=== PATIENT | female | born 1950 | race Caucasian/White ===

== ENCOUNTER 2021-10-08 22:22 | Emergency (ER) | payer MEDICARE, SELFPAY ==
[2021-10-08 22:33] VITALS: BP 139/82; BP 145/63; PULSE 88; RESP 18; TEMP 36.6; O2SAT 94; BMI 40.1
[2021-10-08 22:36] LABS: Glucose, Whole Blood 199 mg/dL (60-115)
--- NOTE | 2021-10-08 23:04 | ED_ITS ---
HPI - General Adult General Chief complaint: General Medical Stated complaint: URINARY RETENTION Time Seen by Provider: 10/08/21 23:04 Source: patient Mode of arrival: EMS Limitations: no limitations History of Present Illness HPI narrative: Patient history of diabetes with UTI take antibiotic prophylactically for UTI complaining of holding urine with anxiety but better scan showed only 19 cc of urine patient feels anxious asking for anxiety medicine no nausea no vomiting no fever Related Data Allergies Allergy/AdvReac Type Severity Reaction Status Date / Time Penicillins Allergy Mild HIVES Unverified 03/06/20 17:42 codeine [Codeine] AdvReac Mild SWEATS Unverified 03/06/20 17:42 Review of Systems Review of Systems: Yes all other systems are reviewed and are negative [facility] Social History Social History Advance Directives: No Advance Directives Information Provided: No Physical Exam ED Vital Signs: Vital Signs - 24 hr 10/08/21 22:33 10/09/21 00:35 Temperature 97.8 F 97.3 F Pulse Rate 88 80 Respiratory Rate 18 18 Blood Pressure 139/82 160/94 H Pulse Oximetry 94 97 BMI result Body Mass Index 40.1 Appearance: Alert. Oriented X3. No acute distress. Anxious ENT: Pharynx normal. Oral Mucosa moist Neck: Normal inspection. Neck supple. CVS: Normal heart rate and rhythm. Pulses normal. Respiratory: No respiratory distress. Equal air entry bilateral Abdomen: Soft and nontender. Bowel sounds are present, no mass palpable, no CVA tenderness Skin: Skin warm and dry. Normal skin color. Normal skin turgor. Extremities: No lower extremity edema. Neuro: Oriented X 3. No motor deficit. No sensory deficit.No cerebellar signs , cranial nerves II-XII intact Medical Decision Making MDM Narrative Medical decision making narrative: Patient with no UTI findings no urinary retention feels anxious on arrival feel better after Ativan discharge patient home Lab Data Labs: Lab Results 10/08/21 10/09/21 Range/Units 22:33 00:01 POC Glucose 199 H (60-115) mg/dL Urine Color YELLOW Urine Appearance CLEAR Urine pH 7.0 (5.0-8.0) Ur Specific [place] 1.010 (1.005-1.025) Urine Protein TRACE (NEG-TRACE) MG/DL Urine Glucose (UA) NEG (NEG) MG/DL Urine Ketones NEG (NEG) MG/DL Urine Blood TRACE (NEG) Urine Nitrite NEG (NEG) Ur Leukocyte Esterase NEG (NEG) Urine RBC 0-2 (0) /HPF Urine WBC 0-2 (0-4) /HPF Ur Squamous Epith Cells 3+ /LPF Urine Bacteria 1+ /LPF Discharge Plan Discharge Clinical Impression: Anxiety Patient Disposition: Home, Self-Care Instructions: Anxiety (ED) Additional Instructions: Drink plenty of fluids Take your medications and follow up with PCP
[2021-10-08] MEDS: Phenazopyridine HCL 200 MG TABLET PO (23:55)
[2021-10-08] MEDS: LORazepam 1 MG TABLET PO (23:55)
[2021-10-09 00:12] LABS: Appearance Urine CLEAR; Color Urine YELLOW; Glucose Urine UA NEG (NEG); Leukocyte Esterase Urine NEG (NEG); Nitrite Urine NEG (NEG); UACC Culture Trigger NO; Urine Blood TRACE (NEG); Urine Ketones NEG (NEG); Urine Protein TRACE MG/DL (NEG-TRACE)
[2021-10-09 00:18] LABS: Bacteria Urine 1+ /LPF; RBC Urine 0-2 /HPF (0); Squamous Epithelial Cell Urine 3+ /LPF; WBC Urine 0-2 /HPF (0-4)
[2021-10-09 00:35] VITALS: BP 160/94; PULSE 80; RESP 18; TEMP 36.3; O2SAT 97
== END 2021-10-09 01:23 | disposition home or self-care (01) ==
PROVIDERS: Emergency Provider Internal Medicine
DX: R33.9 Retention of urine, unspecified (principal); F41.1 Generalized anxiety disorder; F43.0 Acute stress reaction
CPT/HCPCS: 81001; 82947; 99283; 99284

== ENCOUNTER 2022-03-18 21:54 | Observation (INO) | payer MEDICARE, SELFPAY ==
--- NOTE | ~2022-03-18 | CT_ITS ---
EXAMINATION: CT HEAD WITHOUT CONTRAST CLINICAL INFORMATION: Altered status COMPARISON: None TECHNIQUE: Contiguous axial imaging was performed from the skull base to vertex without intravenous administration of contrast. This CT examination was performed using dose optimization techniques as appropriate, variously including the following: *Automated exposure control *Adjustment of mA and/or kV according to patient size (this includes techniques or standardized protocols for targeted exams where dose is matched to indication/reason for exam; i.e. extremities or head) *Use of iterative reconstruction technique DLP: 1908 mGy-cm FINDINGS: Images degraded by motion artifact. There is no evidence of acute intracranial hemorrhage or territorial infarction. No abnormal mass effect or midline shift is seen. Smith to white matter differentiation is well preserved. No extra-axial fluid collections are identified. No hydrocephalus. No significant volume loss. There is no abnormal attenuation within the brain parenchyma. No acute osseous or soft tissue abnormality. The mastoid air cells and visualized portions of the paranasal sinuses are well aerated. CT/CT head/brain wo IV con IMPRESSION: Limited exam. No acute intracranial pathology.
--- NOTE | ~2022-03-18 | XR_ITS ---
EXAMINATION: XR CHEST CLINICAL INFORMATION: Altered mental status COMPARISON: CT chest 10/09/2019 TECHNIQUE: Frontal view of the chest was obtained. FINDINGS: Mild cardiac enlargement. No evidence of CHF. The lungs are poorly ventilated. Some coarse markings are present at the lung bases. No consolidations, suspicious lung masses or pleural effusions are seen XR/XR chest 1V IMPRESSION: No acute intrathoracic disease
[2022-03-18 22:00] VITALS: BP 115/52; PULSE 100; O2SAT 95
--- NOTE | 2022-03-18 22:01 | ECG_ITS ---
Test Reason : ALTERED MENTAL Blood Pressure : / mmHG Vent. Rate : 115 BPM Atrial Rate : 115 BPM P-R Int : 122 ms QRS Dur : 114 ms QT Int : 392 ms P-R-T Axes : 009 -30 027 degrees QTc Int : 542 ms Sinus tachycardia Left axis deviation Moderate voltage criteria for LVH, may be normal variant ( R in aVL , Samy product ) Possible Anterior infarct (cited on or before 18-MAR-2022) Prolonged QT Abnormal ECG When compared with ECG of 18-MAR-2022 22:03, No significant change was found Referred By: Addison Pedersen Electronically Signed By:WILD FLEMING
[2022-03-18 22:41] LABS: MANUAL DIFF FLAG NO
[2022-03-18 22:44] LABS: Venous Blood Gas Refer to POC result
[2022-03-18 22:46] LABS: Basophils Percent Auto 0.2 % (0-2); Eosinophils Percent Auto 0.1 % (0-4); Hemoglobin 13.9 g/dl (12.0-16.0); Imm Gran Pct Auto 0.6 % (0.0-0.4); Lymphocytes Absolute Auto 2.7 X10*3/uL (1.2-4.9); Lymphocytes Percent Auto 15.1 % (20-40); Mean Corpuscular HGB Conc 32.3 g/dl (31.0-35.0); Mean Corpuscular Hemoglobin 29.6 pg (27.0-33.0); Mean Corpuscular Volume 91.7 fL (80.0-98.0); Monocytes Absolute Auto 1.4 X10*3/uL (0.1-1.2); Monocytes Percent Auto 7.5 % (2-11); Neutrophils Absolute Auto 13.7 x10*3/uL (2.0-8.3); Neutrophils Percent Auto 76.5 % (45-73); Platelet Count 235 X10*3/uL (160-400); Red Blood Count 4.69 X10*6/uL (4.20-5.50); Red Cell Distribution Width 13.4 % (11.0-16.0); White Blood Count 17.9 X10*3/uL (4.8-10.8)
[2022-03-18 22:46] LABS: VBG Base Excess -1.2 mmol/L; VBG HCO3 22 mmol/L (22-26); VBG pCO2 32 mmHg; VBG pH 7.43 (7.32-7.43); VBG pO2 55 mmHg
[2022-03-18 22:48] LABS: Ammonia 29 umol/L (13-55); INTERNATIONAL NORM RATIO 1.2 (0.9-1.1); Prothrombin Time 13.9 SEC (10.0-13.1)
[2022-03-18 23:02] LABS: COVID-19 Test Negative (Negative)
[2022-03-18 23:03] LABS: Alanine Aminotransferase 39 U/L (0-31); Albumin Level 3.9 g/dL (3.5-5.0); Alkaline Phosphatase 80 U/L (39-117); Anion Gap 26 (12-20); Aspartate Amino Transferase 40 U/L (5-31); Bilirubin Total 0.5 mg/dL (0.0-1.0); Blood Urea Nitrogen 30 mg/dL (9-16); Calcium 9.1 mg/dL (8.4-10.2); Carbon Dioxide 20 mmol/L (22-29); Chloride 96 mmol/L (96-108); Estimated Glomerular Filt Rate 45; Glucose Random 385 mg/dL (60-115); Potassium 3.9 mmol/L (3.3-5.1); Sodium 138 mmol/L (135-145); Total Protein 7.3 g/dL (6.5-8.0)
[2022-03-18 23:13] VITALS: BP 129/61; PULSE 119; RESP 22; TEMP 37.2; O2SAT 97; BMI 43.0
[2022-03-18 23:16] LABS: Troponin-I High Sensitivity < 3.5 ng/L (<3.5-17.0)
--- NOTE | 2022-03-18 23:16 | ED_ITS ---
HPI - Altered Mental Status General Chief Complaint: Altered Mental Status Stated Complaint: AMS Time Seen by Provider: 03/18/22 22:00 Source: EMS Mode of arrival: EMS Limitations: altered mental status History of Present Illness HPI narrative: Patient with history of diabetes, frequent UTI brought by EMS for AMS. Apparently patient's spouse talked to her at 10:30 am she told him not to wake her up but she wants to sleep and she is tired as could not sleep last night. when came back at 14:30 she was in the bed at 17:00 when she did wake up got worried tried to wake her up and when she did not ,prior to arrival she he called the ambulance. When EMS reached they found empty bottle of oxyco done next to her. Pupils are pinpoint, no seizures , slurred speech, EMS gave her 1 mg of Narcan IV patient woke up move her all 4 extremities no signs of injury but still confused Related Data Allergies Allergy/AdvReac Type Severity Reaction Status Date / Time Penicillins Allergy Mild HIVES Unverified 03/06/20 17:42 codeine [Codeine] AdvReac Mild SWEATS Unverified 03/06/20 17:42 Review of Systems Review of Systems: Yes all other systems are reviewed and are negative [facility] Social History Social History Advance Directives: No Advance Directives Information Provided: No Physical Exam ED Vital Signs: Vital Signs - 24 hr 03/18/22 23:13 03/19/22 00:05 03/19/22 02:00 Temperature 98.9 F Pulse Rate 119 H 102 H 94 Respiratory Rate 22 H 20 16 Blood Pressure 129/61 Pulse Oximetry 97 96 Oxygen Delivery Method Nasal Cannula Nasal Cannula with ETCO2 Nasal Cannula with ETCO2 BMI result Body Mass Index 43.0 Appearance: Lethargic obese confused. Restless Eyes: PERRLA, No Nystagmus ENT: Pharynx normal. Oral Mucosa moist Neck: Normal inspection. Neck supple. CVS: Normal heart rate and rhythm. Pulses normal. Respiratory: No respiratory distress. Equal air entry bilateral, no wheezing/rales/rhonchi Abdomen: Soft and nontender. Bowel sounds are present, no mass palpable, no CVA tenderness Skin: Skin warm and dry. Normal skin color. Normal skin turgor. Extremities: No lower extremity edema. No calf tenderness Neuro: Lethargic and confused moving all 4 extremities Course Reevaluation(s) Reevaluation #1: Patient with acute metabolic encephalopathy etiology is not very clear workup so far is negative patient improved during stay in ER history took 1 extra oxycodone but is still groggy and sleepy able to stand but very confused has elevated lactic acid level was normal procalcitonin is no source of infection seen received prophylactic antibiotics blood cultures drawn CT head is negative no focal exam will admit patient for metabolic encephalopathy and anion gap metabolic acidosis Time: 04:22 MDM - Altered Mental Status MDM Narrative Medical decision making narrative: Patient acute metabolic encephalopathy etiology not very clear likely oxycodone overdose will admit the patient for IV hydration close watch will give prophylactic antibiotic for and anger metabolic acidosis with lactic acidosis although procalcitonin level is normal Lab Data Attestation: I reviewed the patient's lab results. Result diagrams: 03/18/22 22:34 03/18/22 22:34 Labs: Lab Results 03/18/22 03/18/22 03/18/22 Range/Units 22:34 22:34 22:34 WBC 17.9 H (4.8-10.8) X10*3/uL RBC 4.69 (4.20-5.50) X10*6/uL Hgb 13.9 (12.0-16.0) g/dl Hct 43.0 (37.0-47.0) % MCV 91.7 (80.0-98.0) fL MCH 29.6 (27.0-33.0) pg MCHC 32.3 (31.0-35.0) g/dl RDW 13.4 (11.0-16.0) % Plt Count 235 (160-400) X10*3/uL MPV 11.0 (9.4-12.3) fL Immature Gran % (Auto) 0.6 H (0.0-0.4) % Neut % (Auto) 76.5 H (45-73) % Lymph % (Auto) 15.1 L (20-40) % [place] % (Auto) 7.5 (2-11) % Eos % (Auto) 0.1 (0-4) % Baso % (Auto) 0.2 (0-2) % Lymph # (Auto) 2.7 (1.2-4.9) X10*3/uL [place] # (Auto) 1.4 H (0.1-1.2) X10*3/uL Eos # (Auto) 0.0 (0.0-0.4) X10*3/uL Baso # (Auto) 0.0 (0.0-0.2) X10*3/uL Abs Immat Gran (auto) 0.10 H (0.00-0.03) X10*3/uL Absolute Neuts (auto) 13.7 H (2.0-8.3) x10*3/uL Absolute Nucleated RBC 0.000 (0.0-0.012) X10*3/uL Nucleated RBC % (auto) 0.0 (0.0-0.2) /100WBC PT 13.9 H (10.0-13.1) SEC INR 1.2 H (0.9-1.1) VBG pH (7.32-7.43) VBG pCO2 mmHg VBG pO2 mmHg VBG HCO3 (22-26) mmol/L VBG O2 Saturation % VBG Base Excess mmol/L Sodium 138 (135-145) mmol/L Potassium 3.9 (3.3-5.1) mmol/L Chloride 96 (96-108) mmol/L Carbon Dioxide 20 L (22-29) mmol/L Anion Gap 26 H (12-20) BUN 30 H (9-16) mg/dL Creatinine 1.17 (0.5-1.4) mg/dL Estim Creat Clear Calc TNP Estimated GFR 45 POC Glucose (60-115) mg/dL Random Glucose 385 H* (60-115) mg/dL Lactic Acid (0.5-2.0) mmol/L Lactic Acid F/U @ 2Hr (0.5-2.0) mmol/L Calcium 9.1 (8.4-10.2) mg/dL Total Bilirubin 0.5 (0.0-1.0) mg/dL AST 40 H (5-31) U/L ALT 39 H (0-31) U/L Alkaline Phosphatase 80 (39-117) U/L Ammonia (13-55) umol/L Total Creatine Kinase 730 H (26-140) U/L Troponin I High Sens (<3.5-17.0) ng/L Total Protein 7.3 (6.5-8.0) g/dL Albumin 3.9 (3.5-5.0) g/dL Procalcitonin ng/mL Urine Color Urine Appearance Urine pH (5.0-9.0) Ur Specific [place] (1.005-1.025) Urine Protein (Neg-Trace) mg/dL Urine Glucose (UA) (Negative) mg/dL Urine Ketones (Negative) mg/dL Urine Blood (Negative) Urine Nitrite (Negative) Ur Leukocyte Esterase (Negative) Urine RBC (0-2) /HPF Urine WBC (0-5) /HPF Ur Squamous Epith Cells (0-2) /HPF Urine Bacteria (None Seen) Hyaline Casts (0-2) /LPF Urine Yeast Urine Opiates Screen (Not Detect) Urine Fentanyl Screen (Not Detect) Ur Barbiturates Screen (Not Detect) Ur Phencyclidine Scrn (Not Detect) Ur Amphetamines Screen (Not Detect) U Benzodiazepines Scrn (Not Detect) Urine Cocaine Screen (Not Detect) U Marijuana (THC) Screen (Not Detect) COVID-19 (DOUGLAS) (Negative) COVID-19 Clin Com HIV 1&2 Ab/P24 Ag 4thGn (Nonreactive) 03/18/22 03/18/22 03/18/22 Range/Units 22:34 22:34 22:34 WBC (4.8-10.8) X10*3/uL RBC (4.20-5.50) X10*6/uL Hgb (12.0-16.0) g/dl Hct (37.0-47.0) % MCV (80.0-98.0) fL MCH (27.0-33.0) pg MCHC (31.0-35.0) g/dl RDW (11.0-16.0) % Plt Count (160-400) X10*3/uL MPV (9.4-12.3) fL Immature Gran % (Auto) (0.0-0.4) % Neut % (Auto) (45-73) % Lymph % (Auto) (20-40) % [place] % (Auto) (2-11) % Eos % (Auto) (0-4) % Baso % (Auto) (0-2) % Lymph # (Auto) (1.2-4.9) X10*3/uL [place] # (Auto) (0.1-1.2) X10*3/uL Eos # (Auto) (0.0-0.4) X10*3/uL Baso # (Auto) (0.0-0.2) X10*3/uL Abs Immat Gran (auto) (0.00-0.03) X10*3/uL Absolute Neuts (auto) (2.0-8.3) x10*3/uL Absolute Nucleated RBC (0.0-0.012) X10*3/uL Nucleated RBC % (auto) (0.0-0.2) /100WBC PT (10.0-13.1) SEC INR (0.9-1.1) VBG pH (7.32-7.43) VBG pCO2 mmHg VBG pO2 mmHg VBG HCO3 (22-26) mmol/L VBG O2 Saturation % VBG Base Excess mmol/L Sodium (135-145) mmol/L Potassium (3.3-5.1) mmol/L Chloride (96-108) mmol/L Carbon Dioxide (22-29) mmol/L Anion Gap (12-20) BUN (9-16) mg/dL Creatinine (0.5-1.4) mg/dL Estim Creat Clear Calc Estimated GFR POC Glucose (60-115) mg/dL Random Glucose (60-115) mg/dL Lactic Acid (0.5-2.0) mmol/L Lactic Acid F/U @ 2Hr (0.5-2.0) mmol/L Calcium (8.4-10.2) mg/dL Total Bilirubin (0.0-1.0) mg/dL AST (5-31) U/L ALT (0-31) U/L Alkaline Phosphatase (39-117) U/L Ammonia 29 (13-55) umol/L Total Creatine Kinase (26-140) U/L Troponin I High Sens < 3.5 (<3.5-17.0) ng/L Total Protein (6.5-8.0) g/dL Albumin (3.5-5.0) g/dL Procalcitonin ng/mL Urine Color Urine Appearance Urine pH (5.0-9.0) Ur Specific [place] (1.005-1.025) Urine Protein (Neg-Trace) mg/dL Urine Glucose (UA) (Negative) mg/dL Urine Ketones (Negative) mg/dL Urine Blood (Negative) Urine Nitrite (Negative) Ur Leukocyte Esterase (Negative) Urine RBC (0-2) /HPF Urine WBC (0-5) /HPF Ur Squamous Epith Cells (0-2) /HPF Urine Bacteria (None Seen) Hyaline Casts (0-2) /LPF Urine Yeast Urine Opiates Screen (Not Detect) Urine Fentanyl Screen (Not Detect) Ur Barbiturates Screen (Not Detect) Ur Phencyclidine Scrn (Not Detect) Ur Amphetamines Screen (Not Detect) U Benzodiazepines Scrn (Not Detect) Urine Cocaine Screen (Not Detect) U Marijuana (THC) Screen (Not Detect) COVID-19 (DOUGLAS) Negative (Negative) COVID-19 Clin Com See Note HIV 1&2 Ab/P24 Ag 4thGn (Nonreactive) 03/18/22 03/18/22 03/19/22 Range/Units 22:40 23:04 00:34 WBC (4.8-10.8) X10*3/uL RBC (4.20-5.50) X10*6/uL Hgb (12.0-16.0) g/dl Hct (37.0-47.0) % MCV (80.0-98.0) fL MCH (27.0-33.0) pg MCHC (31.0-35.0) g/dl RDW (11.0-16.0) % Plt Count (160-400) X10*3/uL MPV (9.4-12.3) fL Immature Gran % (Auto) (0.0-0.4) % Neut % (Auto) (45-73) % Lymph % (Auto) (20-40) % [place] % (Auto) (2-11) % Eos % (Auto) (0-4) % Baso % (Auto) (0-2) % Lymph # (Auto) (1.2-4.9) X10*3/uL [place] # (Auto) (0.1-1.2) X10*3/uL Eos # (Auto) (0.0-0.4) X10*3/uL Baso # (Auto) (0.0-0.2) X10*3/uL Abs Immat Gran (auto) (0.00-0.03) X10*3/uL Absolute Neuts (auto) (2.0-8.3) x10*3/uL Absolute Nucleated RBC (0.0-0.012) X10*3/uL Nucleated RBC % (auto) (0.0-0.2) /100WBC PT (10.0-13.1) SEC INR (0.9-1.1) VBG pH 7.43 (7.32-7.43) VBG pCO2 32 mmHg VBG pO2 55 mmHg VBG HCO3 22 (22-26) mmol/L VBG O2 Saturation 89.0 % VBG Base Excess -1.2 mmol/L Sodium (135-145) mmol/L Potassium (3.3-5.1) mmol/L Chloride (96-108) mmol/L Carbon Dioxide (22-29) mmol/L Anion Gap (12-20) BUN (9-16) mg/dL Creatinine (0.5-1.4) mg/dL Estim Creat Clear Calc Estimated GFR POC Glucose (60-115) mg/dL Random Glucose (60-115) mg/dL Lactic Acid (0.5-2.0) mmol/L Lactic Acid F/U @ 2Hr (0.5-2.0) mmol/L Calcium (8.4-10.2) mg/dL Total Bilirubin (0.0-1.0) mg/dL AST (5-31) U/L ALT (0-31) U/L Alkaline Phosphatase (39-117) U/L Ammonia (13-55) umol/L Total Creatine Kinase (26-140) U/L Troponin I High Sens (<3.5-17.0) ng/L Total Protein (6.5-8.0) g/dL Albumin (3.5-5.0) g/dL Procalcitonin ng/mL Urine Color Urine Appearance Urine pH (5.0-9.0) Ur Specific [place] (1.005-1.025) Urine Protein (Neg-Trace) mg/dL Urine Glucose (UA) (Negative) mg/dL Urine Ketones (Negative) mg/dL Urine Blood (Negative) Urine Nitrite (Negative) Ur Leukocyte Esterase (Negative) Urine RBC (0-2) /HPF Urine WBC (0-5) /HPF Ur Squamous Epith Cells (0-2) /HPF Urine Bacteria (None Seen) Hyaline Casts (0-2) /LPF Urine Yeast Urine Opiates Screen Not Detected (Not Detect) Urine Fentanyl Screen Not Detected (Not Detect) Ur Barbiturates Screen Not Detected (Not Detect) Ur Phencyclidine Scrn Not Detected (Not Detect) Ur Amphetamines Screen Not Detected (Not Detect) U Benzodiazepines Scrn Not Detected (Not Detect) Urine Cocaine Screen Not Detected (Not Detect) U Marijuana (THC) Screen Not Detected (Not Detect) COVID-19 (DOUGLAS) (Negative) COVID-19 Clin Com HIV 1&2 Ab/P24 Ag 4thGn Nonreactive (Nonreactive) 03/19/22 03/19/22 03/19/22 Range/Units 00:35 02:07 02:42 WBC (4.8-10.8) X10*3/uL RBC (4.20-5.50) X10*6/uL Hgb (12.0-16.0) g/dl Hct (37.0-47.0) % MCV (80.0-98.0) fL MCH (27.0-33.0) pg MCHC (31.0-35.0) g/dl RDW (11.0-16.0) % Plt Count (160-400) X10*3/uL MPV (9.4-12.3) fL Immature Gran % (Auto) (0.0-0.4) % Neut % (Auto) (45-73) % Lymph % (Auto) (20-40) % [place] % (Auto) (2-11) % Eos % (Auto) (0-4) % Baso % (Auto) (0-2) % Lymph # (Auto) (1.2-4.9) X10*3/uL [place] # (Auto) (0.1-1.2) X10*3/uL Eos # (Auto) (0.0-0.4) X10*3/uL Baso # (Auto) (0.0-0.2) X10*3/uL Abs Immat Gran (auto) (0.00-0.03) X10*3/uL Absolute Neuts (auto) (2.0-8.3) x10*3/uL Absolute Nucleated RBC (0.0-0.012) X10*3/uL Nucleated RBC % (auto) (0.0-0.2) /100WBC PT (10.0-13.1) SEC INR (0.9-1.1) VBG pH (7.32-7.43) VBG pCO2 mmHg VBG pO2 mmHg VBG HCO3 (22-26) mmol/L VBG O2 Saturation % VBG Base Excess mmol/L Sodium (135-145) mmol/L Potassium (3.3-5.1) mmol/L Chloride (96-108) mmol/L Carbon Dioxide (22-29) mmol/L Anion Gap (12-20) BUN (9-16) mg/dL Creatinine (0.5-1.4) mg/dL Estim Creat Clear Calc Estimated GFR POC Glucose (60-115) mg/dL Random Glucose (60-115) mg/dL Lactic Acid 3.7 H* (0.5-2.0) mmol/L Lactic Acid F/U @ 2Hr (0.5-2.0) mmol/L Calcium (8.4-10.2) mg/dL Total Bilirubin (0.0-1.0) mg/dL AST (5-31) U/L ALT (0-31) U/L Alkaline Phosphatase (39-117) U/L Ammonia (13-55) umol/L Total Creatine Kinase (26-140) U/L Troponin I High Sens (<3.5-17.0) ng/L Total Protein (6.5-8.0) g/dL Albumin (3.5-5.0) g/dL Procalcitonin 0.18 ng/mL Urine Color Yellow Urine Appearance Clear Urine pH 6.0 (5.0-9.0) Ur Specific [place] 1.025 (1.005-1.025) Urine Protein 30 (1+) H (Neg-Trace) mg/dL Urine Glucose (UA) >=1000 H (Negative) mg/dL Urine Ketones Negative (Negative) mg/dL Urine Blood Negative (Negative) Urine Nitrite Negative (Negative) Ur Leukocyte Esterase Negative (Negative) Urine RBC 0-2 (0-2) /HPF Urine WBC 0-5 (0-5) /HPF Ur Squamous Epith Cells 0-2 (0-2) /HPF Urine Bacteria Trace (None Seen) Hyaline Casts 0-2 (0-2) /LPF Urine Yeast Present Urine Opiates Screen (Not Detect) Urine Fentanyl Screen (Not Detect) Ur Barbiturates Screen (Not Detect) Ur Phencyclidine Scrn (Not Detect) Ur Amphetamines Screen (Not Detect) U Benzodiazepines Scrn (Not Detect) Urine Cocaine Screen (Not Detect) U Marijuana (THC) Screen (Not Detect) COVID-19 (DOUGLAS) (Negative) COVID-19 Clin Com HIV 1&2 Ab/P24 Ag 4thGn (Nonreactive) 03/19/22 03/19/22 Range/Units 04:48 04:50 WBC (4.8-10.8) X10*3/uL RBC (4.20-5.50) X10*6/uL Hgb (12.0-16.0) g/dl Hct (37.0-47.0) % MCV (80.0-98.0) fL MCH (27.0-33.0) pg MCHC (31.0-35.0) g/dl RDW (11.0-16.0) % Plt Count (160-400) X10*3/uL MPV (9.4-12.3) fL Immature Gran % (Auto) (0.0-0.4) % Neut % (Auto) (45-73) % Lymph % (Auto) (20-40) % [place] % (Auto) (2-11) % Eos % (Auto) (0-4) % Baso % (Auto) (0-2) % Lymph # (Auto) (1.2-4.9) X10*3/uL [place] # (Auto) (0.1-1.2) X10*3/uL Eos # (Auto) (0.0-0.4) X10*3/uL Baso # (Auto) (0.0-0.2) X10*3/uL Abs Immat Gran (auto) (0.00-0.03) X10*3/uL Absolute Neuts (auto) (2.0-8.3) x10*3/uL Absolute Nucleated RBC (0.0-0.012) X10*3/uL Nucleated RBC % (auto) (0.0-0.2) /100WBC PT (10.0-13.1) SEC INR (0.9-1.1) VBG pH (7.32-7.43) VBG pCO2 mmHg VBG pO2 mmHg VBG HCO3 (22-26) mmol/L VBG O2 Saturation % VBG Base Excess mmol/L Sodium (135-145) mmol/L Potassium (3.3-5.1) mmol/L Chloride (96-108) mmol/L Carbon Dioxide (22-29) mmol/L Anion Gap (12-20) BUN (9-16) mg/dL Creatinine (0.5-1.4) mg/dL Estim Creat Clear Calc Estimated GFR POC Glucose 275 H (60-115) mg/dL Random Glucose (60-115) mg/dL Lactic Acid (0.5-2.0) mmol/L Lactic Acid F/U @ 2Hr 2.5 H* (0.5-2.0) mmol/L Calcium (8.4-10.2) mg/dL Total Bilirubin (0.0-1.0) mg/dL AST (5-31) U/L ALT (0-31) U/L Alkaline Phosphatase (39-117) U/L Ammonia (13-55) umol/L Total Creatine Kinase (26-140) U/L Troponin I High Sens (<3.5-17.0) ng/L Total Protein (6.5-8.0) g/dL Albumin (3.5-5.0) g/dL Procalcitonin ng/mL Urine Color Urine Appearance Urine pH (5.0-9.0) Ur Specific [place] (1.005-1.025) Urine Protein (Neg-Trace) mg/dL Urine Glucose (UA) (Negative) mg/dL Urine Ketones (Negative) mg/dL Urine Blood (Negative) Urine Nitrite (Negative) Ur Leukocyte Esterase (Negative) Urine RBC (0-2) /HPF Urine WBC (0-5) /HPF Ur Squamous Epith Cells (0-2) /HPF Urine Bacteria (None Seen) Hyaline Casts (0-2) /LPF Urine Yeast Urine Opiates Screen (Not Detect) Urine Fentanyl Screen (Not Detect) Ur Barbiturates Screen (Not Detect) Ur Phencyclidine Scrn (Not Detect) Ur Amphetamines Screen (Not Detect) U Benzodiazepines Scrn (Not Detect) Urine Cocaine Screen (Not Detect) U Marijuana (THC) Screen (Not Detect) COVID-19 (DOUGLAS) (Negative) COVID-19 Clin Com HIV 1&2 Ab/P24 Ag 4thGn (Nonreactive) ECG Data ECG #1: Attestation: I personally reviewed and interpreted this ECG as follows: Interpretation: Since the cardia with heart rate 115 beats per minute LVH prolonged QT interval [address] T wave changes no acute ischemia Critical Care Time Critical Care Time Critical Care Time: Yes Total Critical Care Time: 55 Attestation: I spent 55 minutes of critical care, with interventions, assessments, speaking to patient, consultants, and family. Discharge Plan Discharge Clinical Impression: Acute metabolic encephalopathy, Acidosis, lactic, High anion gap metabolic acidosis, Overdose Patient Disposition: Admitted As Inpatient
[2022-03-18] MEDS: 0.9 % Sodium Chloride 1,000 ML 999 ML IV (23:19)
[2022-03-18] MEDS: Insulin Lispro 100 UNIT/ML 3 ML VIAL 10 UNIT SUBCUT (23:23)
[2022-03-19] VITALS (9 sets, daily range): BP systolic 104–163; BP diastolic 63–78; PULSE 88–102; RESP 16–20; TEMP 36.3–37.5; O2SAT 94–97
[2022-03-19 00:07] LABS: HIV AB/AG Nonreactive (Nonreactive)
[2022-03-19 00:43] LABS: Appearance Urine Clear; Color Urine Yellow; Glucose Urine UA >=1000 mg/dL (Negative); Leukocyte Esterase Urine Negative (Negative); Nitrite Urine Negative (Negative); Specific Gravity - Urine 1.025 (1.005-1.025); UMIC TRIGGER UACC YES; Urine Blood Negative (Negative); Urine Ketones Negative (Negative); Urine Protein 30 (1+) mg/dL (Neg-Trace)
[2022-03-19 00:53] LABS: Amphetamine Screen Urine Not Detected (Not Detect); Barbiturates, Urine Not Detected (Not Detect); Benzodiazepines Screen Urine Not Detected (Not Detect); Cannabinoid Screen Urine Not Detected (Not Detect); Cocaine Screen Urine Not Detected (Not Detect); Fentanyl, urine Not Detected (Not Detect); Opiate Screen Urine Not Detected (Not Detect); Phencyclidine Screen Urine Not Detected (Not Detect)
[2022-03-19 01:14] LABS: Bacteria Urine Trace (None Seen); Hyaline Casts Urine 0-2 /LPF (0-2); RBC Urine 0-2 /HPF (0-2); Squamous Epithelial Cell Urine 0-2 /HPF (0-2); WBC Urine 0-5 /HPF (0-5)
[2022-03-19] MEDS: 0.9 % Sodium Chloride 1,000 ML 999 ML IV ×2 (02:19→03:48)
[2022-03-19 02:28] LABS: Lactic Acid 3.7 mmol/L (0.5-2.0)
[2022-03-19] MEDS: cefTRIAXone sodium 1 GM in 0.9 % Sodium Chloride 50 ML IV (03:00)
[2022-03-19 04:09] LABS: Reflex Lactate? Lactic Acid Added
[2022-03-19 04:21] LABS: Procalcitonin 0.18 ng/mL
[2022-03-19 04:54] LABS: Glucose, Whole Blood 275 mg/dL (60-115)
--- NOTE | 2022-03-19 05:05 | PC.NURSE ---
Dr. Westfall notified of POC 275.
[2022-03-19 05:12] LABS: ~Lactic Acid-LAB USE ONLY 2.5 mmol/L (0.5-2.0)
--- NOTE | 2022-03-19 05:12 | PC.NURSE ---
Patient is alert, confused, speech is slurred and incoherent. This RN and [facility], technology analyst attempted to ambulate with patient. Patient provided a walker d/t noted issue with balance and ability to follow commands. Patient was able to stand up holding to a walker with 2 assist. Patient is able to bear her weight, but unable to ambulate d/t leg weakness and confusion. Patient failed PO trial-she is confused and was blowing on water instead of drinking it. Dr. Westfall notified.
--- OUTSIDE RECORDS SUMMARY | 2022-03-19 05:24 | XMS_ITS | Continuity of Care Document ---
:1950 Author Organization [facility] Address [address] [address]- Care Team Providers Name Role Phone Latricia BARNES, Conor Hernandez Primary Care Physician Encounter [facility] [place] Date(s): 04/15/21 - 05/15/21 [place] [id number] [address]- Attending Physician: Landon Arriaga Admitting Physician: Landon Arriaga Referring Physician: Admtr, Ar8 Allergies, Adverse Reactions, Alerts Substance Reaction Severity Status codeine COLD SWEAT Active penicillin Hives Active Medications megestrol 40 mg oral tablet 2 tablet = 80 mg, By Mouth, 2 times a day, # 120 tablet, 6 Refills, Maintenance Start Date: 10/29/11 Status: Ordered
--- OUTSIDE RECORDS SUMMARY | 2022-03-19 05:24 | XMS_ITS | Continuity of Care Document ---
:1950 Author Organization [facility] Address [address] [place] [id number]- Care Team Providers Name Role Phone Latricia BARNES, Conor Hernandez Primary Care Physician Encounter [facility] [place] Date(s): 04/03/21 - 05/03/21 [place] [id number] [address]- [place] Allergies, Adverse Reactions, Alerts Substance Reaction Severity Status codeine COLD SWEAT Active penicillin Hives Active Medications megestrol 40 mg oral tablet 2 tablet = 80 mg, By Mouth, 2 times a day, # 120 tablet, 6 Refills, Maintenance Start Date: 10/29/11 Status: Ordered
--- OUTSIDE RECORDS SUMMARY | 2022-03-19 05:24 | XMS_ITS | Continuity of Care Document ---
:1950 Author Organization [facility] Address [address] [place] [id number]- Care Team Providers Name Role Phone Latricia BARNES, Conor Hernandez Primary Care Physician Encounter [facility] [place] Date(s): 04/03/21 - 05/15/[address] [address]- Attending Physician: Radha Grijalva MD Admitting Physician: Radha Grijalva MD Referring Physician: Malena Muse NP Allergies, Adverse Reactions, Alerts Substance Reaction Severity Status codeine COLD SWEAT Active penicillin Hives Active Medications megestrol 40 mg oral tablet 2 tablet = 80 mg, By Mouth, 2 times a day, # 120 tablet, 6 Refills, Maintenance Start Date: 10/29/11 Status: Ordered
[2022-03-19 06:10] LABS: HBS Num1 1.08 mIU/mL (0-7.99); HBc Num1 0.38 S/CO (0.00-0.79); HBsAGNum1 0.23 S/CO (0.00-0.99); HIV Num 1 0.08 S/CO (0.00-0.99); Hepatitis B Core Antibody Nonreactive (Nonreactive); Hepatitis B Surface Antigen Negative (Negative); ~HepC Num1 0.19 S/CO (0.00-0.79); ~Hepatitis B Surface Antibody NONREACTIVE (Nonreactive)
[2022-03-19 06:50] LABS: Reflex Lactate? 2 Y
--- NOTE | 2022-03-19 07:25 | ECG_ITS ---
Test Reason : tachycardia Blood Pressure : / mmHG Vent. Rate : 119 BPM Atrial Rate : 119 BPM P-R Int : 118 ms QRS Dur : 108 ms QT Int : 372 ms P-R-T Axes : 011 -28 026 degrees QTc Int : 523 ms Sinus tachycardia Moderate voltage criteria for LVH, may be normal variant ( R in aVL , Samy product ) Anterior infarct , age undetermined Prolonged QT Abnormal ECG When compared with ECG of 09-OCT-2019 16:06, Vent. rate has increased BY 43 BPM Anterior infarct is now Present T wave amplitude has increased in Anterior leads Referred By: Addison Pedersen Electronically Signed By:WILD FLEMING
--- NOTE | 2022-03-19 07:36 | PC.NURSE ---
Pt is alert and oriented x3, able to recite where she lives and husbands name. Pt noted with slurred speech but appropriate. At times answers not making sense and some difficulty with simple commands. Other neuros appear intact..Skin is warm, pink and dry. Second IV access to left forearm. Fluids continue to infuse. Repeat lactic drawn/sent. NSR on tele. VSS. Placed on hospital bed for safety/comfort. Breathing even/unlabored.
[2022-03-19 09:47] LABS: Anion Gap 18 (12-20); Blood Urea Nitrogen 22 mg/dL (9-16); Calcium 9.1 mg/dL (8.4-10.2); Carbon Dioxide 26 mmol/L (22-29); Chloride 103 mmol/L (96-108); Creatinine Clr Calc Pharmacy 79.9; Estimated Glomerular Filt Rate 59; Glucose Random 270 mg/dL (60-115); Potassium 3.8 mmol/L (3.3-5.1); Sodium 143 mmol/L (135-145)
--- NOTE | 2022-03-19 09:49 | P.HPHOSP_ITS ---
History of Present Illness Date of Service: 03/19/22 Chief Complaint: changes in mental status This is a 72 yo F with a PMH (limited and obtained from chart review as the patient does not recall) who was brought in by ambulance after she was noticed by her to be increasingly lethargic. The patient does not have recollection of how she ended up here, but is now oriented to place and time. The reports that he attmpted to wake the patient up early AM on the day [employer]. At that time, the patient reported that she was tired and that she wanted to rest. Later in the afternoone / evening, she remained this way and was becoming more lethargic and hence he called EMS. The patient herself appears to be slowly improving. She reports that she feels weak and tired but better than yesterday. She is unsure why she was feeling this way. She dneies any current chest pain, sob, cough. When queried regarding her oxycodone -- she reports she is on oxcodone 20mg, but unsure how many times a day. She admits that she could have taken some extra oxycocone by accident. She denies SI or intentionally attempting to harm herself. She is not very sure of her chronic health problems. D/w her over the phone -- he reports that she usually manages her own medications and that he is unsure what meds and when she is to take them. Per ED documentation, the patient was given IV narcan and had some improvement in her lethargy. Her work up in the ED revealed leukocytosis, hyperglycemia, lactic acidosis. UA with glucose+ protein and trace bacteria, otherwise within normal limits. CT was limited but no acute intracranial pathology was appreciated. She was given insulin, IVF and IV rocephin. Her mentation is slowly improving but not at baseline. Hence she will be observeed. Below is obtained from a combination of chart review and patient. PMH DM HTN Hypothyroid GERD Chronic/Recurrent UTI PE (2019) PSH Mastoid surgery as a child total hysterectomy FH Mental health problems in brothers SH Lives with . Denies EtOH, tobacco or illicit substance abuse Review of Systems Review of Systems: negative except HPI PMFSH Social History Advance Directives: No Advance Directives Information Provided: No Meds Allergies Allergy/AdvReac Type Severity Reaction Status Date / Time Penicillins Allergy Mild HIVES Unverified 03/06/20 17:42 codeine [Codeine] AdvReac Mild SWEATS Unverified 03/06/20 17:42 Active Medications: Current Medications Acetaminophen (Acetaminophen 325 Mg Tablet) 650 mg PO Q6H PRN PRN Reason: Pain, Mild (Pain Scale 1-3) Enoxaparin Sodium (Enoxaparin Sodium 40 Mg/0.4 Ml Syringe) 40 mg SUBCUT Q24H JAXSON Ondansetron HCl (Ondansetron Hcl 4 Mg/2 Ml Vial) 4 mg IVPUSH Q8H PRN PRN Reason: Nausea and Vomiting Pharmacy Consult (Consult Rx Perform Med Rec) 1 each MISCELLANE ONCE PRN PRN Reason: Consult order Sodium Chloride (0.9 % Sodium Chloride Flush 3 Ml Syringe) 3 ml IVFLUSH QSHIFT JAXSON Home Medications Medication Instructions Recorded Confirmed Last Taken Type albuterol sulfate 90 mcg/actuation inhalation 03/19/22 Unknown History aerosol inhaler amlodipine 2.5 mg tablet 1 tab PO DAILY 03/19/22 03/19/22 Unknown History cephalexin 250 mg capsule 1 cap PO BEDTIME 03/19/22 Unknown History glipizide 10 mg tablet 1 tab PO BID 03/19/22 03/19/22 Unknown History insulin glargine 100 unit/mL (3 unit subcut 03/19/22 Unknown History mL) subcutaneous pen (Lantus Solostar U-100 Insulin) levothyroxine 88 mcg tablet 1 tab PO DAILY 03/19/22 03/19/22 Unknown History lisinopril 20 1 tab PO DAILY 03/19/22 03/19/22 Unknown History mg-hydrochlorothiazide 25 mg tablet mometasone 100 mcg/actuation HFA 2 puff inhalation BID 03/19/22 03/19/22 Unknown History aerosol inhaler (Asmanex HFA) montelukast 10 mg tablet 1 tab PO DAILY 03/19/22 03/19/22 Unknown History omeprazole 20 mg capsule,delayed 1 cap PO BID 03/19/22 03/19/22 Unknown History release pravastatin 40 mg tablet 1.5 tab PO DAILY 03/19/22 03/19/22 Unknown History quetiapine 200 mg tablet (Seroquel) 1.5 tab PO BEDTIME 03/19/22 03/19/22 Unknown History quetiapine 50 mg tablet (Seroquel) 1 tab PO BEDTIME 03/19/22 03/19/22 Unknown History trazodone 100 mg tablet 1 tab PO BEDTIME 03/19/22 03/19/22 Unknown History venlafaxine 150 mg 1 cap PO QAM 03/19/22 Unknown History capsule,extended release 24 hr (Effexor XR) venlafaxine 75 mg capsule,extended 1 cap PO QAM 03/19/22 Unknown History release 24 hr (Effexor XR) warfarin 2.5 mg tablet 1 tab PO DAILY 03/19/22 03/19/22 Unknown History warfarin 5 mg tablet 1 tab PO DAILY 03/19/22 03/19/22 Unknown History Physical Exam Vital Signs and Narrative: Vital Signs: Last Vital Signs Temp 97.4 F 03/19/22 07:35 Pulse 99 03/19/22 07:35 Resp 16 03/19/22 07:35 BP 157/77 H 03/19/22 07:35 Pulse Ox 97 03/19/22 07:35 O2 Del Method 03/19/22 07:35 O2 Flow Rate 2 03/19/22 07:35 Oxygen Flow Rate 2 03/18/22 23:13 BMI result Body Mass Index 43.0 Const: Other: Constitutional - Awake and Alert, No apparent distress Eyes - PERRLA, EOMI Cardiovascular - S1S2, RRR, No edema Respiratory - Normal lung expansion, Normal respiratory effort, No respiratory distress, CTA bilaterally Gastrointestinal - NT / ND; +BS; No rebound or guarding - No CVA tenderness Extremities - no calf tenderness bilaterally, no swelling Musculoskeletal - Normal inspection, normal ROM Skin - Warm/Dry Neurological - Obeying commands, speech comprehensible, no focal motor deficits, CN 2-12 intact; moving all 4 limbs; knows the year, month; disoriented to day of week Psychological - Appropriate affect Results Labs CBC and Chem 7: 03/18/22 22:34 03/19/22 09:26 Labs: Laboratory Results - last 24 hr 03/18/22 03/18/22 03/18/22 22:34 22:34 22:34 MCV 91.7 MCH 29.6 MCHC 32.3 RDW 13.4 Plt Count 235 MPV 11.0 Immature Gran % (Auto) 0.6 H Neut % (Auto) 76.5 H Lymph % (Auto) 15.1 L [place] % (Auto) 7.5 Eos % (Auto) 0.1 Baso % (Auto) 0.2 Lymph # (Auto) 2.7 [place] # (Auto) 1.4 H Eos # (Auto) 0.0 Baso # (Auto) 0.0 Abs Immat Gran (auto) 0.10 H Absolute Neuts (auto) 13.7 H Absolute Nucleated RBC 0.000 Nucleated RBC % (auto) 0.0 PT 13.9 H INR 1.2 H VBG pH VBG pCO2 VBG pO2 VBG HCO3 VBG O2 Saturation VBG Base Excess Anion Gap 26 H Estim Creat Clear Calc TNP Estimated GFR 45 POC Glucose Random Glucose 385 H* Lactic Acid Lactic Acid F/U @ 2Hr Lactic Acid F/U @ 4Hr Calcium 9.1 Total Bilirubin 0.5 AST 40 H ALT 39 H Alkaline Phosphatase 80 Ammonia Total Creatine Kinase 730 H Troponin I High Sens Total Protein 7.3 Albumin 3.9 Procalcitonin Urine Color Urine Appearance Urine pH Ur Specific [place] Urine Protein Urine Glucose (UA) Urine Ketones Urine Blood Urine Nitrite Ur Leukocyte Esterase Urine RBC Urine WBC Ur Squamous Epith Cells Urine Bacteria Hyaline Casts Urine Yeast Urine Opiates Screen Urine Fentanyl Screen Ur Barbiturates Screen Ur Phencyclidine Scrn Ur Amphetamines Screen U Benzodiazepines Scrn Urine Cocaine Screen U Marijuana (THC) Screen COVID-19 ([facility]) COVID-19 Clin Com HIV 1&2 Ab/P24 Ag 4thGn 03/18/22 03/18/22 03/18/22 22:34 22:34 22:34 MCV MCH MCHC RDW Plt Count MPV Immature Gran % (Auto) Neut % (Auto) Lymph % (Auto) [place] % (Auto) Eos % (Auto) Baso % (Auto) Lymph # (Auto) [place] # (Auto) Eos # (Auto) Baso # (Auto) Abs Immat Gran (auto) Absolute Neuts (auto) Absolute Nucleated RBC Nucleated RBC % (auto) PT INR VBG pH VBG pCO2 VBG pO2 VBG HCO3 VBG O2 Saturation VBG Base Excess Anion Gap Estim Creat Clear Calc Estimated GFR POC Glucose Random Glucose Lactic Acid Lactic Acid F/U @ 2Hr Lactic Acid F/U @ 4Hr Calcium Total Bilirubin AST ALT Alkaline Phosphatase Ammonia 29 Total Creatine Kinase Troponin I High Sens < 3.5 Total Protein Albumin Procalcitonin Urine Color Urine Appearance Urine pH Ur Specific [place] Urine Protein Urine Glucose (UA) Urine Ketones Urine Blood Urine Nitrite Ur Leukocyte Esterase Urine RBC Urine WBC Ur Squamous Epith Cells Urine Bacteria Hyaline Casts Urine Yeast Urine Opiates Screen Urine Fentanyl Screen Ur Barbiturates Screen Ur Phencyclidine Scrn Ur Amphetamines Screen U Benzodiazepines Scrn Urine Cocaine Screen U Marijuana (THC) Screen COVID-19 ([facility]) Negative COVID-19 Clin Com See Note HIV 1&2 Ab/P24 Ag 4thGn 03/18/22 03/18/22 03/19/22 22:40 23:04 00:34 MCV MCH MCHC RDW Plt Count MPV Immature Gran % (Auto) Neut % (Auto) Lymph % (Auto) [place] % (Auto) Eos % (Auto) Baso % (Auto) Lymph # (Auto) [place] # (Auto) Eos # (Auto) Baso # (Auto) Abs Immat Gran (auto) Absolute Neuts (auto) Absolute Nucleated RBC Nucleated RBC % (auto) PT INR VBG pH 7.43 VBG pCO2 32 VBG pO2 55 VBG HCO3 22 VBG O2 Saturation 89.0 VBG Base Excess -1.2 Anion Gap Estim Creat Clear Calc Estimated GFR POC Glucose Random Glucose Lactic Acid Lactic Acid F/U @ 2Hr Lactic Acid F/U @ 4Hr Calcium Total Bilirubin AST ALT Alkaline Phosphatase Ammonia Total Creatine Kinase Troponin I High Sens Total Protein Albumin Procalcitonin Urine Color Urine Appearance Urine pH Ur Specific [place] Urine Protein Urine Glucose (UA) Urine Ketones Urine Blood Urine Nitrite Ur Leukocyte Esterase Urine RBC Urine WBC Ur Squamous Epith Cells Urine Bacteria Hyaline Casts Urine Yeast Urine Opiates Screen Not Detected Urine Fentanyl Screen Not Detected Ur Barbiturates Screen Not Detected Ur Phencyclidine Scrn Not Detected Ur Amphetamines Screen Not Detected U Benzodiazepines Scrn Not Detected Urine Cocaine Screen Not Detected U Marijuana (THC) Screen Not Detected COVID-19 ([facility]) COVID-19 Clin Com HIV 1&2 Ab/P24 Ag 4thGn Nonreactive 03/19/22 03/19/22 03/19/22 00:35 02:07 02:42 MCV MCH MCHC RDW Plt Count MPV Immature Gran % (Auto) Neut % (Auto) Lymph % (Auto) [place] % (Auto) Eos % (Auto) Baso % (Auto) Lymph # (Auto) [place] # (Auto) Eos # (Auto) Baso # (Auto) Abs Immat Gran (auto) Absolute Neuts (auto) Absolute Nucleated RBC Nucleated RBC % (auto) PT INR VBG pH VBG pCO2 VBG pO2 VBG HCO3 VBG O2 Saturation VBG Base Excess Anion Gap Estim Creat Clear Calc Estimated GFR POC Glucose Random Glucose Lactic Acid 3.7 H* Lactic Acid F/U @ 2Hr Lactic Acid F/U @ 4Hr Calcium Total Bilirubin AST ALT Alkaline Phosphatase Ammonia Total Creatine Kinase Troponin I High Sens Total Protein Albumin Procalcitonin 0.18 Urine Color Yellow Urine Appearance Clear Urine pH 6.0 Ur Specific [place] 1.025 Urine Protein 30 (1+) H Urine Glucose (UA) >=1000 H Urine Ketones Negative Urine Blood Negative Urine Nitrite Negative Ur Leukocyte Esterase Negative Urine RBC 0-2 Urine WBC 0-5 Ur Squamous Epith Cells 0-2 Urine Bacteria Trace Hyaline Casts 0-2 Urine Yeast Present Urine Opiates Screen Urine Fentanyl Screen Ur Barbiturates Screen Ur Phencyclidine Scrn Ur Amphetamines Screen U Benzodiazepines Scrn Urine Cocaine Screen U Marijuana (THC) Screen COVID-19 ([facility]) COVID-19 Clin Com HIV 1&2 Ab/P24 Ag 4thGn 03/19/22 03/19/22 03/19/22 04:48 04:50 07:32 MCV MCH MCHC RDW Plt Count MPV Immature Gran % (Auto) Neut % (Auto) Lymph % (Auto) [place] % (Auto) Eos % (Auto) Baso % (Auto) Lymph # (Auto) [place] # (Auto) Eos # (Auto) Baso # (Auto) Abs Immat Gran (auto) Absolute Neuts (auto) Absolute Nucleated RBC Nucleated RBC % (auto) PT INR VBG pH VBG pCO2 VBG pO2 VBG HCO3 VBG O2 Saturation VBG Base Excess Anion Gap Estim Creat Clear Calc Estimated GFR POC Glucose 275 H Random Glucose Lactic Acid Lactic Acid F/U @ 2Hr 2.5 H* Lactic Acid F/U @ 4Hr 3.0 H* Calcium Total Bilirubin AST ALT Alkaline Phosphatase Ammonia Total Creatine Kinase Troponin I High Sens Total Protein Albumin Procalcitonin Urine Color Urine Appearance Urine pH Ur Specific [place] Urine Protein Urine Glucose (UA) Urine Ketones Urine Blood Urine Nitrite Ur Leukocyte Esterase Urine RBC Urine WBC Ur Squamous Epith Cells Urine Bacteria Hyaline Casts Urine Yeast Urine Opiates Screen Urine Fentanyl Screen Ur Barbiturates Screen Ur Phencyclidine Scrn Ur Amphetamines Screen U Benzodiazepines Scrn Urine Cocaine Screen U Marijuana (THC) Screen COVID-19 ([facility]) COVID-19 Clin Com HIV 1&2 Ab/P24 Ag 4thGn 03/19/22 09:26 MCV MCH MCHC RDW Plt Count MPV Immature Gran % (Auto) Neut % (Auto) Lymph % (Auto) [place] % (Auto) Eos % (Auto) Baso % (Auto) Lymph # (Auto) [place] # (Auto) Eos # (Auto) Baso # (Auto) Abs Immat Gran (auto) Absolute Neuts (auto) Absolute Nucleated RBC Nucleated RBC % (auto) PT INR VBG pH VBG pCO2 VBG pO2 VBG HCO3 VBG O2 Saturation VBG Base Excess Anion Gap 18 Estim Creat Clear Calc 79.9 Estimated GFR 59 POC Glucose Random Glucose 270 H Lactic Acid Lactic Acid F/U @ 2Hr Lactic Acid F/U @ 4Hr Calcium 9.1 Total Bilirubin AST ALT Alkaline Phosphatase Ammonia Total Creatine Kinase Troponin I High Sens Total Protein Albumin Procalcitonin Urine Color Urine Appearance Urine pH Ur Specific [place] Urine Protein Urine Glucose (UA) Urine Ketones Urine Blood Urine Nitrite Ur Leukocyte Esterase Urine RBC Urine WBC Ur Squamous Epith Cells Urine Bacteria Hyaline Casts Urine Yeast Urine Opiates Screen Urine Fentanyl Screen Ur Barbiturates Screen Ur Phencyclidine Scrn Ur Amphetamines Screen U Benzodiazepines Scrn Urine Cocaine Screen U Marijuana (THC) Screen COVID-19 ([facility]GLAS) COVID-19 Clin Com HIV 1&2 Ab/P24 Ag 4thGn Imaging Radiologist's Impressions: Impressions Chest X-Ray 03/18/22 11:16 IMPRESSION: No acute intrathoracic disease Head CT 03/19/22 01:15 IMPRESSION: Limited exam. No acute intracranial pathology. Assessment and Plan (1) Acute metabolic encephalopathy: Status: Acute Plan 72 yo F with mulitple medical problems including DM, HTN, Asthma/copd, PE in 2020 who presents with changes in mental status which appear to be improving, although she is not quiet at baseline. She is admitted for observation. 1. Acute toxic/metabolic encephalopathy UA and CXR negative for infectious etiology. Elevated BUN/Cr ratio point towards dehydration, but does not explain the severity of her mental status changes; These have improved with IVF administration. The patient apparently manages her own medications and does admit that she may have possibly taken an incorrect med (oxycodone) For now, hold all sedative meds and observe. If not improved, may need further evaluation. 2. History of Pulmonary Embolism The patient did not endorse this history. EMR reveals she was admitted for PE in 2019 and claim history shows she is to be on coumadin; Her INR is subtherapeutic -- will give treatment dose lovenox 1mg/kg x 1 right now; obtain records from PCP's office (Case mgmt and pharmacy are working on this). Restart coumadin and continue lovenox 1mg/kg after records from PCP obtained 3. Uncontrolled DM with hyperglycemia again, unclear which meds she is on or what she is taking -- to obtain records as above 4. Lactic Acidosis NOT due to severe sepsis 5. HTN continue baseline meds Full Code DVT pptx -- lovenox + coumadin Quality Stroke Does the patient have a stroke diagnosis?: No VTE Prior VTE?: Yes VTE Risk Level:: Medical - moderate - high VTE Device Contraindication: Treatment Not Indicated VTE Drug Contraindication: N/A - Med Ordered
[2022-03-19] MEDS: Enoxaparin Sodium 150 MG/ML SYRINGE 130 MG SUBCUT (10:04)
[2022-03-19 10:13] LABS: Hepatitis C Ab Exposure Source NonReactive (Nonreactive)
--- NOTE | 2022-03-19 10:43 | PHA.MEDREC ---
Pharmacy Consult ? Medication Reconciliation Pharmacy has completed the medication reconciliation. Pt confused and not making sense at bedside, unsure of medication list. Called PCP and was sent a list of current medications. I asked specifically about the warfarin dosing but person I spoke to was unable to confirm if she is on a specific dosing schedule, will alert Dr. Coulter.
[2022-03-19 12:25] LABS: Glucose, Whole Blood 232 mg/dL (60-115)
[2022-03-19] MEDS: Insulin Lispro 100 UNIT/ML 3 ML VIAL SUBCUT ×3 (13:09→21:16)
[2022-03-19 13:56] LABS: INTERNATIONAL NORM RATIO 1.2 (0.9-1.1); Prothrombin Time 14.1 SEC (10.0-13.1)
[2022-03-19 16:55] LABS: Glucose, Whole Blood 195 mg/dL (60-115)
[2022-03-19] MEDS: Omeprazole 20 MG CAPSULE.DR PO (18:20)
[2022-03-19] MEDS: Warfarin Sodium 5 MG TABLET PO (18:20)
[2022-03-19] MEDS: 0.9 % Sodium Chloride Flush 3 ML SYRINGE IVFLUSH (18:25)
[2022-03-19 21:00] LABS: Glucose, Whole Blood 244 mg/dL (60-115)
--- NOTE | 2022-03-19 21:13 | MHC.CM.PN ---
ABISAI 03/19. Met with patient. Pt able to answer questions, but vague at times. A&Ox4. Repeats herself and needs re-direction to answer questions. Speaking very quickly. Tells CM she accidentally took too many oxycodone, but does not really remember. Tells CM she has done this twice in the past. Tells CM she sets up her own medications. Pt lives with . Uses a cane/walker. Has O2 at night @2L from [employer]. No services. Vax/boosted/[employer]. Has therapist at [facility]. PCP is Dr. Rome and Psychiatrist is Dr. Gay. Has no transportation. Does not drive. does not have a license. Friends help with transportation. Pt feels that her legs are weak and may need PT. Does not want to go to [facility], but is willing to have home services. Pt is homebound. ? PT and CARE TEAM consult prior to discharge. Hiren text to Dr. Coulter with above concerns. Agrees with CM assessment. Asked that day hospitalist be contacted with concerns. Hiren text to Dr. Mahajan. D/C plan: Home with [facility]. Referrals placed. Will need transportation home. Pt not appropriate for lyft at this time secondary to altered mentation. CM to follow for d/c needs.
[2022-03-19] MEDS: Insulin Glargine,Hum.rec.anlog 100 UNIT/ML 10 ML VIAL 15 UNIT SUBCUT (21:15)
[2022-03-19] MEDS: Enoxaparin Sodium 100 MG/ML SYRINGE 95 MG SUBCUT (21:16)
[2022-03-19] MEDS: Albuterol/Iprat 2.5/0.5MG 3 ML AMPUL.NEB INHALE (21:32)
[2022-03-20] VITALS (9 sets, daily range): BP systolic 141–150; BP diastolic 69–90; PULSE 78–96; RESP 13–20; TEMP 36.4–37.6; O2SAT 92–96
[2022-03-20] MEDS: 0.9 % Sodium Chloride Flush 3 ML SYRINGE IVFLUSH ×4 (01:07→22:21)
[2022-03-20] MEDS: Levothyroxine Sodium 88 MCG TABLET PO (05:39)
[2022-03-20] MEDS: Omeprazole 20 MG CAPSULE.DR PO ×2 (05:39→16:37)
[2022-03-20 07:17] LABS: INTERNATIONAL NORM RATIO 1.2 (0.9-1.1); Prothrombin Time 13.5 SEC (10.0-13.1)
[2022-03-20 07:26] LABS: Anion Gap 19 (12-20); Blood Urea Nitrogen 26 mg/dL (9-16); Calcium 9.5 mg/dL (8.4-10.2); Carbon Dioxide 26 mmol/L (22-29); Chloride 100 mmol/L (96-108); Creatinine Clr Calc Pharmacy 84.5; Estimated Glomerular Filt Rate > 60; Glucose Random 232 mg/dL (60-115); Potassium 4.1 mmol/L (3.3-5.1); Sodium 141 mmol/L (135-145)
[2022-03-20] MEDS: Albuterol/Iprat 2.5/0.5MG 3 ML AMPUL.NEB INHALE ×4 (07:41→19:14)
[2022-03-20 08:25] LABS: Glucose, Whole Blood 257 mg/dL (60-115)
[2022-03-20 08:25] LABS: Hematocrit 42.1 % (37.0-47.0); Hemoglobin 13.6 g/dl (12.0-16.0); Mean Corpuscular HGB Conc 32.3 g/dl (31.0-35.0); Mean Corpuscular Hemoglobin 29.8 pg (27.0-33.0); Mean Corpuscular Volume 92.1 fL (80.0-98.0); Mean Platelet Volume 10.7 fL (9.4-12.3); Platelet Count 302 X10*3/uL (160-400); Red Blood Count 4.57 X10*6/uL (4.20-5.50); Red Cell Distribution Width 14.1 % (11.0-16.0); White Blood Count 16.2 X10*3/uL (4.8-10.8)
[2022-03-20 08:40] LABS: Lactic Acid 1.8 mmol/L (0.5-2.0)
[2022-03-20] MEDS: Pravastatin Sodium 20 MG TABLET 60 MG PO (08:50)
[2022-03-20] MEDS: amLODIPine Besylate 2.5 MG TABLET PO (08:50)
[2022-03-20] MEDS: Montelukast Sodium 10 MG TABLET PO (08:50)
[2022-03-20] MEDS: Insulin Lispro 100 UNIT/ML 3 ML VIAL SUBCUT ×2 (08:55→12:04)
[2022-03-20] MEDS: Enoxaparin Sodium 100 MG/ML SYRINGE 95 MG SUBCUT (11:38)
[2022-03-20 11:52] LABS: Glucose, Whole Blood 245 mg/dL (60-115)
[2022-03-20 13:59] LABS: Appearance Urine Clear; Color Urine Yellow; Glucose Urine UA >=1000 mg/dL (Negative); Leukocyte Esterase Urine Small (1+) (Negative); Nitrite Urine Negative (Negative); Specific Gravity - Urine 1.025 (1.005-1.025); UMIC TRIGGER UACC YES; Urine Blood Large (3+) (Negative); Urine Ketones Negative (Negative); Urine Protein 30 (1+) mg/dL (Neg-Trace)
[2022-03-20 14:05] LABS: Bacteria Urine None Seen (None Seen); Hyaline Casts Urine 0-2 /LPF (0-2); RBC Urine >20 /HPF (0-2); Squamous Epithelial Cell Urine 0-2 /HPF (0-2); UACC Culture Trigger YES; WBC Urine 21-50 /HPF (0-5)
[2022-03-20] MEDS: ondansetron HCL 4 MG/2 ML VIAL IVPUSH (15:13)
[2022-03-20] MEDS: cefTRIAXone sodium 1 GM in 0.9 % Sodium Chloride 50 ML IV (16:34)
--- NOTE | 2022-03-20 16:50 | HO.PM.IMPN ---
Subjective Subjective Date of Service: 03/20/22 Interval History: seen and examined this morning follow up for encephalopathy patient awake, alert, oriented this morning. Now reports that she took multiple pills while her was out grocery shopping (she is not sure exactly which of her pills she took) in attempt to end her life. At the time she was frustrated with her . she states that she now regrets her decision and feels foolish. She wishes that she had just called her therapist to discuss her feelings. Her ashleywidonovan was noted to have pink tinged urine this morning, she denies abdominal pain, flank pain, nausea, vomiting or dysuria Review of Systems Review of Systems: Yes all other systems are reviewed and are negative Constitutional Constitutional: Denies chills and Denies fever(s) Cardiovascular Cardiovascular: Denies chest pain, Denies palpitations and Denies dyspnea Respiratory Respiratory: Denies cough and Denies dyspnea Gastrointestinal Gastrointestinal: Denies abdominal pain, Denies nausea and Denies vomiting Endocrine Endocrine: Denies palpitations Physical Exam Vital Signs: Vital Signs: Last Vital Signs Temp 97.5 F 03/20/22 15:07 Pulse 90 03/20/22 15:43 Resp 20 03/20/22 15:43 BP 150/69 H 03/20/22 15:07 Pulse Ox 96 03/20/22 15:07 O2 Del Method 03/20/22 15:07 O2 Flow Rate 1 03/20/22 03:27 Oxygen Flow Rate 2 03/18/22 23:13 BMI result Body Mass Index 43.0 Const: General: comfortable, no acute distress, alert and awake Nutritional Appearance: obese Orientation/consciousness: patient oriented x3 Resp: Effort & Inspection: normal respiratory effort and able to speak in complete sentences Auscultation: clear to auscultation bilaterally Cardio: Rate: regular rate Heart sounds: S1 normal heart sound present and S2 normal heart sound present GI: Inspection: No distended Palpation (GI): Soft to palpation and nontender : General: Yes no CVA tenderness Back/Spine/Pelvis: Back: no CVA tenderness Neuro: General: patient oriented x3 and CN's II-XI intact bilaterally Extrem: Other: able to move all 4 extremities spontaneously General: Yes no pedal edema Objective Data Active Medications Acetaminophen (Acetaminophen 325 Mg Tablet) 650 mg PO Q6H PRN PRN Reason: Pain, Mild (Pain Scale 1-3) Albuterol/Ipratropium (Albuterol/Iprat 2.5/0.5mg 3 Ml Ampul.Neb) 3 ml INHALE RQ4H WHILE AWAKE [facility] Last Admin: 03/20/22 15:42 Dose: 3 ml Documented By: KATALINA Amlodipine Besylate (Amlodipine Besylate 2.5 Mg Tablet) 2.5 mg PO DAILY [facility]; Protocol Last Admin: 03/20/22 08:50 Dose: 2.5 mg Documented By: JOHANNA Enoxaparin Sodium (Enoxaparin Sodium 100 Mg/Ml Syringe) 95 mg SUBCUT Q12H [facility] Last Admin: 03/20/22 11:38 Dose: 95 mg Documented By: JOHANNA Ceftriaxone Sodium 1 gm/ (Sodium Chloride) 50 mls @ 100 mls/hr IV Q24H [facility] Last Admin: 03/20/22 16:34 Dose: 100 mls/hr Documented By: JOHANNA Insulin Glargine (Insulin Glargine,Hum.Rec.Anlog 100 Unit/Ml 10 Ml Vial) 15 unit SUBCUT BEDTIME [facility] Last Admin: 03/19/22 21:15 Dose: 15 unit Documented By: KIARA Insulin Human Lispro (Insulin Lispro 100 Unit/Ml 3 Ml Vial) 0 unit SUBCUT QIDACHS [facility]; Protocol Last Admin: 03/20/22 12:04 Dose: 4 unit Documented By: JOHANNA Levothyroxine Sodium (Levothyroxine Sodium 88 Mcg Tablet) 88 mcg PO DAILY@0600 [facility] Last Admin: 03/20/22 05:39 Dose: 88 mcg Documented By: KAYCEE Montelukast Sodium (Montelukast Sodium 10 Mg Tablet) 10 mg PO DAILY [facility] Last Admin: 03/20/22 08:50 Dose: 10 mg Documented By: JOHANNA Omeprazole (Omeprazole 20 Mg Capsule.) 20 mg PO BID@0630,1630 [facility] Last Admin: 03/20/22 16:37 Dose: 20 mg Documented By: JOHANNA Ondansetron HCl (Ondansetron Hcl 4 Mg/2 Ml Vial) 4 mg IVPUSH Q8H PRN PRN Reason: Nausea and Vomiting Last Admin: 03/20/22 15:13 Dose: 4 mg Documented By: YARELI Pharmacy Consult (Consult Rx Perform Med Rec) 1 each MISCELLANE ONCE PRN PRN Reason: Consult order Pravastatin Sodium (Pravastatin Sodium 20 Mg Tablet) 60 mg PO DAILY [facility] Last Admin: 03/20/22 08:50 Dose: 60 mg Documented By: JOHANNA Sodium Chloride (0.9 % Sodium Chloride Flush 3 Ml Syringe) 3 ml IVFLUSH QSHIFT [facility] Last Admin: 03/20/22 15:14 Dose: 3 ml Documented By: YARELI Warfarin Sodium (Warfarin Sodium 2.5 Mg Tablet) 2.5 mg PO DAILY@1800 [facility] Labs CBC & Chem 7: 03/20/22 08:16 03/20/22 06:15 Labs: Laboratory Results - last 24 hr 03/19/22 03/19/22 03/20/22 16:49 20:55 06:15 MCV MCH MCHC RDW Plt Count MPV Absolute Nucleated RBC Nucleated RBC % (auto) PT 13.5 H INR 1.2 H Anion Gap Estim Creat Clear Calc Estimated GFR POC Glucose 195 H 244 H Random Glucose Lactic Acid Calcium Urine Color Urine Appearance Urine pH Ur Specific [place] Urine Protein Urine Glucose (UA) Urine Ketones Urine Blood Urine Nitrite Ur Leukocyte Esterase Urine RBC Urine WBC Ur Squamous Epith Cells Urine Bacteria Hyaline Casts 03/20/22 03/20/22 03/20/22 06:15 08:16 08:16 MCV 92.1 MCH 29.8 MCHC 32.3 RDW 14.1 Plt Count 302 D MPV 10.7 Absolute Nucleated RBC 0.000 Nucleated RBC % (auto) 0.0 PT INR Anion Gap 19 Estim Creat Clear Calc 84.5 Estimated GFR > 60 POC Glucose Random Glucose 232 H Lactic Acid 1.8 Calcium 9.5 Urine Color Urine Appearance Urine pH Ur Specific [place] Urine Protein Urine Glucose (UA) Urine Ketones Urine Blood Urine Nitrite Ur Leukocyte Esterase Urine RBC Urine WBC Ur Squamous Epith Cells Urine Bacteria Hyaline Casts 03/20/22 03/20/22 03/20/22 08:21 11:37 13:37 MCV MCH MCHC RDW Plt Count MPV Absolute Nucleated RBC Nucleated RBC % (auto) PT INR Anion Gap Estim Creat Clear Calc Estimated GFR POC Glucose 257 H 245 H Random Glucose Lactic Acid Calcium Urine Color Yellow Urine Appearance Clear Urine pH 6.0 Ur Specific [place] 1.025 Urine Protein 30 (1+) H Urine Glucose (UA) >=1000 H Urine Ketones Negative Urine Blood Large (3+) H Urine Nitrite Negative Ur Leukocyte Esterase Small (1+) H Urine RBC >20 H Urine WBC 21-50 H Ur Squamous Epith Cells 0-2 Urine Bacteria None Seen Hyaline Casts 0-2 Microbiology Microbiology Results: Microbiology 03/19/22 02:55 Blood Culture - Preliminary Blood - Venous No growth after 24 hours. 03/19/22 02:55 Blood Culture - Preliminary Blood - Venous No growth after 24 hours. Assessment and Plan (1) Acute metabolic encephalopathy: Status: Acute (2) Hematuria: Status: Acute Plan 72 yo F with mulitple medical problems including DM, HTN, Asthma/copd, PE in 2020 who presents with changes in mental status which appear to be improving, although she is not quiet at baseline. She is admitted for observation. Acute toxic/metabolic encephalopathy resolved. pt seems to be at baseline. A&O x3 Patient now admits to taking multiple medications ( a bunch of pills ) intentionally in an attempt to end her life -BHN eval pending Hematuria ?r/t UTI vs AC -repeat UA -follow CBC History of Pulmonary Embolism dx with PE in 2019 Her INR is subtherapeutic -- will give treatment dose lovenox 0.7mg/kg BID per pharmacy recommendation Restart coumadin and continue lovenox bridge Uncontrolled DM with hyperglycemia hold glipizide, januvia continue Lantus SSI, POCs, ADA diet Lactic Acidosis NOT due to severe sepsis HTN continue Norvasc lisinopril/HCTZ on hold Hypothyroidism Continue Synthroid Mood multiple meds held due on admission to prevent sedation resume effexor trazodone, seroquel on hold chronic pain received narcan in ED with some positive effect chronic oxycodone on hold for now Full Code DVT pptx -- lovenox + coumadin Attending - Dr. Garrido Quality Stroke Does the patient have a stroke diagnosis?: No VTE Prior VTE?: Yes VTE Risk Level:: Medical - moderate - high VTE Device Contraindication: Treatment Not Indicated VTE Drug Contraindication: N/A - Med Ordered
[2022-03-20 16:59] LABS: Glucose, Whole Blood 235 mg/dL (60-115)
[2022-03-20] MEDS: Warfarin Sodium 2.5 MG TABLET PO (17:14)
--- NOTE | 2022-03-20 18:45 | MHC.CARE ---
Pt was assessed by CARE Team plan for pysch consult 03/21/22 to review if Pt will be a 12B or discharged home.
[2022-03-20 19:57] LABS: Glucose, Whole Blood 266 mg/dL (60-115)
--- NOTE | 2022-03-21 | ECG_ITS ---
Test Reason : CHECK QT Blood Pressure : / mmHG Vent. Rate : 095 BPM Atrial Rate : 095 BPM P-R Int : 206 ms QRS Dur : 104 ms QT Int : 402 ms P-R-T Axes : 015 -32 -03 degrees QTc Int : 505 ms Sinus rhythm with occasional Premature ventricular complexes Left axis deviation Nonspecific T wave abnormality Moderate voltage criteria for LVH, may be normal variant ( R in aVL , Samy product ) Anterior infarct (cited on or before 18-MAR-2022) Abnormal ECG When compared with ECG of 18-MAR-2022 22:54, Premature ventricular complexes are now Present Nonspecific T wave abnormality now evident in Anterior leads QT has shortened Referred By: Bernarda Davison Electronically Signed By:WILD FLEMING
--- NOTE | 2022-03-21 04:08 | PC.NURSE ---
03/20/22 2100 pt refused pm meds and insulin.1:1 sitter at bedside.
[2022-03-21] MEDS: Acetaminophen 325 MG TABLET 650 MG PO (05:32)
[2022-03-21] MEDS: ondansetron HCL 4 MG/2 ML VIAL IVPUSH (05:39)
[2022-03-21 07:19] LABS: Glucose, Whole Blood 267 mg/dL (60-115)
[2022-03-21] MEDS: Albuterol/Iprat 2.5/0.5MG 3 ML AMPUL.NEB INHALE ×3 (07:45→20:18)
[2022-03-21 07:46] VITALS: PULSE 88; RESP 20; O2SAT 99
[2022-03-21 08:22] LABS: Hematocrit 42.9 % (37.0-47.0); Hemoglobin 14.2 g/dl (12.0-16.0); Mean Corpuscular HGB Conc 33.1 g/dl (31.0-35.0); Mean Corpuscular Hemoglobin 29.6 pg (27.0-33.0); Mean Corpuscular Volume 89.6 fL (80.0-98.0); Mean Platelet Volume 10.7 fL (9.4-12.3); Platelet Count 313 X10*3/uL (160-400); Red Blood Count 4.79 X10*6/uL (4.20-5.50); Red Cell Distribution Width 13.7 % (11.0-16.0); White Blood Count 19.3 X10*3/uL (4.8-10.8)
[2022-03-21 08:29] LABS: INTERNATIONAL NORM RATIO 1.2 (0.9-1.1); Prothrombin Time 14.2 SEC (10.0-13.1)
[2022-03-21] MEDS: Venlafaxine HCl ER 75 MG CAP.ER.24H PO (09:45)
[2022-03-21] MEDS: 0.9 % Sodium Chloride Flush 3 ML SYRINGE IVFLUSH ×3 (09:45→23:28)
[2022-03-21] MEDS: Venlafaxine HCl ER 150 MG CAP.ER.24H PO (09:52)
--- NOTE | 2022-03-21 10:12 | PC.NURSE ---
Patient refused insulin, vitals, and meds this morning only took Effexor. IV on R AC removed per patient request states it was painful, erythema,bruising noted, L wrist area IV remains intact and patent no complaints. Increased anxiety noted, Sitter at bedside. PA notified.
--- NOTE | 2022-03-21 11:04 | PM.PSYCN ---
History of Present Illness Date of Service: 03/21/2022 Chief Complaint: Weakness, confusion Reason for Consult: Was called to see patient due to ? of medication management s/p OD and also completed sec 12 b. Pt presents hypertalkative to provider, but angry and annoyed that not allowed to go home- Sleep has been problem, hx of nightmares that trazodone helped- Co severe back pain from broken sithru l1? was told inoperable and put on oxy , now gets 60mg/day last fill 03/03 for 84 tabs ( so out 2 wks early so either niki on it as is indicated with response to naloxone) or used them up early - PT swears she niki on seroquel which she took 150 x 200mg pills mixed them in gsa coordinator with yogurt and drank them down. Didn't want to keep living this way with her pain- This was planned out by patient, says she has a bunch of extra meds in house and had gone to grocery store. When he got home he couldn't rouse her , and job development specialist found empty bottle of oxy from 03/03. Requesting physician: Bernarda Davison Discussed with referring provider: Yes Sources of Information: patient interviewed and chart reviewed HPI Narrative: see above Past Psychiatric History: Dr Garcia [facility]7 years, before Dr Armstrong had incident of lithium toxicitiy under his care and so treatment alliance was eroded and pt went to [facility]. She sees kylah Zaragoza @ [facility] and Dr garcia both this past week and she told them she would kill herself- they hoped she didn't = Apparently has hx of this threat and other times was sec 12 and sent home. Medical Evaluation Reviewed: Yes narcane revived pt was at least partial oxy/opiate od, and qtc quite prolonged so likely also questiapine as well Personal & Social History: lives with hx bipolar , hx chronic pain x 7 years with broken discs Review of Systems Review of Systems back pain PMFSH Family History: not taken today Social History: see above Substance History: opiate dependence since used at high doses for years for back pain mdm developer reviewed Trauma History: not assessed today Diagnostics Vital Signs (24Hr): Vital Signs - 24 hr 03/20/22 11:50 03/20/22 12:00 03/20/22 15:07 Temperature 98.1 F 97.5 F Pulse Rate 78 95 90 Respiratory Rate 13 16 20 Blood Pressure 141/71 H 150/69 H Pulse Oximetry 92 96 Oxygen Delivery Method Room Air Room Air 03/20/22 15:43 03/20/22 19:16 03/20/22 19:14 Temperature 98.1 F Pulse Rate 90 88 85 Respiratory Rate 20 20 18 Blood Pressure 148/90 H Pulse Oximetry 96 Oxygen Delivery Method Room Air 03/21/22 07:46 Temperature Pulse Rate 88 Respiratory Rate 20 Blood Pressure Pulse Oximetry Oxygen Delivery Method BMI result Body Mass Index 43.0 Labs Results: 03/21/22 08:10 03/20/22 06:15 Labs: Laboratory Results - last 48 hr 03/19/22 03/19/22 03/19/22 11:53 13:39 16:49 WBC RBC Hgb Hct MCV MCH MCHC RDW Plt Count MPV Absolute Nucleated RBC Nucleated RBC % (auto) PT 14.1 H INR 1.2 H Sodium Potassium Chloride Carbon Dioxide Anion Gap BUN Creatinine Estim Creat Clear Calc Estimated GFR POC Glucose 232 H 195 H Random Glucose Lactic Acid Calcium Urine Color Urine Appearance Urine pH Ur Specific [place] Urine Protein Urine Glucose (UA) Urine Ketones Urine Blood Urine Nitrite Ur Leukocyte Esterase Urine RBC Urine WBC Ur Squamous Epith Cells Urine Bacteria Hyaline Casts 03/19/22 03/20/22 03/20/22 20:55 06:15 06:15 WBC RBC Hgb Hct MCV MCH MCHC RDW Plt Count MPV Absolute Nucleated RBC Nucleated RBC % (auto) PT 13.5 H INR 1.2 H Sodium 141 Potassium 4.1 Chloride 100 Carbon Dioxide 26 Anion Gap 19 BUN 26 H Creatinine 0.88 Estim Creat Clear Calc 84.5 Estimated GFR > 60 POC Glucose 244 H Random Glucose 232 H Lactic Acid Calcium 9.5 Urine Color Urine Appearance Urine pH Ur Specific [place] Urine Protein Urine Glucose (UA) Urine Ketones Urine Blood Urine Nitrite Ur Leukocyte Esterase Urine RBC Urine WBC Ur Squamous Epith Cells Urine Bacteria Hyaline Casts 03/20/22 03/20/22 03/20/22 08:16 08:16 08:21 WBC 16.2 H RBC 4.57 Hgb 13.6 Hct 42.1 MCV 92.1 MCH 29.8 MCHC 32.3 RDW 14.1 Plt Count 302 D MPV 10.7 Absolute Nucleated RBC 0.000 Nucleated RBC % (auto) 0.0 PT INR Sodium Potassium Chloride Carbon Dioxide Anion Gap BUN Creatinine Estim Creat Clear Calc Estimated GFR POC Glucose 257 H Random Glucose Lactic Acid 1.8 Calcium Urine Color Urine Appearance Urine pH Ur Specific [place] Urine Protein Urine Glucose (UA) Urine Ketones Urine Blood Urine Nitrite Ur Leukocyte Esterase Urine RBC Urine WBC Ur Squamous Epith Cells Urine Bacteria Hyaline Casts 03/20/22 03/20/22 03/20/22 11:37 13:37 16:18 WBC RBC Hgb Hct MCV MCH MCHC RDW Plt Count MPV Absolute Nucleated RBC Nucleated RBC % (auto) PT INR Sodium Potassium Chloride Carbon Dioxide Anion Gap BUN Creatinine Estim Creat Clear Calc Estimated GFR POC Glucose 245 H 235 H Random Glucose Lactic Acid Calcium Urine Color Yellow Urine Appearance Clear Urine pH 6.0 Ur Specific [place] 1.025 Urine Protein 30 (1+) H Urine Glucose (UA) >=1000 H Urine Ketones Negative Urine Blood Large (3+) H Urine Nitrite Negative Ur Leukocyte Esterase Small (1+) H Urine RBC >20 H Urine WBC 21-50 H Ur Squamous Epith Cells 0-2 Urine Bacteria None Seen Hyaline Casts 0-2 03/20/22 03/21/22 03/21/22 19:54 07:07 08:10 WBC RBC Hgb Hct MCV MCH MCHC RDW Plt Count MPV Absolute Nucleated RBC Nucleated RBC % (auto) PT 14.2 H INR 1.2 H Sodium Potassium Chloride Carbon Dioxide Anion Gap BUN Creatinine Estim Creat Clear Calc Estimated GFR POC Glucose 266 H 267 H Random Glucose Lactic Acid Calcium Urine Color Urine Appearance Urine pH Ur Specific [place] Urine Protein Urine Glucose (UA) Urine Ketones Urine Blood Urine Nitrite Ur Leukocyte Esterase Urine RBC Urine WBC Ur Squamous Epith Cells Urine Bacteria Hyaline Casts 03/21/22 08:10 WBC 19.3 H RBC 4.79 Hgb 14.2 Hct 42.9 MCV 89.6 MCH 29.6 MCHC 33.1 RDW 13.7 Plt Count 313 MPV 10.7 Absolute Nucleated RBC 0.000 Nucleated RBC % (auto) 0.0 PT INR Sodium Potassium Chloride Carbon Dioxide Anion Gap BUN Creatinine Estim Creat Clear Calc Estimated GFR POC Glucose Random Glucose Lactic Acid Calcium Urine Color Urine Appearance Urine pH Ur Specific [place] Urine Protein Urine Glucose (UA) Urine Ketones Urine Blood Urine Nitrite Ur Leukocyte Esterase Urine RBC Urine WBC Ur Squamous Epith Cells Urine Bacteria Hyaline Casts Imaging Radiology Impressions: ITS Impressions Chest X-Ray 03/18/22 11:16 IMPRESSION: No acute intrathoracic disease Head CT 03/19/22 01:15 IMPRESSION: Limited exam. No acute intracranial pathology. Mental Status Exam Mental Status Exam Patient Appearance: Disheveled Patient Orientation: Person, Place, Time and Situation Level of Consciousness: Awake and Alert Patient Behavior: Talkative, Cooperative (until I said she had to stay, but again became cooperative as continued to talk), Self Manipulative, Resistive to Care and Good Eye Contact Mood Description: Anxious and Angry (wants to go home) Affect Description: Calm and Labile Patient Cognition Impaired: No Ability to Follow Directions: Poor Speech Pattern: Clear Memory Description: Intact (grossly) Hallucinations: None Thought Process: Distracted Thought Content: positive for Tangential and positive for Suicidal Ideation Depressive Symptoms: Insomnia, Increased Irritability and Difficulty Concentrating Judgement: Poor Judgement and Insight: doesn't understand why we would keep her , and how medication now need to be changed though she did say she shouldn't go back on seroquel since she niki Medications Medications Current Medications Acetaminophen (Acetaminophen 325 Mg Tablet) 650 mg PO Q6H PRN PRN Reason: Pain, Mild (Pain Scale 1-3) Last Admin: 03/21/22 05:32 Dose: 650 mg Albuterol/Ipratropium (Albuterol/Iprat 2.5/0.5mg 3 Ml Ampul.Neb) 3 ml INHALE RQ4H WHILE AWAKE [facility] Last Admin: 03/21/22 07:45 Dose: 3 ml Amlodipine Besylate (Amlodipine Besylate 2.5 Mg Tablet) 2.5 mg PO DAILY [facility]; Protocol Last Admin: 03/21/22 07:41 Dose: Not Given Enoxaparin Sodium (Enoxaparin Sodium 100 Mg/Ml Syringe) 95 mg SUBCUT Q12H [facility] Last Admin: 03/21/22 09:52 Dose: Not Given Ceftriaxone Sodium 1 gm/ (Sodium Chloride) 50 mls @ 100 mls/hr IV Q24H [facility] Last Infusion: 03/20/22 17:12 Dose: Infused Insulin Glargine (Insulin Glargine,Hum.Rec.Anlog 100 Unit/Ml 10 Ml Vial) 15 unit SUBCUT BEDTIME [facility] Last Admin: 03/20/22 21:20 Dose: Not Given Insulin Human Lispro (Insulin Lispro 100 Unit/Ml 3 Ml Vial) 0 unit SUBCUT QIDACHS [facility]; Protocol Last Admin: 03/21/22 07:41 Dose: Not Given Levothyroxine Sodium (Levothyroxine Sodium 88 Mcg Tablet) 88 mcg PO DAILY@0600 [facility] Last Admin: 03/21/22 05:43 Dose: Not Given Montelukast Sodium (Montelukast Sodium 10 Mg Tablet) 10 mg PO DAILY [facility] Last Admin: 03/21/22 07:42 Dose: Not Given Omeprazole (Omeprazole 20 Mg Capsule.Dr) 20 mg PO BID@0630,1630 [facility] Last Admin: 03/21/22 05:44 Dose: Not Given Ondansetron HCl (Ondansetron Hcl 4 Mg/2 Ml Vial) 4 mg IVPUSH Q8H PRN PRN Reason: Nausea and Vomiting Last Admin: 03/21/22 05:39 Dose: 4 mg Pharmacy Consult (Consult Rx Perform Med Rec) 1 each MISCELLANE ONCE PRN PRN Reason: Consult order Pravastatin Sodium (Pravastatin Sodium 20 Mg Tablet) 60 mg PO DAILY [facility] Last Admin: 03/21/22 07:42 Dose: Not Given Sodium Chloride (0.9 % Sodium Chloride Flush 3 Ml Syringe) 3 ml IVFLUSH QSHIFT [facility] Last Admin: 03/21/22 09:45 Dose: 3 ml Venlafaxine HCl (Venlafaxine Hcl Er 75 Mg Cap.Er.24h) 75 mg PO DAILY [facility] Last Admin: 03/21/22 09:45 Dose: 75 mg Venlafaxine HCl (Venlafaxine Hcl Er 150 Mg Cap.Er.24h) 150 mg PO DAILY [facility] Last Admin: 03/21/22 09:52 Dose: 150 mg Warfarin Sodium (Warfarin Sodium 5 Mg Tablet) 5 mg PO DAILY@1800 [facility] Allergies Allergies Allergy/AdvReac Type Severity Reaction Status Date / Time Penicillins Allergy Mild HIVES Unverified 03/06/20 17:42 codeine [Codeine] AdvReac Mild SWEATS Unverified 03/06/20 17:42 Assessment & Plan Assessment & Plan (1) Overdose: Status: Acute Code(s): T50.901A - Poisoning by unspecified drugs, medicaments and biological substances, accidental (unintentional), initial encounter (2) Bipolar 1 disorder, depressed, severe: Status: Acute Code(s): F31.4 - Bipolar disorder, current episode depressed, severe, without psychotic features Plan will resume some psychiatric medications trazodone and will try gabapentin for anxiety /mood stabilizer reluctant to start venlafaxine without mood stabilizer on board first talked to Bernarda about resuming oxy at lower dose to prevent acute withdrawl - will need consultation around pain managemnt or opiate taper sec 12b completed by this provider I spent minutes with the patient and/or on the patient floor today, greater than?50% of which was spent counseling/coordinating care. Patient educated on: diagnosis, medication risk/benefits and other (need for hospitalization) Informed Consent: further education needed
[2022-03-21 11:27] LABS: Glucose, Whole Blood 280 mg/dL (60-115)
[2022-03-21 11:29] VITALS: PULSE 88; RESP 20; O2SAT 99
--- NOTE | 2022-03-21 12:25 | P.PNIM_ITS ---
Subjective Subjective Date of Service: 03/21/22 Interval History: seen and examined this morning follow up for encephalopathy, hematuria awake and alert, oriented still with some hematuria this am. no abdominal pain, fever, chills, nausea or vomiting denies SI at this time Review of Systems Review of Systems: Yes all other systems are reviewed and are negative Constitutional Constitutional: Denies chills and Denies fever(s) ENT Ears, Nose, Mouth, and Throat: Denies dizziness Cardiovascular Cardiovascular: Denies chest pain, Denies palpitations and Denies dyspnea Respiratory Respiratory: Denies cough and Denies dyspnea Gastrointestinal Gastrointestinal: Denies abdominal pain and Denies diarrhea Neurologic Neurologic: Denies dizziness Endocrine Endocrine: Denies palpitations Physical Exam Vital Signs: Vital Signs: Last Vital Signs Temp 98.1 F 03/20/22 19:14 Pulse 88 03/21/22 11:29 Resp 20 03/21/22 11:29 BP 148/90 H 03/20/22 19:14 Pulse Ox 96 03/20/22 19:14 O2 Del Method 03/20/22 19:14 O2 Flow Rate 1 03/20/22 03:27 Oxygen Flow Rate 2 03/18/22 23:13 BMI result Body Mass Index 43.0 Const: General: comfortable, no acute distress, alert and awake Nutritional Appearance: obese Orientation/consciousness: patient oriented x3 Resp: Effort & Inspection: normal respiratory effort and able to speak in complete sentences Auscultation: clear to auscultation bilaterally Cardio: Rate: regular rate Heart sounds: S1 normal heart sound present and S2 normal heart sound present GI: Inspection: No distended Palpation (GI): Soft to palpation and nontender : General: Yes no CVA tenderness Back/Spine/Pelvis: Back: no CVA tenderness Neuro: General: patient oriented x3 and CN's II-XI intact bilaterally Extrem: Other: able to move all 4 extremities spontaneously General: Yes no pedal edema Objective Data Active Medications Acetaminophen (Acetaminophen 325 Mg Tablet) 650 mg PO Q6H PRN PRN Reason: Pain, Mild (Pain Scale 1-3) Last Admin: 03/21/22 05:32 Dose: 650 mg Documented By: NATANAEL Albuterol/Ipratropium (Albuterol/Iprat 2.5/0.5mg 3 Ml Ampul.Neb) 3 ml INHALE RQ4H WHILE AWAKE [facility] Last Admin: 03/21/22 11:18 Dose: Not Given Documented By: AMY Non-Admin Reason: Patient Refused Amlodipine Besylate (Amlodipine Besylate 2.5 Mg Tablet) 2.5 mg PO DAILY [facility]; Protocol Last Admin: 03/21/22 07:41 Dose: Not Given Documented By: YARELI Non-Admin Reason: Patient Refused Enoxaparin Sodium (Enoxaparin Sodium 100 Mg/Ml Syringe) 95 mg SUBCUT Q12H [facility] Last Admin: 03/21/22 09:52 Dose: Not Given Documented By: JOHANNA Non-Admin Reason: Patient Refused Ceftriaxone Sodium 1 gm/ (Sodium Chloride) 50 mls @ 100 mls/hr IV Q24H [facility] Last Infusion: 03/20/22 17:12 Dose: 0 mls/hr Documented By: JOHANNA Insulin Glargine (Insulin Glargine,Hum.Rec.Anlog 100 Unit/Ml 10 Ml Vial) 15 unit SUBCUT BEDTIME [facility] Last Admin: 03/20/22 21:20 Dose: Not Given Documented By: NATANAEL Non-Admin Reason: Patient Refused Insulin Human Lispro (Insulin Lispro 100 Unit/Ml 3 Ml Vial) 0 unit SUBCUT QIDACHS [facility]; Protocol Last Admin: 03/21/22 12:15 Dose: Not Given Documented By: JOHANNA Non-Admin Reason: Patient Refused Levothyroxine Sodium (Levothyroxine Sodium 88 Mcg Tablet) 88 mcg PO DAILY@0600 [facility] Last Admin: 03/21/22 05:43 Dose: Not Given Documented By: NATANAEL Non-Admin Reason: Patient Refused Montelukast Sodium (Montelukast Sodium 10 Mg Tablet) 10 mg PO DAILY [facility] Last Admin: 03/21/22 07:42 Dose: Not Given Documented By: YARELI Non-Admin Reason: Patient Refused Omeprazole (Omeprazole 20 Mg Vanda.) 20 mg PO BID@0630,1630 [facility] Last Admin: 03/21/22 05:44 Dose: Not Given Ondansetron HCl (Ondansetron Hcl 4 Mg/2 Ml Vial) 4 mg IVPUSH Q8H PRN PRN Reason: Nausea and Vomiting Last Admin: 03/21/22 05:39 Dose: 4 mg Documented By: NATANAEL Oxycodone HCl (Oxycodone Hcl Immed Release 5 Mg Tablet) 5 mg PO TID PRN PRN Reason: Pain, Severe (Pain Scale 7-10) Pharmacy Consult (Consult Rx Perform Med Rec) 1 each MISCELLANE ONCE PRN PRN Reason: Consult order Pravastatin Sodium (Pravastatin Sodium 20 Mg Tablet) 60 mg PO DAILY [facility] Last Admin: 03/21/22 07:42 Dose: Not Given Documented By: YARELI Non-Admin Reason: Patient Refused Sodium Chloride (0.9 % Sodium Chloride Flush 3 Ml Syringe) 3 ml IVFLUSH QSHIFT [facility] Last Admin: 03/21/22 09:45 Dose: 3 ml Documented By: JOHANNA Venlafaxine HCl (Venlafaxine Hcl Er 75 Mg Cap.Er.24h) 75 mg PO DAILY [facility] Last Admin: 03/21/22 09:45 Dose: 75 mg Documented By: JOHANNA Venlafaxine HCl (Venlafaxine Hcl Er 150 Mg Cap.Er.24h) 150 mg PO DAILY [facility] Last Admin: 03/21/22 09:52 Dose: 150 mg Documented By: JOHANNA Warfarin Sodium (Warfarin Sodium 5 Mg Tablet) 5 mg PO DAILY@1800 [facility] Labs CBC & Chem 7: 03/21/22 08:10 03/20/22 06:15 Labs: Laboratory Results - last 24 hr 03/20/22 03/20/22 03/20/22 13:37 16:18 19:54 MCV MCH MCHC RDW Plt Count MPV Absolute Nucleated RBC Nucleated RBC % (auto) PT INR POC Glucose 235 H 266 H Urine Color Yellow Urine Appearance Clear Urine pH 6.0 Ur Specific [place] 1.025 Urine Protein 30 (1+) H Urine Glucose (UA) >=1000 H Urine Ketones Negative Urine Blood Large (3+) H Urine Nitrite Negative Ur Leukocyte Esterase Small (1+) H Urine RBC >20 H Urine WBC 21-50 H Ur Squamous Epith Cells 0-2 Urine Bacteria None Seen Hyaline Casts 0-2 03/21/22 03/21/22 03/21/22 07:07 08:10 08:10 MCV 89.6 MCH 29.6 MCHC 33.1 RDW 13.7 Plt Count 313 MPV 10.7 Absolute Nucleated RBC 0.000 Nucleated RBC % (auto) 0.0 PT 14.2 H INR 1.2 H POC Glucose 267 H Urine Color Urine Appearance Urine pH Ur Specific [place] Urine Protein Urine Glucose (UA) Urine Ketones Urine Blood Urine Nitrite Ur Leukocyte Esterase Urine RBC Urine WBC Ur Squamous Epith Cells Urine Bacteria Hyaline Casts 03/21/22 11:12 MCV MCH MCHC RDW Plt Count MPV Absolute Nucleated RBC Nucleated RBC % (auto) PT INR POC Glucose 280 H Urine Color Urine Appearance Urine pH Ur Specific [place] Urine Protein Urine Glucose (UA) Urine Ketones Urine Blood Urine Nitrite Ur Leukocyte Esterase Urine RBC Urine WBC Ur Squamous Epith Cells Urine Bacteria Hyaline Casts Microbiology Microbiology Results: Microbiology 03/20/22 15:00 Urine Culture - Final Urine clean catch - Urine almanza top 03/19/22 02:55 Blood Culture - Preliminary Blood - Venous No growth after 48 hours. 03/19/22 02:55 Blood Culture - Preliminary Blood - Venous No growth after 48 hours. Assessment and Plan (1) Hematuria: Status: Acute (2) Acute metabolic encephalopathy: Status: Acute (3) Overdose: Status: Acute Plan 72 yo F with [facility] problems including DM, HTN, Asthma/copd, PE in 2019 who presents with changes in mental status which appear to be improving, although she is not quiet at baseline. She is admitted for observation. Acute toxic/metabolic encephalopathy resolved. pt seems to be at baseline. A&O x3 secondary to drug overdose Intentional drug overdose pt reports taking multiple meds, grinding them up and mixing with pudding while her was out in an effort to end her life patient denies SI at this time seen by N, rec psych consult to consider inpatient psych admission sitter for safety History of Pulmonary Embolism dx with recurrent PE in 2019 Her INR is subtherapeutic - will give treatment dose lovenox 0.7mg/kg BID per pharmacy recommendation Continue coumadin and continue lovenox bridge despite hematuria given h/o recurrent PE/DVT INR persistently low, dose of coumdin increased Hematuria improving today r/t AC H/H stable -follow CBC UTI ruled out treated with iv ceftriaxone empirically urine culture negative, ceftriaxone discontinued Leukocytosis wbc up to 19 Urine culture negative. cxr negative. afebrile blood cultures negative x 48 hours no obvious source of infection at this time Diabetes hold glipizide, januvia continue Lantus SSI, POCs, ADA diet Lactic Acidosis NOT due to severe sepsis HTN BP under adequate control continue Norvasc lisinopril/HCTZ on hold Hypothyroidism Continue Synthroid Mood multiple meds held due on admission to prevent sedation Repeat EKG to assess QTc resume effexor trazodone, seroquel on hold chronic pain received narcan in ED with some positive effect chronic oxycodone initially placed on hold, will resume at lower dose for now. can up titrate prn Full Code DVT pptx -- lovenox + coumadin Attending - Dr. Garrido Patient requires ongoing inpatient hospitalization for hematuria, psych evaluation Quality Stroke Does the patient have a stroke diagnosis?: No VTE Prior VTE?: Yes VTE Risk Level:: Medical - moderate - high VTE Device Contraindication: Treatment Not Indicated VTE Drug Contraindication: N/A - Med Ordered
[2022-03-21] MEDS: oxyCODONE HCl Immed Release 5 MG TABLET PO ×2 (12:39→22:00)
--- NOTE | 2022-03-21 14:01 | MHC.CARE ---
CARE team met with pt this am on medical floor. Pt reported feeling depressed and anxious and feels frustrated that she was not being given any pain meds. Pt reported she took an intentional overdose on 120 pills of Seroquel . Pt had previously told CARE during crisis assessment that she took an intentional OD on pain medications. Pt is complaining of pain and feels upset that she is unable to have her pain meds. When asked if she feels suicidal she replied I cannot guarantee that I won't do it again when home. Pt described how she took the pills and ground them up in the pipe chipper with yogurt and ate 1/3 of the mixture. Pt reported her is not supportive and did not find risk in her OD or her overall mental health acuity. Pt expressed a firm unwillingness to seek admission. She said she would consider staying in medical floor but refused voluntary placement in Psych. Pt was seen by caregivers non medical psychiatrist and section [address] S1 referral in [address].
[2022-03-21] MEDS: Gabapentin 100 MG CAPSULE PO ×2 (14:48→22:01)
[2022-03-21 15:36] VITALS: PULSE 88; RESP 20; O2SAT 99
[2022-03-21 16:47] LABS: Glucose, Whole Blood 230 mg/dL (60-115)
[2022-03-21] MEDS: Insulin Lispro 100 UNIT/ML 3 ML VIAL SUBCUT ×2 (16:57→22:00)
[2022-03-21] MEDS: Omeprazole 20 MG CAPSULE.DR PO (16:58)
[2022-03-21] MEDS: Warfarin Sodium 5 MG TABLET PO (17:45)
[2022-03-21 19:17] VITALS: BP 147/80; PULSE 88; RESP 18; TEMP 36.4; O2SAT 97
[2022-03-21 19:56] LABS: Glucose, Whole Blood 227 mg/dL (60-115)
[2022-03-21 20:19] VITALS: PULSE 58; RESP 16; O2SAT 96
[2022-03-21] MEDS: Insulin Glargine,Hum.rec.anlog 100 UNIT/ML 10 ML VIAL 15 UNIT SUBCUT (22:00)
[2022-03-22] VITALS (8 sets, daily range): BP systolic 136–165; BP diastolic 65–84; PULSE 80–99; RESP 18–20; TEMP 35.9–37.1; O2SAT 92–99
[2022-03-22] MEDS: Levothyroxine Sodium 88 MCG TABLET PO (06:14)
[2022-03-22] MEDS: Omeprazole 20 MG CAPSULE.DR PO ×2 (06:14→17:51)
[2022-03-22 07:15] LABS: Glucose, Whole Blood 251 mg/dL (60-115)
[2022-03-22] MEDS: Albuterol/Iprat 2.5/0.5MG 3 ML AMPUL.NEB INHALE ×2 (07:21→20:21)
[2022-03-22] MEDS: Montelukast Sodium 10 MG TABLET PO (07:59)
[2022-03-22] MEDS: Venlafaxine HCl ER 75 MG CAP.ER.24H PO (07:59)
[2022-03-22 08:00] LABS: Basophils Absolute Auto 0.1 X10*3/uL (0.0-0.2); Basophils Percent Auto 0.5 % (0-2); Eosinophils Absolute Auto 0.6 X10*3/uL (0.0-0.4); Eosinophils Percent Auto 3.6 % (0-4); Hematocrit 40.9 % (37.0-47.0); Hemoglobin 13.5 g/dl (12.0-16.0); Imm Gran Abs Auto 0.11 X10*3/uL (0.00-0.03); Imm Gran Pct Auto 0.7 % (0.0-0.4); Lymphocytes Percent Auto 31.8 % (20-40); MANUAL DIFF FLAG SCAN; Mean Corpuscular Volume 90.9 fL (80.0-98.0); Mean Platelet Volume 10.8 fL (9.4-12.3); Monocytes Absolute Auto 1.6 X10*3/uL (0.1-1.2); Neutrophils Absolute Auto 8.4 x10*3/uL (2.0-8.3); Neutrophils Percent Auto 53.4 % (45-73); Platelet Count 284 X10*3/uL (160-400); SCAN SMEAR FLAG 1; White Blood Count 15.7 X10*3/uL (4.8-10.8)
[2022-03-22] MEDS: Gabapentin 100 MG CAPSULE PO ×3 (08:00→20:49)
[2022-03-22] MEDS: Pravastatin Sodium 20 MG TABLET 60 MG PO (08:00)
[2022-03-22] MEDS: Insulin Lispro 100 UNIT/ML 3 ML VIAL SUBCUT ×3 (08:00→20:50)
[2022-03-22] MEDS: amLODIPine Besylate 2.5 MG TABLET PO (08:00)
[2022-03-22] MEDS: oxyCODONE HCl Immed Release 5 MG TABLET PO ×2 (08:10→20:49)
[2022-03-22 08:12] LABS: INTERNATIONAL NORM RATIO 1.3 (0.9-1.1); Prothrombin Time 15.6 SEC (10.0-13.1)
[2022-03-22 08:33] LABS: SLIDE REVIEW VERIFIED
[2022-03-22 11:37] LABS: Glucose, Whole Blood 267 mg/dL (60-115)
[2022-03-22] MEDS: Venlafaxine HCl ER 150 MG CAP.ER.24H PO (12:08)
[2022-03-22] MEDS: 0.9 % Sodium Chloride Flush 3 ML SYRINGE IVFLUSH ×3 (12:10→20:50)
--- NOTE | 2022-03-22 14:16 | PM.DS ---
DS: Providers Provider Date of Service: 03/23/22 Date of admission: 03/19/22 08:42 Primary care physician: Unknown Physician Consults: 03/20/22 15:49 N [Consult to Crisis] Stat Reason for consultation: intentional overdose Has provider been notified: No 03/20/22 17:15 Consult to Psychiatry Routine Consulting Provider: Psych Covering Reason for consultation: suicide attempt, wants to be discharged Has provider been notified: No 03/21/22 10:51 Consult to Psychiatry Routine Consulting Provider: Psych Covering Reason for consultation: intentional overdose; wants to leave Has provider been notified: No Attending physician on discharge: Bam Coulter Discharging clinician: Chelo Cruz DS: Diagnosis Discharge Diagnosis (1) Overdose: Status: Acute (2) Bipolar 1 disorder, depressed, severe: Status: Acute DS: Summary Hospital Course Hospital Course: 72 yo F with mulitple medical problems including DM, HTN, Asthma/copd, PE in 2019 who presents with changes in mental status which appear to be improving, although she is not quiet at baseline. She is admitted for observation. Acute toxic/metabolic encephalopathy. Resolved secondary to Intentional drug overdose pt reports taking multiple meds, grinding them up and mixing with pudding while her was out in an effort to end her life seen by N, rec psych consult to consider inpatient psych admission sitter for safety History of Pulmonary Embolism dx with recurrent PE in 2019 INR is subtherapeutic - lovenox 0.7mg/kg BID per pharmacy recommendation bridge, patient refuses INR persistently low, dose of coumadin increased, continue to titrate stop Lovenox once INR therapeutic Hematuria resolved r/t AC H/H stable UTI ruled out treated with iv ceftriaxone empirically urine culture negative, ceftriaxone discontinued Leukocytosis wbc up to 19 Urine culture negative. cxr negative. afebrile blood cultures negative x 48 hours no obvious source of infection Diabetes may continue home medications Lactic Acidosis NOT due to severe sepsis HTN BP under adequate control continue Norvasc lisinopril/HCTZ on hold Hypothyroidism Continue Synthroid Mood multiple meds held due on admission to prevent sedation may resume all home medictions chronic pain received narcan in ED with some positive effect Resumed at lower dose to prevent oversedation. May resume regular home dose Time Spent with Patient Time attestation: Total time spent providing and/or coordinating discharge services: Discharge coordination time: Greater than 30 minutes Quality: Safe Use of Opioids Does Pt have an Active Cancer Diagnosis on the Problem List?: No Quality: Stroke Does the patient have a stroke diagnosis?: No Physical Exam Vital Signs: Vital Signs: Last Vital Signs Temp 96.6 F L 03/22/22 11:26 Pulse 99 03/22/22 11:26 Resp 20 03/22/22 11:26 BP 165/75 H 03/22/22 11:26 Pulse Ox 96 03/22/22 11:26 O2 Del Method 03/22/22 11:26 O2 Flow Rate 1 03/20/22 03:27 Oxygen Flow Rate 2 03/18/22 23:13 BMI result Body Mass Index 43.0 Appearing in no acute distress head is normocephalic atraumatic eyes pupils are PERRLA sclera is anicteric mouth throat mucous membranes are intact and moist neck is supple no lymphadenopathy, no JVD noted lung sounds are clear to auscultation heart regular rate rhythm, clear S1, S2 positive bowel sounds, abdomen is soft, nontende, obese r neuro patient is alert x3, no focal deficits DS: Data Data Completed and Pending Labs on day of discharge: Laboratory Results - last 24 hr 03/21/22 03/21/22 03/22/22 16:37 19:52 07:08 WBC RBC Hgb Hct MCV MCH MCHC RDW Plt Count MPV Immature Gran % (Auto) Neut % (Auto) Lymph % (Auto) [place] % (Auto) Eos % (Auto) Baso % (Auto) Lymph # (Auto) [place] # (Auto) Eos # (Auto) Baso # (Auto) Abs Immat Gran (auto) Absolute Neuts (auto) Absolute Nucleated RBC Nucleated RBC % (auto) Smear Tech's Comments PT INR POC Glucose 230 H 227 H 251 H 03/22/22 03/22/22 03/22/22 07:35 07:35 11:34 WBC 15.7 H RBC 4.50 Hgb 13.5 Hct 40.9 MCV 90.9 MCH 30.0 MCHC 33.0 RDW 14.0 Plt Count 284 MPV 10.8 Immature Gran % (Auto) 0.7 H Neut % (Auto) 53.4 Lymph % (Auto) 31.8 [place] % (Auto) 10.0 Eos % (Auto) 3.6 Baso % (Auto) 0.5 Lymph # (Auto) 5.0 H [place] # (Auto) 1.6 H Eos # (Auto) 0.6 H Baso # (Auto) 0.1 Abs Immat Gran (auto) 0.11 H Absolute Neuts (auto) 8.4 H Absolute Nucleated RBC 0.000 Nucleated RBC % (auto) 0.0 Smear Tech's Comments VERIFIED PT 15.6 H INR 1.3 H POC Glucose 267 H Preliminary micro results at discharge 03/19/22 02:55 Blood Culture - Preliminary Blood - Venous No growth after 48 hours. 03/19/22 02:55 Blood Culture - Preliminary Blood - Venous No growth after 48 hours. Discharge Plan Discharge Anticipated Discharge Date/Time: 03/23/22 09:53 Disposition: Xfer Psychiatric Hosp Discharge Medications: New gabapentin 100 mg Capsule 100 mg PO TID Qty: 90 0RF Continued pravastatin 40 mg tablet 1.5 tab PO DAILY glipizide 10 mg tablet 1 tab PO BID quetiapine [Seroquel] 200 mg tablet 1.5 tab PO BEDTIME venlafaxine [Effexor XR] 150 mg capsule,extended release 24hr 1 cap PO DAILY warfarin 2.5 mg tablet 1 tab PO DAILY amlodipine 2.5 mg tablet 1 tab PO DAILY levothyroxine 88 mcg tablet 1 tab PO DAILY@0600 trazodone 100 mg tablet 1 tab PO BEDTIME warfarin 5 mg tablet 1 tab PO DAILY omeprazole 20 mg capsule,delayed release(DR/EC) 1 cap PO BID lisinopril-hydrochlorothiazide 20-25 mg tablet 1 tab PO DAILY montelukast 10 mg tablet 1 tab PO DAILY albuterol sulfate 90 mcg/actuation HFA aerosol inhaler 1 puff INHALATION Q4H PRN (Reason: Wheezing) quetiapine [Seroquel] 50 mg tablet 1 tab PO BEDTIME Asmanex HFA 100 mcg/actuation HFA aerosol inhaler 2 puff INHALATION BID venlafaxine [Effexor XR] 75 mg capsule,extended release 24hr 1 cap PO DAILY insulin glargine [Lantus Solostar U-100 Insulin] 100 unit/mL (3 mL) insulin pen 18 - 24 unit SUBCUT DAILY ipratropium-albuterol 0.5 mg-3 mg(2.5 mg base)/3 mL Solution For Nebulization 3 ml INHALATION QID PRN (Reason: Shortness Of Breath) acetaminophen 500 mg Tablet 500 mg PO TID PRN (Reason: Pain) clonidine HCl 0.2 mg tablet 1 tab PO BEDTIME PRN (Reason: nightmares) budesonide 0.5 mg/2 mL Suspension For Nebulization 0.5 mg INHALATION BID cholecalciferol (vitamin D3) 25 mcg (1,000 unit) Capsule 25 mcg PO DAILY Januvia 100 mg Tablet 100 mg PO DAILY insulin glargine [Lantus Solostar U-100 Insulin] 100 unit/mL (3 mL) insulin pen 4 - 20 unit SUBCUT BEDTIME oxycodone 20 mg tablet 1 tab PO TID PRN (Reason: Pain) ProAir RespiClick 90 mcg/actuation Aerosol Powdr Breath Activated 2 inh INHALATION Q4H PRN (Reason: Wheezing) Discharge Orders: Discharge Order (Routine); Ordered 03/23/22 Ordered By: Chelo Cruz Diet: Advance to usual diet Activity on Discharge: As tolerated Forms: Patient Portal Discharge page Care Plan Goals: Transfer to inpatient geriatric psychiatry Health Concerns: Acute toxic/metabolic encephalopathy Intentional drug overdose Hematuria Plan of Treatment: Follow up with primary care provider as needed Follow up with your mental health provider as needed Assessment: See discharge summary
--- NOTE | 2022-03-22 14:39 | HO.PM.IMPN ---
Subjective Subjective Date of Service: 03/23/22 Review of Systems Follow-up drug overdose, hematuria Medically clear, patient denies wanting to go to [facility] for inpatient mental health care Out of bed in the chair Physical Exam Vital Signs: Vital Signs: Last Vital Signs Temp 96.6 F L 03/22/22 11:26 Pulse 99 03/22/22 11:26 Resp 20 03/22/22 11:26 BP 165/75 H 03/22/22 11:26 Pulse Ox 96 03/22/22 11:26 O2 Del Method 03/22/22 11:26 O2 Flow Rate 1 03/20/22 03:27 Oxygen Flow Rate 2 03/18/22 23:13 BMI result Body Mass Index 43.0 Appearing in no acute distress lung sounds are clear to auscultation heart regular rate rhythm, clear S1, S2 positive bowel sounds, abdomen is soft, nontender neuro patient is alert x3, no focal deficits Objective Data Active Medications Acetaminophen (Acetaminophen 325 Mg Tablet) 650 mg PO Q6H PRN PRN Reason: Pain, Mild (Pain Scale 1-3) Last Admin: 03/21/22 05:32 Dose: 650 mg Documented By: NATANAEL Albuterol/Ipratropium (Albuterol/Iprat 2.5/0.5mg 3 Ml Ampul.Neb) 3 ml INHALE RQ4H WHILE AWAKE [facility] Last Admin: 03/22/22 11:49 Dose: Not Given Documented By: CHAD Non-Admin Reason: Patient Refused Amlodipine Besylate (Amlodipine Besylate 2.5 Mg Tablet) 2.5 mg PO DAILY [facility]; Protocol Last Admin: 03/22/22 08:00 Dose: 2.5 mg Documented By: SATNAM Enoxaparin Sodium (Enoxaparin Sodium 100 Mg/Ml Syringe) 95 mg SUBCUT Q12H [facility] Last Admin: 03/21/22 09:52 Dose: Not Given Documented By: JOHANNA Non-Admin Reason: Patient Refused Gabapentin (Gabapentin 100 Mg Capsule) 100 mg PO TID [facility] Last Admin: 03/22/22 08:00 Dose: 100 mg Documented By: SATNAM Insulin Glargine (Insulin Glargine,Hum.Rec.Anlog 100 Unit/Ml 10 Ml Vial) 15 unit SUBCUT BEDTIME [facility] Last Admin: 03/21/22 22:00 Dose: 15 unit Documented By: REN Insulin Human Lispro (Insulin Lispro 100 Unit/Ml 3 Ml Vial) 0 unit SUBCUT QIDACHS [facility]; Protocol Last Admin: 03/22/22 12:06 Dose: 6 unit Documented By: SATNAM Levothyroxine Sodium (Levothyroxine Sodium 88 Mcg Tablet) 88 mcg PO DAILY@0600 [facility] Last Admin: 03/22/22 06:14 Dose: 88 mcg Documented By: REN Montelukast Sodium (Montelukast Sodium 10 Mg Tablet) 10 mg PO DAILY [facility] Last Admin: 03/22/22 07:59 Dose: 10 mg Documented By: SATNAM Omeprazole (Omeprazole 20 Mg Capsule.Dr) 20 mg PO BID@0630,1630 [facility] Last Admin: 03/22/22 06:14 Dose: 20 mg Documented By: REN Ondansetron HCl (Ondansetron Hcl 4 Mg/2 Ml Vial) 4 mg IVPUSH Q8H PRN PRN Reason: Nausea and Vomiting Last Admin: 03/21/22 05:39 Dose: 4 mg Documented By: NATANAEL Oxycodone HCl (Oxycodone Hcl Immed Release 5 Mg Tablet) 5 mg PO TID PRN PRN Reason: Pain, Severe (Pain Scale 7-10) Last Admin: 03/22/22 08:10 Dose: 5 mg Documented By: SATNAM Pharmacy Consult (Consult Rx Perform Med Rec) 1 each MISCELLANE ONCE PRN PRN Reason: Consult order Pravastatin Sodium (Pravastatin Sodium 20 Mg Tablet) 60 mg PO DAILY [facility] Last Admin: 03/22/22 08:00 Dose: 60 mg Documented By: SATNAM Sodium Chloride (0.9 % Sodium Chloride Flush 3 Ml Syringe) 3 ml IVFLUSH QSHIFT [facility] Last Admin: 03/22/22 12:10 Dose: 3 ml Documented By: SATNAM Venlafaxine HCl (Venlafaxine Hcl Er 75 Mg Cap.Er.24h) 75 mg PO DAILY [facility] Last Admin: 03/22/22 07:59 Dose: 75 mg Documented By: SATNAM Venlafaxine HCl (Venlafaxine Hcl Er 150 Mg Cap.Er.24h) 150 mg PO DAILY [facility] Last Admin: 03/22/22 12:08 Dose: 150 mg Documented By: CTORRZ Warfarin Sodium (Warfarin Sodium 5 Mg Tablet) 5 mg PO DAILY@1800 [facility] Last Admin: 03/21/22 17:45 Dose: 5 mg Documented By: JOHANNA Labs CBC & Chem 7: 03/22/22 07:35 03/20/22 06:15 Labs: Laboratory Results - last 24 hr 03/21/22 03/21/22 03/22/22 16:37 19:52 07:08 MCV MCH MCHC RDW Plt Count MPV Immature Gran % (Auto) Neut % (Auto) Lymph % (Auto) [place] % (Auto) Eos % (Auto) Baso % (Auto) Lymph # (Auto) [place] # (Auto) Eos # (Auto) Baso # (Auto) Abs Immat Gran (auto) Absolute Neuts (auto) Absolute Nucleated RBC Nucleated RBC % (auto) Smear Tech's Comments PT INR POC Glucose 230 H 227 H 251 H 03/22/22 03/22/22 03/22/22 07:35 07:35 11:34 MCV 90.9 MCH 30.0 MCHC 33.0 RDW 14.0 Plt Count 284 MPV 10.8 Immature Gran % (Auto) 0.7 H Neut % (Auto) 53.4 Lymph % (Auto) 31.8 [place] % (Auto) 10.0 Eos % (Auto) 3.6 Baso % (Auto) 0.5 Lymph # (Auto) 5.0 H [place] # (Auto) 1.6 H Eos # (Auto) 0.6 H Baso # (Auto) 0.1 Abs Immat Gran (auto) 0.11 H Absolute Neuts (auto) 8.4 H Absolute Nucleated RBC 0.000 Nucleated RBC % (auto) 0.0 Smear Tech's Comments VERIFIED PT 15.6 H INR 1.3 H POC Glucose 267 H Microbiology Microbiology Results: Microbiology 03/20/22 15:00 Urine Culture - Final Urine clean catch - Urine almanza top Assessment and Plan (1) Hematuria: Status: Acute Plan 72 yo F with mulitple medical problems including DM, HTN, Asthma/copd, PE in 2019 who presents with changes in mental status which appear to be improving, although she is not quiet at baseline. She is admitted for observation. Acute toxic/metabolic encephalopathy resolved. pt seems to be at baseline. A&O x3 secondary to drug overdose Intentional drug overdose pt reports taking multiple meds, grinding them up and mixing with pudding while her was out in an effort to end her life patient denies SI at this time seen by [facility], rec psych consult to consider inpatient psych admission sitter for safety History of Pulmonary Embolism dx with recurrent PE in 2019 Her INR is subtherapeutic - will give treatment dose lovenox 0.7mg/kg BID per pharmacy recommendation- patient continues to refuse Lovenox Continue coumadin and continue lovenox bridge despite hematuria given h/o recurrent PE/DVT INR persistently low, dose of coumadin increased Hematuria improving today r/t AC H/H stable -follow CBC UTI ruled out treated with iv ceftriaxone empirically urine culture negative, ceftriaxone discontinued Leukocytosis wbc up to 19 Urine culture negative. cxr negative. afebrile blood cultures negative x 48 hours no obvious source of infection at this time Diabetes hold glipizide, januvia continue Lantus SSI, POCs, ADA diet Lactic Acidosis NOT due to severe sepsis HTN BP under adequate control continue Norvasc lisinopril/HCTZ on hold Hypothyroidism Continue Synthroid Mood multiple meds held due on admission to prevent sedation Repeat EKG to assess QTc resume effexor trazodone, seroquel on hold chronic pain received narcan in ED with some positive effect chronic oxycodone initially placed on hold, will resume at lower dose for now. can up titrate prn Full Code DVT pptx -- lovenox + coumadin Attending - Dr. Coulter Patient requires ongoing inpatient hospitalization for hematuria, psych evaluation Quality Stroke Does the patient have a stroke diagnosis?: No VTE Prior VTE?: Yes VTE Risk Level:: Medical - moderate - high VTE Device Contraindication: Treatment Not Indicated VTE Drug Contraindication: N/A - Med Ordered
--- NOTE | 2022-03-22 15:23 | MHC.CM.PN ---
per rounds pt to be dcd to [facility]
[2022-03-22] MEDS: Warfarin Sodium 5 MG TABLET PO (17:51)
[2022-03-22 20:09] LABS: Glucose, Whole Blood 194 mg/dL (60-115)
[2022-03-22 20:09] LABS: Glucose, Whole Blood 283 mg/dL (60-115)
[2022-03-22] MEDS: Insulin Glargine,Hum.rec.anlog 100 UNIT/ML 10 ML VIAL 15 UNIT SUBCUT (20:49)
[2022-03-23 04:00] VITALS: BP 169/76; PULSE 96; RESP 18; TEMP 37.2; O2SAT 96
[2022-03-23] MEDS: Levothyroxine Sodium 88 MCG TABLET PO (06:25)
[2022-03-23] MEDS: Omeprazole 20 MG CAPSULE.DR PO (06:25)
[2022-03-23 07:01] LABS: INTERNATIONAL NORM RATIO 1.5 (0.9-1.1)
[2022-03-23 07:47] VITALS: BP 136/74; PULSE 87; RESP 20; TEMP 36.5; O2SAT 95
[2022-03-23] MEDS: Albuterol/Iprat 2.5/0.5MG 3 ML AMPUL.NEB INHALE ×2 (07:55→11:38)
[2022-03-23 07:56] VITALS: PULSE 95; RESP 20; O2SAT 93
[2022-03-23 07:56] LABS: Glucose, Whole Blood 251 mg/dL (60-115)
[2022-03-23] MEDS: Gabapentin 100 MG CAPSULE PO (08:20)
[2022-03-23] MEDS: Venlafaxine HCl ER 150 MG CAP.ER.24H PO (08:21)
[2022-03-23] MEDS: Pravastatin Sodium 20 MG TABLET 60 MG PO (08:21)
[2022-03-23] MEDS: Venlafaxine HCl ER 75 MG CAP.ER.24H PO (08:21)
[2022-03-23] MEDS: Montelukast Sodium 10 MG TABLET PO (08:23)
[2022-03-23] MEDS: Insulin Lispro 100 UNIT/ML 3 ML VIAL SUBCUT ×2 (08:23→11:31)
[2022-03-23] MEDS: 0.9 % Sodium Chloride Flush 3 ML SYRINGE IVFLUSH (08:23)
[2022-03-23] MEDS: amLODIPine Besylate 2.5 MG TABLET PO (08:24)
[2022-03-23] MEDS: oxyCODONE HCl Immed Release 5 MG TABLET PO (08:30)
[2022-03-23 11:05] LABS: Glucose, Whole Blood 328 mg/dL (60-115)
[2022-03-23 11:21] VITALS: BP 140/78; PULSE 100; RESP 18; TEMP 36.5; O2SAT 95
[2022-03-23 11:38] VITALS: PULSE 95; RESP 20; O2SAT 94
== END 2022-03-23 11:46 ==
LOC: HO.ED 03-19 05:22 → HO.EDOVER 03-19 09:13 → HO.IMC 03-19 19:57
PROVIDERS: Physician Assistant Medical; Admitting Provider Family Medicine; Emergency Provider Internal Medicine; PCP Internal Medicine; Visit Provider Nurse Practitioner Acute Care
DX: T50.901A Poisoning by unspecified drugs, medicaments and biological substances, accidental (unintentional), initial encounter (principal); G93.41 Metabolic encephalopathy; E87.2 Acidosis; R53.83 Other fatigue; Y92.013 Bedroom of single-family (private) house as the place of occurrence of the external cause; F31.4 Bipolar disorder, current episode depressed, severe, without psychotic features; E11.9 Type 2 diabetes mellitus without complications; E66.9 Obesity, unspecified; Z68.41 Body mass index [BMI] 40.0-44.9, adult; Z86.711 Personal history of pulmonary embolism; Z79.01 Long term (current) use of anticoagulants; Z87.440 Personal history of urinary (tract) infections; Z20.822 Contact with and (suspected) exposure to COVID-19; Z23 Encounter for immunization
CPT/HCPCS: 36415; 70450; 71045; 80048; 80053; 80307; 81001; 82140; 82550; 82803; 82947; 83605; 84145; 84484; 85025; 85027; 85610; 86803; 87040; 87086; 87635; 90471; 90686; 93005; 94640; 96360; 96361; 96365; 96366; 96372; 96375; 96376; 99219; 99285; J0696; J1650; J2405

== ENCOUNTER 2022-03-23 13:04 | Inpatient (IN) | payer MEDICARE, SELFPAY ==
[2022-03-23 12:30] VITALS: BP 135/89; PULSE 90; RESP 16; TEMP 36.4; O2SAT 93
[2022-03-23] MEDS: Ondansetron ODT 4 MG TAB.RAPDIS TRANSLINGU (15:30)
[2022-03-23 16:34] LABS: Hematocrit 42.6 % (37.0-47.0); Hemoglobin 14.5 g/dl (12.0-16.0); Mean Corpuscular Hemoglobin 30.2 pg (27.0-33.0); Mean Corpuscular Volume 88.8 fL (80.0-98.0); Mean Platelet Volume 10.6 fL (9.4-12.3); Platelet Count 359 X10*3/uL (160-400); Red Cell Distribution Width 14.1 % (11.0-16.0); White Blood Count 18.5 X10*3/uL (4.8-10.8)
--- NOTE | 2022-03-23 16:35 | P.HPPS_ITS ---
HPI Date of Service: 03/23/22 Chief Complaint: suicidal attempt Sources of Information: patient interviewed, chart reviewed and crisis/core team assessment reviewed HPI Subjective Notes: [place] Warning, Conditional Voluntary and Section 12B Narrative: The patient is a 72-year-old female, , but no biological children, homemaker, retired childcare worker, referred from Medicine after a suicidal attempt. The patient reported that in the last weeks she lost 2 close friends to her and she was feeling very depressed and overwhelmed with neurovegetative symptoms elicited by poor sleep, anhedonia, lack of energy, feelings of hopelessness and worthlessness. She overdosed on Seroquel in a suicidal attempt, she was rushed to the hospital and admitted into Medicine for medical stabilization. After being medically cleared, she was assessed by Psychiatry and the crisis team and then referred to this facility for psychiatric stabilization. On interview, the patient is spoke in a very fast fashion, she adamantly denies suicidal ideation, she stated that she was doing much better and she was able to contract for safety. Her mood was very lab I will that she stated that she has chronic pain. I checked the prescription soft were and apparently she is taking 60-90 mg of oxycodone per day. She stated that she has chronic pain and she cannot live with this pain anymore. We discussed risks, benefits, side-effects and alternatives and she agreed to lower venlafaxine from 225 mg to 150 and we will start olanzapine as a mood stabilizer. Past Psychiatric History: The patient reported that her 1st psychiatric contact was at the age of 48 with an depressive episode without consequent overdose. She was admitted into the hospital. Later on she was admitted again on 2007 for manic episode. She follows services with Dr Victor Hugo NUNEZ for the last [address] years, [address] Dr Armstrong had incident of lithium toxicitiy under his care and so treatment alliance was eroded and pt went to [facility]. She sees kylah Zaragoza @ [facility] and Dr garcia both this past week and she told them she would kill herself- they hoped she didn't = Apparently has hx of this threat and other times was sec 12 and sent home. Denies substance abuse history but she uses opioids for chronic pain. Medical Evaluation Reviewed: Yes PMFSH Family History: not taken today Social History: see above Trauma History: not assessed today Diagnostics Labs Results: 10/04/22 16:26 Meds/Allergies Meds Home Medications Medication Instructions Recorded Confirmed Type acetaminophen 500 mg tablet 500 mg PO TID PRN Pain 03/19/22 03/19/22 History albuterol sulfate 90 mcg/actuation 1 puff inhalation Q4H PRN Wheezing 03/19/22 03/19/22 History aerosol inhaler albuterol sulfate 90 mcg/actuation 2 inh inhalation Q4H PRN Wheezing 03/19/22 03/19/22 History breath activated powder inhaler (ProAir RespiClick) amlodipine 2.5 mg tablet 1 tab PO DAILY 03/19/22 03/19/22 History budesonide 0.5 mg/2 mL suspension 0.5 mg inhalation BID 03/19/22 03/19/22 History for nebulization cholecalciferol (vitamin D3) 25 25 mcg PO DAILY 03/19/22 03/19/22 History mcg (1,000 unit) capsule clonidine HCl 0.2 mg tablet 1 tab PO BEDTIME PRN nightmares 03/19/22 03/19/22 History glipizide 10 mg tablet 1 tab PO BID 03/19/22 03/19/22 History insulin glargine 100 unit/mL (3 4 - 20 unit subcut BEDTIME 03/19/22 03/19/22 History mL) subcutaneous pen (Lantus Solostar U-100 Insulin) insulin glargine 100 unit/mL (3 18 - 24 unit subcut DAILY 03/19/22 03/19/22 History mL) subcutaneous pen (Lantus Solostar U-100 Insulin) ipratropium 0.5 mg-albuterol 3 mg 3 ml inhalation QID PRN Shortness 03/19/22 03/19/22 History (2.5 mg base)/3 mL nebulization Of Breath soln levothyroxine 88 mcg tablet 1 tab PO DAILY@0600 03/19/22 03/19/22 History lisinopril 20 1 tab PO DAILY 03/19/22 03/19/22 History mg-hydrochlorothiazide 25 mg tablet mometasone 100 mcg/actuation HFA 2 puff inhalation BID 03/19/22 03/19/22 History aerosol inhaler (Asmanex HFA) montelukast 10 mg tablet 1 tab PO DAILY 03/19/22 03/19/22 History omeprazole 20 mg capsule,delayed 1 cap PO BID 03/19/22 03/19/22 History release oxycodone 20 mg tablet 1 tab PO TID PRN Pain 03/19/22 03/19/22 History pravastatin 40 mg tablet 1.5 tab PO DAILY 03/19/22 03/19/22 History quetiapine 200 mg tablet (Seroquel) 1.5 tab PO BEDTIME 03/19/22 03/19/22 History quetiapine 50 mg tablet (Seroquel) 1 tab PO BEDTIME 03/19/22 03/19/22 History sitagliptin 100 mg tablet (Januvia) 100 mg PO DAILY 03/19/22 03/19/22 History trazodone 100 mg tablet 1 tab PO BEDTIME 03/19/22 03/19/22 History venlafaxine 150 mg 1 cap PO DAILY 03/19/22 03/19/22 History capsule,extended release 24 hr (Effexor XR) venlafaxine 75 mg capsule,extended 1 cap PO DAILY 03/19/22 03/19/22 History release 24 hr (Effexor XR) warfarin 2.5 mg tablet 1 tab PO DAILY 03/19/22 03/19/22 History warfarin 5 mg tablet 1 tab PO DAILY 03/19/22 03/19/22 History Allergies Allergies Allergy/AdvReac Type Severity Reaction Status Date / Time Penicillins Allergy Mild HIVES Unverified 03/06/20 17:42 codeine [Codeine] AdvReac Mild SWEATS Unverified 03/06/20 17:42 Mental Status Exam Mental Status Exam Patient Appearance: Appropriate Patient Orientation: Person, Place, Time and Situation Level of Consciousness: Awake and Alert Patient Behavior: Cooperative Mood Description: Anxious and Nervous Affect Description: Labile Patient Cognition Impaired: No Ability to Follow Directions: Good Speech Pattern: Clear and Rapid Hallucinations: None Delusions: Not Present Thought Process: Evasive Thought Content: positive for [place] and positive for Thought Blocking Judgement: Fair Assessment & Plan Assessment & Plan (1) Overdose: Status: Acute Code(s): T50.901A - Poisoning by unspecified drugs, medicaments and biological substances, accidental (unintentional), initial encounter (2) Hematuria: Status: Acute Code(s): R31.9 - Hematuria, unspecified Plan The patient is an elderly female with bipolar type 1, recently admitted into the hospital for an intentional overdose on Seroquel in a suicidal attempt after having to losses. On admission, the patient looks hypomanic with fast speech and impulsivity with very labile mood. We discussed medication options and she agreed on the following. Plan 1. Gather collateral information. 2. Continue with Effexor XR lowered to 150 mg p.o. q.a.m. since the patient is hypomanic. 3. Continue gabapentin 100 mg p.o. t.i.d.. 4. Start Zyprexa 5 mg p.o. q.h.s. to target [place]. 5. Observation every 15 minutes. Patient educated on: diagnosis and medical condition Reason for continued inpatient stay Substantial Risk for: harm to self, inability to function, rapid decompensation and med/psych decompensation
[2022-03-23 16:39] LABS: INTERNATIONAL NORM RATIO 1.5 (0.9-1.1); Prothrombin Time 17.8 SEC (10.0-13.1)
[2022-03-23 16:42] LABS: Partial Thromboplastin Time 35.9 SEC (26.0-36.4)
[2022-03-23 16:44] LABS: Glucose, Whole Blood 243 mg/dL (60-115)
[2022-03-23] MEDS: Insulin Lispro 100 UNIT/ML 3 ML VIAL SUBCUT ×2 (16:55→20:38)
--- NOTE | 2022-03-23 16:55 | P.HPPS_ITS ---
HPI Chief Complaint: suicidal attempt HPI Narrative: bruisesnervous new place new people. i took the overdose, remembers it, took seroquel, blended. just at that moment, lost three friends in two weeks, knew them 25 years, cried and cried. pain getting worse, some days couldnt get out of bed. didnt think it out i.e. need more pain meds. im glad im alive, little dogs are too. i love him 48 years. i didnt ask for it, i think thats good for venlafaxine. i was very depressed, said this might work. im bipolar sometimes i just go down, very seldom get manic. insists the antidepressant helped, denies [place] just nervous. sleep is up and down. slepts good last night for a change, 9:30pm-4am. tired, dont have that much energy, broke disc completely osteoporosis, arhtritis all over, bone spurs in knee in constant pain so tired. when i have that oxycodone TID im 85% pain free. depression was off and on, when i get depressed i lay down and sleep, listens to [employer] music. likes movies, ukelele, poetry, painting, her dogs. still got depressed on venlafaxine. possibly didnt help. never suicidal before. celexa all this stuff didnt work for me. Past Psychiatric History: Dr Gay [facility] x7 years, before Dr Armstrong had incident of lithium toxicitiy under his care and so treatment alliance was eroded and pt went to [facility]. She sees kylah Zaragoza @ [facility] and Dr agy both this past week and she told them she would kill herself- they hoped she didn't = Apparently has hx of this threat and other times was sec 12 and sent home. [facility] Family History: not taken today Social History: see above Trauma History: not assessed today Diagnostics Labs Results: 03/23/22 16:26 Labs: Laboratory Results - last 48 hr 03/23/22 03/23/22 03/23/22 16:26 16:26 16:39 WBC 18.5 H RBC 4.80 Hgb 14.5 Hct 42.6 MCV 88.8 MCH 30.2 MCHC 34.0 RDW 14.1 Plt Count 359 D MPV 10.6 Absolute Nucleated RBC 0.000 Nucleated RBC % (auto) 0.0 PT 17.8 H INR 1.5 H APTT 35.9 POC Glucose 243 H Meds/Allergies Meds Home Medications Medication Instructions Recorded Confirmed Type acetaminophen 500 mg tablet 500 mg PO TID PRN Pain 03/19/22 03/19/22 History albuterol sulfate 90 mcg/actuation 1 puff inhalation Q4H PRN Wheezing 03/19/22 03/19/22 History aerosol inhaler albuterol sulfate 90 mcg/actuation 2 inh inhalation Q4H PRN Wheezing 03/19/22 03/19/22 History breath activated powder inhaler (ProAir RespiClick) amlodipine 2.5 mg tablet 1 tab PO DAILY 03/19/22 03/19/22 History budesonide 0.5 mg/2 mL suspension 0.5 mg inhalation BID 03/19/22 03/19/22 History for nebulization cholecalciferol (vitamin D3) 25 25 mcg PO DAILY 03/19/22 03/19/22 History mcg (1,000 unit) capsule clonidine HCl 0.2 mg tablet 1 tab PO BEDTIME PRN nightmares 03/19/22 03/19/22 History glipizide 10 mg tablet 1 tab PO BID 03/19/22 03/19/22 History insulin glargine 100 unit/mL (3 4 - 20 unit subcut BEDTIME 03/19/22 03/19/22 History mL) subcutaneous pen (Lantus Solostar U-100 Insulin) insulin glargine 100 unit/mL (3 18 - 24 unit subcut DAILY 03/19/22 03/19/22 History mL) subcutaneous pen (Lantus Solostar U-100 Insulin) ipratropium 0.5 mg-albuterol 3 mg 3 ml inhalation QID PRN Shortness 03/19/22 03/19/22 History (2.5 mg base)/3 mL nebulization Of Breath soln levothyroxine 88 mcg tablet 1 tab PO DAILY@0600 03/19/22 03/19/22 History lisinopril 20 1 tab PO DAILY 03/19/22 03/19/22 History mg-hydrochlorothiazide 25 mg tablet mometasone 100 mcg/actuation HFA 2 puff inhalation BID 03/19/22 03/19/22 History aerosol inhaler (Asmanex HFA) montelukast 10 mg tablet 1 tab PO DAILY 03/19/22 03/19/22 History omeprazole 20 mg capsule,delayed 1 cap PO BID 03/19/22 03/19/22 History release oxycodone 20 mg tablet 1 tab PO TID PRN Pain 03/19/22 03/19/22 History pravastatin 40 mg tablet 1.5 tab PO DAILY 03/19/22 03/19/22 History quetiapine 200 mg tablet (Seroquel) 1.5 tab PO BEDTIME 03/19/22 03/19/22 History quetiapine 50 mg tablet (Seroquel) 1 tab PO BEDTIME 03/19/22 03/19/22 History sitagliptin 100 mg tablet (Januvia) 100 mg PO DAILY 03/19/22 03/19/22 History trazodone 100 mg tablet 1 tab PO BEDTIME 03/19/22 03/19/22 History venlafaxine 150 mg 1 cap PO DAILY 03/19/22 03/19/22 History capsule,extended release 24 hr (Effexor XR) venlafaxine 75 mg capsule,extended 1 cap PO DAILY 03/19/22 03/19/22 History release 24 hr (Effexor XR) warfarin 2.5 mg tablet 1 tab PO DAILY 03/19/22 03/19/22 History warfarin 5 mg tablet 1 tab PO DAILY 03/19/22 03/19/22 History Allergies Allergies Allergy/AdvReac Type Severity Reaction Status Date / Time Penicillins Allergy Mild HIVES Unverified 03/06/20 17:42 codeine [Codeine] AdvReac Mild SWEATS Unverified 03/06/20 17:42
[2022-03-23] MEDS: oxyCODONE HCl Immed Release 5 MG TABLET 20 MG PO (17:09)
[2022-03-23] MEDS: Warfarin Sodium 5 MG TABLET PO (17:10)
[2022-03-23 18:00] VITALS: BP 142/83; PULSE 96; RESP 18; TEMP 37.2; O2SAT 93
--- NOTE | 2022-03-23 18:47 | PC.ADMIT ---
Pt. arrived on the unit from an internal transfer from a medical floor. She arrived on this unit at 1226 in a wheelchair and was accompanied by a security director and an RN. Pt. was calm and cooperative when she arrived on the unit. She stated that she would like her pain medication as soon as possible. This radio news writer to reach out to provider to request medication orders as soon as possible. Pt. arrived hemodynamically stable and denied SI/HI/AVH. Pt. vehemently stated that she will never attempt suicide again, and she knows better how to ask for help now . Pt. was transferred from the medical floor d/t the overdose on Seroquel. Pt. stated that she is very happy to be alive and is looking forward to getting back to her life, , and dogs. Pt. stated that she lost a very good few friends within a short amount of time-recently, and this is what precipitated the suicidal actions. Pt. has settled into her bedroom and currently denies any questions/concerns. Pt. ambulates independently with the assistance of a walker.
[2022-03-23 20:19] LABS: Glucose, Whole Blood 233 mg/dL (60-115)
[2022-03-23] MEDS: Budesonide 180 MCG AER.POW.BA 1 PUFF INHALE (20:35)
[2022-03-23] MEDS: Gabapentin 100 MG CAPSULE PO (20:36)
[2022-03-23] MEDS: Montelukast Sodium 10 MG TABLET PO (20:36)
[2022-03-23] MEDS: OLANZapine 5 MG TABLET PO (20:36)
[2022-03-23] MEDS: Insulin Glargine,Hum.rec.anlog 100 UNIT/ML 10 ML VIAL 15 UNIT SUBCUT (20:41)
[2022-03-24 00:59] VITALS: BMI 43.0
[2022-03-24] MEDS: Omeprazole 20 MG CAPSULE.DR PO (06:09)
[2022-03-24] MEDS: Levothyroxine Sodium 88 MCG TABLET PO (06:09)
[2022-03-24 08:00] VITALS: BP 147/91; PULSE 108; RESP 20; TEMP 36.4; O2SAT 92
[2022-03-24] MEDS: Insulin Lispro 100 UNIT/ML 3 ML VIAL SUBCUT ×4 (08:26→21:27)
[2022-03-24 08:28] LABS: Hematocrit 42.8 % (37.0-47.0); Hemoglobin 14.2 g/dl (12.0-16.0); Mean Corpuscular HGB Conc 33.2 g/dl (31.0-35.0); Mean Corpuscular Hemoglobin 30.1 pg (27.0-33.0); Mean Corpuscular Volume 90.7 fL (80.0-98.0); Mean Platelet Volume 11.5 fL (9.4-12.3); Platelet Count 303 X10*3/uL (160-400); Red Blood Count 4.72 X10*6/uL (4.20-5.50); Red Cell Distribution Width 14.1 % (11.0-16.0); White Blood Count 15.5 X10*3/uL (4.8-10.8)
[2022-03-24 08:37] LABS: Glucose, Whole Blood 276 mg/dL (60-115)
[2022-03-24 08:58] LABS: Alanine Aminotransferase 45 U/L (0-31); Albumin Level 3.8 g/dL (3.5-5.0); Alkaline Phosphatase 83 U/L (39-117); Anion Gap 19 (12-20); Aspartate Amino Transferase 56 U/L (5-31); Bilirubin Total 0.6 mg/dL (0.0-1.0); Blood Urea Nitrogen 28 mg/dL (9-16); Calcium 9.1 mg/dL (8.4-10.2); Carbon Dioxide 21 mmol/L (22-29); Chloride 103 mmol/L (96-108); Cholesterol 157 mg/dL; Creatinine Clr Calc Pharmacy 80.7; Estimated Glomerular Filt Rate > 60; Glucose Fasting 264 mg/dL (60-99); HDL Cholesterol 64 mg/dL; LDL Cholesterol Calculated 69 mg/dl; Potassium 4.9 mmol/L (3.3-5.1); Sodium 138 mmol/L (135-145); Total Protein 7.5 g/dL (6.5-8.0); Triglycerides 120 mg/dL
[2022-03-24] MEDS: Pravastatin Sodium 20 MG TABLET 60 MG PO (09:44)
[2022-03-24] MEDS: Budesonide 180 MCG AER.POW.BA 1 PUFF INHALE ×2 (09:44→21:11)
[2022-03-24] MEDS: Gabapentin 100 MG CAPSULE PO ×3 (09:46→21:12)
[2022-03-24] MEDS: Venlafaxine HCl ER 150 MG CAP.ER.24H PO (09:46)
[2022-03-24] MEDS: amLODIPine Besylate 2.5 MG TABLET PO (09:46)
[2022-03-24] MEDS: oxyCODONE HCl Immed Release 5 MG TABLET 20 MG PO ×2 (09:50→20:25)
[2022-03-24 10:43] LABS: INTERNATIONAL NORM RATIO 1.7 (0.9-1.1); Prothrombin Time 20.3 SEC (10.0-13.1)
[2022-03-24 11:41] LABS: Glucose, Whole Blood 235 mg/dL (60-115)
--- NOTE | 2022-03-24 12:37 | HO.PSYCHPN ---
Subjective Subjective Date of Service: 03/24/22 Reason For Visit: suicidal attempt Subjective Notes: Conditional Voluntary Interim History: The nursing staff reported that the patient slept several hours, at least but she complained later of nausea and so from was provided. On interview the patient reports that she is doing very well, Zyprexa helped her for sleep. Still her mood is labile with rapid speech. Mental Status Exam Mental Status Exam Patient Appearance: Well Grooomed Patient Orientation: Person, Place, Time and Situation Level of Consciousness: Awake Patient Behavior: Cooperative Mood Description: Withdrawn Affect Description: Suspicious and Labile Patient Cognition Impaired: Yes Ability to Follow Directions: Good Speech Pattern: Clear Hallucinations: None Delusions: Not Present Thought Process: Distracted Thought Content: positive for [place] and positive for Poverty of Content Judgement: Fair Diagnostics Vital Signs (24Hr): Vital Signs - 24 hr 03/23/22 18:00 03/24/22 08:00 Temperature 98.9 F 97.5 F Pulse Rate 96 108 H Respiratory Rate 18 20 Blood Pressure 142/83 H 147/91 H Pulse Oximetry 93 92 Oxygen Delivery Method Room Air Room Air BMI result Body Mass Index 43.0 Labs Results: 03/24/22 07:59 03/24/22 07:59 Labs: Laboratory Results - last 48 hr 03/23/22 03/23/22 03/23/22 16:26 16:26 16:39 WBC 18.5 H RBC 4.80 Hgb 14.5 Hct 42.6 MCV 88.8 MCH 30.2 MCHC 34.0 RDW 14.1 Plt Count 359 D MPV 10.6 Absolute Nucleated RBC 0.000 Nucleated RBC % (auto) 0.0 PT 17.8 H INR 1.5 H APTT 35.9 Sodium Potassium Chloride Carbon Dioxide Anion Gap BUN Creatinine Estim Creat Clear Calc Estimated GFR POC Glucose 243 H Fasting Glucose Calcium Total Bilirubin AST ALT Alkaline Phosphatase Total Protein Albumin Triglycerides Cholesterol LDL Cholesterol, Calc HDL Cholesterol 03/23/22 03/24/22 03/24/22 20:11 07:59 07:59 WBC 15.5 H RBC 4.72 Hgb 14.2 Hct 42.8 MCV 90.7 MCH 30.1 MCHC 33.2 RDW 14.1 Plt Count 303 MPV 11.5 Absolute Nucleated RBC 0.000 Nucleated RBC % (auto) 0.0 PT INR APTT Sodium 138 Potassium 4.9 Chloride 103 Carbon Dioxide 21 L Anion Gap 19 BUN 28 H Creatinine 0.92 Estim Creat Clear Calc 80.7 Estimated GFR > 60 POC Glucose 233 H Fasting Glucose 264 H Calcium 9.1 Total Bilirubin 0.6 AST 56 H ALT 45 H Alkaline Phosphatase 83 Total Protein 7.5 Albumin 3.8 Triglycerides 120 Cholesterol 157 LDL Cholesterol, Calc 69 HDL Cholesterol 64 03/24/22 03/24/22 03/24/22 08:02 10:25 11:32 WBC RBC Hgb Hct MCV MCH MCHC RDW Plt Count MPV Absolute Nucleated RBC Nucleated RBC % (auto) PT 20.3 H INR 1.7 H APTT Sodium Potassium Chloride Carbon Dioxide Anion Gap BUN Creatinine Estim Creat Clear Calc Estimated GFR POC Glucose 276 H 235 H Fasting Glucose Calcium Total Bilirubin AST ALT Alkaline Phosphatase Total Protein Albumin Triglycerides Cholesterol LDL Cholesterol, Calc HDL Cholesterol Medications Medications Current Medications Acetaminophen (Acetaminophen 325 Mg Tablet) 650 mg PO Q6H PRN PRN Reason: Headache/Pain Mild Scale (1-3) Al Hydroxide/Mg Hydroxide (Magnesium Hydrox/Alum Hydrox 30 Ml Oral.Susp) 30 ml PO Q6H PRN PRN Reason: Heartburn/Nausea Albuterol/Ipratropium (Albuterol/Iprat 2.5/0.5mg 3 Ml Ampul.Neb) 3 ml INHALE RQ4H WHILE AWAKE [facility] Last Admin: 03/23/22 21:12 Dose: Not Given Amlodipine Besylate (Amlodipine Besylate 2.5 Mg Tablet) 2.5 mg PO DAILY [facility]; Protocol Last Admin: 03/24/22 09:46 Dose: 2.5 mg Budesonide (Budesonide 180 Mcg Aer.Pow.Ba) 1 puff INHALE RBID [facility] Last Admin: 03/24/22 09:44 Dose: 1 puff Gabapentin (Gabapentin 100 Mg Capsule) 100 mg PO TID [facility] Last Admin: 03/24/22 09:46 Dose: 100 mg Hydroxyzine HCl (Hydroxyzine Hcl 25 Mg Tablet) 25 mg PO Q6H PRN PRN Reason: Anxiety Insulin Glargine (Insulin Glargine,Hum.Rec.Anlog 100 Unit/Ml 10 Ml Vial) 15 unit SUBCUT BEDTIME [facility] Last Admin: 03/23/22 20:41 Dose: 15 unit Insulin Human Lispro (Insulin Lispro 100 Unit/Ml 3 Ml Vial) 0 unit SUBCUT QIDACHS [facility]; Protocol Last Admin: 03/24/22 11:48 Dose: 4 unit Levothyroxine Sodium (Levothyroxine Sodium 88 Mcg Tablet) 88 mcg PO DAILY@0600 [facility] Last Admin: 03/24/22 06:09 Dose: 88 mcg Magnesium Hydroxide (Milk Of Magnesia 30 Ml Oral.Susp) 30 ml PO DAILY PRN PRN Reason: Constipation Montelukast Sodium (Montelukast Sodium 10 Mg Tablet) 10 mg PO BEDTIME [facility] Last Admin: 03/23/22 20:36 Dose: 10 mg Olanzapine (Olanzapine 5 Mg Tablet) 5 mg PO BEDTIME [facility] Last Admin: 03/23/22 20:36 Dose: 5 mg Omeprazole (Omeprazole 20 Mg Capsule.Dr) 20 mg PO DAILY@0630 [facility] Last Admin: 03/24/22 06:09 Dose: 20 mg Ondansetron HCl (Ondansetron Odt 4 Mg Tab.Rapdis) 4 mg TRANSLINGU Q8H PRN PRN Reason: Nausea Last Admin: 03/23/22 15:30 Dose: 4 mg Ondansetron HCl (Ondansetron Odt 4 Mg Tab.Rapdis) 4 mg TRANSLINGU Q6H PRN PRN Reason: Nausea Oxycodone HCl (Oxycodone Hcl Immed Release 5 Mg Tablet) 20 mg PO TID PRN PRN Reason: Pain, Severe (Pain Scale 7-10) Last Admin: 03/24/22 09:50 Dose: 20 mg Pravastatin Sodium (Pravastatin Sodium 20 Mg Tablet) 60 mg PO DAILY [facility] Last Admin: 03/24/22 09:44 Dose: 60 mg Trazodone HCl (Trazodone Hcl 50 Mg Tablet) 50 mg PO BEDTIME PRN PRN Reason: Insomnia Venlafaxine HCl (Venlafaxine Hcl Er 150 Mg Cap.Er.24h) 150 mg PO DAILY [facility] Last Admin: 03/24/22 09:46 Dose: 150 mg Warfarin Sodium (Warfarin Sodium 5 Mg Tablet) 5 mg PO DAILY@1800 [facility] Last Admin: 03/23/22 17:10 Dose: 5 mg Allergies Allergies Allergy/AdvReac Type Severity Reaction Status Date / Time Penicillins Allergy Mild HIVES Unverified 03/06/20 17:42 codeine [Codeine] AdvReac Mild SWEATS Unverified 03/06/20 17:42 Assessment & Plan Assessment & Plan (1) Overdose: Status: Acute Code(s): T50.901A - Poisoning by unspecified drugs, medicaments and biological substances, accidental (unintentional), initial encounter (2) Hematuria: Status: Acute Code(s): R31.9 - Hematuria, unspecified Plan Elderly female with a long history of bipolar disorder who was admitted after she tried to overdose of Seroquel in a suicidal attempt after to friends dying. On admission, it was clear that she had hypomanic symptoms and will lower her Effexor XR from 225-150, kept gabapentin and add a low dose of olanzapine. Plan 1. Gather collateral information. 2. Continue with the same treatment. Monitor for over-sedation with Zyprexa. I spent ___20___ minutes with the patient and/or on the patient floor today, greater than?50% of which was spent counseling/coordinating care. Reason for contiued inpatient stay Substantial Risk for: inability to function, rapid decompensation and med/psych decompensation
[2022-03-24 15:00] VITALS: BMI 40.8
[2022-03-24 16:30] LABS: INTERNATIONAL NORM RATIO 1.8 (0.9-1.1); Prothrombin Time 21.1 SEC (10.0-13.1)
[2022-03-24] MEDS: Albuterol Sulfate 90 MCG 8 GM INHALER 2 PUFF INHALE (16:38)
[2022-03-24 16:51] LABS: Glucose, Whole Blood 226 mg/dL (60-115)
--- NOTE | 2022-03-24 17:25 | PC.NURSE ---
PT/inr, Coumadin dosage sent to Dr Mahajan via [employer] and questioned whether to continue with current dose of Coumadin at 1205 and 1525. No med changes made.
[2022-03-24 18:00] VITALS: BP 126/56; PULSE 95; RESP 16; TEMP 37.2; O2SAT 92
[2022-03-24] MEDS: Warfarin Sodium 5 MG TABLET PO (18:27)
[2022-03-24] MEDS: Montelukast Sodium 10 MG TABLET PO (21:12)
[2022-03-24] MEDS: OLANZapine 5 MG TABLET PO (21:12)
[2022-03-24 21:18] LABS: Glucose, Whole Blood 239 mg/dL (60-115)
[2022-03-24] MEDS: Milk of Magnesia 30 ML ORAL.SUSP PO (21:23)
[2022-03-24] MEDS: Insulin Glargine,Hum.rec.anlog 100 UNIT/ML 10 ML VIAL 15 UNIT SUBCUT (21:25)
[2022-03-25] MEDS: Levothyroxine Sodium 88 MCG TABLET PO (05:31)
[2022-03-25] MEDS: Omeprazole 20 MG CAPSULE.DR PO (05:31)
[2022-03-25 06:00] VITALS: BP 138/68; PULSE 94; RESP 16; TEMP 36.4; O2SAT 95
[2022-03-25 07:54] LABS: Glucose, Whole Blood 314 mg/dL (60-115)
[2022-03-25 07:59] LABS: INTERNATIONAL NORM RATIO 1.8 (0.9-1.1)
[2022-03-25] MEDS: Insulin Lispro 100 UNIT/ML 3 ML VIAL SUBCUT ×4 (08:22→22:30)
[2022-03-25] MEDS: amLODIPine Besylate 2.5 MG TABLET PO (08:23)
[2022-03-25] MEDS: Gabapentin 100 MG CAPSULE PO ×3 (08:23→22:20)
[2022-03-25] MEDS: Venlafaxine HCl ER 150 MG CAP.ER.24H PO (08:23)
[2022-03-25] MEDS: Pravastatin Sodium 20 MG TABLET 60 MG PO (08:23)
[2022-03-25] MEDS: oxyCODONE HCl Immed Release 5 MG TABLET 20 MG PO (10:19)
[2022-03-25] MEDS: Budesonide 180 MCG AER.POW.BA 1 PUFF INHALE ×2 (10:22→22:35)
[2022-03-25 11:50] LABS: Glucose, Whole Blood 245 mg/dL (60-115)
--- NOTE | 2022-03-25 16:03 | P.PNPSI_ITS ---
Subjective Subjective Date of Service: 03/25/22 Reason For Visit: suicidal attempt Subjective Notes: Conditional Voluntary Interim History: The nursing staff reported the patient has been very social and pleasant in the unit, she has been seen in the common areas watching TV and interacting with other peers. The staff reported that she is feeling much better since we started Zyprexa and she is sleeping much better. The social sciences lecturer has contact her and he is homebound but they have several services in place. We will try to gather more collateral information and other ancillary services. On interview the patient denies new symptoms she states that she is feeling much better less irritable. We discussed today over the phone with her and he agreed on the plan. Mental Status Exam Mental Status Exam Patient Appearance: Well Grooomed Patient Orientation: Person and Situation Level of Consciousness: Awake Patient Behavior: Cooperative Mood Description: Appropriate and Cheerful Affect Description: Labile Ability to Follow Directions: Good Speech Pattern: Clear Hallucinations: None Delusions: Not Present Thought Process: Distracted Thought Content: positive for Circumstantial Judgement: Fair Diagnostics Vital Signs (24Hr): Vital Signs - 24 hr 03/24/22 18:00 03/25/22 06:00 Temperature 98.9 F 97.6 F Pulse Rate 95 94 Respiratory Rate 16 16 Blood Pressure 126/56 L 138/68 Pulse Oximetry 92 95 Oxygen Delivery Method Room Air Room Air BMI result Body Mass Index 40.8 Labs Results: 03/24/22 07:59 03/24/22 07:59 Labs: Laboratory Results - last 48 hr 03/23/22 03/23/22 03/23/22 16:26 16:26 16:39 WBC 18.5 H RBC 4.80 Hgb 14.5 Hct 42.6 MCV 88.8 MCH 30.2 MCHC 34.0 RDW 14.1 Plt Count 359 D MPV 10.6 Absolute Nucleated RBC 0.000 Nucleated RBC % (auto) 0.0 PT 17.8 H INR 1.5 H APTT 35.9 Sodium Potassium Chloride Carbon Dioxide Anion Gap BUN Creatinine Estim Creat Clear Calc Estimated GFR POC Glucose 243 H Fasting Glucose Calcium Total Bilirubin AST ALT Alkaline Phosphatase Total Protein Albumin Triglycerides Cholesterol LDL Cholesterol, Calc HDL Cholesterol 03/23/22 03/24/22 03/24/22 20:11 07:59 07:59 WBC 15.5 H RBC 4.72 Hgb 14.2 Hct 42.8 MCV 90.7 MCH 30.1 MCHC 33.2 RDW 14.1 Plt Count 303 MPV 11.5 Absolute Nucleated RBC 0.000 Nucleated RBC % (auto) 0.0 PT INR APTT Sodium 138 Potassium 4.9 Chloride 103 Carbon Dioxide 21 L Anion Gap 19 BUN 28 H Creatinine 0.92 Estim Creat Clear Calc 80.7 Estimated GFR > 60 POC Glucose 233 H Fasting Glucose 264 H Calcium 9.1 Total Bilirubin 0.6 AST 56 H ALT 45 H Alkaline Phosphatase 83 Total Protein 7.5 Albumin 3.8 Triglycerides 120 Cholesterol 157 LDL Cholesterol, Calc 69 HDL Cholesterol 64 03/24/22 03/24/22 03/24/22 08:02 10:25 11:32 WBC RBC Hgb Hct MCV MCH MCHC RDW Plt Count MPV Absolute Nucleated RBC Nucleated RBC % (auto) PT 20.3 H INR 1.7 H APTT Sodium Potassium Chloride Carbon Dioxide Anion Gap BUN Creatinine Estim Creat Clear Calc Estimated GFR POC Glucose 276 H 235 H Fasting Glucose Calcium Total Bilirubin AST ALT Alkaline Phosphatase Total Protein Albumin Triglycerides Cholesterol LDL Cholesterol, Calc HDL Cholesterol 03/24/22 03/24/22 03/24/22 16:15 16:45 21:07 WBC RBC Hgb Hct MCV MCH MCHC RDW Plt Count MPV Absolute Nucleated RBC Nucleated RBC % (auto) PT 21.1 H INR 1.8 H APTT Sodium Potassium Chloride Carbon Dioxide Anion Gap BUN Creatinine Estim Creat Clear Calc Estimated GFR POC Glucose 226 H 239 H Fasting Glucose Calcium Total Bilirubin AST ALT Alkaline Phosphatase Total Protein Albumin Triglycerides Cholesterol LDL Cholesterol, Calc HDL Cholesterol 03/25/22 03/25/22 03/25/22 07:31 07:45 11:45 WBC RBC Hgb Hct MCV MCH MCHC RDW Plt Count MPV Absolute Nucleated RBC Nucleated RBC % (auto) PT 21.0 H INR 1.8 H APTT Sodium Potassium Chloride Carbon Dioxide Anion Gap BUN Creatinine Estim Creat Clear Calc Estimated GFR POC Glucose 314 H 245 H Fasting Glucose Calcium Total Bilirubin AST ALT Alkaline Phosphatase Total Protein Albumin Triglycerides Cholesterol LDL Cholesterol, Calc HDL Cholesterol Medications Medications Current Medications Acetaminophen (Acetaminophen 325 Mg Tablet) 650 mg PO Q6H PRN PRN Reason: Headache/Pain Mild Scale (1-3) Al Hydroxide/Mg Hydroxide (Magnesium Hydrox/Alum Hydrox 30 Ml Oral.Susp) 30 ml PO Q6H PRN PRN Reason: Heartburn/Nausea Albuterol Sulfate (Albuterol Sulfate 90 Mcg 8 Gm Inhaler) 2 puff INHALE RQ4H PRN PRN Reason: Wheezing Last Admin: 03/24/22 16:38 Dose: 2 puff Amlodipine Besylate (Amlodipine Besylate 2.5 Mg Tablet) 2.5 mg PO DAILY [facility]; Protocol Last Admin: 03/25/22 08:23 Dose: 2.5 mg Budesonide (Budesonide 180 Mcg Aer.Pow.Ba) 1 puff INHALE RBID [facility] Last Admin: 03/25/22 10:22 Dose: 1 puff Gabapentin (Gabapentin 100 Mg Capsule) 100 mg PO TID [facility] Last Admin: 03/25/22 08:23 Dose: 100 mg Hydroxyzine HCl (Hydroxyzine Hcl 25 Mg Tablet) 25 mg PO Q6H PRN PRN Reason: Anxiety Insulin Glargine (Insulin Glargine,Hum.Rec.Anlog 100 Unit/Ml 10 Ml Vial) 15 unit SUBCUT BEDTIME [facility] Last Admin: 03/24/22 21:25 Dose: 15 unit Insulin Human Lispro (Insulin Lispro 100 Unit/Ml 3 Ml Vial) 0 unit SUBCUT QIDACHS [facility]; Protocol Last Admin: 03/25/22 11:52 Dose: 4 unit Levothyroxine Sodium (Levothyroxine Sodium 88 Mcg Tablet) 88 mcg PO DAILY@0600 [facility] Last Admin: 03/25/22 05:31 Dose: 88 mcg Magnesium Hydroxide (Milk Of Magnesia 30 Ml Oral.Susp) 30 ml PO DAILY PRN PRN Reason: Constipation Last Admin: 03/24/22 21:23 Dose: 30 ml Montelukast Sodium (Montelukast Sodium 10 Mg Tablet) 10 mg PO BEDTIME [facility] Last Admin: 03/24/22 21:12 Dose: 10 mg Olanzapine (Olanzapine 5 Mg Tablet) 5 mg PO BEDTIME [facility] Last Admin: 03/24/22 21:12 Dose: 5 mg Omeprazole (Omeprazole 20 Mg Capsule.Dr) 20 mg PO DAILY@0630 [facility] Last Admin: 03/25/22 05:31 Dose: 20 mg Ondansetron HCl (Ondansetron Odt 4 Mg Tab.Rapdis) 4 mg TRANSLINGU Q8H PRN PRN Reason: Nausea Last Admin: 03/23/22 15:30 Dose: 4 mg Ondansetron HCl (Ondansetron Odt 4 Mg Tab.Rapdis) 4 mg TRANSLINGU Q6H PRN PRN Reason: Nausea Oxycodone HCl (Oxycodone Hcl Immed Release 5 Mg Tablet) 20 mg PO TID PRN PRN Reason: Pain, Severe (Pain Scale 7-10) Last Admin: 03/25/22 10:19 Dose: 20 mg Pravastatin Sodium (Pravastatin Sodium 20 Mg Tablet) 60 mg PO DAILY [facility] Last Admin: 03/25/22 08:23 Dose: 60 mg Trazodone HCl (Trazodone Hcl 50 Mg Tablet) 50 mg PO BEDTIME PRN PRN Reason: Insomnia Venlafaxine HCl (Venlafaxine Hcl Er 150 Mg Cap.Er.24h) 150 mg PO DAILY [facility] Last Admin: 03/25/22 08:23 Dose: 150 mg Warfarin Sodium (Warfarin Sodium 5 Mg Tablet) 5 mg PO DAILY@1800 [facility] Last Admin: 03/24/22 18:27 Dose: 5 mg Allergies Allergies Allergy/AdvReac Type Severity Reaction Status Date / Time Penicillins Allergy Mild HIVES Unverified 03/06/20 17:42 codeine [Codeine] AdvReac Mild SWEATS Unverified 03/06/20 17:42 Assessment & Plan Assessment & Plan (1) Overdose: Status: Acute Code(s): T50.901A - Poisoning by unspecified drugs, medicaments and biological subst ances, accidental (unintentional), initial encounter (2) Hematuria: Status: Acute Code(s): R31.9 - Hematuria, unspecified Plan Elderly female with a long history of bipolar disorder who was admitted after she tried to overdose of Seroquel in a suicidal attempt after to friends dying. On admission, it was clear that she had hypomanic symptoms and will lower her Effexor XR from 225-150, kept gabapentin and add a low dose of olanzapine. Plan 1. Gather collateral information. 2. Continue with the same treatment. Monitor for over-sedation with Zyprexa. 3. Blood work for tomorrow I spent ___20___ minutes with the patient and/or on the patient floor today, greater than?50% of which was spent counseling/coordinating care. Reason for contiued inpatient stay Substantial Risk for: inability to function, rapid decompensation and med/psych decompensation
[2022-03-25 17:04] LABS: Glucose, Whole Blood 257 mg/dL (60-115)
[2022-03-25] MEDS: Warfarin Sodium 5 MG TABLET PO (17:18)
[2022-03-25 19:30] VITALS: BP 144/66; PULSE 99; RESP 16; TEMP 36.2; O2SAT 91
[2022-03-25] MEDS: OLANZapine 5 MG TABLET PO (22:19)
[2022-03-25] MEDS: Montelukast Sodium 10 MG TABLET PO (22:20)
[2022-03-25] MEDS: Insulin Glargine,Hum.rec.anlog 100 UNIT/ML 10 ML VIAL 15 UNIT SUBCUT (22:31)
[2022-03-25 22:46] LABS: Glucose, Whole Blood 284 mg/dL (60-115)
[2022-03-26 06:00] VITALS: BP 140/64; PULSE 90; RESP 18; TEMP 36.7; O2SAT 95
[2022-03-26] MEDS: Levothyroxine Sodium 88 MCG TABLET PO (06:32)
[2022-03-26] MEDS: Omeprazole 20 MG CAPSULE.DR PO (06:32)
[2022-03-26 07:32] LABS: Glucose, Whole Blood 278 mg/dL (60-115)
[2022-03-26] MEDS: Pravastatin Sodium 20 MG TABLET 60 MG PO (08:15)
[2022-03-26] MEDS: Insulin Lispro 100 UNIT/ML 3 ML VIAL SUBCUT ×4 (08:15→20:40)
[2022-03-26] MEDS: Venlafaxine HCl ER 150 MG CAP.ER.24H PO (08:16)
[2022-03-26] MEDS: Gabapentin 100 MG CAPSULE PO ×3 (08:16→20:40)
[2022-03-26] MEDS: amLODIPine Besylate 2.5 MG TABLET PO (08:16)
[2022-03-26] MEDS: oxyCODONE HCl Immed Release 5 MG TABLET 20 MG PO ×2 (08:22→18:17)
[2022-03-26 09:32] LABS: MANUAL DIFF FLAG NO
[2022-03-26 09:49] LABS: Basophils Absolute Auto 0.1 X10*3/uL (0.0-0.2); Eosinophils Absolute Auto 0.4 X10*3/uL (0.0-0.4); Eosinophils Percent Auto 4.2 % (0-4); Hematocrit 39.7 % (37.0-47.0); Imm Gran Abs Auto 0.04 X10*3/uL (0.00-0.03); Imm Gran Pct Auto 0.4 % (0.0-0.4); Lymphocytes Absolute Auto 3.8 X10*3/uL (1.2-4.9); Lymphocytes Percent Auto 35.4 % (20-40); Mean Corpuscular HGB Conc 32.7 g/dl (31.0-35.0); Mean Corpuscular Hemoglobin 30.4 pg (27.0-33.0); Mean Platelet Volume 11.4 fL (9.4-12.3); Monocytes Percent Auto 9.4 % (2-11); Neutrophils Absolute Auto 5.3 x10*3/uL (2.0-8.3); Neutrophils Percent Auto 49.6 % (45-73); Platelet Count 308 X10*3/uL (160-400); Red Blood Count 4.27 X10*6/uL (4.20-5.50); Red Cell Distribution Width 14.1 % (11.0-16.0); White Blood Count 10.6 X10*3/uL (4.8-10.8)
[2022-03-26 09:56] LABS: Estimated Average Glucose 214 mg/dL; Hemoglobin A1c % 9.1 %
[2022-03-26 09:57] LABS: Alanine Aminotransferase 42 U/L (0-31); Albumin Level 3.7 g/dL (3.5-5.0); Alkaline Phosphatase 85 U/L (39-117); Aspartate Amino Transferase 33 U/L (5-31); Bilirubin Direct 0.3 mg/dL (0.0-0.5); Bilirubin Total 0.3 mg/dL (0.0-1.0); Cholesterol 150 mg/dL; HDL Cholesterol 58 mg/dL; LDL Cholesterol Calculated 63 mg/dl; Total Protein 6.9 g/dL (6.5-8.0); Triglycerides 145 mg/dL
[2022-03-26 11:59] LABS: Glucose, Whole Blood 361 mg/dL (60-115)
[2022-03-26 12:05] LABS: INTERNATIONAL NORM RATIO 1.7 (0.9-1.1); Prothrombin Time 19.8 SEC (10.0-13.1)
[2022-03-26 16:33] LABS: Glucose, Whole Blood 195 mg/dL (60-115)
[2022-03-26 18:00] VITALS: BP 149/66; PULSE 90; RESP 18; TEMP 36.7; O2SAT 95
[2022-03-26] MEDS: Albuterol Sulfate 90 MCG 8 GM INHALER 2 PUFF INHALE (18:17)
[2022-03-26] MEDS: Warfarin Sodium 5 MG TABLET PO (18:17)
--- NOTE | 2022-03-26 19:06 | HO.PSYCHPN ---
Subjective Subjective Date of Service: 03/26/22 Reason For Visit: suicidal attempt Subjective Notes: [place] Warning Interim History: I spoke with pt's team and pt, says she has been up all day. Had a really good day, was up mingling. Feels better, rested. Complains of constipation since transferring to [facility], will start miralax. Denies abdominal pain, has been eating. Says as long as her pain is managed, she is doing well and looking forward to discharge, planned for Tuesday. Medication Compliance: Yes Side effects from medications: No Attending Groups: Yes Review of Systems Acute medical concerns: No Medical Review of Systems: unchanged Mental Status Exam Mental Status Exam Narrative: Patient Appearance: Well Groomed Patient Orientation: Person and Situation Level of Consciousness: Awake Patient Behavior: Cooperative Mood Description: Appropriate and Cheerful Affect Description: Labile Ability to Follow Directions: Good Speech Pattern: Clear Hallucinations: None Delusions: Not Present Thought Process: Distracted Thought Content: positive for Circumstantial Judgment: Fair Diagnostics Vital Signs (24Hr): Vital Signs - 24 hr 03/25/22 19:30 03/26/22 06:00 Temperature 97.2 F 98.0 F Pulse Rate 99 90 Respiratory Rate 16 18 Blood Pressure 144/66 H 140/64 H Pulse Oximetry 91 L 95 Oxygen Delivery Method Room Air BMI result Body Mass Index 40.8 Labs Results: 03/26/22 09:10 03/24/22 07:59 Labs: Laboratory Results - last 48 hr 03/24/22 03/25/22 03/25/22 21:07 07:31 07:45 WBC RBC Hgb Hct MCV MCH MCHC RDW Plt Count MPV Immature Gran % (Auto) Neut % (Auto) Lymph % (Auto) Henry % (Auto) Eos % (Auto) Baso % (Auto) Lymph # (Auto) Henry # (Auto) Eos # (Auto) Baso # (Auto) Abs Immat Gran (auto) Absolute Neuts (auto) Absolute Nucleated RBC Nucleated RBC % (auto) PT 21.0 H INR 1.8 H POC Glucose 239 H 314 H Estimat Average Glucose Hemoglobin A1c % Total Bilirubin Direct Bilirubin AST ALT Alkaline Phosphatase Total Protein Albumin Triglycerides Cholesterol LDL Cholesterol, Calc HDL Cholesterol 03/25/22 03/25/22 03/25/22 11:45 16:43 22:27 WBC RBC Hgb Hct MCV MCH MCHC RDW Plt Count MPV Immature Gran % (Auto) Neut % (Auto) Lymph % (Auto) Henry % (Auto) Eos % (Auto) Baso % (Auto) Lymph # (Auto) Henry # (Auto) Eos # (Auto) Baso # (Auto) Abs Immat Gran (auto) Absolute Neuts (auto) Absolute Nucleated RBC Nucleated RBC % (auto) PT INR POC Glucose 245 H 257 H 284 H Estimat Average Glucose Hemoglobin A1c % Total Bilirubin Direct Bilirubin AST ALT Alkaline Phosphatase Total Protein Albumin Triglycerides Cholesterol LDL Cholesterol, Calc HDL Cholesterol 03/26/22 03/26/22 03/26/22 07:27 09:10 09:10 WBC 10.6 RBC 4.27 Hgb 13.0 Hct 39.7 MCV 93.0 MCH 30.4 MCHC 32.7 RDW 14.1 Plt Count 308 MPV 11.4 Immature Gran % (Auto) 0.4 Neut % (Auto) 49.6 Lymph % (Auto) 35.4 Henry % (Auto) 9.4 Eos % (Auto) 4.2 H Baso % (Auto) 1.0 Lymph # (Auto) 3.8 Henry # (Auto) 1.0 Eos # (Auto) 0.4 Baso # (Auto) 0.1 Abs Immat Gran (auto) 0.04 H Absolute Neuts (auto) 5.3 Absolute Nucleated RBC 0.000 Nucleated RBC % (auto) 0.0 PT INR POC Glucose 278 H Estimat Average Glucose Hemoglobin A1c % Total Bilirubin 0.3 Direct Bilirubin 0.3 AST 33 H D ALT 42 H Alkaline Phosphatase 85 Total Protein 6.9 Albumin 3.7 Triglycerides 145 Cholesterol 150 LDL Cholesterol, Calc 63 HDL Cholesterol 58 03/26/22 03/26/22 03/26/22 09:10 11:50 11:51 WBC RBC Hgb Hct MCV MCH MCHC RDW Plt Count MPV Immature Gran % (Auto) Neut % (Auto) Lymph % (Auto) Henry % (Auto) Eos % (Auto) Baso % (Auto) Lymph # (Auto) Henry # (Auto) Eos # (Auto) Baso # (Auto) Abs Immat Gran (auto) Absolute Neuts (auto) Absolute Nucleated RBC Nucleated RBC % (auto) PT 19.8 H INR 1.7 H POC Glucose 361 H* Estimat Average Glucose 214 Hemoglobin A1c % 9.1 Total Bilirubin Direct Bilirubin AST ALT Alkaline Phosphatase Total Protein Albumin Triglycerides Cholesterol LDL Cholesterol, Calc HDL Cholesterol 03/26/22 16:20 WBC RBC Hgb Hct MCV MCH MCHC RDW Plt Count MPV Immature Gran % (Auto) Neut % (Auto) Lymph % (Auto) Henry % (Auto) Eos % (Auto) Baso % (Auto) Lymph # (Auto) Henry # (Auto) Eos # (Auto) Baso # (Auto) Abs Immat Gran (auto) Absolute Neuts (auto) Absolute Nucleated RBC Nucleated RBC % (auto) PT INR POC Glucose 195 H Estimat Average Glucose Hemoglobin A1c % Total Bilirubin Direct Bilirubin AST ALT Alkaline Phosphatase Total Protein Albumin Triglycerides Cholesterol LDL Cholesterol, Calc HDL Cholesterol Medications Medications Current Medications Acetaminophen (Acetaminophen 325 Mg Tablet) 650 mg PO Q6H PRN PRN Reason: Headache/Pain Mild Scale (1-3) Al Hydroxide/Mg Hydroxide (Magnesium Hydrox/Alum Hydrox 30 Ml Oral.Susp) 30 ml PO Q6H PRN PRN Reason: Heartburn/Nausea Albuterol Sulfate (Albuterol Sulfate 90 Mcg 8 Gm Inhaler) 2 puff INHALE RQ4H PRN PRN Reason: Wheezing Last Admin: 03/26/22 18:17 Dose: 2 puff Amlodipine Besylate (Amlodipine Besylate 2.5 Mg Tablet) 2.5 mg PO DAILY [facility]; Protocol Last Admin: 03/26/22 08:16 Dose: 2.5 mg Budesonide (Budesonide 180 Mcg Aer.Pow.Ba) 1 puff INHALE RBID [facility] Last Admin: 03/26/22 09:55 Dose: Not Given Gabapentin (Gabapentin 100 Mg Capsule) 100 mg PO TID [facility] Last Admin: 03/26/22 15:27 Dose: 100 mg Hydroxyzine HCl (Hydroxyzine Hcl 25 Mg Tablet) 25 mg PO Q6H PRN PRN Reason: Anxiety Insulin Glargine (Insulin Glargine,Hum.Rec.Anlog 100 Unit/Ml 10 Ml Vial) 15 unit SUBCUT BEDTIME [facility] Last Admin: 03/25/22 22:31 Dose: 15 unit Insulin Human Lispro (Insulin Lispro 100 Unit/Ml 3 Ml Vial) 0 unit SUBCUT QIDACHS [facility]; Protocol Last Admin: 03/26/22 17:36 Dose: 2 unit Levothyroxine Sodium (Levothyroxine Sodium 88 Mcg Tablet) 88 mcg PO DAILY@0600 [facility] Last Admin: 03/26/22 06:32 Dose: 88 mcg Magnesium Hydroxide (Milk Of Magnesia 30 Ml Oral.Susp) 30 ml PO DAILY PRN PRN Reason: Constipation Last Admin: 03/24/22 21:23 Dose: 30 ml Montelukast Sodium (Montelukast Sodium 10 Mg Tablet) 10 mg PO BEDTIME [facility] Last Admin: 03/25/22 22:20 Dose: 10 mg Olanzapine (Olanzapine 5 Mg Tablet) 5 mg PO BEDTIME [facility] Last Admin: 03/25/22 22:19 Dose: 5 mg Omeprazole (Omeprazole 20 Mg Capsule.Dr) 20 mg PO DAILY@0630 [facility] Last Admin: 03/26/22 06:32 Dose: 20 mg Ondansetron HCl (Ondansetron Odt 4 Mg Tab.Rapdis) 4 mg TRANSLINGU Q8H PRN PRN Reason: Nausea Last Admin: 03/23/22 15:30 Dose: 4 mg Ondansetron HCl (Ondansetron Odt 4 Mg Tab.Rapdis) 4 mg TRANSLINGU Q6H PRN PRN Reason: Nausea Oxycodone HCl (Oxycodone Hcl Immed Release 5 Mg Tablet) 20 mg PO TID PRN PRN Reason: Pain, Severe (Pain Scale 7-10) Last Admin: 03/26/22 18:17 Dose: 20 mg Pravastatin Sodium (Pravastatin Sodium 20 Mg Tablet) 60 mg PO DAILY [facility] Last Admin: 03/26/22 08:15 Dose: 60 mg Trazodone HCl (Trazodone Hcl 50 Mg Tablet) 50 mg PO BEDTIME PRN PRN Reason: Insomnia Venlafaxine HCl (Venlafaxine Hcl Er 150 Mg Cap.Er.24h) 150 mg PO DAILY [facility] Last Admin: 03/26/22 08:16 Dose: 150 mg Warfarin Sodium (Warfarin Sodium 5 Mg Tablet) 5 mg PO DAILY@1800 [facility] Last Admin: 03/26/22 18:17 Dose: 5 mg Allergies Allergies Allergy/AdvReac Type Severity Reaction Status Date / Time Penicillins Allergy Mild HIVES Unverified 03/06/20 17:42 codeine [Codeine] AdvReac Mild SWEATS Unverified 03/06/20 17:42 Assessment & Plan Assessment & Plan (1) Overdose: Status: Acute Code(s): T50.901A - Poisoning by unspecified drugs, medicaments and biological substances, accidental (unintentional), initial encounter (2) Hematuria: Status: Acute Code(s): R31.9 - Hematuria, unspecified Plan Elderly female with a long history of bipolar disorder who was admitted after she tried to overdose of Seroquel in a suicidal attempt after to friends dying. On admission, it was clear that she had hypomanic symptoms and will lower her Effexor XR from 225-150, kept gabapentin and add a low dose of olanzapine. Plan 1. Gather collateral information. 2. Continue with the same treatment. Monitor for over-sedation with Zyprexa (denies). 3. Blood work for tomorrow (reviewed 03/26- CBC wnl, has PT/INR daily, glucose daily) 4. add miralax for constipation I spent minutes with the patient and/or on the patient floor today, greater than?50% of which was spent counseling/coordinating care. Patient educated on: medication risk/benefits Reason for contiued inpatient stay Substantial Risk for: med/psych decompensation
[2022-03-26 20:39] LABS: Glucose, Whole Blood 321 mg/dL (60-115)
[2022-03-26] MEDS: OLANZapine 5 MG TABLET PO (20:40)
[2022-03-26] MEDS: Montelukast Sodium 10 MG TABLET PO (20:40)
[2022-03-26] MEDS: Insulin Glargine,Hum.rec.anlog 100 UNIT/ML 10 ML VIAL 15 UNIT SUBCUT (20:42)
[2022-03-26] MEDS: polyethylene glycoL 3350 17 GM POWD.PACK PO (20:46)
[2022-03-26] MEDS: Budesonide 180 MCG AER.POW.BA 1 PUFF INHALE (20:48)
[2022-03-27] MEDS: Omeprazole 20 MG CAPSULE.DR PO (06:04)
[2022-03-27] MEDS: Levothyroxine Sodium 88 MCG TABLET PO (06:04)
[2022-03-27 07:12] LABS: INTERNATIONAL NORM RATIO 1.7 (0.9-1.1)
[2022-03-27 07:30] VITALS: BP 130/78; PULSE 92; RESP 15; TEMP 36.3; O2SAT 95
[2022-03-27] MEDS: Pravastatin Sodium 20 MG TABLET 60 MG PO (08:44)
[2022-03-27] MEDS: polyethylene glycoL 3350 17 GM POWD.PACK PO ×2 (08:44→20:31)
[2022-03-27] MEDS: Insulin Lispro 100 UNIT/ML 3 ML VIAL SUBCUT ×4 (08:44→20:18)
[2022-03-27] MEDS: Gabapentin 100 MG CAPSULE PO ×3 (08:45→20:31)
[2022-03-27] MEDS: Venlafaxine HCl ER 150 MG CAP.ER.24H PO (08:45)
[2022-03-27] MEDS: amLODIPine Besylate 2.5 MG TABLET PO (08:45)
[2022-03-27] MEDS: oxyCODONE HCl Immed Release 5 MG TABLET 20 MG PO ×2 (08:53→18:24)
[2022-03-27] MEDS: Budesonide 180 MCG AER.POW.BA 1 PUFF INHALE ×2 (11:13→20:32)
--- NOTE | 2022-03-27 13:42 | HO.PSYCHPN ---
Subjective Subjective Date of Service: 03/27/22 Reason For Visit: suicidal attempt Interim History: pt says she's really good and a lot better. She can tell since she's out and about...eating well talking with others...She denies any SI at all and says it's fully resolved. She says she's asked service net to increase her access and get extra Help and has appointments already set up. Mental Status Exam Mental Status Exam Narrative: Patient Appearance: Well Groomed Patient Orientation: Person and Situation Level of Consciousness: Awake Patient Behavior: Cooperative Mood Description: Appropriate and Cheerful Affect Description: bright, congruent Ability to Follow Directions: Good Speech Pattern: Clear Hallucinations: None Delusions: Not Present Thought Process: Distracted Thought Content: on feeling better; post discharge plans; denies SI/HI Judgment: Fair Diagnostics Vital Signs (24Hr): Vital Signs - 24 hr 03/26/22 18:00 Temperature 98.1 F Pulse Rate 90 Respiratory Rate 18 Blood Pressure 149/66 H Pulse Oximetry 95 Oxygen Delivery Method Room Air BMI result Body Mass Index 40.8 Labs Results: 03/26/22 09:10 03/24/22 07:59 Labs: Laboratory Results - last 48 hr 03/25/22 03/25/22 03/26/22 16:43 22:27 07:27 WBC RBC Hgb Hct MCV MCH MCHC RDW Plt Count MPV Immature Gran % (Auto) Neut % (Auto) Lymph % (Auto) [place] % (Auto) Eos % (Auto) Baso % (Auto) Lymph # (Auto) [place] # (Auto) Eos # (Auto) Baso # (Auto) Abs Immat Gran (auto) Absolute Neuts (auto) Absolute Nucleated RBC Nucleated RBC % (auto) PT INR POC Glucose 257 H 284 H 278 H Estimat Average Glucose Hemoglobin A1c % Total Bilirubin Direct Bilirubin AST ALT Alkaline Phosphatase Total Protein Albumin Triglycerides Cholesterol LDL Cholesterol, Calc HDL Cholesterol 03/26/22 03/26/22 03/26/22 09:10 09:10 09:10 WBC 10.6 RBC 4.27 Hgb 13.0 Hct 39.7 MCV 93.0 MCH 30.4 MCHC 32.7 RDW 14.1 Plt Count 308 MPV 11.4 Immature Gran % (Auto) 0.4 Neut % (Auto) 49.6 Lymph % (Auto) 35.4 [place] % (Auto) 9.4 Eos % (Auto) 4.2 H Baso % (Auto) 1.0 Lymph # (Auto) 3.8 [place] # (Auto) 1.0 Eos # (Auto) 0.4 Baso # (Auto) 0.1 Abs Immat Gran (auto) 0.04 H Absolute Neuts (auto) 5.3 Absolute Nucleated RBC 0.000 Nucleated RBC % (auto) 0.0 PT INR POC Glucose Estimat Average Glucose 214 Hemoglobin A1c % 9.1 Total Bilirubin 0.3 Direct Bilirubin 0.3 AST 33 H D ALT 42 H Alkaline Phosphatase 85 Total Protein 6.9 Albumin 3.7 Triglycerides 145 Cholesterol 150 LDL Cholesterol, Calc 63 HDL Cholesterol 58 03/26/22 03/26/22 03/26/22 11:50 11:51 16:20 WBC RBC Hgb Hct MCV MCH MCHC RDW Plt Count MPV Immature Gran % (Auto) Neut % (Auto) Lymph % (Auto) [place] % (Auto) Eos % (Auto) Baso % (Auto) Lymph # (Auto) [place] # (Auto) Eos # (Auto) Baso # (Auto) Abs Immat Gran (auto) Absolute Neuts (auto) Absolute Nucleated RBC Nucleated RBC % (auto) PT 19.8 H INR 1.7 H POC Glucose 361 H* 195 H Estimat Average Glucose Hemoglobin A1c % Total Bilirubin Direct Bilirubin AST ALT Alkaline Phosphatase Total Protein Albumin Triglycerides Cholesterol LDL Cholesterol, Calc HDL Cholesterol 03/26/22 03/27/22 03/27/22 20:34 06:43 08:04 WBC RBC Hgb Hct MCV MCH MCHC RDW Plt Count MPV Immature Gran % (Auto) Neut % (Auto) Lymph % (Auto) [place] % (Auto) Eos % (Auto) Baso % (Auto) Lymph # (Auto) [place] # (Auto) Eos # (Auto) Baso # (Auto) Abs Immat Gran (auto) Absolute Neuts (auto) Absolute Nucleated RBC Nucleated RBC % (auto) PT 20.0 H INR 1.7 H POC Glucose 321 H 244 H Estimat Average Glucose Hemoglobin A1c % Total Bilirubin Direct Bilirubin AST ALT Alkaline Phosphatase Total Protein Albumin Triglycerides Cholesterol LDL Cholesterol, Calc HDL Cholesterol 03/27/22 11:46 WBC RBC Hgb Hct MCV MCH MCHC RDW Plt Count MPV Immature Gran % (Auto) Neut % (Auto) Lymph % (Auto) [place] % (Auto) Eos % (Auto) Baso % (Auto) Lymph # (Auto) [place] # (Auto) Eos # (Auto) Baso # (Auto) Abs Immat Gran (auto) Absolute Neuts (auto) Absolute Nucleated RBC Nucleated RBC % (auto) PT INR POC Glucose 373 H* Estimat Average Glucose Hemoglobin A1c % Total Bilirubin Direct Bilirubin AST ALT Alkaline Phosphatase Total Protein Albumin Triglycerides Cholesterol LDL Cholesterol, Calc HDL Cholesterol Medications Medications Current Medications Acetaminophen (Acetaminophen 325 Mg Tablet) 650 mg PO Q6H PRN PRN Reason: Headache/Pain Mild Scale (1-3) Al Hydroxide/Mg Hydroxide (Magnesium Hydrox/Alum Hydrox 30 Ml Oral.Susp) 30 ml PO Q6H PRN PRN Reason: Heartburn/Nausea Albuterol Sulfate (Albuterol Sulfate 90 Mcg 8 Gm Inhaler) 2 puff INHALE RQ4H PRN PRN Reason: Wheezing Last Admin: 03/26/22 18:17 Dose: 2 puff Amlodipine Besylate (Amlodipine Besylate 2.5 Mg Tablet) 2.5 mg PO DAILY [facility]; Protocol Last Admin: 03/27/22 08:45 Dose: 2.5 mg Budesonide (Budesonide 180 Mcg Aer.Pow.Ba) 1 puff INHALE RBID [facility] Last Admin: 03/27/22 11:13 Dose: 1 puff Gabapentin (Gabapentin 100 Mg Capsule) 100 mg PO TID [facility] Last Admin: 03/27/22 08:45 Dose: 100 mg Hydroxyzine HCl (Hydroxyzine Hcl 25 Mg Tablet) 25 mg PO Q6H PRN PRN Reason: Anxiety Insulin Glargine (Insulin Glargine,Hum.Rec.Anlog 100 Unit/Ml 10 Ml Vial) 15 unit SUBCUT BEDTIME [facility] Last Admin: 03/26/22 20:42 Dose: 15 unit Insulin Human Lispro (Insulin Lispro 100 Unit/Ml 3 Ml Vial) 0 unit SUBCUT QIDACHS [facility]; Protocol Last Admin: 03/27/22 12:00 Dose: 10 unit Levothyroxine Sodium (Levothyroxine Sodium 88 Mcg Tablet) 88 mcg PO DAILY@0600 [facility] Last Admin: 03/27/22 06:04 Dose: 88 mcg Magnesium Hydroxide (Milk Of Magnesia 30 Ml Oral.Susp) 30 ml PO DAILY PRN PRN Reason: Constipation Last Admin: 03/24/22 21:23 Dose: 30 ml Montelukast Sodium (Montelukast Sodium 10 Mg Tablet) 10 mg PO BEDTIME [facility] Last Admin: 03/26/22 20:40 Dose: 10 mg Olanzapine (Olanzapine 5 Mg Tablet) 5 mg PO BEDTIME [facility] Last Admin: 03/26/22 20:40 Dose: 5 mg Omeprazole (Omeprazole 20 Mg Capsule.Dr) 20 mg PO DAILY@0630 [facility] Last Admin: 03/27/22 06:04 Dose: 20 mg Ondansetron HCl (Ondansetron Odt 4 Mg Tab.Rapdis) 4 mg TRANSLINGU Q8H PRN PRN Reason: Nausea Last Admin: 03/23/22 15:30 Dose: 4 mg Ondansetron HCl (Ondansetron Odt 4 Mg Tab.Rapdis) 4 mg TRANSLINGU Q6H PRN PRN Reason: Nausea Oxycodone HCl (Oxycodone Hcl Immed Release 5 Mg Tablet) 20 mg PO TID PRN PRN Reason: Pain, Severe (Pain Scale 7-10) Last Admin: 03/27/22 08:53 Dose: 20 mg Polyethylene Glycol (Polyethylene Glycol 3350 17 Gm Powd.Pack) 17 gm PO BID [facility] Last Admin: 03/27/22 08:44 Dose: 17 gm Pravastatin Sodium (Pravastatin Sodium 20 Mg Tablet) 60 mg PO DAILY [facility] Last Admin: 03/27/22 08:44 Dose: 60 mg Trazodone HCl (Trazodone Hcl 50 Mg Tablet) 50 mg PO BEDTIME PRN PRN Reason: Insomnia Venlafaxine HCl (Venlafaxine Hcl Er 150 Mg Cap.Er.24h) 150 mg PO DAILY [facility] Last Admin: 03/27/22 08:45 Dose: 150 mg Warfarin Sodium (Warfarin Sodium 5 Mg Tablet) 5 mg PO DAILY@1800 [facility] Last Admin: 03/26/22 18:17 Dose: 5 mg Allergies Allergies Allergy/AdvReac Type Severity Reaction Status Date / Time Penicillins Allergy Mild HIVES Unverified 03/06/20 17:42 codeine [Codeine] AdvReac Mild SWEATS Unverified 03/06/20 17:42 Assessment & Plan Assessment & Plan (1) Overdose: Status: Acute Code(s): T50.901A - Poisoning by unspecified drugs, medicaments and biological substances, accidental (unintentional), initial encounter (2) Hematuria: Status: Acute Code(s): R31.9 - Hematuria, unspecified Plan Elderly female with a long history of bipolar disorder who was admitted after she tried to overdose of Seroquel in a suicidal attempt after to friends dying. On admission, it was clear that she had hypomanic symptoms and will lower her Effexor XR from 225-150, kept gabapentin and add a low dose of olanzapine. 03/27 pt reports good mood, happy; says all SI resolved and making plans to stay stable post discharge -INR has been subtherapeutic for 4 days on coumadin 5mg; will increase to 6mg and continue to monitor INR. -has hematuria listed as problem; will ask nursing (possible from ICU/catheritization? prior to transfer to psych) Plan 1. Gather collateral information. 2. Continue with the same treatment. Monitor for over-sedation with Zyprexa (denies). 3. Blood work for tomorrow (reviewed 03/26- CBC wnl, has PT/INR daily, glucose daily) 4. add miralax for constipation I spent minutes with the patient and/or on the patient floor today, greater than?50% of which was spent counseling/coordinating care. Reason for contiued inpatient stay Substantial Risk for: med/psych decompensation
[2022-03-27 18:00] VITALS: BP 150/69; PULSE 95; RESP 18; TEMP 37.6; O2SAT 92
[2022-03-27] MEDS: Warfarin Sodium 6 MG TABLET PO (18:37)
[2022-03-27] MEDS: Insulin Glargine,Hum.rec.anlog 100 UNIT/ML 10 ML VIAL 15 UNIT SUBCUT (20:19)
[2022-03-27] MEDS: OLANZapine 5 MG TABLET PO (20:31)
[2022-03-27] MEDS: Montelukast Sodium 10 MG TABLET PO (20:31)
--- NOTE | 2022-03-27 22:53 | HO.PSYCHPN ---
Subjective Subjective Date of Service: 03/27/22 Reason For Visit: suicidal attempt Interim History: Patient reports that she is doing really good... A lot better and cites her mood and presents in the milieu as evidence. She says all SI is fully resolved. Patient is asking outpatient service net to help set up extra services for her. Mental Status Exam Mental Status Exam Narrative: Patient Appearance: Well Groomed Patient Orientation: Person and Situation Level of Consciousness: Awake Patient Behavior: Cooperative Mood Description: a lot better Affect Description: bright, congruent Ability to Follow Directions: Good Speech Pattern: Clear Hallucinations: None Delusions: Not Present Thought Process: Distracted Thought Content: on feeling better; post discharge plans; denies SI/HI Judgment: Fair Diagnostics Vital Signs (24Hr): Vital Signs - 24 hr 03/27/22 07:30 03/27/22 18:00 Temperature 97.3 F 99.7 F Pulse Rate 92 95 Respiratory Rate 15 18 Blood Pressure 130/78 150/69 H Pulse Oximetry 95 92 Oxygen Delivery Method Room Air Room Air BMI result Body Mass Index 40.8 Labs Results: 03/28/22 07:13 03/24/22 07:59 Labs: Laboratory Results - last 48 hr 03/26/22 03/26/22 03/26/22 07:27 09:10 09:10 WBC 10.6 RBC 4.27 Hgb 13.0 Hct 39.7 MCV 93.0 MCH 30.4 MCHC 32.7 RDW 14.1 Plt Count 308 MPV 11.4 Immature Gran % (Auto) 0.4 Neut % (Auto) 49.6 Lymph % (Auto) 35.4 [place] % (Auto) 9.4 Eos % (Auto) 4.2 H Baso % (Auto) 1.0 Lymph # (Auto) 3.8 [place] # (Auto) 1.0 Eos # (Auto) 0.4 Baso # (Auto) 0.1 Abs Immat Gran (auto) 0.04 H Absolute Neuts (auto) 5.3 Absolute Nucleated RBC 0.000 Nucleated RBC % (auto) 0.0 PT INR POC Glucose 278 H Estimat Average Glucose Hemoglobin A1c % Total Bilirubin 0.3 Direct Bilirubin 0.3 AST 33 H D ALT 42 H Alkaline Phosphatase 85 Total Protein 6.9 Albumin 3.7 Triglycerides 145 Cholesterol 150 LDL Cholesterol, Calc 63 HDL Cholesterol 58 03/26/22 03/26/2222 09:10 11:50 11:51 WBC RBC Hgb Hct MCV MCH MCHC RDW Plt Count MPV Immature Gran % (Auto) Neut % (Auto) Lymph % (Auto) [place] % (Auto) Eos % (Auto) Baso % (Auto) Lymph # (Auto) [place] # (Auto) Eos # (Auto) Baso # (Auto) Abs Immat Gran (auto) Absolute Neuts (auto) Absolute Nucleated RBC Nucleated RBC % (auto) PT 19.8 H INR 1.7 H POC Glucose 361 H* Estimat Average Glucose 214 Hemoglobin A1c % 9.1 Total Bilirubin Direct Bilirubin AST ALT Alkaline Phosphatase Total Protein Albumin Triglycerides Cholesterol LDL Cholesterol, Calc HDL Cholesterol 03/26/22 03/26/22 03/27/22 16:20 20:34 06:43 WBC RBC Hgb Hct MCV MCH MCHC RDW Plt Count MPV Immature Gran % (Auto) Neut % (Auto) Lymph % (Auto) [place] % (Auto) Eos % (Auto) Baso % (Auto) Lymph # (Auto) [place] # (Auto) Eos # (Auto) Baso # (Auto) Abs Immat Gran (auto) Absolute Neuts (auto) Absolute Nucleated RBC Nucleated RBC % (auto) PT 20.0 H INR 1.7 H POC Glucose 195 H 321 H Estimat Average Glucose Hemoglobin A1c % Total Bilirubin Direct Bilirubin AST ALT Alkaline Phosphatase Total Protein Albumin Triglycerides Cholesterol LDL Cholesterol, Calc HDL Cholesterol 03/27/22 03/27/22 03/27/22 08:04 11:46 16:38 WBC RBC Hgb Hct MCV MCH MCHC RDW Plt Count MPV Immature Gran % (Auto) Neut % (Auto) Lymph % (Auto) [place] % (Auto) Eos % (Auto) Baso % (Auto) Lymph # (Auto) [place] # (Auto) Eos # (Auto) Baso # (Auto) Abs Immat Gran (auto) Absolute Neuts (auto) Absolute Nucleated RBC Nucleated RBC % (auto) PT INR POC Glucose 244 H 373 H* 247 H Estimat Average Glucose Hemoglobin A1c % Total Bilirubin Direct Bilirubin AST ALT Alkaline Phosphatase Total Protein Albumin Triglycerides Cholesterol LDL Cholesterol, Calc HDL Cholesterol 03/27/22 19:58 WBC RBC Hgb Hct MCV MCH MCHC RDW Plt Count MPV Immature Gran % (Auto) Neut % (Auto) Lymph % (Auto) [place] % (Auto) Eos % (Auto) Baso % (Auto) Lymph # (Auto) [place] # (Auto) Eos # (Auto) Baso # (Auto) Abs Immat Gran (auto) Absolute Neuts (auto) Absolute Nucleated RBC Nucleated RBC % (auto) PT INR POC Glucose 344 H Estimat Average Glucose Hemoglobin A1c % Total Bilirubin Direct Bilirubin AST ALT Alkaline Phosphatase Total Protein Albumin Triglycerides Cholesterol LDL Cholesterol, Calc HDL Cholesterol Medications Medications Current Medications Acetaminophen (Acetaminophen 325 Mg Tablet) 650 mg PO Q6H PRN PRN Reason: Headache/Pain Mild Scale (1-3) Al Hydroxide/Mg Hydroxide (Magnesium Hydrox/Alum Hydrox 30 Ml Oral.Susp) 30 ml PO Q6H PRN PRN Reason: Heartburn/Nausea Albuterol Sulfate (Albuterol Sulfate 90 Mcg 8 Gm Inhaler) 2 puff INHALE RQ4H PRN PRN Reason: Wheezing Last Admin: 03/26/22 18:17 Dose: 2 puff Amlodipine Besylate (Amlodipine Besylate 2.5 Mg Tablet) 2.5 mg PO DAILY [facility]; Protocol Last Admin: 03/27/22 08:45 Dose: 2.5 mg Budesonide (Budesonide 180 Mcg Aer.Pow.Ba) 1 puff INHALE RBID [facility] Last Admin: 03/27/22 20:32 Dose: 1 puff Gabapentin (Gabapentin 100 Mg Capsule) 100 mg PO TID [facility] Last Admin: 03/27/22 20:31 Dose: 100 mg Hydroxyzine HCl (Hydroxyzine Hcl 25 Mg Tablet) 25 mg PO Q6H PRN PRN Reason: Anxiety Insulin Glargine (Insulin Glargine,Hum.Rec.Anlog 100 Unit/Ml 10 Ml Vial) 15 unit SUBCUT BEDTIME [facility] Last Admin: 03/27/22 20:19 Dose: 15 unit Insulin Human Lispro (Insulin Lispro 100 Unit/Ml 3 Ml Vial) 0 unit SUBCUT QIDACHS [facility]; Protocol Last Admin: 03/27/22 20:18 Dose: 8 unit Levothyroxine Sodium (Levothyroxine Sodium 88 Mcg Tablet) 88 mcg PO DAILY@0600 [facility] Last Admin: 03/27/22 06:04 Dose: 88 mcg Magnesium Hydroxide (Milk Of Magnesia 30 Ml Oral.Susp) 30 ml PO DAILY PRN PRN Reason: Constipation Last Admin: 03/24/22 21:23 Dose: 30 ml Montelukast Sodium (Montelukast Sodium 10 Mg Tablet) 10 mg PO BEDTIME [facility] Last Admin: 03/27/22 20:31 Dose: 10 mg Olanzapine (Olanzapine 5 Mg Tablet) 5 mg PO BEDTIME [facility] Last Admin: 03/27/22 20:31 Dose: 5 mg Omeprazole (Omeprazole 20 Mg Capsule.Dr) 20 mg PO DAILY@0630 [facility] Last Admin: 03/27/22 06:04 Dose: 20 mg Ondansetron HCl (Ondansetron Odt 4 Mg Tab.Rapdis) 4 mg TRANSLINGU Q8H PRN PRN Reason: Nausea Last Admin: 03/23/22 15:30 Dose: 4 mg Ondansetron HCl (Ondansetron Odt 4 Mg Tab.Rapdis) 4 mg TRANSLINGU Q6H PRN PRN Reason: Nausea Oxycodone HCl (Oxycodone Hcl Immed Release 5 Mg Tablet) 20 mg PO TID PRN PRN Reason: Pain, Severe (Pain Scale 7-10) Last Admin: 03/27/22 18:24 Dose: 20 mg Polyethylene Glycol (Polyethylene Glycol 3350 17 Gm Powd.Pack) 17 gm PO BID [facility] Last Admin: 03/27/22 20:31 Dose: 17 gm Pravastatin Sodium (Pravastatin Sodium 20 Mg Tablet) 60 mg PO DAILY [facility] Last Admin: 03/27/22 08:44 Dose: 60 mg Trazodone HCl (Trazodone Hcl 50 Mg Tablet) 50 mg PO BEDTIME PRN PRN Reason: Insomnia Venlafaxine HCl (Venlafaxine Hcl Er 150 Mg Cap.Er.24h) 150 mg PO DAILY [facility] Last Admin: 03/27/22 08:45 Dose: 150 mg Warfarin Sodium (Warfarin Sodium 6 Mg Tablet) 6 mg PO DAILY@1800 [facility] Last Admin: 03/27/22 18:37 Dose: 6 mg Allergies Allergies Allergy/AdvReac Type Severity Reaction Status Date / Time Penicillins Allergy Mild HIVES Unverified 03/06/20 17:42 codeine [Codeine] AdvReac Mild SWEATS Unverified 03/06/20 17:42 Assessment & Plan Assessment & Plan (1) Overdose: Status: Acute Code(s): T50.901A - Poisoning by unspecified drugs, medicaments and biological substances, accidental (unintentional), initial encounter (2) Hematuria: Status: Acute Code(s): R31.9 - Hematuria, unspecified Plan Elderly female with a long history of bipolar disorder who was admitted after she tried to overdose of Seroquel in a suicidal attempt after to friends dying. On admission, it was clear that she had hypomanic symptoms and will lower her Effexor XR from 225-150, kept gabapentin and add a low dose of olanzapine. 03/27 pt reports good mood, happy; says all SI resolved and making plans to stay stable post discharge -INR has been subtherapeutic for 4 days on coumadin 5mg; will increase to 6mg and continue to monitor INR. -has hematuria listed as problem; will ask nursing (possible from ICU/catheritization? prior to transfer to [facility]) Plan 1. Gather collateral information. 2. Continue with the same treatment. Monitor for over-sedation with Zyprexa (denies). 3. Blood work for tomorrow (reviewed 03/26- CBC wnl, has PT/INR daily, glucose daily) 4. add miralax for constipation I spent minutes with the patient and/or on the patient floor today, greater than?50% of which was spent counseling/coordinating care. Patient educated on: diagnosis and medication risk/benefits Informed Consent: understands Reason for contiued inpatient stay Substantial Risk for: med/psych decompensation
[2022-03-28] MEDS: Omeprazole 20 MG CAPSULE.DR PO (06:23)
[2022-03-28] MEDS: Levothyroxine Sodium 88 MCG TABLET PO (06:23)
[2022-03-28] MEDS: Albuterol Sulfate 90 MCG 8 GM INHALER 2 PUFF INHALE (06:29)
[2022-03-28 07:21] LABS: Hematocrit 38.4 % (37.0-47.0); Hemoglobin 12.7 g/dl (12.0-16.0); Mean Corpuscular HGB Conc 33.1 g/dl (31.0-35.0); Mean Corpuscular Hemoglobin 30.4 pg (27.0-33.0); Mean Corpuscular Volume 91.9 fL (80.0-98.0); Mean Platelet Volume 11.3 fL (9.4-12.3); Platelet Count 297 X10*3/uL (160-400); Red Blood Count 4.18 X10*6/uL (4.20-5.50); White Blood Count 12.6 X10*3/uL (4.8-10.8)
[2022-03-28 07:25] LABS: INTERNATIONAL NORM RATIO 1.7 (0.9-1.1); Prothrombin Time 20.5 SEC (10.0-13.1)
[2022-03-28 07:30] VITALS: BP 175/84; PULSE 89; RESP 16; TEMP 36.7; O2SAT 94
[2022-03-28] MEDS: Budesonide 180 MCG AER.POW.BA 1 PUFF INHALE (08:14)
[2022-03-28] MEDS: Gabapentin 100 MG CAPSULE PO ×3 (08:15→20:24)
[2022-03-28] MEDS: Pravastatin Sodium 20 MG TABLET 60 MG PO (08:15)
[2022-03-28] MEDS: amLODIPine Besylate 2.5 MG TABLET PO (08:15)
[2022-03-28] MEDS: Venlafaxine HCl ER 150 MG CAP.ER.24H PO (08:15)
[2022-03-28] MEDS: Insulin Lispro 100 UNIT/ML 3 ML VIAL SUBCUT ×3 (08:18→21:00)
[2022-03-28] MEDS: oxyCODONE HCl Immed Release 5 MG TABLET 20 MG PO ×2 (09:22→18:37)
[2022-03-28] MEDS: Insulin Lispro 100 UNIT/ML 3 ML VIAL 10 UNIT SUBCUT (12:59)
[2022-03-28 18:00] VITALS: BP 151/71; PULSE 100; RESP 16; TEMP 37.1; O2SAT 98
[2022-03-28] MEDS: Warfarin Sodium 6 MG TABLET PO (18:21)
--- NOTE | 2022-03-28 18:31 | HO.PSYCHPN ---
Subjective Subjective Date of Service: 03/28/22 Reason For Visit: suicidal attempt Interim History: Patient reports that she continues to be in a good mood, no SI at all and feeling overall much better. She did get into a verbal altercation with a peer but said she kept her mouth shut because she wants to be able to go, discharge is soon as possible and wants to continue demonstrating she is in good behavioral control. Lock[employer] Sleeve Maker discussed her elevated blood sugar which patient says is atypical for her when taking her readings at home. She then reports that her glipizide 10 mg b.i.d. was not restarted on admission and agrees to have it restarted now. Mental Status Exam Mental Status Exam Narrative: Patient Appearance: Well Groomed Patient Orientation: Person and Situation Level of Consciousness: Awake Patient Behavior: Cooperative Mood Description: good Affect Description: bright, congruent Ability to Follow Directions: Good Speech Pattern: Clear Hallucinations: None Delusions: Not Present Thought Process: Distracted Thought Content: on feeling better; post discharge plans; denies SI/HI Judgment: Fair Diagnostics Vital Signs (24Hr): Vital Signs - 24 hr 03/28/22 07:30 Temperature 98.1 F Pulse Rate 89 Respiratory Rate 16 Blood Pressure 175/84 H Pulse Oximetry 94 Oxygen Delivery Method Room Air BMI result Body Mass Index 40.8 Labs Results: 03/28/22 07:13 03/24/22 07:59 Labs: Laboratory Results - last 48 hr 03/26/22 03/27/22 03/27/22 20:34 06:43 08:04 WBC RBC Hgb Hct MCV MCH MCHC RDW Plt Count MPV Absolute Nucleated RBC Nucleated RBC % (auto) PT 20.0 H INR 1.7 H POC Glucose 321 H 244 H 03/27/22 03/27/22 03/27/22 11:46 16:38 19:58 WBC RBC Hgb Hct MCV MCH MCHC RDW Plt Count MPV Absolute Nucleated RBC Nucleated RBC % (auto) PT INR POC Glucose 373 H* 247 H 344 H 03/28/22 03/28/22 03/28/22 06:38 07:13 07:13 WBC 12.6 H RBC 4.18 L Hgb 12.7 Hct 38.4 MCV 91.9 MCH 30.4 MCHC 33.1 RDW 14.0 Plt Count 297 MPV 11.3 Absolute Nucleated RBC 0.000 Nucleated RBC % (auto) 0.0 PT 20.5 H INR 1.7 H POC Glucose 240 H 03/28/22 03/28/22 03/28/22 11:17 12:25 13:34 WBC RBC Hgb Hct MCV MCH MCHC RDW Plt Count MPV Absolute Nucleated RBC Nucleated RBC % (auto) PT INR POC Glucose 399 H* 360 H* 304 H 03/28/22 16:35 WBC RBC Hgb Hct MCV MCH MCHC RDW Plt Count MPV Absolute Nucleated RBC Nucleated RBC % (auto) PT INR POC Glucose 225 H Medications Medications Current Medications Acetaminophen (Acetaminophen 325 Mg Tablet) 650 mg PO Q6H PRN PRN Reason: Headache/Pain Mild Scale (1-3) Al Hydroxide/Mg Hydroxide (Magnesium Hydrox/Alum Hydrox 30 Ml Oral.Susp) 30 ml PO Q6H PRN PRN Reason: Heartburn/Nausea Albuterol Sulfate (Albuterol Sulfate 90 Mcg 8 Gm Inhaler) 2 puff INHALE RQ4H PRN PRN Reason: Wheezing Last Admin: 03/28/22 06:29 Dose: 2 puff Amlodipine Besylate (Amlodipine Besylate 2.5 Mg Tablet) 2.5 mg PO DAILY [facility]; Protocol Last Admin: 03/28/22 08:15 Dose: 2.5 mg Budesonide (Budesonide 180 Mcg Aer.Pow.Ba) 1 puff INHALE RBID [facility] Last Admin: 03/28/22 08:14 Dose: 1 puff Gabapentin (Gabapentin 100 Mg Capsule) 100 mg PO TID [facility] Last Admin: 03/28/22 15:25 Dose: 100 mg Glipizide (Glipizide 10 Mg Tablet) 10 mg PO BIDWM [facility] Hydroxyzine HCl (Hydroxyzine Hcl 25 Mg Tablet) 25 mg PO Q6H PRN PRN Reason: Anxiety Insulin Glargine (Insulin Glargine,Hum.Rec.Anlog 100 Unit/Ml 10 Ml Vial) 15 unit SUBCUT BEDTIME [facility] Last Admin: 03/27/22 20:19 Dose: 15 unit Insulin Human Lispro (Insulin Lispro 100 Unit/Ml 3 Ml Vial) 0 unit SUBCUT QIDACHS [facility]; Protocol Last Admin: 03/28/22 17:13 Dose: 4 unit Levothyroxine Sodium (Levothyroxine Sodium 88 Mcg Tablet) 88 mcg PO DAILY@0600 [facility] Last Admin: 03/28/22 06:23 Dose: 88 mcg Magnesium Hydroxide (Milk Of Magnesia 30 Ml Oral.Susp) 30 ml PO DAILY PRN PRN Reason: Constipation Last Admin: 03/24/22 21:23 Dose: 30 ml Montelukast Sodium (Montelukast Sodium 10 Mg Tablet) 10 mg PO BEDTIME [facility] Last Admin: 03/27/22 20:31 Dose: 10 mg Olanzapine (Olanzapine 5 Mg Tablet) 5 mg PO BEDTIME [facility] Last Admin: 03/27/22 20:31 Dose: 5 mg Omeprazole (Omeprazole 20 Mg Capsule.Dr) 20 mg PO DAILY@0630 [facility] Last Admin: 03/28/22 06:23 Dose: 20 mg Ondansetron HCl (Ondansetron Odt 4 Mg Tab.Rapdis) 4 mg TRANSLINGU Q8H PRN PRN Reason: Nausea Last Admin: 03/23/22 15:30 Dose: 4 mg Ondansetron HCl (Ondansetron Odt 4 Mg Tab.Rapdis) 4 mg TRANSLINGU Q6H PRN PRN Reason: Nausea Oxycodone HCl (Oxycodone Hcl Immed Release 5 Mg Tablet) 20 mg PO TID PRN PRN Reason: Pain, Mild (Pain Scale 1-3) Oxycodone HCl (Oxycodone Hcl Immed Release 5 Mg Tablet) 20 mg PO TID PRN PRN Reason: mod-severe pain Polyethylene Glycol (Polyethylene Glycol 3350 17 Gm Powd.Pack) 17 gm PO BID [facility] Last Admin: 03/28/22 11:11 Dose: Not Given Pravastatin Sodium (Pravastatin Sodium 20 Mg Tablet) 60 mg PO DAILY [facility] Last Admin: 03/28/22 08:15 Dose: 60 mg Trazodone HCl (Trazodone Hcl 50 Mg Tablet) 50 mg PO BEDTIME PRN PRN Reason: Insomnia Venlafaxine HCl (Venlafaxine Hcl Er 150 Mg Cap.Er.24h) 150 mg PO DAILY [facility] Last Admin: 03/28/22 08:15 Dose: 150 mg Warfarin Sodium (Warfarin Sodium 6 Mg Tablet) 6 mg PO DAILY@1800 [facility] Last Admin: 03/28/22 18:21 Dose: 6 mg Allergies Allergies Allergy/AdvReac Type Severity Reaction Status Date / Time Penicillins Allergy Mild HIVES Unverified 03/06/20 17:42 codeine [Codeine] AdvReac Mild SWEATS Unverified 03/06/20 17:42 Assessment & Plan Assessment & Plan (1) Overdose: Status: Acute Code(s): T50.901A - Poisoning by unspecified drugs, medicaments and biological substances, accidental (unintentional), initial encounter (2) Hematuria: Status: Acute Code(s): R31.9 - Hematuria, unspecified Plan Elderly female with a long history of bipolar disorder who was admitted after she tried to overdose of Seroquel in a suicidal attempt after to friends dying. On admission, it was clear that she had hypomanic symptoms and will lower her Effexor XR from 225-150, kept gabapentin and add a low dose of olanzapine. 03/27 pt reports good mood, happy; says all SI resolved and making plans to stay stable post discharge -INR has been subtherapeutic for 4 days on coumadin 5mg; will increase to 6mg and continue to monitor INR. -has hematuria listed as problem; will ask nursing (possible from ICU/catheritization? prior to transfer to psych) 03/28 remains in good mood, no SI; future oriented -INR still mildly subtherapeutic at 1.7; just increased dose to Coumadin 6 mg so will leave for another day to see if level gets therapeutic; otherwise will increase further -elevated blood sugars; will restart glipizide 10 mg b.i.d. which is outpatient medication; ordered A1c Plan 1. Gather collateral information. 2. Continue with the same treatment. Monitor for over-sedation with Zyprexa (denies). 3. Blood work for tomorrow (reviewed 03/26- CBC wnl, has PT/INR daily, glucose daily) 4. add miralax for constipation I spent minutes with the patient and/or on the patient floor today, greater than?50% of which was spent counseling/coordinating care. Patient educated on: diagnosis, medication risk/benefits and medical condition Informed Consent: understands Reason for contiued inpatient stay Substantial Risk for: med/psych decompensation
[2022-03-28] MEDS: Insulin Glargine,Hum.rec.anlog 100 UNIT/ML 10 ML VIAL 15 UNIT SUBCUT (20:22)
[2022-03-28] MEDS: Montelukast Sodium 10 MG TABLET PO (20:24)
[2022-03-28] MEDS: OLANZapine 5 MG TABLET PO (20:25)
[2022-03-28] MEDS: polyethylene glycoL 3350 17 GM POWD.PACK PO (20:25)
[2022-03-29 05:13] LABS: Estimated Average Glucose 217 mg/dL; Hemoglobin A1c % 9.2 %
[2022-03-29] MEDS: Levothyroxine Sodium 88 MCG TABLET PO (06:09)
[2022-03-29] MEDS: Omeprazole 20 MG CAPSULE.DR PO (06:09)
[2022-03-29 07:30] VITALS: BP 173/90; PULSE 76; RESP 16; TEMP 36.2; O2SAT 92
[2022-03-29 07:54] LABS: INTERNATIONAL NORM RATIO 1.8 (0.9-1.1); Prothrombin Time 21.4 SEC (10.0-13.1)
[2022-03-29 08:00] LABS: Glucose, Whole Blood 266 mg/dL (60-115)
[2022-03-29] MEDS: Budesonide 180 MCG AER.POW.BA 1 PUFF INHALE ×2 (08:27→21:21)
[2022-03-29] MEDS: Insulin Lispro 100 UNIT/ML 3 ML VIAL SUBCUT ×4 (08:27→21:06)
[2022-03-29] MEDS: amLODIPine Besylate 2.5 MG TABLET PO (08:28)
[2022-03-29] MEDS: Pravastatin Sodium 20 MG TABLET 60 MG PO (08:28)
[2022-03-29] MEDS: Gabapentin 100 MG CAPSULE PO ×3 (08:29→21:08)
[2022-03-29] MEDS: Venlafaxine HCl ER 150 MG CAP.ER.24H PO (08:29)
[2022-03-29] MEDS: polyethylene glycoL 3350 17 GM POWD.PACK PO ×2 (08:29→21:14)
[2022-03-29] MEDS: oxyCODONE HCl Immed Release 5 MG TABLET 20 MG PO ×2 (08:48→21:22)
[2022-03-29] MEDS: glipiZIDE 10 MG TABLET PO ×2 (09:03→17:07)
[2022-03-29 12:02] LABS: Glucose, Whole Blood 366 mg/dL (60-115)
[2022-03-29 16:59] LABS: Glucose, Whole Blood 198 mg/dL (60-115)
[2022-03-29] MEDS: Albuterol Sulfate 90 MCG 8 GM INHALER 2 PUFF INHALE (17:49)
[2022-03-29 18:00] VITALS: BP 140/74; PULSE 87; RESP 14; TEMP 36.8; O2SAT 93
[2022-03-29 18:10] LABS: Basophils Absolute Auto 0.1 X10*3/uL (0.0-0.2); Basophils Percent Auto 0.7 % (0-2); Eosinophils Absolute Auto 0.5 X10*3/uL (0.0-0.4); Eosinophils Percent Auto 3.5 % (0-4); Hematocrit 39.9 % (37.0-47.0); Imm Gran Abs Auto 0.04 X10*3/uL (0.00-0.03); Imm Gran Pct Auto 0.3 % (0.0-0.4); Lymphocytes Absolute Auto 5.4 X10*3/uL (1.2-4.9); Lymphocytes Percent Auto 39.8 % (20-40); MANUAL DIFF FLAG SCAN; Mean Corpuscular HGB Conc 32.6 g/dl (31.0-35.0); Mean Corpuscular Volume 91.9 fL (80.0-98.0); Mean Platelet Volume 11.4 fL (9.4-12.3); Monocytes Absolute Auto 1.5 X10*3/uL (0.1-1.2); Monocytes Percent Auto 10.7 % (2-11); Neutrophils Absolute Auto 6.1 x10*3/uL (2.0-8.3); Platelet Count 362 X10*3/uL (160-400); Red Blood Count 4.34 X10*6/uL (4.20-5.50); Red Cell Distribution Width 13.9 % (11.0-16.0); SCAN SMEAR FLAG 1; White Blood Count 13.6 X10*3/uL (4.8-10.8)
[2022-03-29 18:18] LABS: Anion Gap 18 (12-20); Blood Urea Nitrogen 18 mg/dL (9-16); Calcium 9.2 mg/dL (8.4-10.2); Carbon Dioxide 26 mmol/L (22-29); Chloride 98 mmol/L (96-108); Creatinine Clr Calc Pharmacy 79.2; Estimated Glomerular Filt Rate > 60; Glucose Random 287 mg/dL (60-115); Sodium 137 mmol/L (135-145)
--- NOTE | 2022-03-29 18:38 | P.PNPSI_ITS ---
Subjective Subjective Date of Service: 03/29/22 Reason For Visit: suicidal attempt Interim History: Patient in good Mood and looking for to going home patient shows right lower leg open wound that looks like a cellulitis. Discussed with Dr. Stoddard who said he was send hospitalist would come and evaluate INR still subtherapeutic 1.8 so increased Coumadin to 7 mg Mental Status Exam Mental Status Exam Narrative: Patient Appearance: Well Groomed Patient Orientation: Person and Situation Level of Consciousness: Awake Patient Behavior: Cooperative Mood Description: good Affect Description: bright, congruent Ability to Follow Directions: Good Speech Pattern: Clear Hallucinations: None Delusions: Not Present Thought Process: Distracted Thought Content: on feeling better; post discharge plans; denies SI/HI Judgment: Fair Diagnostics Vital Signs (24Hr): Vital Signs - 24 hr 03/29/22 07:30 Temperature 97.1 F Pulse Rate 76 Respiratory Rate 16 Blood Pressure 173/90 H Pulse Oximetry 92 Oxygen Delivery Method Room Air BMI result Body Mass Index 40.8 Labs Results: 03/29/22 17:40 03/29/22 17:40 Labs: Laboratory Results - last 48 hr 03/27/22 03/28/22 03/28/22 19:58 06:38 07:13 WBC 12.6 H RBC 4.18 L Hgb 12.7 Hct 38.4 MCV 91.9 MCH 30.4 MCHC 33.1 RDW 14.0 Plt Count 297 MPV 11.3 Immature Gran % (Auto) Neut % (Auto) Lymph % (Auto) [place] % (Auto) Eos % (Auto) Baso % (Auto) Lymph # (Auto) [place] # (Auto) Eos # (Auto) Baso # (Auto) Abs Immat Gran (auto) Absolute Neuts (auto) Absolute Nucleated RBC 0.000 Nucleated RBC % (auto) 0.0 PT INR Sodium Potassium Chloride Carbon Dioxide Anion Gap BUN Creatinine Estim Creat Clear Calc Estimated GFR POC Glucose 344 H 240 H Random Glucose Estimat Average Glucose Hemoglobin A1c % Calcium 03/28/22 03/28/22 03/28/22 07:13 11:17 12:25 WBC RBC Hgb Hct MCV MCH MCHC RDW Plt Count MPV Immature Gran % (Auto) Neut % (Auto) Lymph % (Auto) [place] % (Auto) Eos % (Auto) Baso % (Auto) Lymph # (Auto) [place] # (Auto) Eos # (Auto) Baso # (Auto) Abs Immat Gran (auto) Absolute Neuts (auto) Absolute Nucleated RBC Nucleated RBC % (auto) PT 20.5 H INR 1.7 H Sodium Potassium Chloride Carbon Dioxide Anion Gap BUN Creatinine Estim Creat Clear Calc Estimated GFR POC Glucose 399 H* 360 H* Random Glucose Estimat Average Glucose Hemoglobin A1c % Calcium 03/28/22 03/28/22 03/28/22 13:34 16:35 17:17 WBC RBC Hgb Hct MCV MCH MCHC RDW Plt Count MPV Immature Gran % (Auto) Neut % (Auto) Lymph % (Auto) [place] % (Auto) Eos % (Auto) Baso % (Auto) Lymph # (Auto) [place] # (Auto) Eos # (Auto) Baso # (Auto) Abs Immat Gran (auto) Absolute Neuts (auto) Absolute Nucleated RBC Nucleated RBC % (auto) PT INR Sodium Potassium Chloride Carbon Dioxide Anion Gap BUN Creatinine Estim Creat Clear Calc Estimated GFR POC Glucose 304 H 225 H Random Glucose Estimat Average Glucose 217 Hemoglobin A1c % 9.2 Calcium 03/28/22 03/29/22 03/29/22 20:20 07:40 07:52 WBC RBC Hgb Hct MCV MCH MCHC RDW Plt Count MPV Immature Gran % (Auto) Neut % (Auto) Lymph % (Auto) [place] % (Auto) Eos % (Auto) Baso % (Auto) Lymph # (Auto) [place] # (Auto) Eos # (Auto) Baso # (Auto) Abs Immat Gran (auto) Absolute Neuts (auto) Absolute Nucleated RBC Nucleated RBC % (auto) PT 21.4 H INR 1.8 H Sodium Potassium Chloride Carbon Dioxide Anion Gap BUN Creatinine Estim Creat Clear Calc Estimated GFR POC Glucose 279 H 266 H Random Glucose Estimat Average Glucose Hemoglobin A1c % Calcium 03/29/22 03/29/22 03/29/22 11:44 16:49 17:40 WBC 13.6 H RBC 4.34 Hgb 13.0 Hct 39.9 MCV 91.9 MCH 30.0 MCHC 32.6 RDW 13.9 Plt Count 362 MPV 11.4 Immature Gran % (Auto) 0.3 Neut % (Auto) 45.0 Lymph % (Auto) 39.8 [place] % (Auto) 10.7 Eos % (Auto) 3.5 Baso % (Auto) 0.7 Lymph # (Auto) 5.4 H [place] # (Auto) 1.5 H Eos # (Auto) 0.5 H Baso # (Auto) 0.1 Abs Immat Gran (auto) 0.04 H Absolute Neuts (auto) 6.1 Absolute Nucleated RBC 0.000 Nucleated RBC % (auto) 0.0 PT INR Sodium Potassium Chloride Carbon Dioxide Anion Gap BUN Creatinine Estim Creat Clear Calc Estimated GFR POC Glucose 366 H* 198 H Random Glucose Estimat Average Glucose Hemoglobin A1c % Calcium 03/29/22 17:40 WBC RBC Hgb Hct MCV MCH MCHC RDW Plt Count MPV Immature Gran % (Auto) Neut % (Auto) Lymph % (Auto) [place] % (Auto) Eos % (Auto) Baso % (Auto) Lymph # (Auto) [place] # (Auto) Eos # (Auto) Baso # (Auto) Abs Immat Gran (auto) Absolute Neuts (auto) Absolute Nucleated RBC Nucleated RBC % (auto) PT INR Sodium 137 Potassium 5.0 Chloride 98 Carbon Dioxide 26 Anion Gap 18 BUN 18 H Creatinine 0.91 Estim Creat Clear Calc 79.2 Estimated GFR > 60 POC Glucose Random Glucose 287 H Estimat Average Glucose Hemoglobin A1c % Calcium 9.2 Medications Medications Current Medications Acetaminophen (Acetaminophen 325 Mg Tablet) 650 mg PO Q6H PRN PRN Reason: Headache/Pain Mild Scale (1-3) Al Hydroxide/Mg Hydroxide (Magnesium Hydrox/Alum Hydrox 30 Ml Oral.Susp) 30 ml PO Q6H PRN PRN Reason: Heartburn/Nausea Albuterol Sulfate (Albuterol Sulfate 90 Mcg 8 Gm Inhaler) 2 puff INHALE RQ4H PRN PRN Reason: Wheezing Last Admin: 03/29/22 17:49 Dose: 2 puff Amlodipine Besylate (Amlodipine Besylate 2.5 Mg Tablet) 2.5 mg PO DAILY [facility]; Protocol Last Admin: 03/29/22 08:28 Dose: 2.5 mg Budesonide (Budesonide 180 Mcg Aer.Pow.Ba) 1 puff INHALE RBID [facility] Last Admin: 03/29/22 08:27 Dose: 1 puff Gabapentin (Gabapentin 100 Mg Capsule) 100 mg PO TID [facility] Last Admin: 03/29/22 15:34 Dose: 100 mg Glipizide (Glipizide 10 Mg Tablet) 10 mg PO BIDWM [facility] Last Admin: 03/29/22 17:07 Dose: 10 mg Hydroxyzine HCl (Hydroxyzine Hcl 25 Mg Tablet) 25 mg PO Q6H PRN PRN Reason: Anxiety Insulin Glargine (Insulin Glargine,Hum.Rec.Anlog 100 Unit/Ml 10 Ml Vial) 15 unit SUBCUT BEDTIME [facility] Last Admin: 03/28/22 20:22 Dose: 15 unit Insulin Human Lispro (Insulin Lispro 100 Unit/Ml 3 Ml Vial) 0 unit SUBCUT QIDACHS [facility]; Protocol Last Admin: 03/29/22 17:06 Dose: 2 unit Levothyroxine Sodium (Levothyroxine Sodium 88 Mcg Tablet) 88 mcg PO DAILY@0600 [facility] Last Admin: 03/29/22 06:09 Dose: 88 mcg Magnesium Hydroxide (Milk Of Magnesia 30 Ml Oral.Susp) 30 ml PO DAILY PRN PRN Reason: Constipation Last Admin: 03/24/22 21:23 Dose: 30 ml Montelukast Sodium (Montelukast Sodium 10 Mg Tablet) 10 mg PO BEDTIME [facility] Last Admin: 03/28/22 20:24 Dose: 10 mg Olanzapine (Olanzapine 5 Mg Tablet) 5 mg PO BEDTIME [facility] Last Admin: 03/28/22 20:25 Dose: 5 mg Omeprazole (Omeprazole 20 Mg Capsule.Dr) 20 mg PO DAILY@0630 [facility] Last Admin: 03/29/22 06:09 Dose: 20 mg Ondansetron HCl (Ondansetron Odt 4 Mg Tab.Rapdis) 4 mg TRANSLINGU Q8H PRN PRN Reason: Nausea Last Admin: 03/23/22 15:30 Dose: 4 mg Ondansetron HCl (Ondansetron Odt 4 Mg Tab.Rapdis) 4 mg TRANSLINGU Q6H PRN PRN Reason: Nausea Oxycodone HCl (Oxycodone Hcl Immed Release 5 Mg Tablet) 20 mg PO TID PRN PRN Reason: mod-severe pain Last Admin: 03/29/22 08:48 Dose: 20 mg Polyethylene Glycol (Polyethylene Glycol 3350 17 Gm Powd.Pack) 17 gm PO BID [facility] Last Admin: 03/29/22 08:29 Dose: 17 gm Pravastatin Sodium (Pravastatin Sodium 20 Mg Tablet) 60 mg PO DAILY [facility] Last Admin: 03/29/22 08:28 Dose: 60 mg Trazodone HCl (Trazodone Hcl 50 Mg Tablet) 50 mg PO BEDTIME PRN PRN Reason: Insomnia Venlafaxine HCl (Venlafaxine Hcl Er 150 Mg Cap.Er.24h) 150 mg PO DAILY [facility] Last Admin: 03/29/22 08:29 Dose: 150 mg Warfarin Sodium 5 mg/ Warfarin (Sodium 2 mg) 7 mg PO DAILY@1800 [facility] Last Admin: 03/29/22 17:38 Dose: 7 mg Allergies Allergies Allergy/AdvReac Type Severity Reaction Status Date / Time Penicillins Allergy Mild HIVES Unverified 03/06/20 17:42 codeine [Codeine] AdvReac Mild SWEATS Unverified 03/06/20 17:42 Assessment & Plan Assessment & Plan (1) Overdose: Status: Acute Code(s): T50.901A - Poisoning by unspecified drugs, medicaments and biological substances, accidental (unintentional), initial encounter (2) Hematuria: Status: Acute Code(s): R31.9 - Hematuria, unspecified Plan Elderly female with a long history of bipolar disorder who was admitted after she tried to overdose of Seroquel in a suicidal attempt after to friends dying. On admission, it was clear that she had hypomanic symptoms and will lower her Effexor XR from 225-150, kept gabapentin and add a low dose of olanzapine. 03/27 pt reports good mood, happy; says all SI resolved and making plans to stay stable post discharge -INR has been subtherapeutic for 4 days on coumadin 5mg; will increase to 6mg and continue to monitor INR. -has hematuria listed as problem; will ask nursing (possible from ICU/catheritization? prior to transfer to [facility]) 03/28 remains in good mood, no SI; future oriented -INR still mildly subtherapeutic at 1.7; just increased dose to Coumadin 6 mg so will leave for another day to see if level gets therapeutic; otherwise will increase further -elevated blood sugars; will restart glipizide 10 mg b.i.d. which is outpatient medication; ordered A1c 03/29 patient shows right lower leg open wound that looks like a cellulitis. Ordered BMP/CBC Discussed with Dr. Stoddard who said he was send hospitalist would come and evaluate/treat (patient allergic to penicillin) INR still subtherapeutic 1.8 so increased Coumadin to 7 mg Plan 1. Gather collateral information. 2. Continue with the same treatment. Monitor for over-sedation with Zyprexa (denies). 3. Blood work for tomorrow (reviewed 03/26- CBC wnl, has PT/INR daily, glucose daily) 4. add miralax for constipation I spent minutes with the patient and/or on the patient floor today, greater than?50% of which was spent counseling/coordinating care. Patient educated on: diagnosis and medical condition Informed Consent: understands Reason for contiued inpatient stay Substantial Risk for: stable for discharge
[2022-03-29 18:52] LABS: SLIDE REVIEW VERIFIED
[2022-03-29 20:03] LABS: Glucose, Whole Blood 280 mg/dL (60-115)
[2022-03-29] MEDS: Insulin Glargine,Hum.rec.anlog 100 UNIT/ML 10 ML VIAL 15 UNIT SUBCUT (21:05)
[2022-03-29] MEDS: OLANZapine 5 MG TABLET PO (21:08)
[2022-03-29] MEDS: Montelukast Sodium 10 MG TABLET PO (21:08)
--- NOTE | 2022-03-29 21:39 | P.CONHOSP_ITS ---
History of Present Illness Data of Consult Service Date: 03/29/22 Primary Care Provider: Unknown Physician HPI Reason for consult: Lower extremity wound This is a 72-year-old female with pertinent history of diabetes mellitus, hypothyroidism, history of PE, mood disorder who was admitted to inpatient psychiatry facility for intentional overdose. Patient was discharged from acute Medicine Services on 03/22. Hospitalist group consulted for right lower extremity wound. Patient states that she did not have any trauma to the foot. Has noticed redness, pain and clear discharge from her right lower extremity wo und over the last 2-3 days. No fever or any systemic complaints. Patient states the pain and tenderness have progressively worsened. Does not remember if she has had similar lower extremity infections in the past. Denies fever, chills, shortness of breath, nausea, vomiting abdominal pain, changes in urinary or bowel habits. Review of Systems Review of Systems: All 13 review of systems are negative except as noted in HPI PMFSH Social History Household Members: Spouse Housing: House Do you presently have visiting nurse or other home services: No Patient Tobacco Use Status: Never used Tobacco Use of substances other than those prescribed or required for medical reasons: No Currently Displaying Signs/Symptoms of Drug Intoxication Withdrawal: No Have you been hit, kicked, punched, or otherwise hurt by someone within the past year? If so, by whom?: No Do you feel safe in your current relationship?: Yes Is there a partner from a previous relationship who is making you feel unsafe now?: No Are you made to feel afraid or neglected: No Confucianism Healthcare Practices: Pt. states that she speaks to pastor Golden from [facility]. She states that she would like to see him again. Advance Directives: No Advance Directives Information Provided: No Do you have thoughts of harming others: None Do you have a plan to hurt others: No Plan Recently lost weight without trying: No How much weight loss: Not applicable Eating poorly because of decreased appetite: Yes Nutrition screen score: 1 Nutrition Risks: No Nutritional Risk Patient : No : No Poor oral hygiene: No service: No Current occupational status: retired Sexual orientation: Straight/Heterosexual Meds Allergies Allergy/AdvReac Type Severity Reaction Status Date / Time Penicillins Allergy Mild HIVES Unverified 03/06/20 17:42 codeine [Codeine] AdvReac Mild SWEATS Unverified 03/06/20 17:42 Active Medications: Current Medications Acetaminophen (Acetaminophen 325 Mg Tablet) 650 mg PO Q6H PRN PRN Reason: Headache/Pain Mild Scale (1-3) Al Hydroxide/Mg Hydroxide (Magnesium Hydrox/Alum Hydrox 30 Ml Oral.Susp) 30 ml PO Q6H PRN PRN Reason: Heartburn/Nausea Albuterol Sulfate (Albuterol Sulfate 90 Mcg 8 Gm Inhaler) 2 puff INHALE RQ4H PRN PRN Reason: Wheezing Last Admin: 03/29/22 17:49 Dose: 2 puff Amlodipine Besylate (Amlodipine Besylate 2.5 Mg Tablet) 2.5 mg PO DAILY [facility]; Protocol Last Admin: 03/29/22 08:28 Dose: 2.5 mg Budesonide (Budesonide 180 Mcg Aer.Pow.Ba) 1 puff INHALE RBID [facility] Last Admin: 03/29/22 21:21 Dose: 1 puff Gabapentin (Gabapentin 100 Mg Capsule) 100 mg PO TID [facility] Last Admin: 03/29/22 21:08 Dose: 100 mg Glipizide (Glipizide 10 Mg Tablet) 10 mg PO BIDWM [facility] Last Admin: 03/29/22 17:07 Dose: 10 mg Hydroxyzine HCl (Hydroxyzine Hcl 25 Mg Tablet) 25 mg PO Q6H PRN PRN Reason: Anxiety Insulin Glargine (Insulin Glargine,Hum.Rec.Anlog 100 Unit/Ml 10 Ml Vial) 15 unit SUBCUT BEDTIME [facility] Last Admin: 03/29/22 21:05 Dose: 15 unit Insulin Human Lispro (Insulin Lispro 100 Unit/Ml 3 Ml Vial) 0 unit SUBCUT QIDACHS [facility]; Protocol Last Admin: 03/29/22 21:06 Dose: 6 unit Levothyroxine Sodium (Levothyroxine Sodium 88 Mcg Tablet) 88 mcg PO DAILY@0600 [facility] Last Admin: 03/29/22 06:09 Dose: 88 mcg Magnesium Hydroxide (Milk Of Magnesia 30 Ml Oral.Susp) 30 ml PO DAILY PRN PRN Reason: Constipation Last Admin: 03/24/22 21:23 Dose: 30 ml Montelukast Sodium (Montelukast Sodium 10 Mg Tablet) 10 mg PO BEDTIME [facility] Last Admin: 03/29/22 21:08 Dose: 10 mg Olanzapine (Olanzapine 5 Mg Tablet) 5 mg PO BEDTIME [facility] Last Admin: 03/29/22 21:08 Dose: 5 mg Omeprazole (Omeprazole 20 Mg Capsule.Dr) 20 mg PO DAILY@0630 [facility] Last Admin: 03/29/22 06:09 Dose: 20 mg Ondansetron HCl (Ondansetron Odt 4 Mg Tab.Rapdis) 4 mg TRANSLINGU Q8H PRN PRN Reason: Nausea Last Admin: 03/23/22 15:30 Dose: 4 mg Ondansetron HCl (Ondansetron Odt 4 Mg Tab.Rapdis) 4 mg TRANSLINGU Q6H PRN PRN Reason: Nausea Oxycodone HCl (Oxycodone Hcl Immed Release 5 Mg Tablet) 20 mg PO TID PRN PRN Reason: mod-severe pain Last Admin: 03/29/22 21:22 Dose: 20 mg Polyethylene Glycol (Polyethylene Glycol 3350 17 Gm Powd.Pack) 17 gm PO BID [facility] Last Admin: 03/29/22 21:14 Dose: 17 gm Pravastatin Sodium (Pravastatin Sodium 20 Mg Tablet) 60 mg PO DAILY [facility] Last Admin: 03/29/22 08:28 Dose: 60 mg Trazodone HCl (Trazodone Hcl 50 Mg Tablet) 50 mg PO BEDTIME PRN PRN Reason: Insomnia Venlafaxine HCl (Venlafaxine Hcl Er 150 Mg Cap.Er.24h) 150 mg PO DAILY [facility] Last Admin: 03/29/22 08:29 Dose: 150 mg Warfarin Sodium 5 mg/ Warfarin (Sodium 2 mg) 7 mg PO DAILY@1800 [facility] Last Admin: 03/29/22 17:38 Dose: 7 mg Home Medications Medication Instructions Recorded Confirmed Last Taken Type acetaminophen 500 mg tablet 500 mg PO TID PRN Pain 03/19/22 03/19/22 Unknown History albuterol sulfate 90 mcg/actuation 1 puff inhalation Q4H PRN Wheezing 03/19/22 03/19/22 Unknown History aerosol inhaler albuterol sulfate 90 mcg/actuation 2 inh inhalation Q4H PRN Wheezing 03/19/22 03/19/22 Unknown History breath activated powder inhaler (ProAir RespiClick) amlodipine 2.5 mg tablet 1 tab PO DAILY 03/19/22 03/29/22 Unknown History budesonide 0.5 mg/2 mL suspension 0.5 mg inhalation BID 03/19/22 03/19/22 Unknown History for nebulization cholecalciferol (vitamin D3) 25 25 mcg PO DAILY 03/19/22 03/19/22 Unknown History mcg (1,000 unit) capsule clonidine HCl 0.2 mg tablet 1 tab PO BEDTIME PRN nightmares 03/19/22 03/19/22 Unknown History glipizide 10 mg tablet 1 tab PO BID 03/19/22 03/29/22 Unknown History insulin glargine 100 unit/mL (3 4 - 20 unit subcut BEDTIME 03/19/22 03/19/22 Unknown History mL) subcutaneous pen (Lantus Solostar U-100 Insulin) insulin glargine 100 unit/mL (3 18 - 24 unit subcut DAILY 03/19/22 03/19/22 Unknown History mL) subcutaneous pen (Lantus Solostar U-100 Insulin) ipratropium 0.5 mg-albuterol 3 mg 3 ml inhalation QID PRN Shortness 03/19/22 03/19/22 Unknown History (2.5 mg base)/3 mL nebulization Of Breath soln levothyroxine 88 mcg tablet 1 tab PO DAILY@0600 03/19/22 03/19/22 Unknown History lisinopril 20 1 tab PO DAILY 03/19/22 03/19/22 Unknown History mg-hydrochlorothiazide 25 mg tablet mometasone 100 mcg/actuation HFA 2 puff inhalation BID 03/19/22 03/19/22 Unknown History aerosol inhaler (Asmanex HFA) montelukast 10 mg tablet 1 tab PO DAILY 03/19/22 03/19/22 Unknown History omeprazole 20 mg capsule,delayed 1 cap PO BID 03/19/22 03/19/22 Unknown History release oxycodone 20 mg tablet 1 tab PO TID PRN Pain 03/19/22 03/19/22 Unknown History pravastatin 40 mg tablet 1.5 tab PO DAILY 03/19/22 03/19/22 Unknown History quetiapine 200 mg tablet (Seroquel) 1.5 tab PO BEDTIME 03/19/22 03/19/22 Unknown History quetiapine 50 mg tablet (Seroquel) 1 tab PO BEDTIME 03/19/22 03/19/22 Unknown History sitagliptin 100 mg tablet (Januvia) 100 mg PO DAILY 03/19/22 03/19/22 Unknown History trazodone 100 mg tablet 1 tab PO BEDTIME 03/19/22 03/19/22 Unknown History venlafaxine 150 mg 1 cap PO DAILY 03/19/22 03/19/22 Unknown History capsule,extended release 24 hr (Effexor XR) venlafaxine 75 mg capsule,extended 1 cap PO DAILY 03/19/22 03/19/22 Unknown History release 24 hr (Effexor XR) warfarin 2.5 mg tablet 1 tab PO DAILY 03/19/22 03/19/22 Unknown History warfarin 5 mg tablet 1 tab PO DAILY 03/19/22 03/19/22 Unknown History Lantus U-100 Insulin 03/29/22 Unknown History amlodipine 03/29/22 03/29/22 Unknown History glipizide 03/29/22 Unknown History levothyroxine 88 mcg tablet 88 mcg PO DAILY 03/29/22 03/29/22 Unknown History montelukast 03/29/22 Unknown History oxycodone 20 mg tablet 20 mg PO TID PRN Pain 03/29/22 03/29/22 Unknown History pravastatin 03/29/22 Unknown History quetiapine 50 mg tablet 50 mg PO BEDTIME 03/29/22 03/29/22 Unknown History trazodone 03/29/22 Unknown History warfarin 2.5 mg tablet mg 03/29/22 Unknown History Physical Exam Vital Signs and Narrative: Vital Signs: Last Vital Signs Temp 97.1 F 03/29/22 07:30 Pulse 76 03/29/22 07:30 Resp 16 03/29/22 07:30 BP 173/90 H 03/29/22 07:30 Pulse Ox 92 03/29/22 07:30 O2 Del Method 03/29/22 07:30 BMI result Body Mass Index 40.8 Elderly female lying in bed in no distress Neck supple, no JVD Regular rate and rhythm, S1-S2 heard Decreased breath sound at bases Abdomen soft nontender, no guarding, no rigidity Patient is awake, alert and oriented to self, place, time and person ; no focal motor deficit Psych: Normal mood Skin: Right lower extremity anterior wound with redness, tenderness and warmth Results Labs CBC and Chem 7: 10/10/22 17:40 03/29/22 17:40 Labs: Laboratory Results - last 24 hr 03/28/22 03/29/22 03/29/22 17:17 07:40 07:52 MCV MCH MCHC RDW Plt Count MPV Immature Gran % (Auto) Neut % (Auto) Lymph % (Auto) [place] % (Auto) Eos % (Auto) Baso % (Auto) Lymph # (Auto) [place] # (Auto) Eos # (Auto) Baso # (Auto) Abs Immat Gran (auto) Absolute Neuts (auto) Absolute Nucleated RBC Nucleated RBC % (auto) Smear Tech's Comments PT 21.4 H INR 1.8 H Anion Gap Estim Creat Clear Calc Estimated GFR POC Glucose 266 H Random Glucose Estimat Average Glucose 217 Hemoglobin A1c % 9.2 Calcium 03/29/22 03/29/22 03/29/22 11:44 16:49 17:40 MCV 91.9 MCH 30.0 MCHC 32.6 RDW 13.9 Plt Count 362 MPV 11.4 Immature Gran % (Auto) 0.3 Neut % (Auto) 45.0 Lymph % (Auto) 39.8 [place] % (Auto) 10.7 Eos % (Auto) 3.5 Baso % (Auto) 0.7 Lymph # (Auto) 5.4 H [place] # (Auto) 1.5 H Eos # (Auto) 0.5 H Baso # (Auto) 0.1 Abs Immat Gran (auto) 0.04 H Absolute Neuts (auto) 6.1 Absolute Nucleated RBC 0.000 Nucleated RBC % (auto) 0.0 Smear Tech's Comments VERIFIED PT INR Anion Gap Estim Creat Clear Calc Estimated GFR POC Glucose 366 H* 198 H Random Glucose Estimat Average Glucose Hemoglobin A1c % Calcium 03/29/22 03/29/22 17:40 20:00 MCV MCH MCHC RDW Plt Count MPV Immature Gran % (Auto) Neut % (Auto) Lymph % (Auto) [place] % (Auto) Eos % (Auto) Baso % (Auto) Lymph # (Auto) [place] # (Auto) Eos # (Auto) Baso # (Auto) Abs Immat Gran (auto) Absolute Neuts (auto) Absolute Nucleated RBC Nucleated RBC % (auto) Smear Tech's Comments PT INR Anion Gap 18 Estim Creat Clear Calc 79.2 Estimated GFR > 60 POC Glucose 280 H Random Glucose 287 H Estimat Average Glucose Hemoglobin A1c % Calcium 9.2 Assessment and Plan (1) Cellulitis: Status: Acute (2) Diabetes: Status: Acute (3) History of pulmonary embolism: Status: Acute (4) Hypertension: Status: Acute (5) Mood disorder: Status: Acute Plan #. Nonpurulent cellulitis of right lower extremity -initiating Keflex 500 mg every 6 hours for 7 days. No indication for parenteral therapy and no indication to cover MRSA. Monitor for improvement. Will sign off, call in case of systemic signs of toxicity, progression/non resolution of infection. #. Diabetes mellitus #. History of PE #. Essential hypertension -continue oral medications for chronic medical conditions. INR goal 2-3 #. Mood disorder -as per psych
[2022-03-29] MEDS: cephALEXin 500 MG CAPSULE PO (23:40)
[2022-03-30 06:00] VITALS: BP 157/86; PULSE 88; RESP 18; TEMP 35.8; O2SAT 95
[2022-03-30] MEDS: Omeprazole 20 MG CAPSULE.DR PO (06:39)
[2022-03-30] MEDS: Levothyroxine Sodium 88 MCG TABLET PO (06:40)
[2022-03-30 07:48] LABS: Glucose, Whole Blood 227 mg/dL (60-115)
[2022-03-30] MEDS: amLODIPine Besylate 2.5 MG TABLET PO (09:36)
[2022-03-30] MEDS: Venlafaxine HCl ER 150 MG CAP.ER.24H PO (09:36)
[2022-03-30] MEDS: cephALEXin 500 MG CAPSULE PO ×2 (09:36→13:32)
[2022-03-30] MEDS: Pravastatin Sodium 20 MG TABLET 60 MG PO (09:36)
[2022-03-30] MEDS: glipiZIDE 10 MG TABLET PO (09:36)
[2022-03-30] MEDS: Gabapentin 100 MG CAPSULE PO (09:36)
[2022-03-30] MEDS: Insulin Lispro 100 UNIT/ML 3 ML VIAL SUBCUT ×2 (09:37→11:56)
[2022-03-30] MEDS: Budesonide 180 MCG AER.POW.BA 1 PUFF INHALE (09:42)
[2022-03-30 10:00] LABS: Prothrombin Time 24.1 SEC (10.0-13.1)
--- NOTE | 2022-03-30 11:14 | P.DS_ITS ---
DS: Providers Provider Date of Service: 03/30/22 Date of admission: 03/23/22 13:04 Date of discharge: 03/30/22 Primary care physician: Unknown Physician Consults: 03/29/22 11:57 Consult to Hospitalist Stat Consulting Provider: Hospitalist Reason For Exam: cellulitis on right lower leg? DS: Diagnosis Discharge Diagnosis (1) Cellulitis: Status: Acute (2) Diabetes: Status: Acute (3) History of pulmonary embolism: Status: Acute (4) Hypertension: Status: Acute (5) Mood disorder: Status: Acute DS: Medications Discharge Medications Home Medications: Home Medications Medication Instructions Recorded Confirmed acetaminophen 500 mg tablet 500 mg PO TID PRN Pain 03/19/22 03/19/22 albuterol sulfate 90 mcg/actuation 1 puff inhalation Q4H PRN Wheezing 03/19/22 03/19/22 aerosol inhaler albuterol sulfate 90 mcg/actuation 2 inh inhalation Q4H PRN Wheezing 03/19/22 03/19/22 breath activated powder inhaler (ProAir RespiClick) amlodipine 2.5 mg tablet 1 tab PO DAILY 03/19/22 03/29/22 budesonide 0.5 mg/2 mL suspension 0.5 mg inhalation BID 03/19/22 03/19/22 for nebulization cholecalciferol (vitamin D3) 25 25 mcg PO DAILY 03/19/22 03/19/22 mcg (1,000 unit) capsule clonidine HCl 0.2 mg tablet 1 tab PO BEDTIME PRN nightmares 03/19/22 03/19/22 glipizide 10 mg tablet 1 tab PO BID 03/19/22 03/29/22 insulin glargine 100 unit/mL (3 4 - 20 unit subcut BEDTIME 03/19/22 03/19/22 mL) subcutaneous pen (Lantus Solostar U-100 Insulin) insulin glargine 100 unit/mL (3 18 - 24 unit subcut DAILY 03/19/22 03/19/22 mL) subcutaneous pen (Lantus Solostar U-100 Insulin) ipratropium 0.5 mg-albuterol 3 mg 3 ml inhalation QID PRN Shortness 03/19/22 03/19/22 (2.5 mg base)/3 mL nebulization Of Breath soln levothyroxine 88 mcg tablet 1 tab PO DAILY@0600 03/19/22 03/19/22 lisinopril 20 1 tab PO DAILY 03/19/22 03/19/22 mg-hydrochlorothiazide 25 mg tablet mometasone 100 mcg/actuation HFA 2 puff inhalation BID 03/19/22 03/19/22 aerosol inhaler (Asmanex HFA) montelukast 10 mg tablet 1 tab PO DAILY 03/19/22 03/19/22 omeprazole 20 mg capsule,delayed 1 cap PO BID 03/19/22 03/19/22 release oxycodone 20 mg tablet 1 tab PO TID PRN Pain 03/19/22 03/19/22 pravastatin 40 mg tablet 1.5 tab PO DAILY 03/19/22 03/19/22 quetiapine 200 mg tablet (Seroquel) 1.5 tab PO BEDTIME 03/19/22 03/19/22 quetiapine 50 mg tablet (Seroquel) 1 tab PO BEDTIME 03/19/22 03/19/22 sitagliptin 100 mg tablet (Januvia) 100 mg PO DAILY 03/19/22 03/19/22 trazodone 100 mg tablet 1 tab PO BEDTIME 03/19/22 03/19/22 venlafaxine 150 mg 1 cap PO DAILY 03/19/22 03/19/22 capsule,extended release 24 hr (Effexor XR) venlafaxine 75 mg capsule,extended 1 cap PO DAILY 03/19/22 03/19/22 release 24 hr (Effexor XR) warfarin 2.5 mg tablet 1 tab PO DAILY 03/19/22 03/19/22 warfarin 5 mg tablet 1 tab PO DAILY 03/19/22 03/19/22 Lantus U-100 Insulin 03/29/22 amlodipine 03/29/22 03/29/22 glipizide 03/29/22 levothyroxine 88 mcg tablet 88 mcg PO DAILY 03/29/22 03/29/22 montelukast 03/29/22 oxycodone 20 mg tablet 20 mg PO TID PRN Pain 03/29/22 03/29/22 pravastatin 03/29/22 quetiapine 50 mg tablet 50 mg PO BEDTIME 03/29/22 03/29/22 trazodone 03/29/22 warfarin 2.5 mg tablet mg 03/29/22 Previous Rx's Medication Instructions Recorded gabapentin 100 mg capsule 100 mg PO TID #90 caps 03/22/22 Mental Status Exam Mental Status Exam Patient Appearance: Well Grooomed Patient Orientation: Person, Place, Time and Situation Level of Consciousness: Awake Patient Behavior: Cooperative Mood Description: Calm Affect Description: Happy Patient Cognition Impaired: Yes Ability to Follow Directions: Fair Speech Pattern: Coherent Hallucinations: None Delusions: Not Present Thought Process: Distracted Thought Content: positive for [place] and positive for Circumstantial Judgement: Fair Data Data Completed and Pending Completed studies during hospitalization [Text1]: 03/23/22 03/23/22 03/23/22 16:26 16:26 16:39 WBC 18.5 H RBC 4.80 Hgb 14.5 Hct 42.6 MCV 88.8 MCH 30.2 MCHC 34.0 RDW 14.1 Plt Count 359 D MPV 10.6 Immature Gran % (Auto) Neut % (Auto) Lymph % (Auto) [place] % (Auto) Eos % (Auto) Baso % (Auto) Lymph # (Auto) [place] # (Auto) Eos # (Auto) Baso # (Auto) Abs Immat Gran (auto) Absolute Neuts (auto) Absolute Nucleated RBC 0.000 Nucleated RBC % (auto) 0.0 Smear Tech's Comments PT 17.8 H INR 1.5 H APTT 35.9 Sodium Potassium Chloride Carbon Dioxide Anion Gap BUN Creatinine Estim Creat Clear Calc Estimated GFR POC Glucose 243 H Random Glucose Fasting Glucose Estimat Average Glucose Hemoglobin A1c % Calcium Total Bilirubin Direct Bilirubin AST ALT Alkaline Phosphatase Total Protein Albumin Triglycerides Cholesterol LDL Cholesterol, Calc HDL Cholesterol 03/23/22 03/24/22 03/24/22 20:11 07:59 07:59 WBC 15.5 H RBC 4.72 Hgb 14.2 Hct 42.8 MCV 90.7 MCH 30.1 MCHC 33.2 RDW 14.1 Plt Count 303 MPV 11.5 Immature Gran % (Auto) Neut % (Auto) Lymph % (Auto) [place] % (Auto) Eos % (Auto) Baso % (Auto) Lymph # (Auto) [place] # (Auto) Eos # (Auto) Baso # (Auto) Abs Immat Gran (auto) Absolute Neuts (auto) Absolute Nucleated RBC 0.000 Nucleated RBC % (auto) 0.0 Smear Tech's Comments PT INR APTT Sodium 138 Potassium 4.9 Chloride 103 Carbon Dioxide 21 L Anion Gap 19 BUN 28 H Creatinine 0.92 Estim Creat Clear Calc 80.7 Estimated GFR > 60 POC Glucose 233 H Random Glucose Fasting Glucose 264 H Estimat Average Glucose Hemoglobin A1c % Calcium 9.1 Total Bilirubin 0.6 Direct Bilirubin AST 56 H ALT 45 H Alkaline Phosphatase 83 Total Protein 7.5 Albumin 3.8 Triglycerides 120 Cholesterol 157 LDL Cholesterol, Calc 69 HDL Cholesterol 64 03/24/22 03/24/22 03/24/22 08:02 10:25 11:32 WBC RBC Hgb Hct MCV MCH MCHC RDW Plt Count MPV Immature Gran % (Auto) Neut % (Auto) Lymph % (Auto) [place] % (Auto) Eos % (Auto) Baso % (Auto) Lymph # (Auto) [place] # (Auto) Eos # (Auto) Baso # (Auto) Abs Immat Gran (auto) Absolute Neuts (auto) Absolute Nucleated RBC Nucleated RBC % (auto) Smear Tech's Comments PT 20.3 H INR 1.7 H APTT Sodium Potassium Chloride Carbon Dioxide Anion Gap BUN Creatinine Estim Creat Clear Calc Estimated GFR POC Glucose 276 H 235 H Random Glucose Fasting Glucose Estimat Average Glucose Hemoglobin A1c % Calcium Total Bilirubin Direct Bilirubin AST ALT Alkaline Phosphatase Total Protein Albumin Triglycerides Cholesterol LDL Cholesterol, Calc HDL Cholesterol 03/24/22 03/24/22 03/24/22 16:15 16:45 21:07 WBC RBC Hgb Hct MCV MCH MCHC RDW Plt Count MPV Immature Gran % (Auto) Neut % (Auto) Lymph % (Auto) [place] % (Auto) Eos % (Auto) Baso % (Auto) Lymph # (Auto) [place] # (Auto) Eos # (Auto) Baso # (Auto) Abs Immat Gran (auto) Absolute Neuts (auto) Absolute Nucleated RBC Nucleated RBC % (auto) Smear Tech's Comments PT 21.1 H INR 1.8 H APTT Sodium Potassium Chloride Carbon Dioxide Anion Gap BUN Creatinine Estim Creat Clear Calc Estimated GFR POC Glucose 226 H 239 H Random Glucose Fasting Glucose Estimat Average Glucose Hemoglobin A1c % Calcium Total Bilirubin Direct Bilirubin AST ALT Alkaline Phosphatase Total Protein Albumin Triglycerides Cholesterol LDL Cholesterol, Calc HDL Cholesterol 03/25/22 03/25/22 03/25/22 07:31 07:45 11:45 WBC RBC Hgb Hct MCV MCH MCHC RDW Plt Count MPV Immature Gran % (Auto) Neut % (Auto) Lymph % (Auto) [place] % (Auto) Eos % (Auto) Baso % (Auto) Lymph # (Auto) [place] # (Auto) Eos # (Auto) Baso # (Auto) Abs Immat Gran (auto) Absolute Neuts (auto) Absolute Nucleated RBC Nucleated RBC % (auto) Smear Tech's Comments PT 21.0 H INR 1.8 H APTT Sodium Potassium Chloride Carbon Dioxide Anion Gap BUN Creatinine Estim Creat Clear Calc Estimated GFR POC Glucose 314 H 245 H Random Glucose Fasting Glucose Estimat Average Glucose Hemoglobin A1c % Calcium Total Bilirubin Direct Bilirubin AST ALT Alkaline Phosphatase Total Protein Albumin Triglycerides Cholesterol LDL Cholesterol, Calc HDL Cholesterol 03/25/22 03/25/22 03/26/22 16:43 22:27 07:27 WBC RBC Hgb Hct MCV MCH MCHC RDW Plt Count MPV Immature Gran % (Auto) Neut % (Auto) Lymph % (Auto) [place] % (Auto) Eos % (Auto) Baso % (Auto) Lymph # (Auto) [place] # (Auto) Eos # (Auto) Baso # (Auto) Abs Immat Gran (auto) Absolute Neuts (auto) Absolute Nucleated RBC Nucleated RBC % (auto) Smear Tech's Comments PT INR APTT Sodium Potassium Chloride Carbon Dioxide Anion Gap BUN Creatinine Estim Creat Clear Calc Estimated GFR POC Glucose 257 H 284 H 278 H Random Glucose Fasting Glucose Estimat Average Glucose Hemoglobin A1c % Calcium Total Bilirubin Direct Bilirubin AST ALT Alkaline Phosphatase Total Protein Albumin Triglycerides Cholesterol LDL Cholesterol, Calc HDL Cholesterol 03/26/22 03/26/22 03/26/22 09:10 09:10 09:10 WBC 10.6 RBC 4.27 Hgb 13.0 Hct 39.7 MCV 93.0 MCH 30.4 MCHC 32.7 RDW 14.1 Plt Count 308 MPV 11.4 Immature Gran % (Auto) 0.4 Neut % (Auto) 49.6 Lymph % (Auto) 35.4 [place] % (Auto) 9.4 Eos % (Auto) 4.2 H Baso % (Auto) 1.0 Lymph # (Auto) 3.8 [place] # (Auto) 1.0 Eos # (Auto) 0.4 Baso # (Auto) 0.1 Abs Immat Gran (auto) 0.04 H Absolute Neuts (auto) 5.3 Absolute Nucleated RBC 0.000 Nucleated RBC % (auto) 0.0 Smear Tech's Comments PT INR APTT Sodium Potassium Chloride Carbon Dioxide Anion Gap BUN Creatinine Estim Creat Clear Calc Estimated GFR POC Glucose Random Glucose Fasting Glucose Estimat Average Glucose 214 Hemoglobin A1c % 9.1 Calcium Total Bilirubin 0.3 Direct Bilirubin 0.3 AST 33 H D ALT 42 H Alkaline Phosphatase 85 Total Protein 6.9 Albumin 3.7 Triglycerides 145 Cholesterol 150 LDL Cholesterol, Calc 63 HDL Cholesterol 58 03/26/22 03/26/22 03/26/22 11:50 11:51 16:20 WBC RBC Hgb Hct MCV MCH MCHC RDW Plt Count MPV Immature Gran % (Auto) Neut % (Auto) Lymph % (Auto) [place] % (Auto) Eos % (Auto) Baso % (Auto) Lymph # (Auto) [place] # (Auto) Eos # (Auto) Baso # (Auto) Abs Immat Gran (auto) Absolute Neuts (auto) Absolute Nucleated RBC Nucleated RBC % (auto) Smear Tech's Comments PT 19.8 H INR 1.7 H APTT Sodium Potassium Chloride Carbon Dioxide Anion Gap BUN Creatinine Estim Creat Clear Calc Estimated GFR POC Glucose 361 H* 195 H Random Glucose Fasting Glucose Estimat Average Glucose Hemoglobin A1c % Calcium Total Bilirubin Direct Bilirubin AST ALT Alkaline Phosphatase Total Protein Albumin Triglycerides Cholesterol LDL Cholesterol, Calc HDL Cholesterol 03/26/22 03/27/22 03/27/22 20:34 06:43 08:04 WBC RBC Hgb Hct MCV MCH MCHC RDW Plt Count MPV Immature Gran % (Auto) Neut % (Auto) Lymph % (Auto) [place] % (Auto) Eos % (Auto) Baso % (Auto) Lymph # (Auto) [place] # (Auto) Eos # (Auto) Baso # (Auto) Abs Immat Gran (auto) Absolute Neuts (auto) Absolute Nucleated RBC Nucleated RBC % (auto) Smear Tech's Comments PT 20.0 H INR 1.7 H APTT Sodium Potassium Chloride Carbon Dioxide Anion Gap BUN Creatinine Estim Creat Clear Calc Estimated GFR POC Glucose 321 H 244 H Random Glucose Fasting Glucose Estimat Average Glucose Hemoglobin A1c % Calcium Total Bilirubin Direct Bilirubin AST ALT Alkaline Phosphatase Total Protein Albumin Triglycerides Cholesterol LDL Cholesterol, Calc HDL Cholesterol 03/27/22 03/27/22 03/27/22 11:46 16:38 19:58 WBC RBC Hgb Hct MCV MCH MCHC RDW Plt Count MPV Immature Gran % (Auto) Neut % (Auto) Lymph % (Auto) [place] % (Auto) Eos % (Auto) Baso % (Auto) Lymph # (Auto) [place] # (Auto) Eos # (Auto) Baso # (Auto) Abs Immat Gran (auto) Absolute Neuts (auto) Absolute Nucleated RBC Nucleated RBC % (auto) Smear Tech's Comments PT INR APTT Sodium Potassium Chloride Carbon Dioxide Anion Gap BUN Creatinine Estim Creat Clear Calc Estimated GFR POC Glucose 373 H* 247 H 344 H Random Glucose Fasting Glucose Estimat Average Glucose Hemoglobin A1c % Calcium Total Bilirubin Direct Bilirubin AST ALT Alkaline Phosphatase Total Protein Albumin Triglycerides Cholesterol LDL Cholesterol, Calc HDL Cholesterol 03/28/22 03/28/22 03/28/22 06:38 07:13 07:13 WBC 12.6 H RBC 4.18 L Hgb 12.7 Hct 38.4 MCV 91.9 MCH 30.4 MCHC 33.1 RDW 14.0 Plt Count 297 MPV 11.3 Immature Gran % (Auto) Neut % (Auto) Lymph % (Auto) [place] % (Auto) Eos % (Auto) Baso % (Auto) Lymph # (Auto) [place] # (Auto) Eos # (Auto) Baso # (Auto) Abs Immat Gran (auto) Absolute Neuts (auto) Absolute Nucleated RBC 0.000 Nucleated RBC % (auto) 0.0 Smear Tech's Comments PT 20.5 H INR 1.7 H APTT Sodium Potassium Chloride Carbon Dioxide Anion Gap BUN Creatinine Estim Creat Clear Calc Estimated GFR POC Glucose 240 H Random Glucose Fasting Glucose Estimat Average Glucose Hemoglobin A1c % Calcium Total Bilirubin Direct Bilirubin AST ALT Alkaline Phosphatase Total Protein Albumin Triglycerides Cholesterol LDL Cholesterol, Calc HDL Cholesterol 03/28/22 03/28/22 03/28/22 11:17 12:25 13:34 WBC RBC Hgb Hct MCV MCH MCHC RDW Plt Count MPV Immature Gran % (Auto) Neut % (Auto) Lymph % (Auto) [place] % (Auto) Eos % (Auto) Baso % (Auto) Lymph # (Auto) [place] # (Auto) Eos # (Auto) Baso # (Auto) Abs Immat Gran (auto) Absolute Neuts (auto) Absolute Nucleated RBC Nucleated RBC % (auto) Smear Tech's Comments PT INR APTT Sodium Potassium Chloride Carbon Dioxide Anion Gap BUN Creatinine Estim Creat Clear Calc Estimated GFR POC Glucose 399 H* 360 H* 304 H Random Glucose Fasting Glucose Estimat Average Glucose Hemoglobin A1c % Calcium Total Bilirubin Direct Bilirubin AST ALT Alkaline Phosphatase Total Protein Albumin Triglycerides Cholesterol LDL Cholesterol, Calc HDL Cholesterol 03/28/22 03/28/22 03/28/22 16:35 17:17 20:20 WBC RBC Hgb Hct MCV MCH MCHC RDW Plt Count MPV Immature Gran % (Auto) Neut % (Auto) Lymph % (Auto) [place] % (Auto) Eos % (Auto) Baso % (Auto) Lymph # (Auto) [place] # (Auto) Eos # (Auto) Baso # (Auto) Abs Immat Gran (auto) Absolute Neuts (auto) Absolute Nucleated RBC Nucleated RBC % (auto) Smear Tech's Comments PT INR APTT Sodium Potassium Chloride Carbon Dioxide Anion Gap BUN Creatinine Estim Creat Clear Calc Estimated GFR POC Glucose 225 H 279 H Random Glucose Fasting Glucose Estimat Average Glucose 217 Hemoglobin A1c % 9.2 Calcium Total Bilirubin Direct Bilirubin AST ALT Alkaline Phosphatase Total Protein Albumin Triglycerides Cholesterol LDL Cholesterol, Calc HDL Cholesterol 03/29/22 03/29/22 03/29/22 07:40 07:52 11:44 WBC RBC Hgb Hct MCV MCH MCHC RDW Plt Count MPV Immature Gran % (Auto) Neut % (Auto) Lymph % (Auto) [place] % (Auto) Eos % (Auto) Baso % (Auto) Lymph # (Auto) [place] # (Auto) Eos # (Auto) Baso # (Auto) Abs Immat Gran (auto) Absolute Neuts (auto) Absolute Nucleated RBC Nucleated RBC % (auto) Smear Tech's Comments PT 21.4 H INR 1.8 H APTT Sodium Potassium Chloride Carbon Dioxide Anion Gap BUN Creatinine Estim Creat Clear Calc Estimated GFR POC Glucose 266 H 366 H* Random Glucose Fasting Glucose Estimat Average Glucose Hemoglobin A1c % Calcium Total Bilirubin Direct Bilirubin AST ALT Alkaline Phosphatase Total Protein Albumin Triglycerides Cholesterol LDL Cholesterol, Calc HDL Cholesterol 03/29/22 03/29/22 03/29/22 16:49 17:40 17:40 WBC 13.6 H RBC 4.34 Hgb 13.0 Hct 39.9 MCV 91.9 MCH 30.0 MCHC 32.6 RDW 13.9 Plt Count 362 MPV 11.4 Immature Gran % (Auto) 0.3 Neut % (Auto) 45.0 Lymph % (Auto) 39.8 [place] % (Auto) 10.7 Eos % (Auto) 3.5 Baso % (Auto) 0.7 Lymph # (Auto) 5.4 H [place] # (Auto) 1.5 H Eos # (Auto) 0.5 H Baso # (Auto) 0.1 Abs Immat Gran (auto) 0.04 H Absolute Neuts (auto) 6.1 Absolute Nucleated RBC 0.000 Nucleated RBC % (auto) 0.0 Smear Tech's Comments VERIFIED PT INR APTT Sodium 137 Potassium 5.0 Chloride 98 Carbon Dioxide 26 Anion Gap 18 BUN 18 H Creatinine 0.91 Estim Creat Clear Calc 79.2 Estimated GFR > 60 POC Glucose 198 H Random Glucose 287 H Fasting Glucose Estimat Average Glucose Hemoglobin A1c % Calcium 9.2 Total Bilirubin Direct Bilirubin AST ALT Alkaline Phosphatase Total Protein Albumin Triglycerides Cholesterol LDL Cholesterol, Calc HDL Cholesterol 03/29/22 03/30/22 03/30/22 20:00 07:39 09:43 WBC RBC Hgb Hct MCV MCH MCHC RDW Plt Count MPV Immature Gran % (Auto) Neut % (Auto) Lymph % (Auto) [place] % (Auto) Eos % (Auto) Baso % (Auto) Lymph # (Auto) [place] # (Auto) Eos # (Auto) Baso # (Auto) Abs Immat Gran (auto) Absolute Neuts (auto) Absolute Nucleated RBC Nucleated RBC % (auto) Smear Tech's Comments PT Cancelled INR Cancelled APTT Sodium Potassium Chloride Carbon Dioxide Anion Gap BUN Creatinine Estim Creat Clear Calc Estimated GFR POC Glucose 280 H 227 H Random Glucose Fasting Glucose Estimat Average Glucose Hemoglobin A1c % Calcium Total Bilirubin Direct Bilirubin AST ALT Alkaline Phosphatase Total Protein Albumin Triglycerides Cholesterol LDL Cholesterol, Calc HDL Cholesterol 03/30/22 09:43 WBC RBC Hgb Hct MCV MCH MCHC RDW Plt Count MPV Immature Gran % (Auto) Neut % (Auto) Lymph % (Auto) [place] % (Auto) Eos % (Auto) Baso % (Auto) Lymph # (Auto) [place] # (Auto) Eos # (Auto) Baso # (Auto) Abs Immat Gran (auto) Absolute Neuts (auto) Absolute Nucleated RBC Nucleated RBC % (auto) Smear Tech's Comments PT 24.1 H INR 2.0 H APTT Sodium Potassium Chloride Carbon Dioxide Anion Gap BUN Creatinine Estim Creat Clear Calc Estimated GFR POC Glucose Random Glucose Fasting Glucose Estimat Average Glucose Hemoglobin A1c % Calcium Total Bilirubin Direct Bilirubin AST ALT Alkaline Phosphatase Total Protein Albumin Triglycerides Cholesterol LDL Cholesterol, Calc HDL Cholesterol DS: Summary Hospital Course Hospital Course: The patient is an elderly female, , admitted initially to Medicine after suicidal attempt by overdose on Seroquel after losing 2 of her close friends. Please see the HPI of the admission note for further details. She was initially admitted to medicine and when she was medically stable transferring to this facility for psychiatric stabilization. On interview, on admission, the patient showed hypomanic symptoms with dysphoria, she had a fast speech, restless and increased anxiety with dysphoria. We review her list of medications and she was only on gabapentin as a p.r.n. and on Effexor XR up to 225 mg p.o. daily. We decided to lower the Effexor up to 150 mg and start a mood stabilizer. We discussed risks, benefits, side- effects and alternatives and the patient is fully aware of the possibility metabolic syndrome. We decided to start Zyprexa titrated up to 5 mg p.o. q.h.s. with good improvement. The patient is stabilized very fast, her mood was more stable, she slept much better she was less restless and her thought process was less manic. Since there were no safety concerns and she had good social support discharge planning was discussed. Time spent discussing smoking cessation with patient: 3 to 10 minutes Status at Discharge Functional status at discharge: independent ambulation Overall status at discharge: patient is back to baseline Time Spent with Patient Time attestation: Total time spent providing and/or coordinating discharge services: Time spent: Less than 30 minutes Discharge Plan Discharge Anticipated Discharge Date/Time: 03/30/22 11:16 Patient Disposition: Home, Self-Care Discharge Diagnosis: Bipolar disorder type 1 most recent episode mixed Referrals: ESAU Beard [Other] - 04/05/22 11:00 am (Your next appointment with your therapist Alessia is scheduled in person for Tuesday04/05/22 at 11:00am. [facility] to provide transportation and will pick you up at 10am.) Dr Gay [facility] [Other] - 04/02/22 10:30 am (Your next appointment is scheduled for 04/02/22 at 10:30am in office with Dr Gay. ) Julio César HANEY [Other] - 1 Week (Referral placed for group home. ) [facility] [Other] - 04/05/22 4:00 pm (YOur next PCP appointment is 04/05/22 at 4pm in [facility]. ) Discharge Medications: New cephalexin 500 mg Capsule 500 mg PO QID 4 Days Qty: 16 0RF olanzapine 5 mg Tablet 5 mg PO BEDTIME 30 Days Qty: 30 0RF polyethylene glycol 3350 17 gram Powder In Packet 17 g PO BID Qty: 30 0RF Continued cholecalciferol (vitamin D3) 25 mcg (1,000 unit) Capsule 25 mcg PO DAILY Lantus U-100 Insulin montelukast pravastatin trazodone amlodipine glipizide ipratropium-albuterol 0.5 mg-3 mg(2.5 mg base)/3 mL Solution For Nebulization 3 ml INHALATION QID PRN (Reason: Shortness Of Breath) 30 Days Qty: 3 0RF pravastatin 40 mg tablet 1.5 tab PO DAILY 30 Days Qty: 45 0RF glipizide 10 mg tablet 1 tab PO BID 30 Days Qty: 60 0RF warfarin 2.5 mg tablet 1 tab PO DAILY 30 Days Qty: 30 0RF amlodipine 2.5 mg tablet 1 tab PO DAILY 30 Days Qty: 30 0RF levothyroxine 88 mcg tablet 1 tab PO DAILY@0600 30 Days Qty: 30 0RF clonidine HCl 0.2 mg tablet 1 tab PO BEDTIME PRN (Reason: nightmares) 30 Days Qty: 30 0RF warfarin 5 mg tablet 1 tab PO DAILY 30 Days Qty: 30 0RF omeprazole 20 mg capsule,delayed release(DR/EC) 1 cap PO BID 30 Days Qty: 60 0RF budesonide 0.5 mg/2 mL Suspension For Nebulization 0.5 mg INHALATION BID 30 Days Qty: 120 0RF lisinopril-hydrochlorothiazide 20-25 mg tablet 1 tab PO DAILY 30 Days Qty: 30 0RF montelukast 10 mg tablet 1 tab PO DAILY 30 Days Qty: 30 0RF gabapentin 100 mg Capsule 100 mg PO TID 30 Days Qty: 90 0RF quetiapine 50 mg Tablet 50 mg PO BEDTIME 30 Days Qty: 30 0RF Januvia 100 mg Tablet 100 mg PO DAILY Qty: 30 0RF insulin glargine [Lantus Solostar U-100 Insulin] 100 unit/mL (3 mL) insulin pen 18 - 24 unit SUBCUT DAILY Qty: 15 0RF oxycodone 20 mg tablet 1 tab PO TID PRN (Reason: Pain) 30 Days Qty: 90 0RF Asmanex HFA 100 mcg/actuation HFA aerosol inhaler 2 puff INHALATION BID Qty: 13 0RF ProAir RespiClick 90 mcg/actuation Aerosol Powdr Breath Activated 2 inh INHALATION Q4H PRN (Reason: Wheezing) Qty: 1 0RF venlafaxine [Effexor XR] 150 mg capsule,extended release 24hr 1 cap PO DAILY 30 Days Qty: 30 0RF Discontinued quetiapine [Seroquel] 200 mg tablet 1.5 tab PO BEDTIME trazodone 100 mg tablet 1 tab PO BEDTIME albuterol sulfate 90 mcg/actuation HFA aerosol inhaler 1 puff INHALATION Q4H PRN (Reason: Wheezing) quetiapine [Seroquel] 50 mg tablet 1 tab PO BEDTIME venlafaxine [Effexor XR] 75 mg capsule,extended release 24hr 1 cap PO DAILY acetaminophen 500 mg Tablet 500 mg PO TID PRN (Reason: Pain) insulin glargine [Lantus Solostar U-100 Insulin] 100 unit/mL (3 mL) insulin pen 4 - 20 unit SUBCUT BEDTIME warfarin [Coumadin] 2.5 mg Tablet levothyroxine 88 mcg Tablet 88 mcg PO DAILY oxycodone 20 mg Tablet 20 mg PO TID PRN (Reason: Pain) Discharge Orders: Discharge Order (Routine); Ordered 03/30/22 Ordered By: Garfield Kim Diet: Advance to usual diet Activity on Discharge: As tolerated Stand Alone Forms: Patient Portal Discharge page Care Plan Goals: Care plan goals achieved Health Concerns: Continue treatment with outpatient providers Plan of Treatment: Continue treatment with outpatient psychiatrist and [facility] treatment Assessment: Elderly female with a history of bipolar disorder who was admitted after suicidal attempt with an overdose on Seroquel. The patient presented with mixed symptoms and we added Zyprexa to target hypomania with for improvement. At this moment safe to be discharged in the community
[2022-03-30 11:34] LABS: Glucose, Whole Blood 351 mg/dL (60-115)
--- NOTE | 2022-03-30 12:19 | PC.NURSE ---
Patient alert and oriented in all spheres. Expresses readiness for discharge. All medications, f/u appointments and instructions reviewed with patient. Understanding of instructions verbalized to TW. All belongings accounted for.
== END 2022-03-30 14:20 | disposition home or self-care (01) | DRG 885 ==
PROVIDERS: Hospitalist; Psychiatry & Neurology Psychiatry; Admitting Provider Psychiatry & Neurology Psychiatry; Visit Provider Psychiatry & Neurology Psychiatry
DX: F31.60 Bipolar disorder, current episode mixed, unspecified (principal); L03.115 Cellulitis of right lower limb; T43.592A Poisoning by other antipsychotics and neuroleptics, intentional self-harm, initial encounter; R31.9 Hematuria, unspecified; I10 Essential (primary) hypertension; Z86.711 Personal history of pulmonary embolism; Z88.0 Allergy status to penicillin; Z88.5 Allergy status to narcotic agent; Z79.4 Long term (current) use of insulin; Z79.01 Long term (current) use of anticoagulants; Z79.84 Long term (current) use of oral hypoglycemic drugs; Z79.890 Hormone replacement therapy; Z79.899 Other long term (current) drug therapy
CPT/HCPCS: 36415; 80048; 80053; 80061; 80076; 82947; 83036; 85025; 85027; 85610; 85730

== ENCOUNTER 2024-10-17 15:56 | Emergency (ER) | payer MEDICARE, SELFPAY ==
--- NOTE | ~2024-10-17 | XR_ITS ---
EXAMINATION: XR LUMBOSACRAL SPINE CLINICAL INFORMATION: lower back pain COMPARISON: None available. TECHNIQUE: Three views of the lumbosacral spine. FINDINGS: Study significantly limited by patient habitus and technical factors. There is a minimal left convex scoliosis, apex at L4. There is a normal to mildly straightened lordosis. No fractures, compression deformities, or suspicious bone lesions. Diffuse anterior and lateral syndesmophytes, and fusion of the spinous processes highly suggestive of ankylosing spondylitis. Calcification of all the disc spaces aside from L4-5, where there is disc vacuum phenomenon. Presence of disc vacuum phenomenon highly cysts are used against acute fracture through this disc region. Severe facet arthrosis throughout the lumbar region. The sacrum appears intact. Sclerosis of the right greater than left SI joints present again suggesting ankylosing spondylitis. Soft tissues demonstrate no discrete abnormalities. XR/XR lumbar spine 2-3V IMPRESSION: Significantly limited exam due to patient habitus and technical factors. 1. No acute bony abnormalities. 2. Features of ankylosing spondylitis as detailed. Electronically signed by: Donis Wang MD 10/18/2024 02:41 PM EDT
--- NOTE | ~2024-10-17 | CT_ITS ---
CLINICAL HISTORY: Hard mass areola L breast CT chest with contrast Comparison: None Findings: Lung velez are clear without acute infiltrates. No significant mediastinal adenopathy. No significant free pleural fluid. No significant focal bony abnormalities. 3 cm rounded density medial left breast. 1.6 cm rounded density right upper breast. These can not be further assessed on CT. Recommend mammography followed by ultrasound if needed. Hepatomegaly with fatty infiltration of the liver. Abdomen otherwise not imaged. Impression: Bilateral breast densities as above Recommend follow-up routine mammography No acute processes This document has been electronically signed by: Demarcus Gayle MD on 10/17/2024 18:21:05
[2024-10-17 16:14] VITALS: BP 150/100; BP 154/75; PULSE 100; PULSE 99; RESP 21; TEMP 37.7; O2SAT 90; O2SAT 92; BMI 41.0
--- NOTE | 2024-10-17 16:18 | ECG_ITS ---
Test Reason : WEAKNESS Blood Pressure : */* mmHG Vent. Rate : 98 BPM Atrial Rate : 98 BPM P-R Int : 148 ms QRS Dur : 108 ms QT Int : 388 ms P-R-T Axes : 18 -31 65 degrees QTcB Int : 495 ms Normal sinus rhythm Left axis deviation Moderate voltage criteria for LVH, may be normal variant ( R in aVL , [place] product ) Anterolateral infarct (cited on or before 18-Mar-2022) Abnormal ECG When compared with ECG of 21-Mar-2022 12:43, Premature ventricular complexes are no longer Present Nonspecific T wave abnormality no longer evident in Inferior leads Nonspecific T wave abnormality no longer evident in Anterior leads Nonspecific T wave abnormality, worse in Lateral leads Referred By: Kandace Carlton Electronically Signed By: Flaco Finney
--- NOTE | 2024-10-17 16:19 | ED_ITS ---
HPI - General Adult General Chief complaint: General Medical Stated complaint: back pain, ? sepsis Time Seen by Provider: 10/17/24 16:08 Source: patient and EMS Mode of arrival: EMS Limitations: no limitations History of Present Illness ED Provider: Dr. Kandace Carlton HPI narrative: Patient comes to the emergency room from home via ambulance. According to EMS, the patient called because she was having bilateral back pain. However, when I spoke with the patient, patient states that she is here because she is very weak. Patient states that today she was unable to get out of bed due to weakness. Patient denies chest pain or shortness of breath, denies abdominal pain, denies nausea vomiting diarrhea. According to the paramedics, patient initially reported subjective low-grade fevers at home. Patient complaining of dysuria Related Data Home Medications ?Medication ?Instructions ?Recorded ?Confirmed cholecalciferol (vitamin D3) 25 25 mcg PO DAILY 03/19/22 03/19/22 mcg (1,000 unit) capsule Lantus U-100 Insulin 03/29/22 amlodipine 03/29/22 03/29/22 glipizide 03/29/22 montelukast 03/29/22 pravastatin 03/29/22 trazodone 03/29/22 Previous Rx's ?Medication ?Instructions ?Recorded albuterol sulfate 90 mcg/actuation 2 inh inhalation Q4H PRN Wheezing 03/30/22 breath activated powder inhaler #1 ea (ProAir RespiClick) amlodipine 2.5 mg tablet 1 tab PO DAILY 30 days #30 tabs 03/30/22 budesonide 0.5 mg/2 mL suspension 0.5 mg (2 mL) inhalation BID 30 03/30/22 for nebulization days #120 mL cephalexin 500 mg capsule 500 mg PO QID 4 days #16 caps 03/30/22 clonidine HCl 0.2 mg tablet 1 tab PO BEDTIME PRN nightmares 30 03/30/22 days #30 tabs gabapentin 100 mg capsule 100 mg PO TID 30 days #90 caps 03/30/22 glipizide 10 mg tablet 1 tab PO BID 30 days #60 tabs 03/30/22 insulin glargine 100 unit/mL (3 18 - 24 unit (0.18 - 0.24 mL) 03/30/22 mL) subcutaneous pen (Lantus subcut DAILY #15 mL Solostar U-100 Insulin) ipratropium 0.5 mg-albuterol 3 mg 3 ml inhalation QID PRN Shortness 03/30/22 (2.5 mg base)/3 mL nebulization Of Breath 30 days #3 mL soln levothyroxine 88 mcg tablet 1 tab PO DAILY@0600 30 days #30 03/30/22 tabs lisinopril 20 1 tab PO DAILY 30 days #30 tabs 03/30/22 mg-hydrochlorothiazide 25 mg tablet mometasone 100 mcg/actuation HFA 2 puff inhalation BID #13 grams 03/30/22 aerosol inhaler (Asmanex HFA) montelukast 10 mg tablet 1 tab PO DAILY 30 days #30 tabs 03/30/22 olanzapine 5 mg tablet 5 mg PO BEDTIME 30 days #30 tabs 03/30/22 omeprazole 20 mg capsule,delayed 1 cap PO BID 30 days #60 caps 03/30/22 release oxycodone 20 mg tablet 1 tab PO TID PRN Pain 30 days #90 03/30/22 tabs polyethylene glycol 3350 17 gram 17 g PO BID #30 ea 03/30/22 oral powder packet pravastatin 40 mg tablet 1.5 tab PO DAILY 30 days #45 tabs 03/30/22 quetiapine 50 mg tablet 50 mg PO BEDTIME 30 days #30 tabs 03/30/22 sitagliptin phosphate 100 mg 100 mg PO DAILY #30 tabs 03/30/22 tablet (Januvia) venlafaxine 150 mg 1 cap PO DAILY 30 days #30 caps 03/30/22 capsule,extended release 24 hr (Effexor XR) warfarin 2.5 mg tablet 1 tab PO DAILY 30 days #30 tabs 03/30/22 warfarin 5 mg tablet 1 tab PO DAILY 30 days #30 tabs 03/30/22 Allergies Allergy/AdvReac Type Severity Reaction Status Date / Time Penicillins Allergy Mild HIVES Verified 10/17/24 16:19 codeine [Codeine] AdvReac Mild SWEATS Verified 10/17/24 16:19 Review of Systems 2 Review of Systems: Constitutional : No Weight loss, No Fever, complaining of Chills, No Night Sweats, complaining of fatigue, weakness ENT/Mouth : No Hearing loss, No Ear Pain, No Nasal Congestion, No Sinus Pain, No Hoarseness, No sore throat, No Rhinorrhea, No Swallowing Difficulty Eyes: No Eye Pain, No Swelling, No Redness, No Foreign Body, No Discharge, No Vision Changes Cardiovascular : No Chest Pain, No SOB, No Dyspnea on Exertion, No Orthopnea, No Edema, No Palpitations Respiratory : No Cough, No Sputum, No Wheezing, No Smoke Exposure, No Dyspnea Gastrointestinal : No Nausea, No Vomiting, No Diarrhea, No Constipation, No abdominal Pain, No Hematochezia, No Melena Genitourinary : no irregular bleeding, complaining of mild and intermittent Dysuria, No Urinary Frequency, No Hematuria, No Urinary Incontinence, No Urgency, No Flank Pain, No Urinary Flow Changes, No Hesitancy Musculoskeletal : Complaining of back pain for several days, No joint pain, No Myalgias, No Joint Swelling Skin : No Skin Lesions, No rash Neuro : No Weakness, No Numbness, No Paresthesias, No Loss of Consciousness, No Dizziness, No Headache Psych : No Anxiety/Panic, No Depression, No SI/HI/AH/VH, No Social Issues, Heme/Lymph: No Bruising, No Bleeding,No Lymphadenopathy Endocrine : No Polyuria, No Polydipsia, No Temperature Intolerance PMFSH Past Medical History Medical History (Updated 10/17/24 @ 20:51 by Kandace Carlton MD) Asthma-COPD overlap syndrome Diabetes History of pulmonary embolism Hypertension Bipolar 1 disorder, depressed, severe Social History Social History Household Members: Spouse Housing: House Do you presently have visiting nurse or other home services: No Comment: 1:1 sitter Patient Tobacco Use Status: Never used Tobacco Smoked in Last 30 Days: No Use of substances other than those prescribed or required for medical reasons: No Advance Directives: Yes Advance Directives on File: Yes Advance Directives Date on File: 03/20/22 Do you have a plan to hurt others: No Plan service: No Current occupational status: retired Sexual orientation: Straight/Heterosexual Physical Exam ED Vital Signs: Vital Signs - 24 hr 10/17/24 16:14 10/17/24 17:29 10/17/24 19:24 Temperature 99.9 F 98.4 F 98.9 F Pulse Rate 99 95 90 Respiratory Rate 21 H 15 16 Blood Pressure 154/75 H 156/80 H 163/84 H Pulse Oximetry 92 97 97 Oxygen Delivery Method Room Air Nasal Cannula Room Air Oxygen Flow Rate 2 BMI result Body Mass Index 41.0 Const Other: Appearance: Alert. Oriented X3. No acute distress. Eyes: Pupils equal, round and reactive to light. ENT: Pharynx normal. Patient has very dry mucous membranes. Cracked lips Neck: Normal inspection. Neck supple. No lymph nodes noted. No crepitus CVS: Normal heart rate and rhythm. Pulses normal. Normal S1 and S2 Respiratory: No respiratory distress. Breath sounds normal. No Wheezing. No rales Abdomen: Soft and nontender. No rigidity. No distention. Skin: Skin warm and dry. Normal skin color. Normal skin turgor. It was noted that patient has a hard lump in the left breast Extremities: No lower extremity edema. No Lacerations. No Rash Neuro: Oriented X 3. No motor deficit. No sensory deficit. Moving all extremities. No slurred speech. CN 2 through 12 grossly intact Psych: calm, cooperative, normal affect Course Course Course Narrative: Patient's vitals are stable, blood pressure 154/75, pulse 99, respirations 21, temperature 99.9 degrees, oxygen saturation 92% on room air. On physical exam, it was noted that patient has a hard mass a proximally 3 cm by 3 cm under the left nipple/areola. Patient states that she notices it about 4- 5 months ago but she is not sure. Patient states that she has not addressed this issue yet, patient states that she does not have a PCP and has not gotten to it Patient is dehydrated, we will start with 1 L normal saline and empiric antibiotic with ceftriaxone. Patient is not septic at this time 16:36. Patient will need more fluids. Once we get the 1st set of chemistry, we will determine the patient is hypernatremic and if we need to switch fluids Medications Administered Discontinued Medications Generic Name Dose Route Start Last Admin Trade Name Freq PRN Reason Stop Dose Admin Ceftriaxone Sodium 1 gm 10/17/24 16:28 10/17/24 17:40 Ceftriaxone Sodium 1 Gm Vial IVPUSH 10/17/24 16:29 1 gm ONCE ONE Administration Diazepam 2 mg 10/17/24 16:55 10/17/24 17:03 Diazepam 2 Mg Tablet PO 10/17/24 16:56 2 mg ONCE ONE Administration Sodium Chloride 1,000 mls @ 999 mls/hr 10/17/24 16:23 10/17/24 20:33 Ns IVCONT 10/17/24 17:23 Infused .Q1H1M ONE Infusion Iohexol 100 ml 10/17/24 17:57 10/17/24 17:58 Iohexol 350 Mg/Ml 100 Ml Infus..Btl IV 10/17/24 17:58 65 ml ONCE ONE Administration Medical Decision Making Medical Decision Making [facility] Narrative: My interpretation of labs: Patient's white blood cell count 17.9, patient has chronic leukocytosis, INR 1.3, chemistries do not show any acute abnormality, glucose 197, lactic acid 1.8 LFTs within normal limits, BNP 17, troponin negative. Urinalysis negative for UTI, toxicology positive for opiates, oxycodone and acetaminophen, serology negative CT scan of the chest shows bilateral breast densities, 3 cm on the left breast 1.6 cm on the right upper breast. Patient needs mammography. I discussed this with the patient. We tried to ambulate the patient, patient was unwilling to stand up, states that she is too weak. PT case management consult pending. Physician observation started at 20:40 Differential Diagnosis Differential Diagnoses: The differential diagnosis associated with the presentation includes Admission/Observation Consideration of admission/observation: Escalation of care including admission/observation considered Lab Data [facility] Lab Attestation statement: I reviewed the patient's lab results. 10/17/24 16:33 10/17/24 16:33 Labs: Lab Results 10/17/24 10/17/24 10/17/24 Range/Units 16:33 16:48 17:32 WBC 17.9 H (4.8-10.8) X10*3/uL RBC 4.35 (4.20-5.50) X10*6/uL Hgb 13.9 (12.0-16.0) g/dl Hct 41.2 (37.0-47.0) % MCV 94.7 (80.0-98.0) fL MCH 32.0 (27.0-33.0) pg MCHC 33.7 (31.0-35.0) g/dl RDW 12.7 (11.0-16.0) % Plt Count 271 D (160-400) X10*3/uL MPV 10.7 (9.4-12.3) fL Immature Gran % (Auto) 0.4 (0.0-0.4) % Neut % (Auto) 74.7 H (45-73) % Lymph % (Auto) 15.8 L (20-40) % [place] % (Auto) 8.8 (2-11) % Eos % (Auto) 0.0 (0-4) % Baso % (Auto) 0.3 (0-2) % Lymph # (Auto) 2.8 (1.2-4.9) X10*3/uL [place] # (Auto) 1.6 H (0.1-1.2) X10*3/uL Eos # (Auto) 0.0 (0.0-0.4) X10*3/uL Baso # (Auto) 0.1 (0.0-0.2) X10*3/uL Abs Immat Gran (auto) 0.07 H (0.00-0.03) X10*3/uL Absolute Neuts (auto) 13.3 H (2.0-8.3) x10*3/uL Absolute Nucleated RBC 0.000 (0.0-0.012) X10*3/uL Nucleated RBC % (auto) 0.0 (0.0-0.2) /100WBC Smear Tech's Comments VERIFIED PT (10.9-12.4) SEC INR (0.9-1.1) Sodium 139 (135-145) mmol/L Potassium 4.2 (3.3-5.1) mmol/L Chloride 102 (96-108) mmol/L Carbon Dioxide 28 (22-29) mmol/L Anion Gap 13 (12-20) BUN 32 H (9-16) mg/dL Creatinine 0.95 (0.5-1.4) mg/dL Estim Creat Clear Calc 73.8 Estimated GFR 58 Random Glucose 197 H (60-115) mg/dL Lactic Acid 1.8 (0.5-2.0) mmol/L Calcium 9.9 D (8.4-10.2) mg/dL Magnesium 1.8 (1.6-2.6) mg/dL Total Bilirubin 0.5 (0.0-1.0) mg/dL Direct Bilirubin 0.3 (0.0-0.5) mg/dL AST 45 H (5-31) U/L ALT 31 (0-31) U/L Alkaline Phosphatase 67 (39-117) U/L Troponin I High Sens 4.6 (<3.5-17.0) ng/L B-Natriuretic Peptide 17 (<100) pg/mL Total Protein 7.7 (6.5-8.0) g/dL Albumin 3.5 (3.5-5.0) g/dL Urine Color Dark Yellow Urine Appearance Clear Urine pH 5.5 (5.0-9.0) Ur Specific Kingsley >= 1.030 H (1.005-1.025) Urine Protein 30 (1+) H (Neg-Trace) mg/dL Urine Glucose (UA) Negative (Negative) mg/dL Urine Ketones Trace (Negative) mg/dL Urine Blood Trace H (Negative) Urine Nitrite Negative (Negative) Ur Leukocyte Esterase Negative (Negative) Urine RBC 0-2 (0-2) /HPF Urine WBC 0-5 (0-5) /HPF Ur Squamous Epith Cells 0-2 (0-2) /HPF Urine Bacteria None Seen (None Seen) Hyaline Casts 3-5 (0-2) /LPF Urine Opiates Screen POSITIVE H (Not Detect) Ur Buprenorphine Scrn Not Detected (Not Detect) ng/mL Ur Oxycodone Screen Positive H (Not Detect) ng/mL Urine Methadone Screen Not Detected (Not Detect) ng/mL Urine Fentanyl Screen Not Detected (Not Detect) Ur Barbiturates Screen Not Detected (Not Detect) Ur Phencyclidine Scrn Not Detected (Not Detect) Ur Amphetamines Screen POSITIVE H (Not Detect) U Benzodiazepines Scrn Not Detected (Not Detect) Urine Cocaine Screen Not Detected (Not Detect) U Marijuana (THC) Screen Not Detected (Not Detect) Influenza Type A (PCR) NEGATIVE (Negative) Influenza Type B (PCR) NEGATIVE (Negative) RSV RNA Qual (PCR) NEGATIVE (Negative) SARS-CoV-2 RNA (RT-PCR) NEGATIVE (Negative) 10/17/24 Range/Units 17:59 WBC (4.8-10.8) X10*3/uL RBC (4.20-5.50) X10*6/uL Hgb (12.0-16.0) g/dl Hct (37.0-47.0) % MCV (80.0-98.0) fL MCH (27.0-33.0) pg MCHC (31.0-35.0) g/dl RDW (11.0-16.0) % Plt Count (160-400) X10*3/uL MPV (9.4-12.3) fL Immature Gran % (Auto) (0.0-0.4) % Neut % (Auto) (45-73) % Lymph % (Auto) (20-40) % [place] % (Auto) (2-11) % Eos % (Auto) (0-4) % Baso % (Auto) (0-2) % Lymph # (Auto) (1.2-4.9) X10*3/uL [place] # (Auto) (0.1-1.2) X10*3/uL Eos # (Auto) (0.0-0.4) X10*3/uL Baso # (Auto) (0.0-0.2) X10*3/uL Abs Immat Gran (auto) (0.00-0.03) X10*3/uL Absolute Neuts (auto) (2.0-8.3) x10*3/uL Absolute Nucleated RBC (0.0-0.012) X10*3/uL Nucleated RBC % (auto) (0.0-0.2) /100WBC Smear Tech's Comments PT 14.9 H (10.9-12.4) SEC INR 1.3 H (0.9-1.1) Sodium (135-145) mmol/L Potassium (3.3-5.1) mmol/L Chloride (96-108) mmol/L Carbon Dioxide (22-29) mmol/L Anion Gap (12-20) BUN (9-16) mg/dL Creatinine (0.5-1.4) mg/dL Estim Creat Clear Calc Estimated GFR Random Glucose (60-115) mg/dL Lactic Acid (0.5-2.0) mmol/L Calcium (8.4-10.2) mg/dL Magnesium (1.6-2.6) mg/dL Total Bilirubin (0.0-1.0) mg/dL Direct Bilirubin (0.0-0.5) mg/dL AST (5-31) U/L ALT (0-31) U/L Alkaline Phosphatase (39-117) U/L Troponin I High Sens (<3.5-17.0) ng/L B-Natriuretic Peptide (<100) pg/mL Total Protein (6.5-8.0) g/dL Albumin (3.5-5.0) g/dL Urine Color Urine Appearance Urine pH (5.0-9.0) Ur Specific Kingsley (1.005-1.025) Urine Protein (Neg-Trace) mg/dL Urine Glucose (UA) (Negative) mg/dL Urine Ketones (Negative) mg/dL Urine Blood (Negative) Urine Nitrite (Negative) Ur Leukocyte Esterase (Negative) Urine RBC (0-2) /HPF Urine WBC (0-5) /HPF Ur Squamous Epith Cells (0-2) /HPF Urine Bacteria (None Seen) Hyaline Casts (0-2) /LPF Urine Opiates Screen (Not Detect) Ur Buprenorphine Scrn (Not Detect) ng/mL Ur Oxycodone Screen (Not Detect) ng/mL Urine Methadone Screen (Not Detect) ng/mL Urine Fentanyl Screen (Not Detect) Ur Barbiturates Screen (Not Detect) Ur Phencyclidine Scrn (Not Detect) Ur Amphetamines Screen (Not Detect) U Benzodiazepines Scrn (Not Detect) Urine Cocaine Screen (Not Detect) U Marijuana (THC) Screen (Not Detect) Influenza Type A (PCR) (Negative) Influenza Type B (PCR) (Negative) RSV RNA Qual (PCR) (Negative) SARS-CoV-2 RNA (RT-PCR) (Negative) Independent Interpretation I performed an independent interpretation of an: CT Scan Radiology Impression Discussion of test interpretation with radiology: I have reviewed the radiologist's reading. Radiologist Impression: Lung velez are clear without acute infiltrates. No significant mediastinal adenopathy. No significant free pleural fluid. No significant focal bony abnormalities. 3 cm rounded density medial left breast. 1.6 cm rounded density right upper breast. These can not be further assessed on CT. Recommend mammography followed by ultrasound if needed. Hepatomegaly with fatty infiltration of the liver. Abdomen otherwise not imaged. Critical Care Time Critical Care Time Critical Care Time: Yes Total Critical Care Time: 35 Attestation: I have personally provided critical care time. Time includes review of lab data, radiology results, discussion with consultants, and monitoring for potential decompensation. Intervention performed as documented. Discharge Plan Discharge Clinical Impression: Hard mass of breast, Weakness Prescriptions: No Action cholecalciferol (vitamin D3) 25 mcg (1,000 unit) Capsule 25 mcg PO DAILY Lantus U-100 Insulin montelukast pravastatin trazodone amlodipine glipizide cephalexin 500 mg Capsule 500 mg PO QID 4 Days Qty: 16 0RF olanzapine 5 mg Tablet 5 mg PO BEDTIME 30 Days Qty: 30 0RF polyethylene glycol 3350 17 gram Powder In Packet 17 g PO BID Qty: 30 0RF ipratropium-albuterol 0.5 mg-3 mg(2.5 mg base)/3 mL Solution For Nebulization 3 ml INHALATION QID PRN (Reason: Shortness Of Breath) 30 Days Qty: 3 0RF pravastatin 40 mg tablet 1.5 tab PO DAILY 30 Days Qty: 45 0RF glipizide 10 mg tablet 1 tab PO BID 30 Days Qty: 60 0RF warfarin 2.5 mg tablet 1 tab PO DAILY 30 Days Qty: 30 0RF amlodipine 2.5 mg tablet 1 tab PO DAILY 30 Days Qty: 30 0RF levothyroxine 88 mcg tablet 1 tab PO DAILY@0600 30 Days Qty: 30 0RF clonidine HCl 0.2 mg tablet 1 tab PO BEDTIME PRN (Reason: nightmares) 30 Days Qty: 30 0RF warfarin 5 mg tablet 1 tab PO DAILY 30 Days Qty: 30 0RF omeprazole 20 mg capsule,delayed release(DR/EC) 1 cap PO BID 30 Days Qty: 60 0RF budesonide 0.5 mg/2 mL Suspension For Nebulization 0.5 mg INHALATION BID 30 Days Qty: 120 0RF lisinopril-hydrochlorothiazide 20-25 mg tablet 1 tab PO DAILY 30 Days Qty: 30 0RF montelukast 10 mg tablet 1 tab PO DAILY 30 Days Qty: 30 0RF gabapentin 100 mg Capsule 100 mg PO TID 30 Days Qty: 90 0RF quetiapine 50 mg Tablet 50 mg PO BEDTIME 30 Days Qty: 30 0RF Januvia 100 mg Tablet 100 mg PO DAILY Qty: 30 0RF insulin glargine [Lantus Solostar U-100 Insulin] 100 unit/mL (3 mL) insulin pen 18 - 24 unit SUBCUT DAILY Qty: 15 0RF oxycodone 20 mg tablet 1 tab PO TID PRN (Reason: Pain) 30 Days Qty: 90 0RF Asmanex HFA 100 mcg/actuation HFA aerosol inhaler 2 puff INHALATION BID Qty: 13 0RF ProAir RespiClick 90 mcg/actuation Aerosol Powdr Breath Activated 2 inh INHALATION Q4H PRN (Reason: Wheezing) Qty: 1 0RF venlafaxine [Effexor XR] 150 mg capsule,extended release 24hr 1 cap PO DAILY 30 Days Qty: 30 0RF Print Language: Comoran
[2024-10-17 16:40] LABS: Basophils Absolute Auto 0.1 X10*3/uL (0.0-0.2); Basophils Percent Auto 0.3 % (0-2); Hematocrit 41.2 % (37.0-47.0); Hemoglobin 13.9 g/dl (12.0-16.0); Imm Gran Abs Auto 0.07 X10*3/uL (0.00-0.03); Imm Gran Pct Auto 0.4 % (0.0-0.4); Lymphocytes Absolute Auto 2.8 X10*3/uL (1.2-4.9); Lymphocytes Percent Auto 15.8 % (20-40); MANUAL DIFF FLAG SCAN; Mean Corpuscular HGB Conc 33.7 g/dl (31.0-35.0); Mean Corpuscular Volume 94.7 fL (80.0-98.0); Mean Platelet Volume 10.7 fL (9.4-12.3); Monocytes Absolute Auto 1.6 X10*3/uL (0.1-1.2); Monocytes Percent Auto 8.8 % (2-11); Neutrophils Absolute Auto 13.3 x10*3/uL (2.0-8.3); Neutrophils Percent Auto 74.7 % (45-73); Platelet Count 271 X10*3/uL (160-400); Red Blood Count 4.35 X10*6/uL (4.20-5.50); Red Cell Distribution Width 12.7 % (11.0-16.0); SCAN SMEAR FLAG 1; White Blood Count 17.9 X10*3/uL (4.8-10.8)
--- OUTSIDE RECORDS SUMMARY | 2024-10-17 16:49 | XMS_ITS ---
Author Organization [facility] on Care Team Providers Care Director Of Casino Marketing Name Role Phone Winnie Boogie Unavailable Unavailable Leonidas Floyd Unavailable Unavailable Rajesh Larios Unavailable Unavailable Kathy Worthington Unavailable Unavailable Nesha Robles Unavailable Unavailable Allergies and adverse reactions Code CodeSystem Substance Reaction Severity StartDate Concern Status 7984 RXNORM Penicillin Unknown 06/12/2023 active 6809 RXNORM metFORMIN Unknown 06/12/2023 active 13791 RXNORM Losartan Unknown 06/12/2023 active 34140 RXNORM lamoTRIgine Unknown 06/12/2023 active 3355 RXNORM Diclofenac Unknown 06/12/2023 active 2670 RXNORM Codeine Unknown 06/12/2023 active Care Team Name Role Address Phone Organization Dates Rajesh Larios PCP [address] [place] [address] [address], [place], [id number], [facility] (Office): : [facility] 06/12/2023 - 06/25/2023 Winnie Boogie Attending Physician [address] [place] [address], [id number], [place] (Office): [facility] 06/12/2023 - 06/25/2023 Leonidas Floyd Attending Physician [address] [place] [address], [id number], [facility] (Office): [facility] [place] 06/12/2023 - 06/25/2023 Kathy Worthington Attending Physician [address] [place] [address], [phone], [place] (Office): : [facility] [place] 06/12/2023 - 06/25/2023 Nesha Robles Attending Physician [address], [address], [place] (Office): : [facility] 06/12/2023 - 06/25/2023 Immunizations Immunization Status Vaccine Details Vaccine Code CodeSystem Date Notes Influenza completed Influenza, split virus, trivalent, injectable, contains preservative 141 CVX created date: 3 administe red date: 3 Pneumococcal Conjugate Vaccine (PCV13) completed pneumococcal conjugate vaccine, 13 valent 133 CVX created date: 3 administe red date: 5 Pneumococcal Polysaccharide Vaccine (PPSV23) completed pneumococcal polysaccharide vaccine, 23 valent 33 CVX created date: 3 administe red date: 7 Pneumococcal Polysaccharide Vaccine (PPSV23) completed pneumococcal polysaccharide vaccine, 23 valent 33 CVX created date: 3 consent date: 3 administe red date: 9 SARS-COV-2 (COVID-19) completed SARS-COV-2 (COVID-19) vaccine, mRNA, spike protein, LNP, preservative free, 30 mcg/0.3mL dose Mfg: pfizer Step 2 of Multi-step with next step required 208 CVX created date: 3 administe red date: 1 SARS-COV-2 (COVID-19) completed SARS-COV-2 (COVID-19) vaccine, mRNA, spike protein, LNP, preservative free, 30 mcg/0.3mL dose Mfg: pfizer Step 1 of Multi-step with next step required 208 CVX created date: 3 administe red date: 1 Prevnar 20 Pneumococcal conjugate (PCV20) cancelled Pneumococcal conjugate vaccine 20-valent (PCV20), polysaccharide [id number] conjugate, adjuvant, preservative free 216 CVX created date: 3 consent date: 3 Educated by Luz Martinez on 06/15/2023 SARS-COV-2 (COVID-19 BOOSTER) cancelled SARS-COV-2 (COVID-19) vaccine, mRNA, spike protein, LNP, preservative free, margarito-sucrose, 30 mcg/0.3 mL dose 309 CVX created date: 3 consent date: 3 Educated by Mariah Sifuentes on 06/14/2023 RSV, bivalent, protein subunit RSVpreF, diluent rec completed Respiratory syncytial virus (RSV), vaccine, bivalent, protein subunit RSV prefusion F, diluent reconstituted, 0.5 mL, preservative free lotNumber: [id number] expiry: 10/18/2024 Mfg: abrysvo Given 0.5 ml Right Deltoid intramuscularly 305 CVX created date: 4 consent date: 4 administe red date: 4 Mental Status Section Date Assessment Total Score Description 06/25/2023 BIMS 13 cognitively int act CAM 0 No delirium ind icated PHQ-9 00 06/18/2023 BIMS 14 cognitively int act CAM 0 No delirium ind icated PHQ-9 00 Problems Problem # Description Date of onset Resolved Date Code CodeSystem Concern Status 1 ACUTE AND CHRONIC RESPIRATORY FAILURE, UNSPECIFIED WHETHER WITH HYPOXIA OR HYPERCAPNIA [address] active 2 ACUTE ON CHRONIC COMBINED SYSTOLIC (CONGESTIVE) AND DIASTOLIC (CONGESTIVE) HEART FAILURE [address] active 3 ANXIETY DISORDER, UNSPECIFIED [address] active 4 CHRONIC OBSTRUCTIVE PULMONARY DISEASE, UNSPECIFIED [address] active 5 CHRONIC RESPIRATORY FAILURE WITH HYPERCAPNIA [address] active 6 ESSENTIAL (PRIMARY) HYPERTENSION [address] active 7 GASTRO-ESOPHAGEAL REFLUX DISEASE WITHOUT ESOPHAGITIS [address] active 8 HYPOTHYROIDISM, UNSPECIFIED [address] active 9 MILD INTERMITTENT ASTHMA, UNCOMPLICATED [address] active 10 MORBID (SEVERE) OBESITY DUE TO EXCESS CALORIES [address] active 11 OBSTRUCTIVE SLEEP APNEA (ADULT) (PEDIATRIC) [address] active 12 OTHER CHRONIC PAIN [address] active 13 OTHER INSOMNIA [address] active 14 PNEUMONIA, UNSPECIFIED ORGANISM [address] active 15 TYPE 2 DIABETES MELLITUS WITHOUT COMPLICATIONS [address] active Reason for Referral No Reasons for Referral Entered Social History Social History Observation Description Start Date End Date Code Code System Current Smoking Status Tobacco smoking consumption unknown 106802191 SNOMED CT Sex Assigned At Female 1950 37330-0 [facility] Vital Signs Code Code System Vitals Name Values and Units Timing Information 07924-3 [facility] Pain Level Value=0.0 06/25/2023 09094-4 [facility] O2 % BldC Oximetry Value=97.0 Units= % 06/25/2023 2339-0 [facility] Blood Sugar Aypvi=305.0 Units=mg/dL 06/25/2023 8867-4 [facility] Heart rate Value=85.0 Units=/min 11/2023 9279-1 [facility] Respiratory Rate Value=17.0 Units=/m in 06/24/2023 8462-4 [facility] Blood Pressure-Diastolic Value=82 Un its=mmHg 06/24/2023 8480-6 [facility] Blood Pressure-Systolic Zhyfb=653 Un its=mmHg 06/24/2023 8310-5 [facility] Body Temperature Value=97.0 Units=?? F 06/24/2023 63317-4 [facility] Weight Yvccu=735.6 Units=Lbs 08/2023 8302-2 [facility] Height Value=68.0 Units=Inches 06/14/2023
--- OUTSIDE RECORDS SUMMARY | 2024-10-17 16:49 | XMS_ITS | Data Portability ---
Author Organization [place] - [facility] Address [address] [place] [id number] Care Team Providers Care Materials Supervisor Name Role Phone MARTICLAUDIAKATHERYN Primary Care Provider Assessment Encounter Date Assessment Date Assessment LastModified by Organization Details LastModified Time 04/03/2022 04/03/2022 Overview/History : 72 YO F new to [facility] and new to provider She is being seen today for cellulitis to her BLE She has hx of Bipolar, CKD stage III, DM, Asthma, HTN/HLD, QT prolongation. She was recently in [facility] for an overdose of seroquel medication. While she was there she developed cellulitis to BLE. She was started on Keflex 500 mg QID for this issue. She was instructed at that time to hold her normal night time dose of Keflex 250 mg she takes chronically for UTI prevention. Since she was dc from hospital 3 days ago she has been taking her medicines as prescribed but she reports the redness has spread and gotten worse. She does not have a fever, chills, abd pain, numbness/tingling , SOB, chest pain, weakness. No other reported sxs or concerns today. Exam: Vitals: VSS and afebrile Constitutional: 72 yo Well developed, well nourished, pleasant patient in no apparent distress. She is sitting upright comfortably at her kitchen chair and she is not toxic appearing. Eyes: No swelling, no discharge, sclera / conjunctiva clear CV: RRR, 2+ radial pulses bilaterally, trace pitting BLE edema w/o calf tenderness BL, neg daysi's sign, 2+ DP/ PT pulses bilaterally Pulm: Speaks in full sentences, no increased work of breathing. MS: Self ambulatory patient, moves all limbs without deficit, no evidence of trauma Neuro: No focal deficits, A&O x4, gait is not ataxic, sensation intatc to BL feet Skin: BLE redness w/ warmth that is tender to palpation to anterior shins. Please see wound photo. Psych: Calm, cooperative, non-manic. Pleasant. DDx considered, but not limited to: Sepsis - VSS, afebrile, well appearing, she is not septic at this time DVT - BL equal edema, no calf tenderness, neg Daysi's sign, on warfarin, no dilated veins, she is ambulatory, doubtful Cellulitis - present to BL LE, was on Keflex, she likely has resistance to this med d/t taking it chronically for UTIs. Will switch to doxy, see below Necrotising fascitis - no crepitus, no spreading erythema, VSS, afebrile, not rapidly progressive. 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 No pharmacies can deliver in the area on short notice over weekend. Her regular pharmacy looked into doing this but they need an online request from the patient and she does not have an online acct as she has no computer in her home. -We gave first dose of doxy on scene and she tolerated it well. I am also booking patient a visit for tomorrow to give a dose of doxycyline and get her through the weekend. She will be able to get her full course on Tuesday she reports to me. -I have also booked her for follow up in 3-4 days to reassess as her cellulitis is fairly pronounced and I am concerned that she may fail outpatient therapy given her hx use of abx -Pt is educated on emergent follow up precautions and to go to Ed w/ any fever, chills, abd pain, chest pain, sob, spreading erythema (we did prairie band red ruffin today), severe pain, numbness/itngling , weakness. Pt is on agreement and verbalizes understanding with the above plans at this time. Pt has no other questions or concerns at this time. All questiosn are answered to the best of my ability. Pt thanks us for our visit today. In order to obtain further information and compare any laboratory results/values, I have accessed patient records on the [employer]. This information was pertinent in my medical decision making today. sandro Not available 04/03/2022 16:56:54 04/04/2022 04/04/2022 Overview/History : 72 YO F known to myself and known to She has a cellulitis and she is currently prescribed doxycyline from myself. I initially booked f/u appt today to briefly reassess her legs as well as to administer another dose of doxycyline. She does not have anyone to go to her pharmacy and picker operator her abx until tomorrow. While this was my initial intention now I am offering to picker operator her meds from the pharmacy for her....there is a copay of $0.83 only and I have already called the pharmacy and asked if I can do this. Otherwise patient reports she is same as yesterday no better but no worse. Redness has not spread and it is not any more painful than yesterday. She continues w/ no fever, chills, weakness, abd pain, NVD, numbness/tingling , lethargy. No other reported concerns or sxs today. Exam: Vitals: VSS and afebrile Constitutional: 72 yo Well appearing pleasant patient in no apparent distress. She is sitting upright comfortably in her kitchen. not toxic appearing. Eyes: No swelling, no discharge, sclera / conjunctiva clear CV: RRR, no M/R/G, 2+ radial pulses bilaterally, trace pitting BLE edema w/o calf tenderness BL, neg daysi's sign, 2+ DP/ PT pulses bilaterally Pulm: Lungs CTAB. Speaks in full sentences, no increased work of breathing. MS: Self ambulatory patient, moves all limbs without deficit, no evidence of trauma Neuro: No focal deficits, A&O x4, gait is not ataxic, sensation intact to feet bilaterally Skin: BLE redness w/ warmth that is tender to palpation to anterior shins. Unchanged from yesterday not spreading beyond lines drawn yesterday. Psych: Calm, cooperative, non-manic. Pleasant. DDx considered, but not limited to: Sepsis - VSS< afebrile, well appearing, not septic Necrotizing Fascitis - no crepitus, no fever, VSS, no rapid progression Cellulitis - stable from yesterday to today w/o worsening Work up/Results: N/a Plan/Discussion: Cellulitis: -To BLE, on doxy, not worsening -Came in to admin a doxy dose today but to ensure pt has pills in time for morning dose tomorrow we went to patient pharmacy to pick these up for her. She consented to this and pharmacy gave us the meds and we brought them to her. She is very thankful for this as she could not get to pharmacy until tomorrow d/t transportation issues. -Patient is stable from yesterday to today w/o any evidence of systemic or worsening infx at this time -We will keep f/u appt tuesday to ensure legs are not worsening at that time -She understands ED precautions for spreading redness, fever, weakness, lethargy, numbness/tingling , severe pain Pt is on agreement and verbalizes understanding with the above plans at this time. Pt has no other questions or concerns at this time. All questiosn are answered to the best of my ability. Pt thanks us for our visit today. In order to obtain further information and compare any laboratory results/values, I have accessed old patient records. This information was pertinent in my medical decision making today. Time On Scene with Patient: 01:24:41 [email or web address] Not available 04/04/2022 16:06:50 04/07/2022 04/07/2022 Overview/History : 72 yo female who is established with and is new to this provider with asthma, DM, HTN, kidney disease, hyperlipidemia, PE, bipolar d/o, and qt prolongation being seen for DHFU of cellulitis. Exam: NAD, pleasant and interactive, overweight, no respiratory distress, bilateral LE with mild erythema of anterior aspect distally, improved since last visit, no pain with palp, no increased warmth with palp, no discharge Vital Signs:VSS DDx considered, but not limited to:cellulitis, PVD, MRSA Work up/Results:eaxm Plan/Discussion:R edness, pain, and warmth have improved since last visit. WIll continue doxy. WOuld question if part of rash is related to PVD given long duration (several weeks at a minium) and no pain or increased warmth today. Pt will follow up if worse again or if it does not continue to improve In order to obtain further information and compare any laboratory results/values, I have accessed old patient records. This information was pertinent in my medical decision making today. willie Not available 04/07/2022 14:42:36 Plan of Treatment Reminders Order Date Submit Date Provider Last Modified By Organization Details Last Modified Time Details Appointments None record ed. Lab None record ed. Referral None record ed. Procedures None record ed. Surgeries None record ed. Imaging None record ed. Medication Orders None record ed. Patient TargetsNo targets recorded. Patient Instructions Encounter Date Encounter Id Patient Instructions Last Modified By Organization Details Last Modified Time 04/07/2022 [id number] continue doxycycline elevate legs to help with swelling continue to observe closely follow up if worse-increasing redness, swelling, pain, discharge willie Not available 04/07/2022 14:35:57 Reason for Referral None Reported. Procedures Surgical History Date Name Laterality Status Provider Name and Address Organization Details Recorded Time 022 Medication Review completed SUBHASH Miles [address] [place], [address], [place] [facility] 04/03/2022 15:11:40 tonsillectomy completed SUBHASH Miles [address] [place], [address], [place] [facility] 04/03/2022 14:24:47 Total Hysterectomy completed SUBHASH Miles [address] [place], [address], [place] [facility] 04/03/2022 14:24:56 Imaging Results None recorded. Procedure Notes None recorded. Medical Equipment None Reported. Allergies Allergen ID Allergen Name Allergen Category Reaction Reaction Severity Criticality Documentation Date Start Date Code Code System Note Provider Name and Address Organization Details Recorded Time 294166 codeine medicatio n Not available Not available Not available 04/03/2022 2670 RxNorm SUBHASH Flores [address] [place], [address], [place] [facility] 2 13:49:16 189982 metformin medicatio n Not available Not available Not available 04/03/2022 6809 RxNorm Isaac er Rumplik, [place] [address], [facility], [address], [place] [facility] 2 13:49:21 [id number] losartan medicatio n Not available Not available Not available 04/03/2022 95350 RxNorm Isaac er Rumplik, PA [address], [facility] [place], [address], [place] [facility] 2 13:49:24 [id number] diclofena c Not available Not available Not available Not available 04/03/2022 3355 RxNorm Isaac er Rumplik, PA [address], [facility] [place], [address], [place] [facility] 2 13:49:31 [id number] Product containin g penicilli n (product) medicatio n Not available Not available Not available 04/03/2022 64299 8001 SNOMED Isaac er Sarayisabelle, PA [address], [place] [place], [address], [place] [facility] 2 13:49:39 577183 Lamictal medicatio n Not available Not available Not available 04/03/2022 20945 2 RxNorm Isaac er Sarayplmarita, PA [address], [facility] [place], [address], [place] [facility] 2 13:49:49 Medications Name Sig Start Date Stop Date Status Note LastModified by Organization Details LastModified Time freestyle mis lancets active Not Available Not Available Not Available freestyle arnoldo lite active Not Available Not Available Not Available prednisone 10 mg tablet PLEASE SEE ATTACHED FOR DETAILED DIRECTION S 04/03 completed Not Available Not Available Not Available venlafaxine ER 75 mg capsule,ext ended release 24 hr TAKE 1 CAPSULE BY MOUTH EVERY DAY IN THE MORNING active Not Available Not Available No t Available nitrofurant oin macrocrysta l 50 mg capsule TAKE 1 CAPSULE BY MOUTH EVERY DAY 04/03 completed Not Available Not Available Not Available doxycycline hyclate 100 mg capsule active Not Available Not Available N ot Available trazodone 50 mg tablet TAKE 1 TABLET BY MOUTH EVERYDAY AT BEDTIME 04/03 completed Not Available Not Available Not Available azithromyci n 250 mg tablet TAKE 1 TABLET BY MOUTH EVERY DAY FOR 7 DAYS 04/03 completed Not Available Not Available Not Available pravastatin 40 mg tablet TAKE 1 AND 1/2 TABLETS DAILY BY MOUTH active Not Available Not Available No t Available Glucagon Emergency Kit 1 mg solution for injection USE FOR SEVERE HYPOGLYCE MARCI DISCUSSED active Not Available Not Available No t Available cephalexin 250 mg capsule TAKE 1 CAPSULE BY MOUTH EVERYDAY AT BEDTIME 04/03 completed Not Available Not Available Not Available FreeStyle Lancets 28 gauge USE TWICE A DAY OR DIRECTED active Not Available Not Available No t Available glipizide 10 mg tablet TAKE 1 TABLET BY MOUTH TWICE A DAY active Not Available Not Available No t Available quetiapine 200 mg tablet TAKE 1 AND 1/2 TABLET BY MOUTH AT BEDTIME 01/13 active Not Available Not Available No t Available olanzapine 5 mg tablet TAKE 1 TABLET BY MOUTH EVERYDAY AT BEDTIME 04/03 completed Not Available Not Available Not Available venlafaxine ER 150 mg capsule,ext ended release 24 hr TAKE 1 CAPSULE BY MOUTH EVERY DAY active Not Available Not Available No t Available warfarin 2.5 mg tablet TAKE 1 TABLET BY MOUTH EVERY DAY DIRECTED active Not Available Not Available No t Available amlodipine 2.5 mg tablet TAKE 1 TABLET BY MOUTH EVERY DAY active Not Available Not Available No t Available sulfamethox azole 800 mg-trimetho prim 160 mg tablet TAKE 1 TABLET BY MOUTH EVERY 12 HOURS FOR 3 DAYS 04/03 completed Not Available Not Available Not Available levothyroxi ne 88 mcg tablet TAKE 1 TABLET BY MOUTH EVERY DAY active Not Available Not Available No t Available clonidine HCl 0.2 mg tablet TAKE 1 TABLET BY MOUTH ONCE A DAY NEEDED AT NIGHT ONCE ONLY NEEDED FOR NIGHTMARE S. active Not Available Not Available No t Available trazodone 100 mg tablet TAKE 1 TABLET BY MOUTH EVERYDAY AT BEDTIME 04/03 completed Not Available Not Available Not Available doxycycline monohydrate 100 mg capsule TAKE 1 CAPSULE BY MOUTH TWICE A DAY FOR 10 DAYS 04/03 completed Not Available Not Available Not Available cephalexin 500 mg capsule TAKE 1 CAPSULE BY MOUTH FOUR TIMES A DAY FOR 4 DAYS 04/03 completed Not Available Not Available Not Available warfarin 5 mg tablet TAKE 1 TABLET BY MOUTH EVERY DAY active Not Available Not Available No t Available omeprazole 20 mg capsule,del ayed release TAKE 1 CAPSULE BY MOUTH TWICE A DAY active Not Available Not Available No t Available lisinopril 20 mg-hydrochl orothiazide 25 mg tablet TAKE 1 TABLET BY MOUTH EVERY DAY active Not Available Not Available No t Available montelukast 10 mg tablet TAKE 1 TABLET BY MOUTH EVERY DAY active Not Available Not Available No t Available gabapentin 100 mg capsule TAKE 1 CAPSULE BY MOUTH THREE TIMES A DAY active Not Available Not Available No t Available albuterol sulfate HFA 90 mcg/actuati on aerosol inhaler PLEASE SEE ATTACHED FOR DETAILED DIRECTION S active Not Available Not Available No t Available nitrofurant oin monohydrate /macrocryst als 100 mg capsule TAKE 1 CAPSULE BY MOUTH EVERY 12 HOURS FOR 5 DAYS 04/03 completed Not Available Not Available Not Available BD Ultra-Fine Mini Pen Needle 31 gauge x 3/16 USE TWICE A DAY WITH INSULIN active Not Available Not Available No t Available BD Ultra-Fine Short Pen Needle 31 gauge x 5/16 USE TO ADMINISTE R INSULIN ONCE DAILY active Not Available Not Available No t Available quetiapine 50 mg tablet TAKE 1 TABLET BY MOUTH EVERY DAY AT NIGHT active Not Available Not Available No t Available Januvia 100 mg tablet TAKE 1 TABLET BY MOUTH EVERY DAY 04/03 completed Not Available Not Available Not Available FreeStyle Lite Strips USE TWICE DAILY DIRECTED FOR MONITORIN G GLUCOSE active Not Available Not Available No t Available Lantus Solostar U-100 Insulin 100 unit/mL (3 mL) subcutaneou s pen PLEASE SEE ATTACHED FOR DETAILED DIRECTION S active Not Available Not Available No t Available oxycodone 20 mg tablet TAKE 1 TABLET BY MOUTH 3 TIMES A DAY NEEDED FOR PAIN 04/03 completed Not Available Not Available Not Available Asmanex HFA 100 mcg/actuati on aerosol inhaler TAKE 2 PUFFS BY MOUTH TWICE A DAY active Not Available Not Available No t Available Vitals Date Recorded Body temperature Oxygen saturation Oxygen saturation in Arterial blood by Pulse oximetry Respiratory rate Heart rate Systolic blood pressure Diastolic blood pressure Provider Name and Address Organization Details Last Updated DateTime 2 98.5 [degF] 97 % 97 % 20 /min 94 /min 132 mm[Hg] 84 mm[Hg] Not Available [facility] 2 14:25:00 Date Recorded Body temperature Respiratory rate Oxygen saturation Oxygen saturation in Arterial blood by Pulse oximetry Heart rate Systolic blood pressure Diastolic blood pressure Provider Name and Address Organization Details Last Updated DateTime 2 98.8 [degF] 18 /min 96 % 96 % 92 /min 130 mm[Hg] 84 mm[Hg] Not Available [facility] 2 15:57:30 Date Recorded Oxygen saturation Oxygen saturation in Arterial blood by Pulse oximetry Heart rate Respiratory rate Body temperature Systolic blood pressure Diastolic blood pressure Provider Name and Address Organization Details Last Updated DateTime 2 99 % 99 % 102 /min 18 /min 99.3 [degF] 132 mm[Hg] 86 mm[Hg] Not Available [facility] 2 14:07:55 Date Recorded Heart rate Provider Name an d Address Organization Details Last Updated DateTime 04/07/2022 95 /min SUBHASH GRIMALDO [address] [place], [address], [place] [facility] 04/07/2022 14:39:24 Social History Question Answer Notes LastModified by Organizat ion Details LastModified Time Tobacco Smoking Status Never Smoker SUBHASH Miles [address], [place], [address], [place] [facility] 04/03/2022 14:24:39 What Is Your Level Of Alcohol Consumption? None Information not available 04/03/2022 Do You Use Any Illicit Or Recreational Drugs? No Information not available 04/03/2022 Sex: Unknown Functional Status None recorded. Mental Status None recorded. Family History Relationship Description Onset Age of this Age Resolved Age Notes LastModified by Organization Details LastModified Time Maternal Aunt Diabetes mellitus crumplik Not available 2021 14:24:11 Mother Malignant neoplasm of lung crumplik Not available 2021 14:24:30 Medical History Condition Response Coronary Artery Disease N Parkinson's Disease N COPD N Depression N Hypothyroidism Y A-fib N Diabetes Y CHF N Cancer N Stroke N Dementia N Asthma Y High Cholesterol Y Rheumatoid Arthritis N Pulmonary Embolism Y Hypertension Y Osteoporosis N Kidney Disease Y Gynecological HistoryNo gynecological history recorded. Obstetrics History GPAL:G 0 P 0 0 0 0 Past Encounters Encounter ID Performer Location Encounter Start Date Encounter Closed Date Diagnosis/Indication Diagnosis SNOMED-CT Code Diagnosis ICD10 Code Diagnosis Note [id number] [facility] [address] [place] [address] 04/03/2022 13:47:21 04/05/2022 14:02:23 Cellulitis of lower limb 742206607 L03.119 script for doxy was verbally called in to pharmacy when I called to inquire about delivery today. [id number] SU[facility]ASH [facility] [address] [place] [address] 04/04/2022 14:27:23 04/05/2022 14:20:36 Cellulitis of lower limb 971500860 L03.119 [id number] SUBHASH GRIMALDO [facility] [address] [place] [address] 04/07/2022 14:00:38 04/09/2022 13:33:20 Cellulitis of left lower limb [id number] 7877175 L03.116 Cellulitis of right lower limb [id number] 3914971 L03.115 Type 2 liz betes mellitus 43316146 E11.9 Health Concerns Section Related Observation LastModified by Organization Detai ls LastModified Time None Recorded Concern Status LastModified by Organization Details LastModified Time None Recorded Advance Directives Directive None Recorded Payers Encounter Date Sequence Insurance Name Policy Number Policy Peña Covered Member ID Peña Member ID Guarantor Name 04/03/2022 1 [employer] - MEDICARE ADVANTAGE PLAN (MEDICARE REPLACEMENT HMO) [id number] 1 Radha Carol [id number] Radha Carol 04/03/2022 2 [place] [employer] Radha Carol [id number] Radha Carol 04/04/2022 1 [employer] - MEDICARE ADVANTAGE PLAN (MEDICARE REPLACEMENT HMO) [id number] 1 Radha Carol [id number] Radha Carol 04/04/2022 2 [place] [facility] Radha Medina [id number] Radha Medina 04/07/2022 1 [facility] - MEDICARE ADVANTAGE PLAN (MEDICARE REPLACEMENT HMO) [id number] Radha Medina [id number] Radha Medina Notes Date Note Type Note Provider Name and Address Organization Details Recorded Time 04/03/2022 text/html 72 YO F new to [facility] and new to providerSjorje is being seen today for cellulitis to her BLEShe has hx of Bipolar, CKD stage III, DM, Asthma, HTN/HLD, QT prolongation.She was recently in [facility] for an overdose of seroquel medication. While she was there she developed cellulitis to BLE. She was started on Keflex 500 mg QID for this issue. She was instructed at that time to hold her normal night time dose of Keflex 250 mg she takes chronically for UTI prevention.Since she was dc from hospital 3 days ago she has been taking her medicines as prescribed but she reports the redness has spread and gotten worse.She does not have a fever, chills, abd pain, numbness/tingling , SOB, chest pain, weakness. No other reported sxs or concerns today. SUBHASH Miles [address], [place], [address], [place] [facility] 04/03/2022 16:57:28 04/04/2022 text/html 72 YO F known to myself and known to [facility] has a cellulitis and she is currently prescribed doxycyline from myself. I initially booked f/u appt today to briefly reassess her legs as well as to administer another dose of doxycyline. She does not have anyone to go to her pharmacy and picker operator her abx until tomorrow. While this was my initial intention now I am offering to picker operator her meds from the pharmacy for her....there is a copay of $0.83 only and I have already called the pharmacy and asked if I can do this.Otherwise patient reports she is same as yesterday no better but no worse. Redness has not spread and it is not any more painful than yesterday. She continues w/ no fever, chills, weakness, abd pain, NVD, numbness/tingling , lethargy. No other reported concerns or sxs today. SUBHASH Miles [address], [place], [address], [place] [facility] 04/04/2022 16:07:37 04/07/2022 text/html 72 yo female being seen for DHFU of bilateral LE cellulitis. Pt has been taking doxycycline as directed for the past three days. Legs seem to be better and are definitly not worse. Less red, not painful. Prior to doxycyline pt took course of cephalexin with no improvement. Legs have had rash for a long time. Pt can't really pinpoint it but a couple of weeks or more. SUBHASH GRIMALDO [address], [place], [address], [place] [facility] 04/07/2022 14:43:15 OBGyn Episode No OBEpisode recorded.
[2024-10-17 16:56] LABS: Alanine Aminotransferase 31 U/L (0-31); Albumin Level 3.5 g/dL (3.5-5.0); Alkaline Phosphatase 67 U/L (39-117); Anion Gap 13 (12-20); Aspartate Amino Transferase 45 U/L (5-31); Bilirubin Direct 0.3 mg/dL (0.0-0.5); Bilirubin Total 0.5 mg/dL (0.0-1.0); Blood Urea Nitrogen 32 mg/dL (9-16); Calcium 9.9 mg/dL (8.4-10.2); Carbon Dioxide 28 mmol/L (22-29); Chloride 102 mmol/L (96-108); Creatinine Clr Calc Pharmacy 73.8; Estimated Glomerular Filt Rate 58; Glucose Random 197 mg/dL (60-115); Magnesium 1.8 mg/dL (1.6-2.6); Potassium 4.2 mmol/L (3.3-5.1); Sodium 139 mmol/L (135-145); Total Protein 7.7 g/dL (6.5-8.0)
[2024-10-17 16:58] LABS: Appearance Urine Clear; Color Urine Dark Yellow; Glucose Urine UA Negative (Negative); Leukocyte Esterase Urine Negative (Negative); Nitrite Urine Negative (Negative); PH 5.5 (5.0-9.0); Specific Gravity - Urine >= 1.030 (1.005-1.025); UMIC TRIGGER UACC YES; Urine Blood Trace (Negative); Urine Ketones Trace mg/dL (Negative); Urine Protein 30 (1+) mg/dL (Neg-Trace)
[2024-10-17 17:01] LABS: B Type Natriuretic Peptide 17 pg/mL (<100)
[2024-10-17 17:02] LABS: Troponin-I High Sensitivity 4.6 ng/L (<3.5-17.0)
[2024-10-17 17:03] LABS: Bacteria Urine None Seen (None Seen); RBC Urine 0-2 /HPF (0-2); Squamous Epithelial Cell Urine 0-2 /HPF (0-2); WBC Urine 0-5 /HPF (0-5)
[2024-10-17] MEDS: 0.9 % Sodium Chloride 1,000 ML 999 ML IVCONT (17:03)
[2024-10-17] MEDS: diazePAM 2 MG TABLET PO (17:03)
[2024-10-17 17:05] LABS: SLIDE REVIEW VERIFIED
[2024-10-17 17:07] LABS: Amphetamine Screen Urine POSITIVE (Not Detect); Barbiturates, Urine Not Detected (Not Detect); Benzodiazepines Screen Urine Not Detected (Not Detect); Buprenorphine Scr Not Detected (Not Detect); Cannabinoid Screen Urine Not Detected (Not Detect); Cocaine Screen Urine Not Detected (Not Detect); Fentanyl, urine Not Detected (Not Detect); Methadone Screen, Urine Not Detected (Not Detect); Opiate Screen Urine POSITIVE (Not Detect); Oxycodone Screen Urine Positive (Not Detect); Phencyclidine Screen Urine Not Detected (Not Detect)
--- NOTE | 2024-10-17 17:16 | PC.NURSE ---
Noted when changing pt into gown on arrival was a large, hardened, reddened lump over pt's L nipple; pt states she noticed it about 5 months ago but is unsure if that's accurate; pt states she hasn't gotten checked for breast CA because she's switching Dr's. ER provider made aware; pt denies pain or drainage at the area
[2024-10-17 17:21] LABS: Influenza A PCR NEGATIVE (Negative); Influenza B PCR NEGATIVE (Negative); Resp Syncy Virus RNA Qual PCR NEGATIVE (Negative); SARS COV2 PCR INHOUSE NEGATIVE (Negative)
[2024-10-17 17:29] VITALS: BP 156/80; PULSE 95; RESP 15; TEMP 36.9; O2SAT 97
[2024-10-17] MEDS: cefTRIAXone sodium 1 GM VIAL IVPUSH (17:40)
[2024-10-17 17:57] LABS: Lactic Acid 1.8 mmol/L (0.5-2.0)
[2024-10-17] MEDS: iohexoL 350 MG/ML 100 ML INFUS..BTL IV (17:58)
[2024-10-17 18:26] LABS: INTERNATIONAL NORM RATIO 1.3 (0.9-1.1); Prothrombin Time 14.9 SEC (10.9-12.4)
[2024-10-17 19:24] VITALS: BP 163/84; PULSE 90; RESP 16; TEMP 37.2; O2SAT 97
--- NOTE | 2024-10-17 20:56 | MHC.CM.ED ---
CM met with patient at the request of Dr. Carlton. Pt has been medically cleared. C/O weakness and inability to walk. A&Ox3. Affect depressed. Lives with her . Uses a rollator and has a commode. Denies any home services. HCP is on file. HCP/ Dequan Medina ([phone]). States her PCP is Conor Rome at [facility] in [place], however she has not seen him in 1-2 years she thinks. She is unsure of how long its been since she has seen her PCP. She tells CM that she is supposed to see Omaira at [facility] in [place] for her medicines, but she has not seen her yet. CM reviewed [facility] website. Omaira Vasquez NP does work at [facility]. Will call in am to verify patient status with medical group. [phone]. Per Dr. Carlton, patient has visible breast mass that is concerning for malignancy. She does need follow up for that. Pt is not concerned at all about her breast. Pt is agreeable to PT evaluation, however is unsure that she will go to STR. Unsure if patient can have [facility] referral, as unsure if patient is active with a PCP. Local referrals placed. Pt agreeable. Provider aware of above conversation and that CM will reach out to [facility] in the morning.
[2024-10-17 22:10] VITALS: BP 158/75; PULSE 88; RESP 20; TEMP 37.2; O2SAT 93
--- NOTE | 2024-10-17 23:01 | MHC.EDTECH ---
this tech assumed care of pt @[phone]
[2024-10-18] VITALS (9 sets, daily range): BP systolic 139–180; BP diastolic 63–84; PULSE 72–102; RESP 16–22; TEMP 36.1–36.8; O2SAT 93–99
--- NOTE | 2024-10-18 08:48 | MHC.CM.ED ---
Addendum entered by Zeenat Peterson 10/18/24 09:27: [facility] does not have a female bed available. Original Note: Patient remains in ER. Physical therapy eval completed. Short term rehab is recommended. Met with patient to discuss STR options with patient. Choices: 1)Dorina Castillo 2)[facility] 3)Robert Gutierrez 4) [facility]. Continue to monitor for d/c needs.
--- NOTE | 2024-10-18 09:36 | MHC.CM.ED ---
Addendum entered by Zeenat Peterson 10/18/24 09:39: [facility] verfies patient is active with their office. Was just seen 07/16/2024 by one of their providers. Omaira is patient's PCP. Original Note: [facility] is able to offer a bed and has been asked to obtain insurance auth. Continue to monitor for d/c needs.
[2024-10-18] MEDS: oxyCODONE HCl Immed Release 5 MG TABLET 10 MG PO (13:34)
--- NOTE | 2024-10-18 15:36 | PHA.MEDREC ---
Addendum entered by Demi Jorge [facility] 10/18/24 16:20: [facility] REVIEWED Original Note: Pharmacy Consult ? Medication Reconciliation Pharmacy has completed the medication reconciliation. Patient was asleep and couldn't be woken up per Elkie morning med rec tech. Patient is a poor historian per Md notes. Called and spoke to patient spouse Dequan to confirm med list, however he was also a poor historian. Spouse states patient has to many medications for him to tell me. Called [facility] and got a verbal med list. Utilized claims to confirm med list. [facility] confirmed Eliquis 2.5 mg BID, Furosemide 20 mg ( 14 day supply only), Gabapentin 300 mg at bedtime, Glipazide 10 mg BId ( last fill Jul 2024 for 30 days) Lantus Solostar 66-80 units Daily, Levothyroxine 88 mcg Daily, Lisinopril-HCTZ 20/25mg daily, Montelukast 10 mg, Olonzapine 2.5 mg daily, Oxycodone 20 mg TID PRN, Trazadone 100 mg at bedtime PRN and Venlafaxine 75 mg Daily. [facility] states Januvia 100 mg was just prescribed in July 2024 , however was never picked up. left unconfirmed.
[2024-10-18] MEDS: Montelukast Sodium 10 MG TABLET PO (18:41)
[2024-10-18] MEDS: Venlafaxine HCl ER 75 MG CAP.ER.24H PO (18:42)
[2024-10-18] MEDS: hydroCHLOROthiazide 25 MG TABLET PO (18:42)
[2024-10-18] MEDS: lisinopriL 20 MG TABLET PO (18:42)
[2024-10-18] MEDS: OLANZapine 2.5 MG TABLET PO (18:42)
[2024-10-18] MEDS: Furosemide 20 MG TABLET PO (18:43)
[2024-10-18] MEDS: Apixaban 2.5 MG TABLET PO (20:41)
[2024-10-18] MEDS: Gabapentin 300 MG CAPSULE PO (20:41)
[2024-10-18] MEDS: traZODone HCL 100 MG TABLET PO (22:25)
--- NOTE | 2024-10-19 03:32 | PC.NURSE ---
critical lab value - 1 out of 4 blood cultures positive for gram positive cocci in clusters w/ preliminary negative for MRSA/SA. SUBHASH Whitney notified/aware. no new orders at this time.
[2024-10-19] MEDS: Levothyroxine Sodium 88 MCG TABLET PO (05:50)
[2024-10-19 05:52] VITALS: BP 178/85; PULSE 73; RESP 18; TEMP 36.5; O2SAT 96
--- NOTE | 2024-10-19 06:04 | PC.NURSE ---
vss and up to date aside from being slightly hypertensive at this time. pt currently denies any chest pain/palpitations/sob. pt medicated per provider order. swallows pills whole w/ applesauce w/o difficulty. pt noted to be on 2L via NC while asleep. pt titrated back to RA as pt was maintaining SPO2 WNL w/o difficulty. pt now currently on RA. no sob/wob noted. respirations even/unlabored. pending CM at this time. plan of care ongoing. call rees placed within reach.
[2024-10-19 08:52] VITALS: BP 178/85
[2024-10-19] MEDS: Furosemide 20 MG TABLET PO (08:52)
[2024-10-19] MEDS: OLANZapine 2.5 MG TABLET PO (08:52)
[2024-10-19 08:53] VITALS: BP 178/85
[2024-10-19] MEDS: lisinopriL 20 MG TABLET PO (08:53)
[2024-10-19] MEDS: Montelukast Sodium 10 MG TABLET PO (08:53)
[2024-10-19] MEDS: hydroCHLOROthiazide 25 MG TABLET PO (08:53)
[2024-10-19] MEDS: Apixaban 2.5 MG TABLET PO (08:54)
[2024-10-19] MEDS: Venlafaxine HCl ER 75 MG CAP.ER.24H PO (09:06)
--- NOTE | 2024-10-19 09:19 | PC.NURSE ---
This Rn assumed care of patient @ 0700 Patient tolerated medications whole with applesauce. Patient used bedside commode with 2 assist, gait unsteady. Patient voided on commode w/o complication Plan of care on going
--- NOTE | 2024-10-19 09:31 | MHC.CM.ED ---
Patient remains in ER. Insurance auth and Level 2 obtained by [facility]. Patient can leave at 11am. [facility] booked. [facility] with chart. Patient, Sole ALVA and Jocelyn CULLEN aware. T/W offered to notify patient's . Patient states patient will not be home until after 3pm and there is no answering machine at the house. Continue to monitor for d/c needs.
[2024-10-19] MEDS: oxyCODONE HCl Immed Release 5 MG TABLET 10 MG PO (10:27)
[2024-10-19 11:14] VITALS: BP 159/74; PULSE 71; RESP 18; TEMP 36.6; O2SAT 96
--- NOTE | 2024-10-19 11:24 | PC.NURSE ---
Report given to [facility]. Warm hand off given to [facility], spoke to Michael the admission nurse.
== END 2024-10-19 11:26 | disposition skilled nursing facility (03) ==
PROVIDERS: Emergency Provider Emergency Medicine
DX: N63.20 Unspecified lump in the left breast, unspecified quadrant (principal); R53.1 Weakness; Z03.818 Encounter for observation for suspected exposure to other biological agents ruled out; E11.9 Type 2 diabetes mellitus without complications; I10 Essential (primary) hypertension; J45.909 Unspecified asthma, uncomplicated; Z86.711 Personal history of pulmonary embolism
CPT/HCPCS: 0241U; 36415; 71260; 72100; 80048; 80076; 80307; 81001; 83605; 83735; 83880; 84484; 85025; 85610; 87040; 87147; 87205; 93005; 96361; 96374; 97162; 99285; J0696; Q9967

== ENCOUNTER → 2024-10-17 16:18 | Outpatient (BNV) | payer MEDICARE, SELFPAY | PROVIDERS: Emergency Provider Emergency Medicine; Visit Provider Internal Medicine Cardiovascular Disease | DX: I25.2 Old myocardial infarction (principal) | CPT/HCPCS: 93010 ==

== ENCOUNTER → 2024-10-17 16:27 | Outpatient (BNV) | payer MEDICARE, SELFPAY | PROVIDERS: Emergency Provider Emergency Medicine; Visit Provider Radiology Diagnostic Radiology | DX: R92.343 Mammographic extreme density, bilateral breasts (principal) | CPT/HCPCS: 71260 ==

== ENCOUNTER → 2024-10-18 13:32 | Outpatient (BNV) | payer MEDICARE, SELFPAY | PROVIDERS: Emergency Provider Emergency Medicine; Visit Provider Radiology Diagnostic Radiology | DX: M45.7 Ankylosing spondylitis of lumbosacral region (principal) | CPT/HCPCS: 72100 ==

== ENCOUNTER 2024-11-22 15:58 | Inpatient (IN) | payer MEDICARE, SELFPAY ==
[2024-11-22] VITALS (8 sets, daily range): BP systolic 71–114; BP diastolic 30–70; PULSE 60–75; RESP 12–21; TEMP 35.5–36.4; O2SAT 93–98; BMI 37.6
--- NOTE | ~2024-11-22 | XR_ITS ---
CLINICAL HISTORY: ams 1 view chest x-ray Comparison: CR/SR - XR CHEST 1V - 03/18/22 23:05 EDT Findings: Patient rotated to the right. Cardiomegaly. Atherosclerotic vascular disease of the aortic arch. Low lung volumes with elevated right hemidiaphragm and bilateral basilar opacities. Possible mild interstitial prominence. No definite consolidation, significant pleural effusion or pneumothorax. No acute fracture. IMPRESSION: 1. Cardiac enlargement. Possible mild interstitial thickening may represent low-grade congestive heart failure. 2. Low lung volumes with bilateral basilar opacities likely atelectasis. This document has been electronically signed by: Gunjan Alegria MD on 11/22/2024 17:13:44
--- NOTE | ~2024-11-22 | CT_ITS ---
EXAMINATION: CT ABDOMEN AND PELVIS WITHOUT CONTRAST CLINICAL INFORMATION: Back pain and abdominal pain. 74-year-old female. COMPARISON: None available. TECHNIQUE: Multidetector volumetric imaging was performed from the superior aspect of the liver through the pubic symphysis. Sagittal and coronal reformatted images were obtained on the technologist's workstation. This CT examination was performed using dose optimization techniques as appropriate, variously including the following: *Automated exposure control *Adjustment of mA and/or kV according to patient size (this includes techniques or standardized protocols for targeted exams where dose is matched to indication/reason for exam; i.e. extremities or head) *Use of iterative reconstruction technique FINDINGS: LUNG BASES: Lung bases demonstrate reticular and subpleural bibasilar parenchymal opacities, with mild volume loss of the lower lobes, findings most likely on the basis of complex atelectasis. There is trace left pleural fluid. There is no right pleural fluid. There is moderate cardiomegaly. There is no pericardial effusion. LIVER, GALLBLADDER, AND BILIARY TREE: The unenhanced liver is normal in size, shape, and attenuation. No focal hepatic lesion or biliary ductal dilatation is present. Gallbladder is moderately distended. There is hyperattenuating material within the gallbladder suggesting sludge. This measures 45 Hounsfield units. No gallbladder inflammation or wall thickening. PANCREAS: Severe atrophy. SPLEEN: Unremarkable. ADRENAL GLANDS: Unremarkable. KIDNEYS AND URETERS: The kidneys are normal in size, shape, and attenuation. There are small renal cysts. There is a dominant 3.2 cm left renal cyst, unchanged. No hydronephrosis, hydroureter, or calculi seen. No perinephric stranding. BLADDER: Unremarkable. GASTROINTESTINAL TRACT: Normal appendix. The stomach is largely decompressed. The duodenum appears normal. The small bowel is normal in caliber and course. The colon is normal in caliber and course without wall thickening or inflammation. Mildly redundant sigmoid colon noted. No rectal abnormality. ABDOMINAL WALL: No significant hernia is identified. There is incidental note made of a 1.6 cm subcutaneous mass in the right breast 2:00 axis (series 3, image 5). LYMPH NODES: None enlarged. VASCULAR: Mild atheromatous changes of the aorta and iliac arteries without aneurysm. PELVIC VISCERA: There has been a hysterectomy. There are no adnexal masses. OSSEOUS STRUCTURES: There is an unstable appearing fracture through the T12 vertebral body, traversing both pedicles and both facets as well as the lamina, consistent with a multi columnar, unstable fracture. The distal fragment is displaced posteriorly by 8 mm in relation to the superior fracture fragment. Advanced degenerative changes seen throughout the spine, with bridging fused disc osteophytes and syndesmophytes suggesting sequela of DISH. No suspicious lytic or blastic bone lesions. CT/CT abdomen pelvis wo IV con IMPRESSION: 1. There is note made of an UNSTABLE fracture through the T12 vertebral body, including the posterior elements, of which the distal fracture fragment is displaced approximately 8 mm posteriorly. NEUROSURGICAL EVALUATION IS RECOMMENDED ON AN EMERGENT BASIS. 2. Bilateral lower lobe reticular and subpleural consolidative changes, findings which may represent complex atelectasis although bibasilar pneumonia is a distinct consideration given the appearance. There is trace left pleural fluid. There is no right pleural fluid. This did have a very similar appearance on 10/17/[address] Recommend correlating with laboratory values and clinical symptomatology. 3. Moderate cardiomegaly. 4. There is a 1.6 cm mass lesion abutting the skin in the approximate 2:00 axis of the right breast. This is unchanged from 10/17/[address] also was not definitively present on prior chest CTs from 2019. Recommend correlating with recent mammography if available. If none is available, dedicated mammography is recommended with attention to this finding. 5. Gallbladder is mildly distended with hyperattenuating internal material likely sludge. No wall thickening or pericholecystic inflammation. If there is concern for acute cholecystitis, recommend ultrasound correlation. This critical result was discussed with Dr. Lance Linda of [facility] via secure text at 1:32 PM, 11/26/2024. It was ascertained that the content and urgency of the report was understood at the time of direct communication. Electronically signed by: Donis Wang MD 11/26/2024 01:44 PM EDT
--- NOTE | ~2024-11-22 | US_ITS ---
CLINICAL HISTORY: MIKE --- Additional Notes or Special Instructions: to be done in AM US Renal Comparison: None Findings: Examination is somewhat limited secondary to the patient's body habitus. Right kidney normal size and echotexture, 9.7 cm length. Left kidney normal size and echotexture, 9.1 cm length. No collecting system dilatation of either kidney. Normal color Doppler. IMPRESSION: 1. Normal kidneys. This document has been electronically signed by: Abel Duval MD on 11/24/2024 09:16:21
[2024-11-22 16:40] LABS: MANUAL DIFF FLAG NO
[2024-11-22] MEDS: 0.9 % Sodium Chloride 1,000 ML 999 ML IV ×3 (16:42→18:24)
[2024-11-22 16:44] LABS: Basophils Absolute Auto 0.1 X10*3/uL (0.0-0.2); Basophils Percent Auto 0.4 % (0-2); Eosinophils Absolute Auto 0.1 X10*3/uL (0.0-0.4); Eosinophils Percent Auto 0.8 % (0-4); Hematocrit 44.3 % (37.0-47.0); Hemoglobin 14.1 g/dl (12.0-16.0); Imm Gran Abs Auto 0.12 X10*3/uL (0.00-0.03); Imm Gran Pct Auto 0.8 % (0.0-0.4); Lymphocytes Absolute Auto 3.3 X10*3/uL (1.2-4.9); Mean Corpuscular HGB Conc 31.8 g/dl (31.0-35.0); Mean Corpuscular Hemoglobin 30.6 pg (27.0-33.0); Mean Corpuscular Volume 96.1 fL (80.0-98.0); Mean Platelet Volume 11.3 fL (9.4-12.3); Monocytes Absolute Auto 1.1 X10*3/uL (0.1-1.2); Monocytes Percent Auto 7.2 % (2-11); Neutrophils Percent Auto 69.8 % (45-73); Platelet Count 291 X10*3/uL (160-400); Red Blood Count 4.61 X10*6/uL (4.20-5.50); Red Cell Distribution Width 12.8 % (11.0-16.0); Venous Blood Gas Refer to POC result; White Blood Count 15.7 X10*3/uL (4.8-10.8)
[2024-11-22 16:45] LABS: VBG Base Excess 5.6 mmol/L; VBG HCO3 30 mmol/L (22-26); VBG pCO2 44 mmHg; VBG pH 7.44 (7.32-7.43); VBG pO2 80 mmHg
[2024-11-22 16:46] LABS: Glucose, Whole Blood 193 mg/dL (60-115)
[2024-11-22] MEDS: cefTRIAXone sodium 2 GM VIAL IVPUSH (16:51)
[2024-11-22 16:52] LABS: Ammonia 21 umol/L (13-55)
[2024-11-22 17:00] LABS: Lactic Acid 1.2 mmol/L (0.5-2.0)
--- NOTE | 2024-11-22 17:20 | ED.GENADULT ---
HPI - General Adult General Chief complaint: Altered Mental Status Stated complaint: AMS, ?SEPSIS PER EMS Time Seen by Provider: 11/22/24 16:31 Source: EMS and RN notes reviewed Mode of arrival: EMS Limitations: altered mental status History of Present Illness ED Provider: HPI narrative: Patient is 74 years old bed-bound from retirement with history of hypertension and diabetes comes here because he noticed patient is more lethargic today with low blood pressure no fever noticed patient has had labs done earlier at the retirement which showed leukocytosis on arrival patient's WBC count was 15.7 afebrile blood pressure was 71/30 pulse rate 73 temperature 97.3 degrees no vomiting no diarrhea in his slow to response but able to respond alert oriented times 2-3 no open wounds no chest pain Related Data Home Medications ?Medication ?Instructions ?Recorded ?Confirmed cholecalciferol (vitamin D3) 25 25 mcg PO DAILY 03/19/22 11/22/24 mcg (1,000 unit) capsule apixaban 2.5 mg tablet (Eliquis) 2.5 mg PO BID 10/18/24 11/22/24 furosemide 20 mg tablet 20 mg PO DAILY 10/18/24 11/22/24 gabapentin 100 mg capsule 100 mg PO TID 10/18/24 11/22/24 glipizide 10 mg tablet 10 tab PO BID 10/18/24 11/22/24 levothyroxine 88 mcg tablet 88 mcg PO DAILY@0600 10/18/24 11/22/24 montelukast 10 mg tablet 10 mg PO DAILY 10/18/24 11/22/24 oxycodone 20 mg tablet 20 mg PO TID@0600,1400,2200 PRN 10/18/24 11/22/24 Pain venlafaxine 75 mg capsule,extended 75 mg PO DAILY 10/18/24 11/22/24 release 24 hr acetaminophen 500 mg tablet 1,000 mg PO TID PRN Pain, Moderate 11/22/24 11/22/24 albuterol sulfate 2.5 mg/3 mL 2.5 mg inhalation Q4H PRN 11/22/24 11/22/24 (0.083 %) solution for nebulization Shortness Of Breath Or Wheezing amlodipine 2.5 mg tablet 2.5 mg PO DAILY 11/22/24 11/22/24 bisacodyl 10 mg rectal suppository 10 mg TN DAILY PRN Constipation 11/22/24 11/22/24 budesonide 180 mcg/actuation 1 inh inhalation BID 11/22/24 11/22/24 breath activated powder inhaler (Pulmicort Flexhaler) clonidine HCl 0.2 mg tablet 0.2 mg PO BEDTIME 11/22/24 11/22/24 docusate sodium 100 mg capsule 100 mg PO BID 11/22/24 11/22/24 insulin glargine 100 unit/mL (3 20 unit subcut BEDTIME 11/22/24 11/22/24 mL) subcutaneous pen (Basaglar KwikPen U-100 Insulin) insulin lispro 100 unit/mL 1 sliding scale dose subcut 11/22/24 11/22/24 subcutaneous solution (Humalog USEASDIRECTD U-100 Insulin) ipratropium 0.5 mg-albuterol 3 mg 3 ml inhalation Q4H PRN Shortness 11/22/24 11/22/24 (2.5 mg base)/3 mL nebulization Of Breath Or Wheezing soln lidocaine 4 % topical patch 1 patch topical DAILY 11/22/24 11/22/24 magnesium hydroxide 400 mg/5 mL 30 ml PO DAILY PRN Constipation 11/22/24 11/22/24 oral suspension (Milk of Magnesia) melatonin 5 mg capsule 5 mg PO BEDTIME 11/22/24 11/22/24 mometasone 100 mcg/actuation HFA 2 inh inhalation BID 11/22/24 11/22/24 aerosol inhaler (Asmanex HFA) naloxone 4 mg/actuation nasal 4 mg intranasal Q3M PRN Opioid 11/22/24 11/22/24 spray (Narcan) Overdose olanzapine 2.5 mg tablet 2.5 mg PO DAILY 11/22/24 11/22/24 omeprazole 20 mg tablet,delayed 20 mg PO BID@0630,1630 11/22/24 11/22/24 release pravastatin 40 mg tablet 40 mg PO BEDTIME 11/22/24 11/22/24 quetiapine 50 mg tablet 50 mg PO BEDTIME 11/22/24 11/22/24 sodium chloride 0.9 % 75 ml IV DAILY dehydration 11/22/24 11/22/24 sodium phosphates 19 gram-7 118 ml TN DAILY PRN Constipation 11/22/24 11/22/24 gram/118 mL enema (Fleet Enema) tramadol 50 mg tablet 25 mg PO DAILY PRN Lower Back Pain 11/22/24 11/22/24 trazodone 150 mg tablet 150 mg PO BEDTIME PRN Insomnia 11/22/24 11/22/24 venlafaxine 37.5 mg 37.5 mg PO DAILY 11/22/24 11/22/24 capsule,extended release 24 hr Previous Rx's ?Medication ?Instructions ?Recorded lisinopril 20 1 tab PO DAILY 30 days #30 tabs 03/30/22 mg-hydrochlorothiazide 25 mg tablet sitagliptin phosphate 100 mg 100 mg PO DAILY #30 tabs 03/30/22 tablet (Januvia) Allergies Allergy/AdvReac Type Severity Reaction Status Date / Time Penicillins Allergy Mild HIVES Verified 11/22/24 16:17 codeine [Codeine] AdvReac Mild SWEATS Verified 11/22/24 16:17 Review of Systems Review of Systems: Yes all other systems are reviewed and are negative PMFSH Past Medical History Medical History Hypothyroid Chronic respiratory failure HFrEF (heart failure with reduced ejection fraction) LALY (obstructive sleep apnea) Asthma-COPD overlap syndrome Diabetes History of pulmonary embolism Hypertension Bipolar 1 disorder, depressed, severe Social History Social History Household Members: Spouse Housing: House Do you presently have visiting nurse or other home services: No Comment: 1:1 sitter Patient Tobacco Use Status: Never used Tobacco Smoked in Last 30 Days: No Use of substances other than those prescribed or required for medical reasons: No Advance Directives: Yes Advance Directives on File: Yes Advance Directives Date on File: 03/20/22 service: No Current occupational status: retired Sexual orientation: Straight/Heterosexual Physical Exam ED Vital Signs: Vital Signs - 24 hr 11/22/24 16:07 11/22/24 17:40 11/22/24 18:21 Temperature 97.5 F Pulse Rate 73 73 71 Respiratory Rate 21 H 12 13 Blood Pressure 71/30 L 79/34 L 99/46 L Pulse Oximetry 93 98 96 Oxygen Delivery Method Nasal Cannula Nasal Cannula Nasal Cannula Oxygen Flow Rate 2 2 11/22/24 19:25 11/22/24 19:37 11/22/24 20:25 Temperature 95.9 F L 95.9 F L Pulse Rate 74 75 Respiratory Rate 18 12 Blood Pressure 96/39 L 99/48 L Pulse Oximetry 98 97 Oxygen Delivery Method Room Air Nasal Cannula Oxygen Flow Rate 3 11/22/24 20:56 Temperature 96.1 F L Pulse Rate 74 Respiratory Rate 16 Blood Pressure 112/57 L Pulse Oximetry 96 Oxygen Delivery Method Nasal Cannula Oxygen Flow Rate 3 BMI result Body Mass Index 37.6 Appearance: Alert. Oriented X2-3. No acute distress. Eyes: PERRLA, No Nystagmus ENT: Pharynx normal. Oral Mucosa Dry Neck: Normal inspection. Neck supple. CVS: Normal heart rate and rhythm. Pulses normal. Respiratory: No respiratory distress. Equal air entry bilateral, no wheezing/rales/rhonchi Abdomen: Soft and nontender. Bowel sounds are present, no mass palpable, no CVA tenderness Skin: Skin warm and dry. Normal skin color. Normal skin turgor. Extremities: no lower extremity edema. No calf tenderness Neuro: Oriented X 3. No motor deficit. No sensory deficit.No cerebellar signs , cranial nerves II-XII intact Medications Administered Generic Name Dose Route Start Last Admin Trade Name Freq PRN Reason Stop Dose Admin Apixaban 2.5 mg 11/22/24 22:45 11/22/24 23:07 Apixaban 2.5 Mg Tablet PO 2.5 mg BID JAXSON Administration Sodium Chloride 3 ml 11/23/24 00:00 11/22/24 23:07 0.9 % Sodium Chloride Flush 3 Ml Syringe IVFLUSH 3 ml QSHIFT JAXSON Administration Discontinued Medications Generic Name Dose Route Start Last Admin Trade Name Freq PRN Reason Stop Dose Admin Ceftriaxone Sodium 2 gm 11/22/24 16:41 11/22/24 16:51 Ceftriaxone Sodium 2 Gm Vial IVPUSH 11/22/24 16:42 2 gm ONCE ONE Administration Sodium Chloride 1,000 mls @ 999 mls/hr 11/22/24 16:41 11/22/24 18:29 Ns IV 11/22/24 17:41 Infused .Q1H1M ONE Infusion Sodium Chloride 1,000 mls @ 999 mls/hr 11/22/24 17:15 11/22/24 19:31 Ns IV 11/22/24 18:15 Infused .Q1H1M ONE Infusion Sodium Chloride 1,000 mls @ 999 mls/hr 11/22/24 18:21 11/22/24 20:25 Ns IV 11/22/24 19:21 Infused .Q1H1M ONE Infusion Albumin Human 100 mls @ 133.333 mls/hr 11/22/24 19:30 11/22/24 21:18 Kedbumin 25 % IV 11/22/24 21:14 Infused Q1H JAXSON Infusion Medical Decision Making Medical Decision Making [facility] Narrative: Patient is 74 years old bed-bound from retirement with history of hypertension and diabetes comes here because he noticed patient is more lethargic today with hypotension workup showed patient has significant urinary tract infection patient has received IV fluids blood pressure improved was also given IV antibiotics fluid was restricted because of history of heart failure and was given according to patient's ideal weight which was 151 lbs, patient has received more than 30 cc per kg IV fluids Differential Diagnosis Differential Diagnoses: The differential diagnosis associated with the presentation includes Metabolic encephalopathy/UTI/bacteremi/medication side effect Admission/Observation Consideration of admission/observation: Escalation of care including admission/observation considered Consult Healthcare Provider Management of the patient was discussed with: Hospitalist Lab Data [facility] Lab Attestation statement: I reviewed the patient's lab results. 11/22/24 16:30 11/22/24 18:41 Labs: Lab Results 11/22/24 11/22/24 11/22/24 Range/Units 16:30 16:41 16:42 WBC 15.7 H (4.8-10.8) X10*3/uL RBC 4.61 (4.20-5.50) X10*6/uL Hgb 14.1 (12.0-16.0) g/dl Hct 44.3 (37.0-47.0) % MCV 96.1 (80.0-98.0) fL MCH 30.6 (27.0-33.0) pg MCHC 31.8 (31.0-35.0) g/dl RDW 12.8 (11.0-16.0) % Plt Count 291 (160-400) X10*3/uL MPV 11.3 (9.4-12.3) fL Immature Gran % (Auto) 0.8 H (0.0-0.4) % Neut % (Auto) 69.8 (45-73) % Lymph % (Auto) 21.0 (20-40) % [place] % (Auto) 7.2 (2-11) % Eos % (Auto) 0.8 (0-4) % Baso % (Auto) 0.4 (0-2) % Lymph # (Auto) 3.3 (1.2-4.9) X10*3/uL [place] # (Auto) 1.1 (0.1-1.2) X10*3/uL Eos # (Auto) 0.1 (0.0-0.4) X10*3/uL Baso # (Auto) 0.1 (0.0-0.2) X10*3/uL Abs Immat Gran (auto) 0.12 H (0.00-0.03) X10*3/uL Absolute Neuts (auto) 11.0 H (2.0-8.3) x10*3/uL Absolute Nucleated RBC 0.000 (0.0-0.012) X10*3/uL Nucleated RBC % (auto) 0.0 (0.0-0.2) /100WBC Hold Purple Top SEE NOTE Hold Blue Top SEE NOTE VBG pH 7.44 H (7.32-7.43) VBG pCO2 44 mmHg VBG pO2 80 mmHg VBG HCO3 30 H (22-26) mmol/L VBG O2 Saturation 98.0 % VBG Base Excess 5.6 mmol/L Sodium (135-145) mmol/L Potassium (3.3-5.1) mmol/L Chloride (96-108) mmol/L Carbon Dioxide (22-29) mmol/L Anion Gap (12-20) BUN (9-16) mg/dL Creatinine (0.5-1.4) mg/dL Estim Creat Clear Calc Estimated GFR POC Glucose 193 H (60-115) mg/dL Random Glucose (60-115) mg/dL Lactic Acid 1.2 (0.5-2.0) mmol/L Calcium (8.4-10.2) mg/dL Total Bilirubin (0.0-1.0) mg/dL AST (5-31) U/L ALT (0-31) U/L Alkaline Phosphatase (39-117) U/L Ammonia 21 (13-55) umol/L Troponin I High Sens (<3.5-17.0) ng/L B-Natriuretic Peptide < 10 (<100) pg/mL Total Protein (6.5-8.0) g/dL Albumin (3.5-5.0) g/dL TSH (0.32-4.0) uIU/mL Urine Color Urine Appearance Urine pH (5.0-9.0) Ur Specific [place] (1.005-1.025) Urine Protein (Neg-Trace) mg/dL Urine Glucose (UA) (Negative) mg/dL Urine Ketones (Negative) mg/dL Urine Blood (Negative) Urine Nitrite (Negative) Ur Leukocyte Esterase (Negative) Urine RBC (0-2) /HPF Urine WBC (0-5) /HPF Ur Squamous Epith Cells (0-2) /HPF Urine Bacteria (None Seen) Hyaline Casts (0-2) /LPF Influenza Type A (PCR) NEGATIVE (Negative) Influenza Type B (PCR) NEGATIVE (Negative) RSV RNA Qual (PCR) NEGATIVE (Negative) SARS-CoV-2 RNA (RT-PCR) NEGATIVE (Negative) 11/22/24 11/22/24 Range/Units 18:23 18:41 WBC (4.8-10.8) X10*3/uL RBC (4.20-5.50) X10*6/uL Hgb (12.0-16.0) g/dl Hct (37.0-47.0) % MCV (80.0-98.0) fL MCH (27.0-33.0) pg MCHC (31.0-35.0) g/dl RDW (11.0-16.0) % Plt Count (160-400) X10*3/uL MPV (9.4-12.3) fL Immature Gran % (Auto) (0.0-0.4) % Neut % (Auto) (45-73) % Lymph % (Auto) (20-40) % [place] % (Auto) (2-11) % Eos % (Auto) (0-4) % Baso % (Auto) (0-2) % Lymph # (Auto) (1.2-4.9) X10*3/uL [place] # (Auto) (0.1-1.2) X10*3/uL Eos # (Auto) (0.0-0.4) X10*3/uL Baso # (Auto) (0.0-0.2) X10*3/uL Abs Immat Gran (auto) (0.00-0.03) X10*3/uL Absolute Neuts (auto) (2.0-8.3) x10*3/uL Absolute Nucleated RBC (0.0-0.012) X10*3/uL Nucleated RBC % (auto) (0.0-0.2) /100WBC Hold Purple Top Hold Blue Top VBG pH (7.32-7.43) VBG pCO2 mmHg VBG pO2 mmHg VBG HCO3 (22-26) mmol/L VBG O2 Saturation % VBG Base Excess mmol/L Sodium 140 (135-145) mmol/L Potassium 4.5 (3.3-5.1) mmol/L Chloride 105 (96-108) mmol/L Carbon Dioxide 25 (22-29) mmol/L Anion Gap 15 (12-20) BUN 78 H (9-16) mg/dL Creatinine 2.62 H (0.5-1.4) mg/dL Estim Creat Clear Calc 26.4 Estimated GFR 18 POC Glucose (60-115) mg/dL Random Glucose 124 H (60-115) mg/dL Lactic Acid (0.5-2.0) mmol/L Calcium 7.9 L D (8.4-10.2) mg/dL Total Bilirubin 0.3 (0.0-1.0) mg/dL AST 27 (5-31) U/L ALT 9 (0-31) U/L Alkaline Phosphatase 61 (39-117) U/L Ammonia (13-55) umol/L Troponin I High Sens 3.6 (<3.5-17.0) ng/L B-Natriuretic Peptide (<100) pg/mL Total Protein 6.6 (6.5-8.0) g/dL Albumin 2.8 L (3.5-5.0) g/dL TSH 0.69 (0.32-4.0) uIU/mL Urine Color Yellow Urine Appearance Cloudy Urine pH 5.0 (5.0-9.0) Ur Specific [place] 1.015 (1.005-1.025) Urine Protein 30 (1+) H (Neg-Trace) mg/dL Urine Glucose (UA) Negative (Negative) mg/dL Urine Ketones Negative (Negative) mg/dL Urine Blood Large (3+) H (Negative) Urine Nitrite Negative (Negative) Ur Leukocyte Esterase Moderate (2+) H (Negative) Urine RBC >20 H (0-2) /HPF Urine WBC >50 H (0-5) /HPF Ur Squamous Epith Cells 11-20 (0-2) /HPF Urine Bacteria 1+ (None Seen) Hyaline Casts 11-20 (0-2) /LPF Influenza Type A (PCR) (Negative) Influenza Type B (PCR) (Negative) RSV RNA Qual (PCR) (Negative) SARS-CoV-2 RNA (RT-PCR) (Negative) ABG Data Attestation ABG: I personally reviewed and interpreted this ABG as follows: Interpretation: Normal no acidosis Independent Interpretation I performed an independent interpretation of an: EKG Interpretation: Normal sinus rhythm with heart rate 72 beats per minute LVH no acute ST-T changes no acute ischemia Radiology Impression Discussion of test interpretation with radiology: I have reviewed the radiologist's reading. Critical Care Time Critical Care Time Critical Care Time: Yes Total Critical Care Time: 60 Attestation: The patient was critically ill with a high probability of imminent or life threatening deterioration. I spent greater than 70?minutes of discontinuous time evaluating the patient,delivering critical care at the bedside, discussing and evaluating pertinent data with consultants. Critical care time does not include time spent performing separately billable procedures or teaching. Total time spent performing critical care was 60???minutes. Discharge Plan Discharge Clinical Impression: Urinary tract infection, Acute kidney injury Patient Disposition: Admitted As Inpatient Interventions: Admission Worksheet (ED) Last Done: 11/23/24 00:10
[2024-11-22 17:26] LABS: Influenza A PCR NEGATIVE (Negative); Influenza B PCR NEGATIVE (Negative); Resp Syncy Virus RNA Qual PCR NEGATIVE (Negative); SARS COV2 PCR INHOUSE NEGATIVE (Negative)
[2024-11-22 18:10] LABS: B Type Natriuretic Peptide < 10 pg/mL (<100)
--- NOTE | 2024-11-22 18:21 | ECG_ITS ---
Test Reason : HYPOTENSION Blood Pressure : */* mmHG Vent. Rate : 72 BPM Atrial Rate : 72 BPM P-R Int : 154 ms QRS Dur : 126 ms QT Int : 546 ms P-R-T Axes : 16 -26 59 degrees QTcB Int : 597 ms Normal sinus rhythm Left ventricular hypertrophy with QRS widening ( R in aVL , Samy product ) Nonspecific T wave abnormality Abnormal ECG When compared with ECG of 17-Oct-2024 16:21, QT has lengthened Referred By: Addison Pedersen Electronically Signed By: CLAUDIA PAINTER
--- OUTSIDE RECORDS SUMMARY | 2024-11-22 18:23 | XMS_ITS | Encounter Summary ---
Author Organization [facility] [facility] Address [address] [place] [address] Care Team Providers Care Construction Project Administrator Name Role Phone Sakina Leavitt MD Primary Care Provider [phone] Encounter Details Date Type Department Care Team (Late st Contact Info) Description 11/20/2024 Lab Requisition [facility] - Main Lab [address] [facility] [place] [address] Sakina Leavitt MD [address] [place] [address] Dysuria Social History Tobacco Use Types Packs/Day Years Used Date Smoking Tobacco: Never Assessed Comments Unknown Sex and Gender Information Value Date Recorded Sex Assigned at Not on file Legal Sex Female 7:33 AM EST Gender Identity Not on file Sexual Orientation Not on file documented as of this encounter Plan of Treatment Pending Results Name Type Priority Associated Diagnoses Date /Time Culture urine Microbiology Routine Dysuria 11/19/2024 10:45 PM EDT documented as of this encounter Procedures Procedure Name Priority Date/Time Associated Diagnosis Comments URINALYSIS WITH REFLEX MICROSCOPIC Routine 11/19/2024 10:45 PM EDT Dysuria URINALYSIS WITH REFLEX MICROSCOPIC Routine 11/19/2024 10:45 PM EDT Dysuria CULTURE URINE Routine 11/19/2024 10:45 PM EDT Dysuria documented in this encounter Results * (ABNORMAL) Urinalysis with reflex microscopic (11/19/2024 10:45 PM EDT) Specific [place] Urine 1.019 1.003 - 1.030 LAB URINALYSIS - AUTOMATED METHOD 11/20/2024 10:08 AM EDT [facility] pH, Urine 5.5 5.0 - 8.0 pH LAB URINALYSIS - AUTOMATED METHOD 11/20/2024 10:08 AM [facility] Leukocytes, Urine Negative Negative LAB URINALYSIS - AUTOMATED METHOD 11/20/2024 10:08 AM [facility] Nitrite, Urine Negative Negative LAB URINALYSIS - AUTOMATED METHOD 11/20/2024 10:08 AM [facility] Protein, Urine Trace <=Trace mg/dL LAB URINALYSIS - AUTOMATED METHOD 11/20/2024 10:08 AM [facility] Glucose, Urine Negative Negative mg/dL LAB URINALYSIS - AUTOMATED METHOD 11/20/2024 10:08 AM [facility] Ketones, Urine Negative Negative mg/dL LAB URINALYSIS - AUTOMATED METHOD 11/20/2024 10:08 AM [facility] Urobilinogen, Urine 1.0 0.2 - 1.0 mg/dL LAB URINALYSIS - AUTOMATED METHOD 11/20/2024 10:08 AM [facility] Bilirubin, Urine Negative Negative LAB URINALYSIS - AUTOMATED METHOD 11/20/2024 10:08 AM [facility] Blood, Urine Large(A) Negative LAB URINALYSIS - AUTOMATED METHOD 11/20/2024 10:08 AM [facility] RBC, Urine 19.7(H) 0 - 4 /HPF LAB URINALYSIS - AUTOMATED METHOD 11/20/2024 10:08 AM [facility] WBC, Urine 1.2 0 - 4 /HPF LAB URINALYSIS - AUTOMATED METHOD 11/20/2024 10:08 AM [facility] Squamous Epithelial, Urine 16 0 - 60 /LPF LAB URINALYSIS - AUTOMATED METHOD 11/20/2024 10:08 AM [facility] Bacteria, Urine Negative Negative /HPF LAB URINALYSIS - AUTOMATED METHOD 11/20/2024 10:08 AM EDT [facility] Hyaline Casts, Urine 3.6(H) 0 - 3 /LPF LAB URINALYSIS - AUTOMATED METHOD 11/20/2024 10:08 AM EDT [facility] Urine Urine specimen obtained by clean catch procedure / Unknown Non-blood Collection / Unknown 11/19/2024 10:45 PM EDT 11/20/2024 9:31 AM EDT us Sakina Leavitt MD LAB URINE ORDERABLES Final Resul t [facility] [address] [place] [address], documented in this encounter Visit Diagnoses Diagnosis Dysuria documented in this encounter Care Teams Construction Project Administrator Relationship Specialty Start Date End Date Sakina Leavitt MD [address] [place] [address] [address] [place] [address] PCP - General Geriatric Medicine 11/17/24 documented as of this encounter
[2024-11-22 18:32] LABS: Appearance Urine Cloudy; Color Urine Yellow; Glucose Urine UA Negative (Negative); Leukocyte Esterase Urine Moderate (2+) (Negative); Nitrite Urine Negative (Negative); Specific Gravity - Urine 1.015 (1.005-1.025); UMIC TRIGGER UACC YES; Urine Blood Large (3+) (Negative); Urine Ketones Negative (Negative); Urine Protein 30 (1+) mg/dL (Neg-Trace)
[2024-11-22 18:44] LABS: Bacteria Urine 1+ (None Seen); RBC Urine >20 /HPF (0-2); UACC Culture Trigger YES; WBC Urine >50 /HPF (0-5)
[2024-11-22 19:06] LABS: Troponin-I High Sensitivity 3.6 ng/L (<3.5-17.0)
[2024-11-22 19:07] LABS: Alanine Aminotransferase 9 U/L (0-31); Albumin Level 2.8 g/dL (3.5-5.0); Alkaline Phosphatase 61 U/L (39-117); Anion Gap 15 (12-20); Aspartate Amino Transferase 27 U/L (5-31); Bilirubin Total 0.3 mg/dL (0.0-1.0); Blood Urea Nitrogen 78 mg/dL (9-16); Calcium 7.9 mg/dL (8.4-10.2); Carbon Dioxide 25 mmol/L (22-29); Chloride 105 mmol/L (96-108); Creatinine Clr Calc Pharmacy 26.4; Estimated Glomerular Filt Rate 18; Glucose Random 124 mg/dL (60-115); Potassium 4.5 mmol/L (3.3-5.1); Sodium 140 mmol/L (135-145); Total Protein 6.6 g/dL (6.5-8.0)
[2024-11-22 19:21] LABS: Thyroid Stimulating Hormone 0.69 uIU/mL (0.32-4.0)
[2024-11-22] MEDS: Albumin Human 25 % 100 ML 133.33 ML IV ×2 (19:36→20:32)
--- NOTE | 2024-11-22 19:44 | PC.NURSE ---
Assumed care of this Pt at 1900.
--- NOTE | 2024-11-22 20:57 | PC.NURSE ---
Pt A&O to self, tena placed by previous RN, draining fruit punch color urine. Pt reports 3/10 left hand pain, states she has arthritis. Pt given PO fluids, tolerated well. Pt reports she ambulates with walker to bedside commode. Pt on 3L of O2 via NC, SpO2 96% .
--- NOTE | 2024-11-22 22:03 | P.HPHOSP_ITS ---
History of Present Illness Date of Service: 11/22/24 Attending physician on admission: Jaya Kent Chief Complaint: hypotensive, AMS Patient is a 74-year-old female with a past history significant for hypertension, type 2 diabetes on insulin, history of PE on Eliquis, asthma / COPD overlap, bipolar 1, hypothyroid, LALY on CPAP, chronic respiratory failure and HFrEF, who presented to the ED due to altered mental status, lethargy and hypotension. The patient is altered and slow to respond but denies any chest pain, shortness of breath, nausea or vomiting. She denies any urinary symptoms including frequency, urgency, hematuria or dysuria. Review of Systems 2 Constitutional: Constitutional: Denies chills, Reports fatigue, Denies fever(s) and Denies headache(s) Eyes: Eyes: Denies change in vision and Denies photophobia ENT: Denies headache(s), Denies nasal congestion and Denies sore throat Cardiovascular: Cardiovascular: Denies chest pain, Denies rapid heart rate, Denies leg edema, Denies lightheadedness and Denies dyspnea Respiratory: Respiratory: Reports cough, Denies dyspnea and Denies wheezing Gastrointestinal: Gastrointestinal: Denies abdominal pain, Denies diarrhea, Denies nausea and Denies vomiting Genitourinary: Genitourinary: Denies difficulty voiding, Denies dysuria, Denies urinary incontinence and Denies urinary urgency Musculoskeletal: Musculoskeletal: Denies back pain Integumentary/Breasts: Skin/Breast: Denies rash Neurologic: Reports confusion and Denies headache(s) Psychiatric: Psychiatric: Reports confusion Endocrine: Endocrine: Reports fatigue Hematologic/Lymphatic: Hematologic/Lymphatic: Denies easy bleeding and Denies easy bruising Allergic/Immunologic: Allergic/Immunologic: Denies wheezing [facility] History Hypothyroid Chronic respiratory failure HFrEF (heart failure with reduced ejection fraction) LALY (obstructive sleep apnea) Asthma-COPD overlap syndrome Diabetes History of pulmonary embolism Hypertension Bipolar 1 disorder, depressed, severe Social History Household Members: Spouse Housing: House Do you presently have visiting nurse or other home services: No Comment: 1:1 sitter Patient Tobacco Use Status: Never used Tobacco Smoked in Last 30 Days: No Use of substances other than those prescribed or required for medical reasons: No Advance Directives: Yes Advance Directives on File: Yes Advance Directives Date on File: 03/20/22 service: No Current occupational status: retired Sexual orientation: Straight/Heterosexual Meds Allergies Allergy/AdvReac Type Severity Reaction Status Date / Time Penicillins Allergy Mild HIVES Verified 11/22/24 16:17 codeine [Codeine] AdvReac Mild SWEATS Verified 11/22/24 16:17 Active Medications: Current Medications Acetaminophen (Acetaminophen 325 Mg Tablet) 975 mg PO Q6H PRN PRN Reason: Pain, Mild 1-3,fever,headache Calcium Carbonate (Calcium Carbonate 750 Mg Tab.Chew) 750 mg PO Q4H PRN PRN Reason: Heartburn Ceftriaxone Sodium (Ceftriaxone Sodium 2 Gm Vial) 2 gm IVPUSH Q24H [place] Magnesium Hydroxide (Milk Of Magnesia 30 Ml Oral.Susp) 30 ml PO DAILY PRN PRN Reason: Constipation Melatonin (Melatonin 3 Mg Tablet) 6 mg PO BEDTIME PRN PRN Reason: Insomnia Sodium Chloride (0.9 % Sodium Chloride Flush 3 Ml Syringe) 3 ml IVFLUSH QSHIFT [facility] Home Medications ?Medication ?Instructions ?Recorded ?Confirmed ?Last Taken ?Type cholecalciferol (vitamin D3) 25 25 mcg PO DAILY 03/19/22 11/22/24 Unknown History mcg (1,000 unit) capsule apixaban 2.5 mg tablet (Eliquis) 2.5 mg PO BID 10/18/24 11/22/24 Unknown History furosemide 20 mg tablet 20 mg PO DAILY 10/18/24 11/22/24 Unknown History gabapentin 100 mg capsule 100 mg PO TID 10/18/24 11/22/24 Unknown History glipizide 10 mg tablet 10 tab PO BID 10/18/24 11/22/24 Unknown History levothyroxine 88 mcg tablet 88 mcg PO DAILY@0600 10/18/24 11/22/24 Unknown History montelukast 10 mg tablet 10 mg PO DAILY 10/18/24 11/22/24 Unknown History oxycodone 20 mg tablet 20 mg PO TID@0600,1400,2200 PRN 10/18/24 11/22/24 Unknown History Pain venlafaxine 75 mg capsule,extended 75 mg PO DAILY 10/18/24 11/22/24 Unknown History release 24 hr acetaminophen 500 mg tablet 1,000 mg PO TID PRN Pain, Moderate 11/22/24 11/22/24 Unknown History albuterol sulfate 90 mcg/actuation 2 puff inhalation Q4H PRN 11/22/24 11/22/24 Unknown History aerosol inhaler Shortness Of Breath Or Wheezing amlodipine 2.5 mg tablet 2.5 mg PO DAILY 11/22/24 11/22/24 Unknown History bisacodyl 10 mg rectal suppository 10 mg OK DAILY PRN Constipation 11/22/24 11/22/24 Unknown History budesonide 180 mcg/actuation 1 inh inhalation BID 11/22/24 11/22/24 Unknown History breath activated powder inhaler (Pulmicort Flexhaler) clonidine HCl 0.2 mg tablet 0.2 mg PO BEDTIME 11/22/24 11/22/24 Unknown History docusate sodium 100 mg capsule 100 mg PO BID 11/22/24 11/22/24 Unknown History insulin glargine 100 unit/mL (3 20 unit subcut BEDTIME 11/22/24 11/22/24 Unknown History mL) subcutaneous pen (Basaglar KwikPen U-100 Insulin) insulin lispro 100 unit/mL 1 sliding scale dose subcut 11/22/24 11/22/24 Unknown History subcutaneous solution (Humalog USEASDIRECTD U-100 Insulin) ipratropium 0.5 mg-albuterol 3 mg 3 ml inhalation Q4H PRN Shortness 11/22/24 11/22/24 Unknown History (2.5 mg base)/3 mL nebulization Of Breath Or Wheezing soln lidocaine 4 % topical patch 1 patch topical Q12H 11/22/24 11/22/24 Unknown History magnesium hydroxide 400 mg/5 mL 30 ml PO DAILY PRN Constipation 11/22/24 11/22/24 Unknown History oral suspension (Milk of Magnesia) melatonin 5 mg capsule 5 mg PO DAILY 11/22/24 11/22/24 Unknown History mometasone 100 mcg/actuation HFA 1 inh inhalation BID 11/22/24 11/22/24 Unknown History aerosol inhaler (Asmanex HFA) naloxone 4 mg/actuation nasal 4 mg intranasal Q3M PRN Opioid 11/22/24 11/22/24 Unknown History spray (Narcan) Overdose olanzapine 2.5 mg tablet 2.5 mg PO DAILY 11/22/24 11/22/24 Unknown History omeprazole 20 mg tablet,delayed 20 mg PO BID@0630,1630 11/22/24 11/22/24 Unknown History release pravastatin 40 mg tablet 40 mg PO BEDTIME 11/22/24 11/22/24 Unknown History quetiapine 50 mg tablet 50 mg PO BEDTIME 11/22/24 11/22/24 Unknown History sodium chloride 0.9 % (flush) 75 ml IV DAILY 11/22/24 11/22/24 Unknown History sodium phosphates 19 gram-7 118 ml OK DAILY PRN Constipation 11/22/24 11/22/24 Unknown History gram/118 mL enema (Fleet Enema) tramadol 50 mg tablet 25 mg PO DAILY PRN Lower Back Pain 11/22/24 11/22/24 Unknown History trazodone 150 mg tablet 150 mg PO BEDTIME PRN Insomnia 11/22/24 11/22/24 Unknown History venlafaxine 37.5 mg 37.5 mg PO DAILY 11/22/24 11/22/24 Unknown History capsule,extended release 24 hr Physical Exam 2 Vital Signs and Narrative: Vital Signs: Last Vital Signs Temp 96.3 F L 11/22/24 21:53 Pulse 73 11/22/24 21:53 Resp 14 11/22/24 21:53 BP 114/60 11/22/24 21:53 Pulse Ox 96 11/22/24 21:53 O2 Del Method Nasal Cannula 11/22/24 21:53 O2 Flow Rate 3 11/22/24 21:53 Oxygen Flow Rate 2 11/22/24 16:07 BMI result Body Mass Index 37.6 General: Alert and oriented to person and time, not oriented to place, no acute distress Resp: CTA bilaterally, no wheezing or crackles CVS: S1, S2, RRR GI: +BS, NT, no distention Skin: Warm, dry Neuro: Cranial nerves II-XII grossly intact bilaterally. Motor grossly intact bilaterally Extremities: No lower extremityedema Psych: slow to respond, mildly confused Const: General: confusion Orientation/consciousness: confusion Eyes: Direct Ophthalmoscopy: No photophobia Neuro: General: confusion Results Labs 11/22/24 16:30 11/22/24 18:41 Labs: Laboratory Results - last 24 hr 0611/22/24 11/22/24 16:30 16:41 16:42 MCV 96.1 MCH 30.6 MCHC 31.8 RDW 12.8 Plt Count 291 MPV 11.3 Immature Gran % (Auto) 0.8 H Neut % (Auto) 69.8 Lymph % (Auto) 21.0 [place] % (Auto) 7.2 Eos % (Auto) 0.8 Baso % (Auto) 0.4 Lymph # (Auto) 3.3 [place] # (Auto) 1.1 Eos # (Auto) 0.1 Baso # (Auto) 0.1 Abs Immat Gran (auto) 0.12 H Absolute Neuts (auto) 11.0 H Absolute Nucleated RBC 0.000 Nucleated RBC % (auto) 0.0 Hold Purple Top SEE NOTE Hold Blue Top SEE NOTE VBG pH 7.44 H VBG pCO2 44 VBG pO2 80 VBG HCO3 30 H VBG O2 Saturation 98.0 VBG Base Excess 5.6 Anion Gap Estim Creat Clear Calc Estimated GFR POC Glucose 193 H Random Glucose Lactic Acid 1.2 Calcium Total Bilirubin AST ALT Alkaline Phosphatase Ammonia 21 Troponin I High Sens B-Natriuretic Peptide < 10 Total Protein Albumin TSH Urine Color Urine Appearance Urine pH Ur Specific [place] Urine Protein Urine Glucose (UA) Urine Ketones Urine Blood Urine Nitrite Ur Leukocyte Esterase Urine RBC Urine WBC Ur Squamous Epith Cells Urine Bacteria Hyaline Casts Influenza Type A (PCR) NEGATIVE Influenza Type B (PCR) NEGATIVE RSV RNA Qual (PCR) NEGATIVE SARS-CoV-2 RNA (RT-PCR) NEGATIVE 11/22/24 11/22/24 18:23 18:41 MCV MCH MCHC RDW Plt Count MPV Immature Gran % (Auto) Neut % (Auto) Lymph % (Auto) [place] % (Auto) Eos % (Auto) Baso % (Auto) Lymph # (Auto) [place] # (Auto) Eos # (Auto) Baso # (Auto) Abs Immat Gran (auto) Absolute Neuts (auto) Absolute Nucleated RBC Nucleated RBC % (auto) Hold Purple Top Hold Blue Top VBG pH VBG pCO2 VBG pO2 VBG HCO3 VBG O2 Saturation VBG Base Excess Anion Gap 15 Estim Creat Clear Calc 26.4 Estimated GFR 18 POC Glucose Random Glucose 124 H Lactic Acid Calcium 7.9 L D Total Bilirubin 0.3 AST 27 ALT 9 Alkaline Phosphatase 61 Ammonia Troponin I High Sens 3.6 B-Natriuretic Peptide Total Protein 6.6 Albumin 2.8 L TSH 0.69 Urine Color Yellow Urine Appearance Cloudy Urine pH 5.0 Ur Specific [place] 1.015 Urine Protein 30 (1+) H Urine Glucose (UA) Negative Urine Ketones Negative Urine Blood Large (3+) H Urine Nitrite Negative Ur Leukocyte Esterase Moderate (2+) H Urine RBC >20 H Urine WBC >50 H Ur Squamous Epith Cells 11-20 Urine Bacteria 1+ Hyaline Casts 11-20 Influenza Type A (PCR) Influenza Type B (PCR) RSV RNA Qual (PCR) SARS-CoV-2 RNA (RT-PCR) Assessment and Plan (1) Acute metabolic encephalopathy: Status: Acute (2) Sepsis: Status: Acute (3) UTI (urinary tract infection): Status: Acute (4) MIKE (acute kidney injury): Status: Acute (5) Class 3 obesity: Status: Acute Plan Patient is a 74-year-old female with a past history significant for hypertension, type 2 diabetes on insulin, history of PE on Eliquis, asthma / COPD overlap, bipolar 1, hypothyroid, LALY on CPAP, chronic respiratory failure and HFrEF, who presented to the ED due to altered mental status, lethargy and hypotension. acute metabolic encephalopathy and sepsis secondary to UTI - WBC 15.5, hypotensive, hypothermic at 95.9, lactic acid normal, blood cultures x2 pending - UA positive, culture pending - COVID/flu/ RSV negative - chest x-ray with possible mild interstitial thickening may represent low- grade congestive heart failure, low lung volumes with bilateral basilar opacities, likely atelectasis - BNP normal - EKG with NSR - started on ceftriaxone 2 g in ED for UTI/ sepsis, continue - given 3 L IV fluid bolus albumin due to hypotension - monitor BP - follow CBC and BMP MIKE - creatinine 2.62 - renal ultrasound - IV fluids as above - monitor BMP - avoid nephrotoxins when possible Chronic HFrEF, no acute exacerbation - BNP normal - CXR with ?mild interstital thickening - pt denies SOB hypertension - hold home meds due to hypotension, resume when appropriate type 2 diabetes - sliding scale insulin - diabetic diet - Lantus 14 units nightly history PE - continue Eliquis asthma/COPD overlap, no acute exacerbation - continue home meds bipolar 1 - continue home meds hypothyroid - continue levothyroxine LALY - CPAP at bedtime class 3 obesity - BMI 37.6 - weight loss encouraged DNR/DNI, discussed with patient and MOLST form present VTE prophylaxis: Eliquis patient with acute metabolic encephalopathy and sepsis secondary to UTI, complicated by MIKE, requiring admission for at least 2 midnight stay for IV fluids, IV antibiotics and monitoring. Quality Stroke Does the patient have a stroke diagnosis?: No VTE Prior VTE?: Yes VTE Risk Level:: Medical - moderate - high VTE Device Contraindication: Treatment Not Indicated VTE Drug Contraindication: N/A - Med Ordered
--- NOTE | 2024-11-22 22:05 | PHA.MEDREC ---
Addendum entered by Natali Daniels RPh 11/22/24 22:36: Reviewed by [facility] Original Note: Pharmacy Consult ? Medication Reconciliation Pharmacy has completed the medication reconciliation. Utilized list from Shira Pagan.
[2024-11-22] MEDS: Apixaban 2.5 MG TABLET PO (23:07)
[2024-11-22] MEDS: 0.9 % Sodium Chloride Flush 3 ML SYRINGE IVFLUSH (23:07)
[2024-11-23 00:12] VITALS: BP 114/59; PULSE 73; RESP 18; TEMP 35.9; O2SAT 97
[2024-11-23 02:52] VITALS: BMI 38.1
[2024-11-23 02:53] VITALS: BP 112/58; PULSE 81; RESP 18; TEMP 36.6; O2SAT 95
[2024-11-23] MEDS: oxyCODONE HCl Immed Release 15 MG TABLET PO (03:21)
[2024-11-23] MEDS: Acetaminophen 325 MG TABLET 975 MG PO ×2 (03:22→10:39)
[2024-11-23 06:20] LABS: MANUAL DIFF FLAG NO
[2024-11-23 06:35] LABS: Basophils Absolute Auto 0.1 X10*3/uL (0.0-0.2); Basophils Percent Auto 0.4 % (0-2); Eosinophils Absolute Auto 0.3 X10*3/uL (0.0-0.4); Eosinophils Percent Auto 1.8 % (0-4); Hematocrit 42.6 % (37.0-47.0); Hemoglobin 13.6 g/dl (12.0-16.0); Imm Gran Abs Auto 0.08 X10*3/uL (0.00-0.03); Imm Gran Pct Auto 0.6 % (0.0-0.4); Lymphocytes Percent Auto 14.5 % (20-40); Mean Corpuscular HGB Conc 31.9 g/dl (31.0-35.0); Mean Platelet Volume 11.2 fL (9.4-12.3); Monocytes Absolute Auto 1.2 X10*3/uL (0.1-1.2); Monocytes Percent Auto 8.8 % (2-11); Neutrophils Absolute Auto 10.1 x10*3/uL (2.0-8.3); Neutrophils Percent Auto 73.9 % (45-73); Platelet Count 259 X10*3/uL (160-400); Red Blood Count 4.39 X10*6/uL (4.20-5.50); Red Cell Distribution Width 12.6 % (11.0-16.0); White Blood Count 13.7 X10*3/uL (4.8-10.8)
[2024-11-23 06:38] LABS: Anion Gap 14 (12-20); Blood Urea Nitrogen 54 mg/dL (9-16); Carbon Dioxide 33 mmol/L (22-29); Chloride 104 mmol/L (96-108); Creatinine Clr Calc Pharmacy 43.8; Estimated Glomerular Filt Rate 32; Glucose Random 133 mg/dL (60-115); Potassium 4.3 mmol/L (3.3-5.1); Sodium 147 mmol/L (135-145)
[2024-11-23 07:39] LABS: Glucose, Whole Blood 138 mg/dL (60-115)
[2024-11-23 08:00] VITALS: BP 122/56; PULSE 73; RESP 16; TEMP 36.2; O2SAT 95
[2024-11-23] MEDS: Magnesium Sulfate/H2O 2 GM/50 ML PIGGYBACK IV (08:32)
[2024-11-23] MEDS: 0.9 % Sodium Chloride Flush 3 ML SYRINGE IVFLUSH ×3 (08:35→21:09)
[2024-11-23] MEDS: Gabapentin 100 MG CAPSULE PO ×3 (08:39→21:08)
[2024-11-23] MEDS: Montelukast Sodium 10 MG TABLET PO (08:39)
[2024-11-23] MEDS: Venlafaxine HCl ER 37.5 MG CAP.ER.24H PO (08:39)
[2024-11-23] MEDS: OLANZapine 2.5 MG TABLET PO (08:39)
[2024-11-23] MEDS: Cholecalciferol (Vitamin D3) 25 MCG TABLET PO (08:39)
[2024-11-23] MEDS: Apixaban 2.5 MG TABLET PO ×2 (08:39→21:08)
[2024-11-23] MEDS: Venlafaxine HCl ER 75 MG CAP.ER.24H PO (08:39)
--- NOTE | 2024-11-23 09:27 | P.PNIM_ITS ---
Subjective Subjective Date of Service: 11/23/24 Interval History: feels ill Physical Exam 2 Vital Signs: Vital Signs: Last Vital Signs Temp 97.2 F 11/23/24 08:00 Pulse 73 11/23/24 08:00 Resp 16 11/23/24 08:00 BP 122/56 L 11/23/24 08:00 Pulse Ox 95 11/23/24 08:00 O2 Del Method Room Air 11/23/24 08:00 O2 Flow Rate 2 11/23/24 02:53 Oxygen Flow Rate 2 11/22/24 16:07 BMI result Body Mass Index 38.1 General: AO X 3, ill appearing Resp: cta bilateral, no accessory muscles used CVS: S1,S2,RRR GI: soft, non tender, non distended Neuro: motor grossly intact, alert Psych: appropriate affect, appropriate insight Objective Data Active Medications Acetaminophen (Acetaminophen 325 Mg Tablet) 975 mg PO Q6H PRN PRN Reason: Pain, Mild 1-3,fever,headache Last Admin: 11/23/24 03:22 Dose: 975 mg Documented By: ARDEN Apixaban (Apixaban 2.5 Mg Tablet) 2.5 mg PO BID [facility] Last Admin: 11/23/24 08:39 Dose: 2.5 mg Documented By: RADHA Budesonide (Budesonide 180 Mcg Aer.Pow.Ba) 1 puff INHALE RBID [facility] Last Admin: 11/23/24 08:43 Dose: Not Given Documented By: RADHA Non-Admin Reason: Med Not Available Calcium Carbonate (Calcium Carbonate 750 Mg Tab.Chew) 750 mg PO Q4H PRN PRN Reason: Heartburn Ceftriaxone Sodium (Ceftriaxone Sodium 2 Gm Vial) 2 gm IVPUSH Q24H [facility] Dextrose (Dextrose 50 % 25 Gm/50 Ml Syringe) 25 gm IVPUSH Q15M PRN; Protocol PRN Reason: per Hypoglycemia Standing Ord. Gabapentin (Gabapentin 100 Mg Capsule) 100 mg PO TID [facility] Last Admin: 11/23/24 08:39 Dose: 100 mg Documented By: RADHA Glucose (Glucose Gel 15 Gm Gel..Gram.) 15 gm PO Q15M PRN; Protocol PRN Reason: per Hypoglycemia Standing Ord. Magnesium Sulfate (Magnesium Sulfate/H2o) 2 gm in 50 mls @ 25 mls/hr IV ONCE ONE Stop: 11/23/24 09:27 Last Admin: 11/23/24 08:32 Dose: 25 mls/hr Documented By: RADHA Insulin Glargine (Insulin Glargine,Hum.Rec.Anlog 100 Unit/Ml 10 Ml Vial) 20 unit SUBCUT BEDTIME [facility] Insulin Human Lispro (Insulin Lispro 100 Unit/Ml 3 Ml Vial) 0 unit SUBCUT QIDACHS [facility]; Protocol Last Admin: 11/23/24 07:36 Dose: Not Given Documented By: RADHA Non-Admin Reason: No Insulin Coverage Levothyroxine Sodium (Levothyroxine Sodium 88 Mcg Tablet) 88 mcg PO DAILY@0600 [facility] Magnesium Hydroxide (Milk Of Magnesia 30 Ml Oral.Susp) 30 ml PO DAILY PRN PRN Reason: Constipation Melatonin (Melatonin 3 Mg Tablet) 6 mg PO BEDTIME PRN PRN Reason: Insomnia Montelukast Sodium (Montelukast Sodium 10 Mg Tablet) 10 mg PO DAILY [facility] Last Admin: 11/23/24 08:39 Dose: 10 mg Documented By: RADHA Olanzapine (Olanzapine 2.5 Mg Tablet) 2.5 mg PO DAILY [facility] Last Admin: 11/23/24 08:39 Dose: 2.5 mg Documented By: RADHA Omeprazole (Omeprazole 20 Mg Capsule.Dr) 20 mg PO BID@0630,1630 [facility] Pravastatin Sodium (Pravastatin Sodium 40 Mg Tablet) 40 mg PO BEDTIME [facility] Quetiapine Fumarate (Quetiapine Fumarate 50 Mg Tablet) 50 mg PO BEDTIME [facility] Sodium Chloride (0.9 % Sodium Chloride Flush 3 Ml Syringe) 3 ml IVFLUSH [facility] Last Admin: 11/23/24 08:35 Dose: 3 ml Documented By: RADHA Trazodone HCl (Trazodone Hcl 50 Mg Tablet) 150 mg PO BEDTIME PRN PRN Reason: Insomnia Venlafaxine HCl (Venlafaxine Hcl Er 37.5 Mg Cap.Er.24h) 37.5 mg PO DAILY [facility] Last Admin: 11/23/24 08:39 Dose: 37.5 mg Documented By: RADHA Venlafaxine HCl (Venlafaxine Hcl Er 75 Mg Cap.Er.24h) 75 mg PO DAILY [facility] Last Admin: 11/23/24 08:39 Dose: 75 mg Documented By: RADHA Vitamin D (Cholecalciferol (Vitamin D3) 25 Mcg Tablet) 25 mcg PO DAILY [facility] Last Admin: 11/23/24 08:39 Dose: 25 mcg Documented By: RADHA Labs 11/23/24 05:52 11/23/24 05:52 Labs: Laboratory Results - last 24 hr 11/22/24 11/22/24 11/22/24 16:30 16:41 16:42 MCV 96.1 MCH 30.6 MCHC 31.8 RDW 12.8 Plt Count 291 MPV 11.3 Immature Gran % (Auto) 0.8 H Neut % (Auto) 69.8 Lymph % (Auto) 21.0 [place] % (Auto) 7.2 Eos % (Auto) 0.8 Baso % (Auto) 0.4 Lymph # (Auto) 3.3 [place] # (Auto) 1.1 Eos # (Auto) 0.1 Baso # (Auto) 0.1 Abs Immat Gran (auto) 0.12 H Absolute Neuts (auto) 11.0 H Absolute Nucleated RBC 0.000 Nucleated RBC % (auto) 0.0 Hold Purple Top SEE NOTE Hold Blue Top SEE NOTE VBG pH 7.44 H VBG pCO2 44 VBG pO2 80 VBG HCO3 30 H VBG O2 Saturation 98.0 VBG Base Excess 5.6 Anion Gap Estim Creat Clear Calc Estimated GFR POC Glucose 193 H Random Glucose Lactic Acid 1.2 Calcium Total Bilirubin AST ALT Alkaline Phosphatase Ammonia 21 Troponin I High Sens B-Natriuretic Peptide < 10 Total Protein Albumin TSH Urine Color Urine Appearance Urine pH Ur Specific [address] Urine Protein Urine Glucose (UA) Urine Ketones Urine Blood Urine Nitrite Ur Leukocyte Esterase Urine RBC Urine WBC Ur Squamous Epith Cells Urine Bacteria Hyaline Casts Influenza Type A (PCR) NEGATIVE Influenza Type B (PCR) NEGATIVE RSV RNA Qual (PCR) NEGATIVE SARS-CoV-2 RNA (RT-PCR) NEGATIVE 11/22/24 11/22/24 11/23/24 18:23 18:41 05:52 MCV 97.0 MCH 31.0 MCHC 31.9 RDW 12.6 Plt Count 259 MPV 11.2 Immature Gran % (Auto) 0.6 H Neut % (Auto) 73.9 H Lymph % (Auto) 14.5 L [place] % (Auto) 8.8 Eos % (Auto) 1.8 Baso % (Auto) 0.4 Lymph # (Auto) 2.0 [place] # (Auto) 1.2 Eos # (Auto) 0.3 Baso # (Auto) 0.1 Abs Immat Gran (auto) 0.08 H Absolute Neuts (auto) 10.1 H Absolute Nucleated RBC 0.000 Nucleated RBC % (auto) 0.0 Hold Purple Top Hold Blue Top VBG pH VBG pCO2 VBG pO2 VBG HCO3 VBG O2 Saturation VBG Base Excess Anion Gap 15 14 Estim Creat Clear Calc 26.4 43.8 Estimated GFR 18 32 POC Glucose Random Glucose 124 H 133 H Lactic Acid Calcium 7.9 L D 9.0 D Total Bilirubin 0.3 AST 27 ALT 9 Alkaline Phosphatase 61 Ammonia Troponin I High Sens 3.6 B-Natriuretic Peptide Total Protein 6.6 Albumin 2.8 L TSH 0.69 Urine Color Yellow Urine Appearance Cloudy Urine pH [address] 1.015 Urine Protein 30 (1+) H Urine Glucose (UA) Negative Urine Ketones Negative Urine Blood Large (3+) H Urine Nitrite Negative Ur Leukocyte Esterase Moderate (2+) H Urine RBC >20 H Urine WBC >50 H Ur Squamous Epith Cells 11-20 Urine Bacteria 1+ Hyaline Casts 11-20 Influenza Type A (PCR) Influenza Type B (PCR) RSV RNA Qual (PCR) SARS-CoV-2 RNA (RT-PCR) 11/23/24 07:31 MCV MCH MCHC RDW Plt Count MPV Immature Gran % (Auto) Neut % (Auto) Lymph % (Auto) [place] % (Auto) Eos % (Auto) Baso % (Auto) Lymph # (Auto) [place] # (Auto) Eos # (Auto) Baso # (Auto) Abs Immat Gran (auto) Absolute Neuts (auto) Absolute Nucleated RBC Nucleated RBC % (auto) Hold Purple Top Hold Blue Top VBG pH VBG pCO2 VBG pO2 VBG HCO3 VBG O2 Saturation VBG Base Excess Anion Gap Estim Creat Clear Calc Estimated GFR POC Glucose 138 H Random Glucose Lactic Acid Calcium Total Bilirubin AST ALT Alkaline Phosphatase Ammonia Troponin I High Sens B-Natriuretic Peptide Total Protein Albumin TSH Urine Color Urine Appearance Urine pH Ur Specific [address] Urine Protein Urine Glucose (UA) Urine Ketones Urine Blood Urine Nitrite Ur Leukocyte Esterase Urine RBC Urine WBC Ur Squamous Epith Cells Urine Bacteria Hyaline Casts Influenza Type A (PCR) Influenza Type B (PCR) RSV RNA Qual (PCR) SARS-CoV-2 RNA (RT-PCR) Assessment and Plan (1) History of pulmonary embolism: Status: Acute Plan 74F PMH htn, dm, pe on eliquis, bipolar, hyothryoid, laly, chronic hypoxic resp failure due to copd, hfref presented with ams Sepsis and acute metabolic encephalopathy due to urinary tract infection Continue ceftriaxone, follow up cultures Acute kidney injury Improving with IV fluids Diabetes Basal bolus insulin Hypertension Holding meds for hypotension Bipolar Continue mood stabilizers History of pulmonary embolism On Eliquis 2.5 mg b.i.d. (unclear why low-dose) Obesity/LALY CPAP at night Weight loss recommended Hypothyroid Levothyroxine DNR/DNI reason for continued hospitalization: Cultures Quality Stroke Does the patient have a stroke diagnosis?: No VTE Prior VTE?: Yes VTE Risk Level:: Medical - moderate - high VTE Device Contraindication: Treatment Not Indicated VTE Drug Contraindication: N/A - Med Ordered
[2024-11-23 11:20] LABS: Glucose, Whole Blood 257 mg/dL (60-115)
[2024-11-23] MEDS: Insulin Lispro 100 UNIT/ML 3 ML VIAL SUBCUT (11:35)
--- NOTE | 2024-11-23 13:12 | MHC.CM.PN ---
IMM delivered. CM assessment completed w/ patient at bedside. Also received information from [facility], Automation Machine Operator, at PCP office. Patient comes to [facility] from [facility], where she was for STR for approx 10 days. Within the last month was also at [facility], but fell at home the day of dc. Lives at home w/ . Ambulates w/ walker @ baseline and assists w/ ADL's. Has a therapist at [facility]. Uses CPAP, supplies via [employer]. PCP Conor Rome MD, Automation Machine Operator @ office is [facility] [phone]. HCP & [facility] on file and verified. Of note, Automation Machine Operator also discussed hx psych admissions and noncompliance w/ services at home. She has attempted to discuss LTC w/ patient/. However, they are not agreeable. Per patient, she has applied for [facility] in the past and was denied for being over income and assets. Not interested in applying again or LTC. She is a+ox4. DP: Goal is STR then return home w/ on dc. Patient's preference is [facility], who is following. BLS transport. CM will continue to follow.
[2024-11-23] MEDS: oxyCODONE HCl Immed Release 5 MG TABLET PO ×2 (14:06→21:19)
[2024-11-23 16:02] VITALS: BP 131/62; PULSE 90; RESP 18; TEMP 36.4; O2SAT 95
[2024-11-23 16:09] LABS: Glucose, Whole Blood 130 mg/dL (60-115)
[2024-11-23] MEDS: cefTRIAXone sodium 2 GM VIAL IVPUSH (16:57)
[2024-11-23] MEDS: Omeprazole 20 MG CAPSULE.DR PO (16:58)
[2024-11-23] MEDS: HYDROmorphone HCl 0.5 MG/0.5 ML SYRINGE IVPUSH (18:28)
[2024-11-23 19:07] VITALS: BP 155/75; PULSE 77; RESP 18; TEMP 36.9; O2SAT 96
[2024-11-23 20:23] LABS: Glucose, Whole Blood 147 mg/dL (60-115)
[2024-11-23] MEDS: Pravastatin Sodium 40 MG TABLET PO (21:08)
[2024-11-23] MEDS: Insulin Glargine,Hum.rec.anlog 100 UNIT/ML 10 ML VIAL 20 UNIT SUBCUT (21:09)
[2024-11-23] MEDS: QUEtiapine Fumarate 50 MG TABLET PO (21:09)
[2024-11-23] MEDS: traZODone HCL 50 MG TABLET 150 MG PO (21:18)
[2024-11-23 22:41] VITALS: PULSE 82; RESP 16; O2SAT 94
[2024-11-24 03:58] VITALS: BP 123/85; PULSE 95; RESP 20; TEMP 36.4; O2SAT 98
[2024-11-24] MEDS: Levothyroxine Sodium 88 MCG TABLET PO (05:34)
[2024-11-24] MEDS: Omeprazole 20 MG CAPSULE.DR PO (05:34)
[2024-11-24] MEDS: oxyCODONE HCl Immed Release 5 MG TABLET PO (05:41)
[2024-11-24 06:49] VITALS: BP 135/67; PULSE 73; RESP 17; TEMP 36.6; O2SAT 95
[2024-11-24 07:35] LABS: Glucose, Whole Blood 153 mg/dL (60-115)
[2024-11-24] MEDS: Insulin Lispro 100 UNIT/ML 3 ML VIAL SUBCUT ×2 (07:44→20:12)
[2024-11-24] MEDS: 0.9 % Sodium Chloride Flush 3 ML SYRINGE IVFLUSH ×2 (07:46→20:01)
[2024-11-24] MEDS: Apixaban 2.5 MG TABLET PO ×2 (07:46→20:01)
[2024-11-24 07:59] LABS: Hematocrit 42.8 % (37.0-47.0); Hemoglobin 14.3 g/dl (12.0-16.0); Mean Corpuscular HGB Conc 33.4 g/dl (31.0-35.0); Mean Corpuscular Hemoglobin 31.1 pg (27.0-33.0); Platelet Count 275 X10*3/uL (160-400); Red Cell Distribution Width 12.4 % (11.0-16.0); White Blood Count 12.6 X10*3/uL (4.8-10.8)
[2024-11-24 08:00] LABS: Basophils Absolute Auto 0.1 X10*3/uL (0.0-0.2); Basophils Percent Auto 0.5 % (0-2); Eosinophils Absolute Auto 0.3 X10*3/uL (0.0-0.4); Eosinophils Percent Auto 2.3 % (0-4); Hematocrit 42.5 % (37.0-47.0); Hemoglobin 14.3 g/dl (12.0-16.0); Imm Gran Abs Auto 0.07 X10*3/uL (0.00-0.03); Imm Gran Pct Auto 0.6 % (0.0-0.4); Lymphocytes Percent Auto 23.8 % (20-40); MANUAL DIFF FLAG NO; Mean Corpuscular HGB Conc 33.6 g/dl (31.0-35.0); Mean Corpuscular Hemoglobin 31.2 pg (27.0-33.0); Mean Corpuscular Volume 92.8 fL (80.0-98.0); Mean Platelet Volume 10.9 fL (9.4-12.3); Monocytes Absolute Auto 1.4 X10*3/uL (0.1-1.2); Neutrophils Absolute Auto 7.8 x10*3/uL (2.0-8.3); Neutrophils Percent Auto 61.8 % (45-73); Platelet Count 280 X10*3/uL (160-400); Red Blood Count 4.58 X10*6/uL (4.20-5.50); Red Cell Distribution Width 12.3 % (11.0-16.0); White Blood Count 12.6 X10*3/uL (4.8-10.8)
[2024-11-24 08:16] LABS: Alanine Aminotransferase 11 U/L (0-31); Albumin Level 3.6 g/dL (3.5-5.0); Alkaline Phosphatase 70 U/L (39-117); Anion Gap 13 (12-20); Aspartate Amino Transferase 21 U/L (5-31); Bilirubin Direct 0.3 mg/dL (0.0-0.5); Bilirubin Total 0.5 mg/dL (0.0-1.0); Blood Urea Nitrogen 23 mg/dL (9-16); Calcium 9.6 mg/dL (8.4-10.2); Carbon Dioxide 36 mmol/L (22-29); Chloride 99 mmol/L (96-108); Creatinine Clr Calc Pharmacy 82.8; Estimated Glomerular Filt Rate > 60; Glucose Random 144 mg/dL (60-115); Magnesium 2.2 mg/dL (1.6-2.6); Potassium 3.5 mmol/L (3.3-5.1); Sodium 144 mmol/L (135-145); Total Protein 7.7 g/dL (6.5-8.0)
--- NOTE | 2024-11-24 10:38 | HO.PM.IMPN ---
Subjective Subjective Date of Service: 11/24/24 Interval History: feels ill, SI Physical Exam Vital Signs: Vital Signs: Last Vital Signs Temp 98 F 11/24/24 06:49 Pulse 73 11/24/24 06:49 Resp 17 11/24/24 06:49 BP 135/67 11/24/24 06:49 Pulse Ox 95 11/24/24 06:49 O2 Del Method Nasal Cannula 11/24/24 06:49 O2 Flow Rate 2 11/24/24 06:49 Oxygen Flow Rate 2 11/22/24 16:07 BMI result Body Mass Index 38.1 General: AO X 3, ill appearing Resp: cta bilateral, no accessory muscles used CVS: S1,S2,RRR GI: soft, non tender, non distended Neuro: motor grossly intact, alert Psych: appropriate affect, appropriate insight Objective Data Active Medications Acetaminophen (Acetaminophen 325 Mg Tablet) 975 mg PO Q6H PRN PRN Reason: Pain, Mild 1-3,fever,headache Last Admin: 11/23/24 10:39 Dose: 975 mg Documented By: YESSICA Apixaban (Apixaban 2.5 Mg Tablet) 2.5 mg PO BID [facility] Last Admin: 11/24/24 07:46 Dose: 2.5 mg Documented By: MARTHA Budesonide (Budesonide 180 Mcg Aer.Pow.Ba) 1 puff INHALE RBID [facility] Last Admin: 11/24/24 07:58 Dose: Not Given Documented By: MANAN Non-Admin Reason: Patient Refused Calcium Carbonate (Calcium Carbonate 750 Mg Tab.Chew) 750 mg PO Q4H PRN PRN Reason: Heartburn Ceftriaxone Sodium (Ceftriaxone Sodium 2 Gm Vial) 2 gm IVPUSH Q24H [facility] Last Admin: 11/23/24 16:57 Dose: 2 gm Documented By: RADHA Cyclobenzaprine HCl (Cyclobenzaprine Hcl 5 Mg Tablet) 5 mg PO TID [facility] Dextrose (Dextrose 50 % 25 Gm/50 Ml Syringe) 25 gm IVPUSH Q15M PRN; Protocol PRN Reason: per Hypoglycemia Standing Ord. Gabapentin (Gabapentin 100 Mg Capsule) 100 mg PO TID [facility] Last Admin: 11/23/24 21:08 Dose: 100 mg Documented By: NATANAEL Glucose (Glucose Gel 15 Gm Gel..Gram.) 15 gm PO Q15M PRN; Protocol PRN Reason: per Hypoglycemia Standing Ord. Insulin Glargine (Insulin Glargine,Hum.Rec.Anlog 100 Unit/Ml 10 Ml Vial) 20 unit SUBCUT BEDTIME [facility] Last Admin: 11/23/24 21:09 Dose: 20 unit Documented By: NATANAEL Insulin Human Lispro (Insulin Lispro 100 Unit/Ml 3 Ml Vial) 0 unit SUBCUT QIDACHS [facility]; Protocol Last Admin: 11/24/24 07:44 Dose: 2 unit Documented By: MARTHA Levothyroxine Sodium (Levothyroxine Sodium 88 Mcg Tablet) 88 mcg PO DAILY@0600 [facility] Last Admin: 11/24/24 05:34 Dose: 88 mcg Documented By: NATANAEL Magnesium Hydroxide (Milk Of Magnesia 30 Ml Oral.Susp) 30 ml PO DAILY PRN PRN Reason: Constipation Melatonin (Melatonin 3 Mg Tablet) 6 mg PO BEDTIME PRN PRN Reason: Insomnia Montelukast Sodium (Montelukast Sodium 10 Mg Tablet) 10 mg PO DAILY [facility] Last Admin: 11/23/24 08:39 Dose: 10 mg Documented By: RADHA Olanzapine (Olanzapine 2.5 Mg Tablet) 2.5 mg PO DAILY [facility] Last Admin: 11/23/24 08:39 Dose: 2.5 mg Documented By: RADHA Omeprazole (Omeprazole 20 Mg Capsule.Dr) 20 mg PO BID@0630,1630 [facility] Last Admin: 11/24/24 05:34 Dose: 20 mg Documented By: NATANAEL Oxycodone HCl (Oxycodone Hcl Immed Release 5 Mg Tablet) 5 mg PO Q6H PRN PRN Reason: Pain, Severe (Pain Scale 7-10) Last Admin: 11/24/24 05:41 Dose: 5 mg Documented By: NATANAEL Pravastatin Sodium (Pravastatin Sodium 40 Mg Tablet) 40 mg PO BEDTIME [facility] Last Admin: 11/23/24 21:08 Dose: 40 mg Documented By: NATANAEL Quetiapine Fumarate (Quetiapine Fumarate 50 Mg Tablet) 50 mg PO BEDTIME [facility] Last Admin: 11/23/24 21:09 Dose: 50 mg Documented By: NATANAEL Sodium Chloride (0.9 % Sodium Chloride Flush 3 Ml Syringe) 3 ml IVFLUSH QSHIFT [facility] Last Admin: 11/24/24 07:46 Dose: 3 ml Documented By: MARTHA Trazodone HCl (Trazodone Hcl 50 Mg Tablet) 150 mg PO BEDTIME PRN PRN Reason: Insomnia Last Admin: 11/23/24 21:18 Dose: 150 mg Documented By: NATANAEL Venlafaxine HCl (Venlafaxine Hcl Er 37.5 Mg Cap.Er.24h) 37.5 mg PO DAILY [facility] Last Admin: 11/23/24 08:39 Dose: 37.5 mg Documented By: RADHA Venlafaxine HCl (Venlafaxine Hcl Er 75 Mg Cap.Er.24h) 75 mg PO DAILY [facility] Last Admin: 11/23/24 08:39 Dose: 75 mg Documented By: RADHA Vitamin D (Cholecalciferol (Vitamin D3) 25 Mcg Tablet) 25 mcg PO DAILY [facility] Last Admin: 11/23/24 08:39 Dose: 25 mcg Documented By: RADHA Labs 11/24/24 07:23 11/24/24 07:23 Labs: Laboratory Results - last 24 hr 11/23/24 11/23/24 11/23/24 11:15 16:06 20:19 MCV MCH MCHC RDW Plt Count MPV Immature Gran % (Auto) Neut % (Auto) Lymph % (Auto) [place] % (Auto) Eos % (Auto) Baso % (Auto) Lymph # (Auto) [place] # (Auto) Eos # (Auto) Baso # (Auto) Abs Immat Gran (auto) Absolute Neuts (auto) Absolute Nucleated RBC Nucleated RBC % (auto) Anion Gap Estim Creat Clear Calc Estimated GFR POC Glucose 257 H 130 H 147 H Random Glucose Calcium Magnesium Total Bilirubin Direct Bilirubin AST ALT Alkaline Phosphatase Total Protein Albumin 11/24/24 11/24/24 11/24/24 07:23 07:23 07:23 MCV 92.8 93.0 MCH 31.2 31.1 MCHC 33.6 RDW Plt Count MPV Immature Gran % (Auto) Neut % (Auto) Lymph % (Auto) [place] % (Auto) Eos % (Auto) Baso % (Auto) Lymph # (Auto) [place] # (Auto) Eos # (Auto) Baso # (Auto) Abs Immat Gran (auto) Absolute Neuts (auto) Absolute Nucleated RBC Nucleated RBC % (auto) Anion Gap Estim Creat Clear Calc Estimated GFR POC Glucose Random Glucose Calcium Magnesium Total Bilirubin Direct Bilirubin AST ALT Alkaline Phosphatase Total Protein Albumin 11/24/24 11/24/24 11/24/24 07:23 07:23 07:23 MCV MCH MCHC 33.4 RDW 12.3 12.4 Plt Count 280 275 MPV 10.9 Immature Gran % (Auto) Neut % (Auto) Lymph % (Auto) [place] % (Auto) Eos % (Auto) Baso % (Auto) Lymph # (Auto) [place] # (Auto) Eos # (Auto) Baso # (Auto) Abs Immat Gran (auto) Absolute Neuts (auto) Absolute Nucleated RBC Nucleated RBC % (auto) Anion Gap Estim Creat Clear Calc Estimated GFR POC Glucose Random Glucose Calcium Magnesium Total Bilirubin Direct Bilirubin AST ALT Alkaline Phosphatase Total Protein Albumin 11/24/24 11/24/24 11/24/24 07:23 07:23 07:23 MCV MCH MCHC RDW Plt Count MPV 11.0 Immature Gran % (Auto) 0.6 H Neut % (Auto) 61.8 Lymph % (Auto) 23.8 [place] % (Auto) 11.0 Eos % (Auto) 2.3 Baso % (Auto) 0.5 Lymph # (Auto) 3.0 [place] # (Auto) 1.4 H Eos # (Auto) 0.3 Baso # (Auto) 0.1 Abs Immat Gran (auto) 0.07 H Absolute Neuts (auto) 7.8 Absolute Nucleated RBC 0.000 0.000 Nucleated RBC % (auto) 0.0 0.0 Anion Gap 13 Estim Creat Clear Calc 82.8 Estimated GFR > 60 POC Glucose Random Glucose 144 H Calcium 9.6 D Magnesium 2.2 Total Bilirubin 0.5 Direct Bilirubin 0.3 AST 21 ALT 11 Alkaline Phosphatase 70 Total Protein 7.7 Albumin 3.6 11/24/24 07:32 MCV MCH MCHC RDW Plt Count MPV Immature Gran % (Auto) Neut % (Auto) Lymph % (Auto) [place] % (Auto) Eos % (Auto) Baso % (Auto) Lymph # (Auto) [place] # (Auto) Eos # (Auto) Baso # (Auto) Abs Immat Gran (auto) Absolute Neuts (auto) Absolute Nucleated RBC Nucleated RBC % (auto) Anion Gap Estim Creat Clear Calc Estimated GFR POC Glucose 153 H Random Glucose Calcium Magnesium Total Bilirubin Direct Bilirubin AST ALT Alkaline Phosphatase Total Protein Albumin Microbiology Microbiology Results: Microbiology 11/22/24 16:30 Blood Culture - Preliminary Blood - Venous No growth after 24 hours. 11/22/24 16:34 Blood Culture - Preliminary Blood - Venous No growth after 24 hours. 11/22/24 18:45 Urine Culture - Preliminary Urine clean catch - Clean Catch Midstream Culture in progress. Assessment and Plan (1) History of pulmonary embolism: Status: Acute Plan 74F PMH htn, dm, pe on eliquis, bipolar, hyothryoid, laly, chronic hypoxic resp failure due to copd, hfref presented with ams Sepsis and acute metabolic encephalopathy due to urinary tract infection Continue ceftriaxone, follow up cultures Acute kidney injury resolved Diabetes Basal bolus insulin Hypertension Holding meds for hypotension Bipolar Continue mood stabilizers History of pulmonary embolism On Eliquis 2.5 mg b.i.d. (unclear why low-dose) Obesity/LALY CPAP at night Weight loss recommended Hypothyroid Levothyroxine DNR/DNI reason for continued hospitalization: Cultures Quality Stroke Does the patient have a stroke diagnosis?: No VTE Prior VTE?: Yes VTE Risk Level:: Medical - moderate - high VTE Device Contraindication: Treatment Not Indicated VTE Drug Contraindication: N/A - Med Ordered
[2024-11-24] MEDS: HYDROmorphone HCl 1 MG/ML SYRINGE IVPUSH ×4 (11:08→23:31)
[2024-11-24 11:27] LABS: Glucose, Whole Blood 168 mg/dL (60-115)
--- NOTE | 2024-11-24 12:15 | PC.NURSE ---
Patient refusing to sit up or elevate the head of the bed to eat, drink, or take PO medications due to back pain. Patient received IV pain medication- see MAR for admin and re-assessment. at bedside. Patient and educated on safety concerns and interventions regarding PO intake while supine. Patient states I can eat lying down just fine . This RN reinforced safety concerns. Verbalized understanding, reinforcement needed. Dr. Alexei yen.
[2024-11-24 15:10] VITALS: BP 134/63; PULSE 84; RESP 18; TEMP 37.2; O2SAT 94
[2024-11-24 16:09] LABS: Glucose, Whole Blood 158 mg/dL (60-115)
[2024-11-24] MEDS: cefTRIAXone sodium 2 GM VIAL IVPUSH (17:32)
[2024-11-24 19:26] VITALS: BP 141/73; PULSE 86; RESP 18; TEMP 37.1; O2SAT 95
[2024-11-24] MEDS: QUEtiapine Fumarate 50 MG TABLET PO (20:01)
[2024-11-24] MEDS: Gabapentin 100 MG CAPSULE PO (20:01)
[2024-11-24] MEDS: Pravastatin Sodium 40 MG TABLET PO (20:01)
[2024-11-24] MEDS: Cyclobenzaprine HCl 5 MG TABLET PO (20:01)
[2024-11-24] MEDS: Insulin Glargine,Hum.rec.anlog 100 UNIT/ML 10 ML VIAL 20 UNIT SUBCUT (20:13)
[2024-11-24 20:14] LABS: Glucose, Whole Blood 163 mg/dL (60-115)
[2024-11-25 03:32] VITALS: BP 142/87; PULSE 98; RESP 17; TEMP 36.6; O2SAT 96
[2024-11-25] MEDS: HYDROmorphone HCl 1 MG/ML SYRINGE IVPUSH ×3 (04:16→12:14)
[2024-11-25] MEDS: Omeprazole 20 MG CAPSULE.DR PO ×2 (05:25→17:11)
[2024-11-25] MEDS: Levothyroxine Sodium 88 MCG TABLET PO (05:25)
[2024-11-25] MEDS: oxyCODONE HCl Immed Release 5 MG TABLET PO (05:26)
[2024-11-25 05:57] LABS: Basophils Absolute Auto 0.1 X10*3/uL (0.0-0.2); Basophils Percent Auto 0.4 % (0-2); Eosinophils Percent Auto 0.2 % (0-4); Hemoglobin 15.5 g/dl (12.0-16.0); Imm Gran Abs Auto 0.08 X10*3/uL (0.00-0.03); Imm Gran Pct Auto 0.5 % (0.0-0.4); Lymphocytes Absolute Auto 2.9 X10*3/uL (1.2-4.9); Lymphocytes Percent Auto 17.3 % (20-40); MANUAL DIFF FLAG SCAN; Mean Corpuscular HGB Conc 33.7 g/dl (31.0-35.0); Mean Corpuscular Hemoglobin 30.8 pg (27.0-33.0); Mean Corpuscular Volume 91.3 fL (80.0-98.0); Monocytes Absolute Auto 1.5 X10*3/uL (0.1-1.2); Monocytes Percent Auto 9.1 % (2-11); Neutrophils Absolute Auto 12.2 x10*3/uL (2.0-8.3); Neutrophils Percent Auto 72.5 % (45-73); Platelet Count 334 X10*3/uL (160-400); Red Blood Count 5.04 X10*6/uL (4.20-5.50); Red Cell Distribution Width 12.4 % (11.0-16.0); SCAN SMEAR FLAG 1; White Blood Count 16.8 X10*3/uL (4.8-10.8)
[2024-11-25 05:58] LABS: Hematocrit 46.5 % (37.0-47.0); Hemoglobin 15.6 g/dl (12.0-16.0); Mean Corpuscular HGB Conc 33.5 g/dl (31.0-35.0); Mean Corpuscular Hemoglobin 30.8 pg (27.0-33.0); Mean Corpuscular Volume 91.9 fL (80.0-98.0); Platelet Count 326 X10*3/uL (160-400); Red Blood Count 5.06 X10*6/uL (4.20-5.50); Red Cell Distribution Width 12.3 % (11.0-16.0); White Blood Count 16.4 X10*3/uL (4.8-10.8)
[2024-11-25 06:10] LABS: Anion Gap 20 (12-20); Blood Urea Nitrogen 24 mg/dL (9-16); Calcium 10.4 mg/dL (8.4-10.2); Carbon Dioxide 29 mmol/L (22-29); Chloride 100 mmol/L (96-108); Creatinine Clr Calc Pharmacy 73.3; Estimated Glomerular Filt Rate 58; Glucose Random 198 mg/dL (60-115); Potassium 3.7 mmol/L (3.3-5.1); Sodium 145 mmol/L (135-145)
[2024-11-25 06:18] LABS: SLIDE REVIEW VERIFIED
[2024-11-25 06:50] VITALS: BP 160/82; PULSE 101; RESP 17; TEMP 36.6; O2SAT 93
[2024-11-25] MEDS: Budesonide 180 MCG AER.POW.BA 1 PUFF INHALE ×2 (07:53→20:17)
[2024-11-25 07:54] VITALS: PULSE 78; RESP 21; O2SAT 93
[2024-11-25] MEDS: Gabapentin 100 MG CAPSULE PO ×3 (08:29→20:32)
[2024-11-25] MEDS: Venlafaxine HCl ER 75 MG CAP.ER.24H PO (08:29)
[2024-11-25] MEDS: Cyclobenzaprine HCl 5 MG TABLET PO ×3 (08:29→20:32)
[2024-11-25] MEDS: Apixaban 2.5 MG TABLET PO (08:29)
[2024-11-25] MEDS: Cholecalciferol (Vitamin D3) 25 MCG TABLET PO (08:29)
[2024-11-25] MEDS: Montelukast Sodium 10 MG TABLET PO (08:29)
[2024-11-25] MEDS: OLANZapine 2.5 MG TABLET PO (08:29)
[2024-11-25] MEDS: Venlafaxine HCl ER 37.5 MG CAP.ER.24H PO (08:29)
[2024-11-25] MEDS: levoFLOXacin 500 MG TABLET PO (08:29)
[2024-11-25] MEDS: 0.9 % Sodium Chloride Flush 3 ML SYRINGE IVFLUSH ×2 (08:30→20:33)
[2024-11-25 08:52] LABS: Glucose, Whole Blood 192 mg/dL (60-115)
--- NOTE | 2024-11-25 08:59 | P.PNIM_ITS ---
Subjective Subjective Date of Service: 11/25/24 Interval History: back pain Physical Exam 2 Vital Signs: Vital Signs: Last Vital Signs Temp 98 F 11/25/24 06:50 Pulse 78 11/25/24 07:54 Resp 21 H 11/25/24 07:54 BP 160/82 H 11/25/24 06:50 Pulse Ox 93 11/25/24 06:50 O2 Del Method Nasal Cannula 11/25/24 06:50 O2 Flow Rate 2 11/25/24 06:50 Oxygen Flow Rate 2 11/22/24 16:07 BMI result Body Mass Index 38.1 General: AO X 3, ill appearing Resp: cta bilateral, no accessory muscles used CVS: S1,S2,RRR GI: soft, non tender, non distended Neuro: motor grossly intact, alert Psych: appropriate affect, appropriate insight Objective Data Active Medications Acetaminophen (Acetaminophen 325 Mg Tablet) 975 mg PO Q6H PRN PRN Reason: Pain, Mild 1-3,fever,headache Last Admin: 11/23/24 10:39 Dose: 975 mg Documented By: YESSICA Apixaban (Apixaban 2.5 Mg Tablet) 2.5 mg PO BID [facility] Last Admin: 11/25/24 08:29 Dose: 2.5 mg Documented By: MARTHA Budesonide (Budesonide 180 Mcg Aer.Pow.Ba) 1 puff INHALE RBID [facility] Last Admin: 11/25/24 07:53 Dose: 1 puff Documented By: KHALIF Calcium Carbonate (Calcium Carbonate 750 Mg Tab.Chew) 750 mg PO Q4H PRN PRN Reason: Heartburn Ceftriaxone Sodium (Ceftriaxone Sodium 2 Gm Vial) 2 gm IVPUSH Q24H [facility] Last Admin: 11/24/24 17:32 Dose: 2 gm Documented By: MARTHA Cyclobenzaprine HCl (Cyclobenzaprine Hcl 5 Mg Tablet) 5 mg PO TID [facility] Last Admin: 11/25/24 08:29 Dose: 5 mg Documented By: MARTHA Dextrose (Dextrose 50 % 25 Gm/50 Ml Syringe) 25 gm IVPUSH Q15M PRN; Protocol PRN Reason: per Hypoglycemia Standing Ord. Gabapentin (Gabapentin 100 Mg Capsule) 100 mg PO TID [facility] Last Admin: 11/25/24 08:29 Dose: 100 mg Documented By: MARTHA Glucose (Glucose Gel 15 Gm Gel..Gram.) 15 gm PO Q15M PRN; Protocol PRN Reason: per Hypoglycemia Standing Ord. Hydromorphone HCl (Hydromorphone Hcl 1 Mg/Ml Syringe) 1 mg IVPUSH Q3H PRN; Protocol PRN Reason: Pain, Severe (Pain Scale 7-10) Last Admin: 11/25/24 08:30 Dose: 1 mg Documented By: MARTHA Insulin Glargine (Insulin Glargine,Hum.Rec.Anlog 100 Unit/Ml 10 Ml Vial) 20 unit SUBCUT BEDTIME [facility] Last Admin: 11/24/24 20:13 Dose: 20 unit Documented By: NATANAEL Insulin Human Lispro (Insulin Lispro 100 Unit/Ml 3 Ml Vial) 0 unit SUBCUT QIDACHS [facility]; Protocol Last Admin: 11/24/24 20:12 Dose: 2 unit Documented By: NATANAEL Levofloxacin (Levofloxacin 500 Mg Tablet) 500 mg PO Q24H [facility] Last Admin: 11/25/24 08:29 Dose: 500 mg Documented By: MARTHA Levothyroxine Sodium (Levothyroxine Sodium 88 Mcg Tablet) 88 mcg PO DAILY@0600 [facility] Last Admin: 11/25/24 05:25 Dose: 88 mcg Documented By: NATANAEL Magnesium Hydroxide (Milk Of Magnesia 30 Ml Oral.Susp) 30 ml PO DAILY PRN PRN Reason: Constipation Melatonin (Melatonin 3 Mg Tablet) 6 mg PO BEDTIME PRN PRN Reason: Insomnia Montelukast Sodium (Montelukast Sodium 10 Mg Tablet) 10 mg PO DAILY [facility] Last Admin: 11/25/24 08:29 Dose: 10 mg Documented By: MARTHA Olanzapine (Olanzapine 2.5 Mg Tablet) 2.5 mg PO DAILY [facility] Last Admin: 11/25/24 08:29 Dose: 2.5 mg Documented By: MARTHA Omeprazole (Omeprazole 20 Mg Capsule.Dr) 20 mg PO BID@0630,1630 [facility] Last Admin: 11/25/24 05:25 Dose: 20 mg Documented By: NATANAEL Oxycodone HCl (Oxycodone Hcl Immed Release 5 Mg Tablet) 5 mg PO Q6H PRN PRN Reason: Pain, Severe (Pain Scale 7-10) Last Admin: 11/25/24 05:26 Dose: 5 mg Documented By: NATANAEL Pravastatin Sodium (Pravastatin Sodium 40 Mg Tablet) 40 mg PO BEDTIME [facility] Last Admin: 11/24/24 20:01 Dose: 40 mg Documented By: NATANAEL Quetiapine Fumarate (Quetiapine Fumarate 50 Mg Tablet) 50 mg PO BEDTIME [facility] Last Admin: 11/24/24 20:01 Dose: 50 mg Documented By: NATANAEL Sodium Chloride (0.9 % Sodium Chloride Flush 3 Ml Syringe) 3 ml IVFLUSH QSHIFT [facility] Last Admin: 11/25/24 08:30 Dose: 3 ml Documented By: MARTHA Trazodone HCl (Trazodone Hcl 50 Mg Tablet) 150 mg PO BEDTIME PRN PRN Reason: Insomnia Last Admin: 11/23/24 21:18 Dose: 150 mg Documented By: NATANAEL Venlafaxine HCl (Venlafaxine Hcl Er 37.5 Mg Cap.Er.24h) 37.5 mg PO DAILY [facility] Last Admin: 11/25/24 08:29 Dose: 37.5 mg Documented By: MARTHA Venlafaxine HCl (Venlafaxine Hcl Er 75 Mg Cap.Er.24h) 75 mg PO DAILY [facility] Last Admin: 11/25/24 08:29 Dose: 75 mg Documented By: MARTHA Vitamin D (Cholecalciferol (Vitamin D3) 25 Mcg Tablet) 25 mcg PO DAILY [facility] Last Admin: 11/25/24 08:29 Dose: 25 mcg Documented By: MARTHA Labs 11/25/24 05:20 11/25/24 05:20 Labs: Laboratory Results - last 24 hr 11/24/24 11/24/24 11/24/24 11:24 16:05 20:08 MCV MCH MCHC RDW Plt Count MPV Immature Gran % (Auto) Neut % (Auto) Lymph % (Auto) Grimes % (Auto) Eos % (Auto) Baso % (Auto) Lymph # (Auto) Grimes # (Auto) Eos # (Auto) Baso # (Auto) Abs Immat Gran (auto) Absolute Neuts (auto) Absolute Nucleated RBC Nucleated RBC % (auto) Smear Tech's Comments Anion Gap Estim Creat Clear Calc Estimated GFR POC Glucose 168 H 158 H 163 H Random Glucose Calcium 11/25/24 11/25/24 11/25/24 05:20 05:20 05:20 MCV 91.3 91.9 MCH 30.8 30.8 MCHC 33.7 RDW Plt Count MPV Immature Gran % (Auto) Neut % (Auto) Lymph % (Auto) Grimes % (Auto) Eos % (Auto) Baso % (Auto) Lymph # (Auto) Grimes # (Auto) Eos # (Auto) Baso # (Auto) Abs Immat Gran (auto) Absolute Neuts (auto) Absolute Nucleated RBC Nucleated RBC % (auto) Smear Tech's Comments Anion Gap Estim Creat Clear Calc Estimated GFR POC Glucose Random Glucose Calcium 11/25/24 11/25/24 11/25/24 05:20 05:20 05:20 MCV MCH MCHC 33.5 RDW 12.4 12.3 Plt Count 334 326 MPV 11.0 Immature Gran % (Auto) Neut % (Auto) Lymph % (Auto) Grimes % (Auto) Eos % (Auto) Baso % (Auto) Lymph # (Auto) Grimes # (Auto) Eos # (Auto) Baso # (Auto) Abs Immat Gran (auto) Absolute Neuts (auto) Absolute Nucleated RBC Nucleated RBC % (auto) Smear Tech's Comments Anion Gap Estim Creat Clear Calc Estimated GFR POC Glucose Random Glucose Calcium 11/25/24 11/25/24 11/25/24 05:20 05:20 05:20 MCV MCH MCHC RDW Plt Count MPV 11.0 Immature Gran % (Auto) 0.5 H Neut % (Auto) 72.5 Lymph % (Auto) 17.3 L Grimes % (Auto) 9.1 Eos % (Auto) 0.2 Baso % (Auto) 0.4 Lymph # (Auto) 2.9 Grimes # (Auto) 1.5 H Eos # (Auto) 0.0 Baso # (Auto) 0.1 Abs Immat Gran (auto) 0.08 H Absolute Neuts (auto) 12.2 H Absolute Nucleated RBC 0.000 0.000 Nucleated RBC % (auto) 0.0 0.0 Smear Tech's Comments VERIFIED Anion Gap 20 Estim Creat Clear Calc 73.3 Estimated GFR 58 POC Glucose Random Glucose 198 H Calcium 10.4 H D 11/25/24 08:50 MCV MCH MCHC RDW Plt Count MPV Immature Gran % (Auto) Neut % (Auto) Lymph % (Auto) Grimes % (Auto) Eos % (Auto) Baso % (Auto) Lymph # (Auto) Grimes # (Auto) Eos # (Auto) Baso # (Auto) Abs Immat Gran (auto) Absolute Neuts (auto) Absolute Nucleated RBC Nucleated RBC % (auto) Smear Tech's Comments Anion Gap Estim Creat Clear Calc Estimated GFR POC Glucose 192 H Random Glucose Calcium Microbiology Microbiology Results: Microbiology 11/22/24 18:45 Urine Culture - Final Urine clean catch - Clean Catch Midstream Escherichia coli Enterococcus faecalis 11/22/24 16:30 Blood Culture - Preliminary Blood - Venous No growth after 48 hours. 11/22/24 16:34 Blood Culture - Preliminary Blood - Venous No growth after 48 hours. Assessment and Plan (1) History of pulmonary embolism: Status: Acute Plan 74F PMH htn, dm, pe on eliquis, bipolar, hyothryoid, laly, chronic hypoxic resp failure due to copd, hfref presented with ams Sepsis and acute metabolic encephalopathy due to urinary tract infection Continue ceftriaxone, add levaquin has pcn hives allergy cutlure with ecoli and e faecalis back pain check xr previously with sign of ankylosing spondylitis breast mass will need outpatient Us and biopsy Acute kidney injury resolved Diabetes Basal bolus insulin Hypertension Holding meds for hypotension Bipolar Continue mood stabilizers History of pulmonary embolism On Eliquis 2.5 mg b.i.d. unclear why low-dose, will increase to 5mg bid Obesity/LALY CPAP at night Weight loss recommended Hypothyroid Levothyroxine DNR/DNI reason for continued hospitalization: pain contorl Quality Stroke Does the patient have a stroke diagnosis?: No VTE Prior VTE?: Yes VTE Risk Level:: Medical - moderate - high VTE Device Contraindication: Treatment Not Indicated VTE Drug Contraindication: N/A - Med Ordered
[2024-11-25] MEDS: Insulin Lispro 100 UNIT/ML 3 ML VIAL SUBCUT ×4 (09:03→22:00)
[2024-11-25] MEDS: Lactated Ringers 1,000 ML 80 ML IVCONT ×2 (10:47→23:02)
[2024-11-25 11:32] LABS: Glucose, Whole Blood 183 mg/dL (60-115)
[2024-11-25 15:36] VITALS: BP 159/87; PULSE 91; RESP 18; TEMP 36.8; O2SAT 95
[2024-11-25 16:34] LABS: Glucose, Whole Blood 161 mg/dL (60-115)
[2024-11-25] MEDS: cefTRIAXone sodium 2 GM VIAL IVPUSH (17:11)
[2024-11-25 20:00] VITALS: BP 172/96; PULSE 94; RESP 18; TEMP 36.9; O2SAT 96
[2024-11-25 20:18] VITALS: PULSE 91; RESP 18; O2SAT 93
[2024-11-25] MEDS: Insulin Glargine,Hum.rec.anlog 100 UNIT/ML 10 ML VIAL 20 UNIT SUBCUT (20:31)
[2024-11-25] MEDS: QUEtiapine Fumarate 50 MG TABLET PO (20:32)
[2024-11-25] MEDS: Apixaban 5 MG TABLET PO (20:32)
[2024-11-25] MEDS: Pravastatin Sodium 40 MG TABLET PO (20:32)
[2024-11-25 21:03] LABS: Glucose, Whole Blood 159 mg/dL (60-115)
[2024-11-26] VITALS (7 sets, daily range): BP systolic 151–182; BP diastolic 72–87; PULSE 76–81; RESP 16–20; TEMP 36.6–37.2; O2SAT 92–95
[2024-11-26] MEDS: HYDROmorphone HCl 1 MG/ML SYRINGE IVPUSH ×6 (02:36→16:01)
[2024-11-26] MEDS: Levothyroxine Sodium 88 MCG TABLET PO (05:36)
[2024-11-26 06:54] LABS: Alanine Aminotransferase 12 U/L (0-31); Albumin Level 3.5 g/dL (3.5-5.0); Alkaline Phosphatase 72 U/L (39-117); Anion Gap 15 (12-20); Aspartate Amino Transferase 33 U/L (5-31); Bilirubin Direct 0.3 mg/dL (0.0-0.5); Bilirubin Total 0.5 mg/dL (0.0-1.0); Blood Urea Nitrogen 27 mg/dL (9-16); Calcium 9.5 mg/dL (8.4-10.2); Carbon Dioxide 30 mmol/L (22-29); Chloride 101 mmol/L (96-108); Creatinine Clr Calc Pharmacy 82.8; Estimated Glomerular Filt Rate > 60; Glucose Random 184 mg/dL (60-115); Potassium 3.2 mmol/L (3.3-5.1); Sodium 143 mmol/L (135-145); Total Protein 7.7 g/dL (6.5-8.0)
[2024-11-26 07:12] LABS: Hematocrit 45.5 % (37.0-47.0); Hemoglobin 15.3 g/dl (12.0-16.0); Mean Corpuscular HGB Conc 33.6 g/dl (31.0-35.0); Mean Corpuscular Hemoglobin 31.4 pg (27.0-33.0); Mean Corpuscular Volume 93.4 fL (80.0-98.0); Mean Platelet Volume 10.9 fL (9.4-12.3); Platelet Count 301 X10*3/uL (160-400); Red Blood Count 4.87 X10*6/uL (4.20-5.50); Red Cell Distribution Width 12.8 % (11.0-16.0); White Blood Count 15.4 X10*3/uL (4.8-10.8)
[2024-11-26] MEDS: oxyCODONE HCl Immed Release 5 MG TABLET PO ×2 (07:34→16:27)
[2024-11-26] MEDS: Potassium Chloride ER 20 MEQ TAB.ER.PRT 40 MEQ PO (07:34)
[2024-11-26] MEDS: Insulin Lispro 100 UNIT/ML 3 ML VIAL SUBCUT (07:34)
[2024-11-26 07:47] LABS: Glucose, Whole Blood 192 mg/dL (60-115)
[2024-11-26] MEDS: levoFLOXacin 500 MG TABLET PO (09:06)
[2024-11-26] MEDS: Montelukast Sodium 10 MG TABLET PO (09:06)
[2024-11-26] MEDS: OLANZapine 2.5 MG TABLET PO (09:06)
[2024-11-26] MEDS: Venlafaxine HCl ER 37.5 MG CAP.ER.24H PO (09:06)
[2024-11-26] MEDS: Cholecalciferol (Vitamin D3) 25 MCG TABLET PO (09:06)
[2024-11-26] MEDS: Apixaban 5 MG TABLET PO (09:06)
[2024-11-26] MEDS: Gabapentin 100 MG CAPSULE PO ×2 (09:06→16:01)
[2024-11-26] MEDS: Cyclobenzaprine HCl 5 MG TABLET PO ×2 (09:06→16:01)
[2024-11-26] MEDS: Venlafaxine HCl ER 75 MG CAP.ER.24H PO (09:07)
--- NOTE | 2024-11-26 09:08 | HO.PM.IMPN ---
Subjective Subjective Date of Service: 11/26/24 Interval History: back pain Physical Exam Vital Signs: Vital Signs: Last Vital Signs Temp 98.6 F 11/26/24 08:10 Pulse 76 11/26/24 08:10 Resp 18 11/26/24 08:10 BP 182/87 H 11/26/24 08:10 Pulse Ox 95 11/26/24 08:10 O2 Del Method CPAP 11/26/24 08:10 O2 Flow Rate 2 11/25/24 20:00 Oxygen Flow Rate 2 11/22/24 16:07 BMI result Body Mass Index 38.1 General: AO X 3, ill appearing, in pain bilateral breast masses as seen on ct chest, some discoloration on left nipple (exam with RN child support investigator) Resp: cta bilateral, no accessory muscles used CVS: S1,S2,RRR GI: soft, non tender, non distended Neuro: motor grossly intact, alert Objective Data Active Medications Acetaminophen (Acetaminophen 325 Mg Tablet) 975 mg PO Q6H PRN PRN Reason: Pain, Mild 1-3,fever,headache Last Admin: 11/23/24 10:39 Dose: 975 mg Documented By: YESSICA Apixaban (Apixaban 5 Mg Tablet) 5 mg PO BID [facility] Last Admin: 11/26/24 09:06 Dose: 5 mg Documented By: RONALD Budesonide (Budesonide 180 Mcg Aer.Pow.Ba) 1 puff INHALE RBID [facility] Last Admin: 11/26/24 08:26 Dose: Not Given Documented By: JUANA Non-Admin Reason: Patient Refused Calcium Carbonate (Calcium Carbonate 750 Mg Tab.Chew) 750 mg PO Q4H PRN PRN Reason: Heartburn Ceftriaxone Sodium (Ceftriaxone Sodium 2 Gm Vial) 2 gm IVPUSH Q24H [facility] Last Admin: 11/25/24 17:11 Dose: 2 gm Documented By: MARTHA Cyclobenzaprine HCl (Cyclobenzaprine Hcl 5 Mg Tablet) 5 mg PO TID [facility] Last Admin: 11/26/24 09:06 Dose: 5 mg Documented By: RONALD Dextrose (Dextrose 50 % 25 Gm/50 Ml Syringe) 25 gm IVPUSH Q15M PRN; Protocol PRN Reason: per Hypoglycemia Standing Ord. Gabapentin (Gabapentin 100 Mg Capsule) 100 mg PO TID [facility] Last Admin: 11/26/24 09:06 Dose: 100 mg Documented By: RONALD Glucose (Glucose Gel 15 Gm Gel..Gram.) 15 gm PO Q15M PRN; Protocol PRN Reason: per Hypoglycemia Standing Ord. Hydromorphone HCl (Hydromorphone Hcl 1 Mg/Ml Syringe) 1 mg IVPUSH Q3H PRN; Protocol PRN Reason: Pain, Severe (Pain Scale 7-10) Last Admin: 11/26/24 09:01 Dose: 1 mg Documented By: RONALD Lactated Ringer's (Lr) 1,000 mls @ 80 mls/hr IVCONT .[id number] [facility] Last Admin: 11/25/24 23:02 Dose: 80 mls/hr Documented By: JUAQUIN Insulin Glargine (Insulin Glargine,Hum.Rec.Anlog 100 Unit/Ml 10 Ml Vial) 20 unit SUBCUT BEDTIME [facility] Last Admin: 11/25/24 20:31 Dose: 20 unit Documented By: JUAQUIN Insulin Human Lispro (Insulin Lispro 100 Unit/Ml 3 Ml Vial) 0 unit SUBCUT QIDACHS [facility]; Protocol Last Admin: 11/26/24 07:34 Dose: 2 unit Documented By: KRISTEN Levofloxacin (Levofloxacin 500 Mg Tablet) 500 mg PO Q24H [facility] Last Admin: 11/26/24 09:06 Dose: 500 mg Documented By: RONALD Levothyroxine Sodium (Levothyroxine Sodium 88 Mcg Tablet) 88 mcg PO DAILY@0600 [facility] Last Admin: 11/26/24 05:36 Dose: 88 mcg Documented By: JUAQUIN Magnesium Hydroxide (Milk Of Magnesia 30 Ml Oral.Susp) 30 ml PO DAILY PRN PRN Reason: Constipation Melatonin (Melatonin 3 Mg Tablet) 6 mg PO BEDTIME PRN PRN Reason: Insomnia Montelukast Sodium (Montelukast Sodium 10 Mg Tablet) 10 mg PO DAILY [facility] Last Admin: 11/26/24 09:06 Dose: 10 mg Documented By: RONALD Olanzapine (Olanzapine 2.5 Mg Tablet) 2.5 mg PO DAILY [facility] Last Admin: 11/26/24 09:06 Dose: 2.5 mg Documented By: RONALD Omeprazole (Omeprazole 20 Mg Vanda.) 20 mg PO BID@0630,1630 [facility] Last Admin: 11/26/24 07:35 Dose: Not Given Documented By: KRISTEN Non-Admin Reason: pulled by prev rn and never documented Oxycodone HCl (Oxycodone Hcl Immed Release 5 Mg Tablet) 5 mg PO Q6H PRN PRN Reason: Pain, Severe (Pain Scale 7-10) Last Admin: 11/26/24 07:34 Dose: 5 mg Documented By: KRISTEN Pravastatin Sodium (Pravastatin Sodium 40 Mg Tablet) 40 mg PO BEDTIME [facility] Last Admin: 11/25/24 20:32 Dose: 40 mg Documented By: JUAQUIN Quetiapine Fumarate (Quetiapine Fumarate 50 Mg Tablet) 50 mg PO BEDTIME [facility] Last Admin: 11/25/24 20:32 Dose: 50 mg Documented By: JUAQUIN Sodium Chloride (0.9 % Sodium Chloride Flush 3 Ml Syringe) 3 ml IVFLUSH QSHIFT [facility] Last Admin: 11/26/24 07:35 Dose: Not Given Documented By: KRISTEN Non-Admin Reason: Previously Administered Trazodone HCl (Trazodone Hcl 50 Mg Tablet) 150 mg PO BEDTIME PRN PRN Reason: Insomnia Last Admin: 11/23/24 21:18 Dose: 150 mg Documented By: NATANAEL Venlafaxine HCl (Venlafaxine Hcl Er 37.5 Mg Cap.Er.24h) 37.5 mg PO DAILY [facility] Last Admin: 11/26/24 09:06 Dose: 37.5 mg Documented By: RONALD Venlafaxine HCl (Venlafaxine Hcl Er 75 Mg Cap.Er.24h) 75 mg PO DAILY [facility] Last Admin: 11/26/24 09:07 Dose: 75 mg Documented By: RONALD Vitamin D (Cholecalciferol (Vitamin D3) 25 Mcg Tablet) 25 mcg PO DAILY [facility] Last Admin: 11/26/24 09:06 Dose: 25 mcg Documented By: RONALD Labs 11/26/24 06:03 11/26/24 06:03 Labs: Laboratory Results - last 24 hr 11/25/24 11/25/24 11/25/24 11:25 16:28 20:55 MCV MCH MCHC RDW Plt Count MPV Absolute Nucleated RBC Nucleated RBC % (auto) Anion Gap Estim Creat Clear Calc Estimated GFR POC Glucose 183 H 161 H 159 H Random Glucose Calcium Magnesium Total Bilirubin Direct Bilirubin AST ALT Alkaline Phosphatase Total Protein Albumin 11/26/24 11/26/24 06:03 07:29 MCV 93.4 MCH 31.4 MCHC 33.6 RDW 12.8 Plt Count 301 MPV 10.9 Absolute Nucleated RBC 0.000 Nucleated RBC % (auto) 0.0 Anion Gap 15 Estim Creat Clear Calc 82.8 Estimated GFR > 60 POC Glucose 192 H Random Glucose 184 H Calcium 9.5 D Magnesium 2.0 Total Bilirubin 0.5 Direct Bilirubin 0.3 AST 33 H ALT 12 Alkaline Phosphatase 72 Total Protein 7.7 Albumin 3.5 Microbiology Microbiology Results: Microbiology 11/22/24 18:45 Urine Culture - Final Urine clean catch - Clean Catch Midstream Escherichia coli Enterococcus faecalis Assessment and Plan (1) History of pulmonary embolism: Status: Acute Plan 74F PMH htn, dm, pe on eliquis, bipolar, hyothryoid, laly, chronic hypoxic resp failure due to copd, hfref presented with ams Sepsis and acute metabolic encephalopathy due to urinary tract infection Continue ceftriaxone, levaquin has pcn hives allergy culture with ecoli and e faecalis back pain check CT previously with sign of ankylosing spondylitis breast masses will need outpatient Us and biopsy Acute kidney injury resolved Diabetes Basal bolus insulin Hypertension meds initially held for low bps, now elevated, will restart amlodipnie 2.5mg dialy and clonidine 0.2mg bedtime will continue to hold lisinopirl and hctz for now Bipolar Continue mood stabilizers History of pulmonary embolism On Eliquis 2.5 mg b.i.d. unclear why low-dose, increased to 5mg bid chronic leukocytosis ?myeloproliferative disorder check jak2, outpatient hemotology follow up Obesity/LALY CPAP at night Weight loss recommended Hypothyroid Levothyroxine DNR/DNI reason for continued hospitalization: pain contorl Quality Stroke Does the patient have a stroke diagnosis?: No VTE Prior VTE?: Yes VTE Risk Level:: Medical - moderate - high VTE Device Contraindication: Treatment Not Indicated VTE Drug Contraindication: N/A - Med Ordered
--- NOTE | 2024-11-26 09:13 | PC.NURSE ---
PT starteing to get gunk build up in mouth. Encourage pt to brush mouth and teeth- pt declioned. Was able to convince pt to use mouth sponge to brush teeth with. Encouraged to drink water as pt states mouth dry as well. Pt nose starting to get pink on bridge of nose under CPAP device- educated pt on prevention of device related skin injury. Pt declined any skin care to the area. Will try to attempt again with pt and re-edu through the day. Pt did allow up to repo her and float heels off pillow with pink foams in place on heels for protection.
[2024-11-26] MEDS: amLODIPine Besylate 2.5 MG TABLET PO (10:20)
--- NOTE | 2024-11-26 10:33 | MHC.CM.PN ---
Patient not medically cleared for dc at this time. PT eval pending. CM will continue to follow.
[2024-11-26] MEDS: Lactated Ringers 1,000 ML 80 ML IVCONT (11:24)
[2024-11-26] MEDS: diazePAM 10 MG/2 ML CARTRIDGE 5 MG IVPUSH (11:25)
[2024-11-26 13:07] LABS: Glucose, Whole Blood 150 mg/dL (60-115)
--- NOTE | 2024-11-26 14:36 | P.DS_ITS ---
DS: Providers Provider Date of Service: 11/26/24 Date of admission: 11/22/24 21:31 Date of discharge: 11/26/24 Primary care physician: Conor Rome MD DS: Diagnosis Discharge Diagnosis (1) History of pulmonary embolism: Status: Acute DS: Summary Hospital Course Hospital Course: from initial hpi: 74-year-old female with a past history significant for hypertension, type 2 diabetes on insulin, history of PE on Eliquis, asthma / COPD overlap, bipolar 1, hypothyroid, LALY on CPAP, chronic respiratory failure and HFrEF, who presented to the ED due to altered mental status, lethargy and hypotension. The patient is altered and slow to respond but denies any chest pain, shortness of breath, nausea or vomiting. She denies any urinary symptoms including frequency, urgency, hematuria or dysuria. hospital course: Patient initially admitted for sepsis and acute metabolic encephalopathy due to urinary tract infection which grew E coli and Enterococcus faecalis was treated with ceftriaxone and then levofloxacin was added. Sepsis resolved mental status returned to baseline. For hypertension meds were initially held due to relative hypotension but then blood pressure improved and meds restarted. For history of breast masses should follow up outpatient with ultrasound and biopsy. For acute kidney injury this resolved. For diabetes continued on basal bolus insulin. For bipolar disorder continued on mood stabilizer. For chronic leukocytosis there is a question of myeloproliferative disorder and should follow up JAK2 that was drawn and follow up outpatient with Oncology. For history of pulmonary embolism patient appears to be on low-dose Eliquis unclear why should be 5 mg b.i.d.. For obesity/LALY was continued on CPAP at night. For hypothyroid was continued on levothyroxine. During hospitalization patient continued to comp domo of her chronic back pain but reported that it was more severe than usual, especially since fall 2 weeks prior to presentation. Initially did not want to go down for repeat imaging. However on 11/26/2024 underwent CAT scan which revealed unstable T12 vertebral fracture. Patient is not showing any obvious neuro deficits but exam is limited by pain. Discussion was had with Neurosurgery at [place] and will be transferred for further evaluation and management. Accepting physician is Dr. Ewing. Time Attestation Discharge Coordination Time (in mins): 33 Quality: Safe Use of Opioids Does Pt have an Active Cancer Diagnosis on the Problem List?: No Quality: Stroke Does the patient have a stroke diagnosis?: No Physical Exam Vital Signs: Vital Signs: Last Vital Signs Temp 98.6 F 11/26/24 08:10 Pulse 76 11/26/24 08:10 Resp 16 11/26/24 13:05 BP 174/86 H 11/26/24 10:20 Pulse Ox 95 11/26/24 08:10 O2 Del Method CPAP 11/26/24 08:10 O2 Flow Rate 2 11/25/24 20:00 Oxygen Flow Rate 2 11/22/24 16:07 BMI result Body Mass Index 38.1 General: AO X 3, in pain Resp: CTA bilateral, no accessory muscles used CVS: S1,S2,RRR GI: soft, non tender, non distended Neuro: motor and sensory grossly intact but limited by pain, alert Psych: appropriate affect, appropriate insight DS: Data Data Completed and Pending Labs on day of discharge: Laboratory Results - last 24 hr 11/25/24 11/25/24 11/26/24 16:28 20:55 06:03 WBC 15.4 H RBC 4.87 Hgb 15.3 Hct 45.5 MCV 93.4 MCH 31.4 MCHC 33.6 RDW 12.8 Plt Count 301 MPV 10.9 Absolute Nucleated RBC 0.000 Nucleated RBC % (auto) 0.0 Sodium 143 Potassium 3.2 L Chloride 101 Carbon Dioxide 30 H Anion Gap 15 BUN 27 H Creatinine 0.84 Estim Creat Clear Calc 82.8 Estimated GFR > 60 POC Glucose 161 H 159 H Random Glucose 184 H Calcium 9.5 D Magnesium 2.0 Total Bilirubin 0.5 Direct Bilirubin 0.3 AST 33 H ALT 12 Alkaline Phosphatase 72 Total Protein 7.7 Albumin 3.5 11/26/24 11/26/24 07:29 12:59 WBC RBC Hgb Hct MCV MCH MCHC RDW Plt Count MPV Absolute Nucleated RBC Nucleated RBC % (auto) Sodium Potassium Chloride Carbon Dioxide Anion Gap BUN Creatinine Estim Creat Clear Calc Estimated GFR POC Glucose 192 H 150 H Random Glucose Calcium Magnesium Total Bilirubin Direct Bilirubin AST ALT Alkaline Phosphatase Total Protein Albumin Preliminary micro results at discharge 11/22/24 16:30 Blood Culture - Preliminary Blood - Venous No growth after 48 hours. 11/22/24 16:34 Blood Culture - Preliminary Blood - Venous No growth after 48 hours. Discharge Plan Discharge Anticipated Discharge Date/Time: 11/26/24 14:32 Patient Disposition: Xfer Acute Care Hospital Discharge Diagnosis: t12 fracture, uti Referrals: Sonia Wheeler MD [Physician] - 1 Week (breast masses, chronic leukocytosis) Dirk Nam MD [Physician] - 1 Week (breast lesion) Conor Rome MD [Primary Care Provider] - 1 Week Discharge Medications: New ceftriaxone 2 gram Recon Soln 2 g IVPUSH Q24H Qty: 0 0RF levofloxacin 500 mg Tablet 500 mg PO Q24H Qty: 0 0RF Continued cholecalciferol (vitamin D3) 25 mcg (1,000 unit) Capsule 25 mcg PO DAILY lisinopril-hydrochlorothiazide 20-25 mg tablet 1 tab PO DAILY 30 Days Qty: 30 0RF Januvia 100 mg Tablet 100 mg PO DAILY Qty: 30 0RF furosemide 20 mg tablet 20 mg PO DAILY venlafaxine 75 mg capsule,extended release 24hr 75 mg PO DAILY gabapentin 100 mg capsule 100 mg PO TID levothyroxine 88 mcg tablet 88 mcg PO DAILY@0600 glipizide 10 mg tablet 10 tab PO BID montelukast 10 mg tablet 10 mg PO DAILY oxycodone 20 mg tablet 20 mg PO TID@0600,1400,2200 PRN (Reason: Pain) olanzapine 2.5 mg tablet 2.5 mg PO DAILY venlafaxine 37.5 mg capsule,extended release 24hr 37.5 mg PO DAILY ipratropium-albuterol 0.5 mg-3 mg(2.5 mg base)/3 mL Solution For Nebulization 3 ml INHALATION Q4H PRN (Reason: Shortness Of Breath Or Wheezing) lidocaine 4 % Adhesive Patch,Medicated 1 patch TOPICAL DAILY pravastatin 40 mg Tablet 40 mg PO BEDTIME amlodipine 2.5 mg Tablet 2.5 mg PO DAILY tramadol 50 mg Tablet 25 mg PO DAILY PRN (Reason: Lower Back Pain) acetaminophen 500 mg Tablet 1,000 mg PO TID PRN (Reason: Pain, Moderate) clonidine HCl 0.2 mg Tablet 0.2 mg PO BEDTIME magnesium hydroxide [Milk of Magnesia] 400 mg/5 mL Suspension 30 ml PO DAILY PRN (Reason: Constipation) Rx Instructions: If no BM in 3 days. bisacodyl 10 mg Suppository 10 mg NV DAILY PRN (Reason: Constipation) Rx Instructions: If MoM not effective. trazodone 150 mg Tablet 150 mg PO BEDTIME PRN (Reason: Insomnia) Fleet Enema 19-7 gram/118 mL Enema 118 ml NV DAILY PRN (Reason: Constipation) Rx Instructions: When Dulcolax not effective. docusate sodium 100 mg Capsule 100 mg PO BID insulin lispro [Humalog U-100 Insulin] 100 unit/mL Solution 1 sliding scale dose SUBCUT USEASDIRECTD Protocol: Insulin Correction Scale Less than or equal to 110 ---- Give (units): 0 111 to 150 Give (units): 0 151 to 200 Give (units): 1 201 to 250 Give (units): 2 251 to 300 Give (units): 3 301 to 350 Give (units): 6 Greater than 350 Give (units): 10 Call MD if Blood Glucose > : 400 quetiapine 50 mg Tablet 50 mg PO BEDTIME Pulmicort Flexhaler 180 mcg/actuation Aerosol Powdr Breath Activated 1 inh INHALATION BID insulin glargine [Basaglar KwikPen U-100 Insulin] 100 unit/mL (3 mL) Insulin Pen 20 unit SUBCUT BEDTIME omeprazole 20 mg Tablet,Delayed Release (Dr/Ec) 20 mg PO BID@0630,1630 melatonin 5 mg Capsule 5 mg PO BEDTIME Asmanex HFA 100 mcg/actuation Hfa Aerosol Inhaler 2 inh INHALATION BID naloxone [Narcan] 4 mg/actuation [place],Non-Aerosol 4 mg INTRANASAL Q3M PRN (Reason: Opioid Overdose) Rx Instructions: spray 1 dose into ONE nostril; alternate nostrils w each dose until help arrives albuterol sulfate 2.5 mg /3 mL (0.083 %) Solution For Nebulization 2.5 mg INHALATION Q4H PRN (Reason: Shortness Of Breath Or Wheezing) sodium chloride 0.9 % Solution 75 ml IV DAILY Held Eliquis 2.5 mg tablet 2.5 mg PO BID Hold Instructions: Resume on 12/11/24. Discharge Orders: Discharge Order (Routine); Ordered 11/26/24 Ordered By: Taqueria Linda Diet: Advance to usual diet Activity on Discharge: As tolerated Stand Alone Forms: Patient Portal Discharge page Print Language: Serbian Other Ambulatory Orders: US breast ndl core biopsy LT (Routine) Timeframe: 1 Week Facility: [facility] - Location: Ultrasound Ordered By: Taqueria Linda Care Plan Goals: recovery Health Concerns: t12 fracture, uti, leukocytosis, breast masses Plan of Treatment: transfer to [facility] completed rocephin, levaquin course follow up breast masses and leukocytosis Assessment: see above
[2024-11-26] MEDS: 0.9 % Sodium Chloride Flush 3 ML SYRINGE IVFLUSH (16:01)
[2024-11-26 16:27] LABS: Glucose, Whole Blood 134 mg/dL (60-115)
[2024-11-26] MEDS: cefTRIAXone sodium 2 GM VIAL IVPUSH (16:27)
[2024-11-26] MEDS: Omeprazole 20 MG CAPSULE.DR PO (16:28)
== END 2024-11-26 16:50 | disposition short-term general hospital (02) | DRG 871 ==
LOC: HO.ED 17:01 → HO.EDOVER 21:36 → HO.S3 23:46
PROVIDERS: Admitting Provider Physician Assistant; Emergency Provider Internal Medicine; PCP Internal Medicine; Visit Provider Internal Medicine
DX: A41.9 Sepsis, unspecified organism (principal); G93.41 Metabolic encephalopathy; N17.9 Acute kidney failure, unspecified; N39.0 Urinary tract infection, site not specified; J98.11 Atelectasis; I50.22 Chronic systolic (congestive) heart failure; M84.48XA Pathological fracture, other site, initial encounter for fracture; E03.9 Hypothyroidism, unspecified; F31.9 Bipolar disorder, unspecified; I11.0 Hypertensive heart disease with heart failure; E11.9 Type 2 diabetes mellitus without complications; J44.9 Chronic obstructive pulmonary disease, unspecified; E66.813 Obesity, class 3; Z71.3 Dietary counseling and surveillance; Z68.38 Body mass index [BMI] 38.0-38.9, adult; G47.33 Obstructive sleep apnea (adult) (pediatric); N63.10 Unspecified lump in the right breast, unspecified quadrant; B95.2 Enterococcus as the cause of diseases classified elsewhere; B96.20 Unspecified Escherichia coli [E. coli] as the cause of diseases classified elsewhere; Z86.711 Personal history of pulmonary embolism; Z20.822 Contact with and (suspected) exposure to COVID-19; Z66 Do not resuscitate; Z74.01 Bed confinement status; Z79.01 Long term (current) use of anticoagulants; Z79.890 Hormone replacement therapy; Z79.899 Other long term (current) drug therapy
CPT/HCPCS: 0241U; 36415; 71045; 74176; 76775; 80048; 80053; 80076; 81001; 81219; 81270; 81279; 81339; 82140; 82803; 82947; 83605; 83735; 83880; 84443; 84484; 85025; 85027; 87040; 87086; 87088; 87186; 93005; 94640; 94660; 99285; J0696; J1171; J3360; J3475; J7120; P9047

== ENCOUNTER → 2024-11-22 16:26 | Outpatient (BNV) | payer MEDICARE, SELFPAY | PROVIDERS: Emergency Provider Internal Medicine; PCP Internal Medicine; Visit Provider Specialist | DX: I51.7 Cardiomegaly (principal); J98.4 Other disorders of lung; R91.8 Other nonspecific abnormal finding of lung field | CPT/HCPCS: 71045 ==

== ENCOUNTER → 2024-11-22 18:21 | Outpatient (BNV) | payer MEDICARE, SELFPAY | PROVIDERS: Admitting Provider Physician Assistant; Emergency Provider Internal Medicine; PCP Internal Medicine; Visit Provider Internal Medicine | DX: I51.7 Cardiomegaly (principal) | CPT/HCPCS: 93010 ==

== ENCOUNTER 2024-11-22 21:31 | Outpatient (BNV) | payer MEDICARE, SELFPAY | END 2024-11-26 12:31 | PROVIDERS: Admitting Provider Physician Assistant; Emergency Provider Internal Medicine; PCP Internal Medicine; Visit Provider Radiology Diagnostic Radiology | DX: I51.7 Cardiomegaly (principal); R91.8 Other nonspecific abnormal finding of lung field | CPT/HCPCS: 74176 ==

== ENCOUNTER 2024-11-22 21:31 | Outpatient (BNV) | payer MEDICARE, SELFPAY | END 2024-11-23 07:00 | PROVIDERS: Admitting Provider Physician Assistant; Emergency Provider Internal Medicine; PCP Internal Medicine; Visit Provider Radiology Diagnostic Radiology | DX: M54.50 Low back pain, unspecified (principal); R10.9 Unspecified abdominal pain | CPT/HCPCS: 76775 ==

== ENCOUNTER → 2024-11-22 21:31 | Outpatient (BNV) | payer MEDICARE, SELFPAY | PROVIDERS: Admitting Provider Physician Assistant; Emergency Provider Internal Medicine; PCP Internal Medicine; Visit Provider Internal Medicine | DX: Z86.711 Personal history of pulmonary embolism (principal) | CPT/HCPCS: 99223; 99233; 99239; 99499 ==